=== PATIENT | male | born 1930 | race Caucasian/White ===

== ENCOUNTER 2017-03-03 13:09 | Emergency (ER) | payer MEDICARE ==
[2017-03-03 13:33] VITALS: BP 105/72
--- NOTE | 2017-03-03 14:14 | EDM.PDOC ---
ED HPI GENERAL MEDICAL PROBLEM - General Chief Complaint: Respiratory Problem Stated Complaint: BREATHING PROBLEMS/SPASMS Time Seen by Provider: 03/03/17 13:50 Source of Information: Reports: Patient History Limitations: Reports: No Limitations - History of Present Illness INITIAL COMMENTS - FREE TEXT/NARRATIVE: 86-year-old male, [facility], was recently discharged from the [facility] for congestive heart failure. He is due to be readmitted in one week for a valve replacement and bypass or cardiac stent. He was having difficulties with brief episodes of dyspnea once or twice daily that only lasted 1-2 minutes, was seen in the clinic yesterday for a metered-dose inhaler refill but that doesn't seem to be helping. Today he's having an episode every 15-20 minutes, but it still last only 1-2 minutes. In the ER he is comfortable. Onset: Unknown/Unsure Duration: Minutes: (Symptoms only last 1-2 minutes) Severity: Mild Associated Symptoms: Reports: Shortness of Breath. Denies: Diaphoresis, Malaise , Nausea/Vomiting, Weakness - Related Data Allergies Allergy/AdvReac Type Severity Reaction Status Date / Time No Known Allergies Allergy Verified 03/04/17 13:19 Home Meds: Home Meds Aspirin 81 mg PO DAILY 03/03/17 [History] Doxazosin Mesylate [Cardura] 8 mg PO DAILY 03/03/17 [History] Emollient [Vanicream] 1 appful TOP BID 03/03/17 [History] Furosemide 20 mg PO DAILY 03/03/17 [History] Metoprolol Succinate [Toprol XL] 12.5 mg PO BEDTIME 03/03/17 [History] Oxybutynin 5 mg PO DAILY 03/03/17 [History] Pantoprazole [ProTONIX] 40 mg PO DAILY 03/03/17 [History] Spironolact/Hydrochlorothiazid [Spironolactone-HCTZ 25-25] 1 tab PO DAILY [History] atorvaSTATin [Lipitor] 80 mg PO DAILY 03/03/17 [History] Past Medical History Cardiovascular History: Reports: Bypass, Other (See Below) Other Cardiovascular History: quad bipass Social & Family History - Tobacco Use Smoking Status *Q: Never Smoker - Caffeine Use Caffeine Use: Reports: Coffee, Soda - Recreational Drug Use Recreational Drug Use: No ED ROS GENERAL - Review of Systems Review Of Systems: See Below Constitutional: Reports: Malaise. Denies: Fever, Chills HEENT: Reports: No Symptoms Respiratory: Reports: Shortness of Breath. Denies: Pleuritic Chest Pain Cardiovascular: Denies: Chest Pain, Dyspnea on Exertion, Syncope GI/Abdominal: Reports: Abdominal Pain (Intermittent epigastric and central abdominal discomfort) : Reports: No Symptoms Skin: Reports: Bruising (Scattered light bruising) Neurological: Reports: No Symptoms Psychiatric: Reports: No Symptoms ED EXAM, GENERAL - Physical Exam Exam: See Below Exam Limited By: No Limitations General Appearance: Alert, No Apparent Distress Eye Exam: Bilateral Eye: EOMI Throat/Mouth: Normal Inspection Head: Atraumatic Neck: Normal Inspection Respiratory/Chest: No Respiratory Distress, Decreased Breath Sounds (Right base has decreased breath sounds) Cardiovascular: Regular Rate, Rhythm, Systolic Murmur (2/6). No: Extra Beats GI/Abdominal: Soft, Non-Tender Extremities: Pedal Edema (1+ symmetric pitting edema to the knees) Neurological: Alert, Oriented Psychiatric: Normal Affect, Normal Mood Course - Vital Signs Last Recorded V/S: Last Vital Signs Temp 96.3 F 03/03/17 13:33 Pulse 88 03/03/17 13:33 Resp 18 03/03/17 13:33 BP 105/72 03/03/17 13:33 Pulse Ox 96 03/03/17 13:33 - Orders/Labs/Meds Labs: Laboratory Tests 03/03/17 03/03/17 Range/Units 14:17 14:17 WBC 9.7 (4.5-11.0) K/uL RBC 5.25 (4.30-5.90) M/uL Hgb 13.2 (12.0-15.0) g/dL Hct 39.8 L (40.0-54.0) % MCV 76 L (80-98) fL MCH 25 L (27-31) pg MCHC 33 (32-36) % Plt Count 221 (150-400) K/uL Neut % (Auto) 74 H (36-66) % Lymph % (Auto) 10 L (24-44) % [place] % (Auto) 14 H (2-6) % Eos % (Auto) 2 (2-4) % Baso % (Auto) 1 (0-1) % Sodium 137 L (140-148) mmol/L Potassium 5.2 (3.6-5.2) mmol/L Chloride 102 (100-108) mmol/L Carbon Dioxide 28 (21-32) mmol/L Anion Gap 12.2 (5.0-14.0) mmol/L BUN 40 H (7-18) mg/dL Creatinine 2.5 H (0.8-1.3) mg/dL Est Cr Clr Drug Dosing 20.20 mL/min Estimated GFR (MDRD) 25 L (>60) Glucose 120 H (74-106) mg/dL Calcium 8.8 (8.5-10.1) mg/dL - Re-Assessments/Exams Free Text/Narrative Re-Assessment/Exam: 03/03/17 14:55 A two-view chest x-ray was done which showed a small right pleural effusion and cardiomegaly. This was compared with a chest x-ray from September and was much improved. CBC was normal. Potassium was 5.2, and his renal insufficiency has advanced from his levels in September. GFR was 41, it is now 25. This was explained to the patient and his family, I have no explanation for his intermittent very brief episodes of dyspnea. I do not think any treatment changes need to be done at this time and he can return as needed and will be expected to go down to the [place] next week for his surgeries as planned. Departure - Departure Time of Disposition: 15:09 Disposition: Home, Self-Care 01 Condition: Fair Clinical Impression: Shortness of breath, Peripheral edema Renal failure Qualifiers: Renal failure chronicity: chronic Chronic kidney disease stage: stage 3 ( moderate) Qualified Code(s): N18.3 - Chronic kidney disease, stage 3 (moderate) - Discharge Information Instructions: Shortness of Breath, [id number] Referrals: PCP,None [Primary Care Provider] - Forms: ED Department Discharge Care Plan Goals: Continue your medications but hold any potassium over the weekend. Return anytime if worsening or concerns, otherwise [facility]
--- NOTE | 2017-03-03 14:37 | CR ---
Cardia mentally. Sternotomy. Small pleural effusion right lung base with atelectasis or infiltrate. P ulmonary vasculature upper limits of normal. There is a round radiopaque nodular density which may be within the right lung base. This may indicate calcified granuloma but not definitive. This could be confirmed with CT or comparison films.
== END 2017-03-03 15:09 | disposition home or self-care (01) ==
LOC: JP.ED 13:09
DX: R06.02 Shortness of breath (principal); N18.3 Chronic kidney disease, stage 3 (moderate); I50.9 Heart failure, unspecified; Z79.82 Long term (current) use of aspirin; Z79.899 Other long term (current) drug therapy; Z95.1 Presence of aortocoronary bypass graft
CPT/HCPCS: 36415; 71020; 71020-26; 80048; 85025; 99284; 99285

== ENCOUNTER 2017-03-04 12:56 | Inpatient (IN) | payer MEDICARE ==
--- NOTE | 2017-03-04 13:54 | EDM.PDOC ---
ED HPI GENERAL MEDICAL PROBLEM - General Chief Complaint: Abdominal Pain Stated Complaint: ABD PAIN (WAS HERE YESTERDAY) Time Seen by Provider: 03/04/17 13:54 Source of Information: Reports: Patient, Family History Limitations: Reports: No Limitations - History of Present Illness INITIAL COMMENTS - FREE TEXT/NARRATIVE: pt arrived stating that he has lower abdomanal pain. He also had some sharp pain in th rt abdoman. He was seen here yesterday and was quite sob. He was treated by Dr root and felt better when he left. He then developed the abdomanal pain today and was quite uncomfortable. Onset: Gradual Duration: Day(s): Location: Reports: Chest, Abdomen Associated Symptoms: Reports: Loss of Appetite, Shortness of Breath Abdomen Pain Score (Numeric/FACES): 8 - Related Data Allergies Allergy/AdvReac Type Severity Reaction Status Date / Time No Known Allergies Allergy Verified 03/04/17 13:19 Home Meds: Home Meds Aspirin 81 mg PO DAILY 03/03/17 [History] Doxazosin Mesylate [Cardura] 8 mg PO DAILY 03/03/17 [History] Emollient [Vanicream] 1 appful TOP BID 03/03/17 [History] Furosemide 20 mg PO DAILY 03/03/17 [History] Metoprolol Succinate [Toprol XL] 12.5 mg PO BEDTIME 03/03/17 [History] Oxybutynin 5 mg PO DAILY 03/03/17 [History] Pantoprazole [ProTONIX] 40 mg PO DAILY 03/03/17 [History] Spironolact/Hydrochlorothiazid [Spironolactone-HCTZ 25-25] 1 tab PO DAILY [History] atorvaSTATin [Lipitor] 80 mg PO DAILY 03/03/17 [History] Past Medical History HEENT History: Reports: Impaired Vision Cardiovascular History: Reports: Bypass, Other (See Below) Other Cardiovascular History: quad bipass Respiratory History: Reports: SOB Gastrointestinal History: Reports: GERD Social & Family History - Tobacco Use Smoking Status *Q: Never Smoker - Caffeine Use Caffeine Use: Reports: Coffee - Recreational Drug Use Recreational Drug Use: No ED ROS GENERAL - Review of Systems Review Of Systems: See Below Constitutional: Reports: No Symptoms, Decreased Appetite HEENT: Reports: No Symptoms Respiratory: Reports: Shortness of Breath, Other ( known bilateral pleural effusions. ) Cardiovascular: Reports: No Symptoms Endocrine: Reports: No Symptoms GI/Abdominal: Reports: Abdominal Pain, Other (pt describes pain accross the lower abdoman He also had sharp pain in the rt side. ) : Reports: No Symptoms Musculoskeletal: Reports: Hand Pain Skin: Reports: No Symptoms ED EXAM, GI/ABD - Physical Exam Exam: See Below Text/Narrative:: pt arrived with pain in his lower abdoman. He also had sharp pin in the rt abdoman. Exam Limited By: No Limitations General Appearance: Alert, Anxious, Mild Distress, Other (pt states the severe pain was gone by th time he got here. ) Ears: Normal TMs Nose: Normal Inspection Throat/Mouth: Normal Inspection Head: Atraumatic Neck: Normal Inspection Respiratory/Chest: Decreased Breath Sounds, Other (pt is sob with any activity. ) Cardiovascular: Regular Rate, Rhythm GI/Abdominal Exam: Distended, Other ( tenderness in the lower abdomn. ) (Male) Exam: Deferred Rectal (Males) Exam: Deferred Back Exam: Normal Inspection Extremities: Normal Inspection Neurological: Alert, Oriented, Normal Cognition Psychiatric: Normal Affect Course - Vital Signs Last Recorded V/S: Last Vital Signs Temp 36.3 C 03/07/17 07:25 Pulse 87 03/07/17 07:25 Resp 16 03/07/17 07:25 BP 99/68 03/07/17 08:10 Pulse Ox 92 L 03/07/17 07:25 - Orders/Labs/Meds Orders: Medication Orders Acetaminophen (Tylenol) 650 mg PO Q4H PRN PRN Reason: Pain (Mild 1-3)/fever Albuterol (Proventil Neb Soln) 2.5 mg NEB Q4H PRN PRN Reason: Shortness Of Breath/wheezing Last Admin: 03/04/17 23:54 Dose: 2.5 mg Albuterol/Ipratropium (Duoneb 3.0-0.5 Mg/3 Ml) 3 ml NEB QID PRN PRN Reason: Shortness Of Breath/wheezing Last Admin: 03/04/17 23:33 Dose: 3 ml Aspirin (Aspirin) 81 mg PO DAILY [facility]IP Last Admin: 03/07/17 08:10 Dose: 81 mg Admin: 03/06/17 08:19 Dose: 81 mg Admin: 03/05/17 10:08 Dose: 81 mg Atorvastatin Calcium (Lipitor) 80 mg PO DAILY [facility] Last Admin: 03/07/17 08:11 Dose: 80 mg Admin: 03/06/17 08:21 Dose: 80 mg Admin: 03/05/17 10:09 Dose: 80 mg Bisacodyl (Dulcolax) 5 mg PO DAILY PRN PRN Reason: Constipation Bumetanide (Bumex) 1 mg IVPUSH DAILY [facility] Last Admin: 03/07/17 08:10 Dose: 1 mg Admin: 03/06/17 08:20 Dose: 1 mg Diphenhydramine HCl (Benadryl) 25 mg PO BEDTIME PRN PRN Reason: Sleep Last Admin: 03/04/17 21:49 Dose: 25 mg Docusate Sodium (Colace) 100 mg PO BID PRN PRN Reason: Constipation Doxazosin Mesylate (Cardura) 8 mg PO DAILY [facility] Last Admin: 03/07/17 08:09 Dose: 8 mg Admin: 03/06/17 09:15 Dose: 8 mg Admin: 03/05/17 10:09 Dose: 8 mg Metoprolol Succinate (Toprol Xl) 12.5 mg PO BEDTIME [facility] Last Admin: 03/05/17 22:49 Dose: Admin: 03/04/17 21:53 Dose: 12.5 mg Morphine Sulfate (Morphine) 2 mg IVPUSH Q2H PRN PRN Reason: Pain (severe 7-10) Ondansetron HCl (Zofran Odt) 4 mg PO Q6H PRN PRN Reason: Nausea able to take PO Oxybutynin Chloride (Oxybutynin) 5 mg PO DAILY [facility] Last Admin: 03/07/17 08:10 Dose: 5 mg Admin: 03/06/17 08:22 Dose: 5 mg Admin: 03/05/17 10:08 Dose: 5 mg Oxycodone HCl (Oxycodone) 5 mg PO Q4H PRN PRN Reason: Pain (moderate 4-6) Pantoprazole Sodium (Protonix) 40 mg PO ACBREAKFAST [facility] Last Admin: 03/07/17 08:09 Dose: 40 mg Admin: 03/06/17 08:19 Dose: 40 mg Admin: 03/05/17 10:08 Dose: 40 mg Sodium Chloride (Saline Flush) 10 ml FLUSH ASDIRECTED PRN PRN Reason: Keep Vein Open Spironolactone (Aldactone) 25 mg PO DAILY [facility] Last Admin: 03/07/17 08:10 Dose: 25 mg Admin: 03/06/17 08:19 Dose: 25 mg Admin: 03/05/17 10:08 Dose: 25 mg Zolpidem Tartrate (Ambien) 5 mg PO BEDTIME PRN PRN Reason: Sleep Last Admin: 03/04/17 23:53 Dose: 5 mg Labs: Laboratory Tests 03/04/17 03/04/17 03/04/17 Range/Units 13:50 13:50 13:50 WBC 10.0 (4.5-11.0) K/uL RBC 5.52 (4.30-5.90) M/uL Hgb 13.9 (12.0-15.0) g/dL Hct 41.3 (40.0-54.0) % MCV 75 L (80-98) fL MCH 25 L (27-31) pg MCHC 34 (32-36) % Plt Count 250 (150-400) K/uL Neut % (Auto) 71 H (36-66) % Lymph % (Auto) 14 L (24-44) % [place] % (Auto) 14 H (2-6) % Eos % (Auto) 2 (2-4) % Baso % (Auto) 0 (0-1) % Sodium 137 L (140-148) mmol/L Potassium 5.3 H (3.6-5.2) mmol/L Chloride 102 (100-108) mmol/L Carbon Dioxide 27 (21-32) mmol/L Anion Gap 13.3 (5.0-14.0) mmol/L BUN 45 H (7-18) mg/dL Creatinine 2.6 H (0.8-1.3) mg/dL Est Cr Clr Drug Dosing 19.37 mL/min Estimated GFR (MDRD) 24 L (>60) Glucose 138 H (74-106) mg/dL Lactic Acid 3.8 H (0.4-2.0) mmol/L Calcium 8.9 (8.5-10.1) mg/dL Total Bilirubin 4.7 H (0.2-1.0) mg/dL AST 43 H (15-37) U/L ALT 43 (12-78) U/L Alkaline Phosphatase 131 H (46-116) U/L C-Reactive Protein (0.0-0.3) mg/dL Total Protein 7.4 (6.4-8.2) g/dL Albumin 3.5 (3.4-5.0) g/dL Globulin 3.9 H (2.3-3.5) g/dL Albumin/Globulin Ratio 0.9 L (1.2-2.2) Urine Color Urine Appearance Urine pH (4.5-8.0) Ur Specific [place] (1.008-1.030) Urine Protein (NEGATIVE) mg/dL Urine Glucose (UA) (NEGATIVE) mg/dL Urine Ketones (NEGATIVE) mg/dL Urine Occult Blood (NEGATIVE) Urine Nitrite (NEGAITVE) Urine Bilirubin (NEGATIVE) Urine Urobilinogen (NORMAL) mg/dL Ur Leukocyte Esterase (NEGATIVE) Urine RBC (0-5) Urine WBC (0-5) Ur Epithelial Cells Amorphous Sediment Urine Bacteria Urine Mucus Urine Other 03/04/17 03/04/17 03/05/17 Range/Units 13:50 16:12 04:59 WBC 8.3 (4.5-11.0) K/uL RBC 4.87 (4.30-5.90) M/uL Hgb 12.5 (12.0-15.0) g/dL Hct 36.4 L (40.0-54.0) % MCV 75 L (80-98) fL MCH 26 L (27-31) pg MCHC 34 (32-36) % Plt Count 209 (150-400) K/uL Neut % (Auto) 70 H (36-66) % Lymph % (Auto) 12 L (24-44) % [place] % (Auto) 17 H (2-6) % Eos % (Auto) 1 L (2-4) % Baso % (Auto) 0 (0-1) % Sodium (140-148) mmol/L Potassium (3.6-5.2) mmol/L Chloride (100-108) mmol/L Carbon Dioxide (21-32) mmol/L Anion Gap (5.0-14.0) mmol/L BUN (7-18) mg/dL Creatinine (0.8-1.3) mg/dL Est Cr Clr Drug Dosing mL/min Estimated GFR (MDRD) (>60) Glucose (74-106) mg/dL Lactic Acid (0.4-2.0) mmol/L Calcium (8.5-10.1) mg/dL Total Bilirubin (0.2-1.0) mg/dL AST (15-37) U/L ALT (12-78) U/L Alkaline Phosphatase (46-116) U/L C-Reactive Protein 0.99 H (0.0-0.3) mg/dL Total Protein (6.4-8.2) g/dL Albumin (3.4-5.0) g/dL Globulin (2.3-3.5) g/dL Albumin/Globulin Ratio (1.2-2.2) Urine Color [place] Urine Appearance Clear Urine pH 5.0 (4.5-8.0) Ur Specific [place] 1.025 (1.008-1.030) Urine Protein 30 H (NEGATIVE) mg/dL Urine Glucose (UA) Normal (NEGATIVE) mg/dL Urine Ketones Negative (NEGATIVE) mg/dL Urine Occult Blood Negative (NEGATIVE) Urine Nitrite Negative (NEGAITVE) Urine Bilirubin Small (NEGATIVE) Urine Urobilinogen 1 (NORMAL) mg/dL Ur Leukocyte Esterase Negative (NEGATIVE) Urine RBC 5-10 H (0-5) Urine WBC 0-5 (0-5) Ur Epithelial Cells Rare Amorphous Sediment Not seen Urine Bacteria Few Urine Mucus Many Urine Other 03/05/17 Range/Units 04:59 WBC (4.5-11.0) K/uL RBC (4.30-5.90) M/uL Hgb (12.0-15.0) g/dL Hct (40.0-54.0) % MCV (80-98) fL MCH (27-31) pg MCHC (32-36) % Plt Count (150-400) K/uL Neut % (Auto) (36-66) % Lymph % (Auto) (24-44) % [place] % (Auto) (2-6) % Eos % (Auto) (2-4) % Baso % (Auto) (0-1) % Sodium 140 (140-148) mmol/L Potassium 4.9 (3.6-5.2) mmol/L Chloride 104 (100-108) mmol/L Carbon Dioxide 25 (21-32) mmol/L Anion Gap 11.2 (5.0-14.0) mmol/L BUN 46 H (7-18) mg/dL Creatinine 2.4 H (0.8-1.3) mg/dL Est Cr Clr Drug Dosing 17.67 mL/min Estimated GFR (MDRD) 26 L (>60) Glucose 119 H (74-106) mg/dL Lactic Acid (0.4-2.0) mmol/L Calcium 8.6 (8.5-10.1) mg/dL Total Bilirubin (0.2-1.0) mg/dL AST (15-37) U/L ALT (12-78) U/L Alkaline Phosphatase (46-116) U/L C-Reactive Protein (0.0-0.3) mg/dL Total Protein (6.4-8.2) g/dL Albumin (3.4-5.0) g/dL Globulin (2.3-3.5) g/dL Albumin/Globulin Ratio (1.2-2.2) Urine Color Urine Appearance Urine pH (4.5-8.0) Ur Specific [place] (1.008-1.030) Urine Protein (NEGATIVE) mg/dL Urine Glucose (UA) (NEGATIVE) mg/dL Urine Ketones (NEGATIVE) mg/dL Urine Occult Blood (NEGATIVE) Urine Nitrite (NEGAITVE) Urine Bilirubin (NEGATIVE) Urine Urobilinogen (NORMAL) mg/dL Ur Leukocyte Esterase (NEGATIVE) Urine RBC (0-5) Urine WBC (0-5) Ur Epithelial Cells Amorphous Sediment Urine Bacteria Urine Mucus Urine Other Meds: Medications Generic Name Dose Route Start Last Admin Trade Name Freq PRN Reason Stop Dose Admin Acetaminophen 650 mg 03/04/17 20:53 Tylenol PO Q4H PRN Pain (Mild 1-3)/fever Albuterol 2.5 mg 03/04/17 20:53 03/04/17 23:54 Proventil Neb Soln NEB 2.5 mg Q4H PRN Administration Shortness Of Breath/wheezing Albuterol/Ipratropium 3 ml 03/04/17 20:53 03/04/17 23:33 Duoneb 3.0-0.5 Mg/3 Ml NEB 3 ml QID PRN Administration Shortness Of Breath/wheezing Aspirin 81 mg 03/05/17 09:00 03/07/17 08:10 Aspirin PO 81 mg DAILY [facility]IP Administration Atorvastatin Calcium 80 mg 03/05/17 09:00 03/07/17 08:11 Lipitor PO 80 mg DAILY [facility] Administration Bisacodyl 5 mg 03/04/17 20:53 Dulcolax PO DAILY PRN Constipation Bumetanide 1 mg 03/06/17 09:00 03/07/17 08:10 Bumex IVPUSH 1 mg DAILY [facility] Administration Diphenhydramine HCl 25 mg 03/04/17 20:53 03/04/17 21:49 Benadryl PO 25 mg BEDTIME PRN Administration Sleep Docusate Sodium 100 mg 03/04/17 20:53 Colace PO BID PRN Constipation Doxazosin Mesylate 8 mg 03/05/17 09:00 03/07/17 08:09 Cardura PO 8 mg DAILY [facility] Administration Metoprolol Succinate 12.5 mg 03/04/17 21:00 03/05/17 22:49 Toprol Xl PO Not Given BEDTIME [facility] Morphine Sulfate 2 mg 03/04/17 20:53 Morphine IVPUSH Q2H PRN Pain (severe 7-10) Ondansetron HCl 4 mg 03/04/17 20:53 Zofran Odt PO Q6H PRN Nausea able to take PO Oxybutynin Chloride 5 mg 03/05/17 09:00 03/07/17 08:10 Oxybutynin PO 5 mg DAILY [facility] Administration Oxycodone HCl 5 mg 03/04/17 20:53 Oxycodone PO Q4H PRN Pain (moderate 4-6) Pantoprazole Sodium 40 mg 03/05/17 07:30 03/07/17 08:09 Protonix PO 40 mg ACBREAKFAST [facility] Administration Sodium Chloride 10 ml 03/04/17 20:53 Saline Flush FLUSH ASDIRECTED PRN Keep Vein Open Spironolactone 25 mg 03/05/17 09:00 03/07/17 08:10 Aldactone PO 25 mg DAILY [facility] Administration Zolpidem Tartrate 5 mg 03/04/17 20:53 03/04/17 23:53 Ambien PO 5 mg BEDTIME PRN Administration Sleep Discontinued Medications Generic Name Dose Route Start Last Admin Trade Name Freq PRN Reason Stop Dose Admin Bumetanide 1 mg 03/05/17 10:45 03/05/17 10:33 Bumex IVPUSH 03/05/17 10:46 1 mg ONETIME ONE Administration Bumetanide 1 mg 03/05/17 17:26 03/05/17 19:18 Bumex IVPUSH 03/05/17 17:27 1 mg ONETIME ONE Administration Furosemide 40 mg 03/04/17 20:53 03/04/17 21:48 Lasix IVPUSH 03/04/17 20:54 40 mg NOW ONE Administration Furosemide 20 mg 03/05/17 09:00 03/05/17 21:46 Lasix PO Not Given DAILY [facility] Hydrochlorothiazide 25 mg 03/05/17 09:00 03/05/17 21:46 Hydrochlorothiazide PO Not Given DAILY [facility] Sodium Chloride 1,000 mls @ 150 mls/hr 03/04/17 14:00 03/04/17 14:47 Normal Saline IV 150 mls/hr ASDIRECTED [facility]ILIP Administration Lorazepam 0 mg 03/04/17 20:53 03/05/17 00:02 Ativan IV 03/04/17 20:54 Not Given ONETIME ONE - Re-Assessments/Exams Free Text/Narrative Re-Assessment/Exam: 03/04/17 19:15 pt had a cat scn of the abdoman which showed a large renal stone on the rt. He has a very large amount of acetes. He hs bilateral pleural effusions. Departure - Departure Time of Disposition: 19:16 Disposition: Admitted As Inpatient 67 Clinical Impression: Pleural effusion, bilateral, Coronary artery disease, Renal insufficiency Ascites Qualifiers: Ascites type: other type Qualified Code(s): R18.8 - Other ascites - Discharge Information
[2017-03-04] MEDS ORDERED: Sodium Chloride 0.9% 1,000 ML IV SCH (14:00)
[2017-03-04] MEDS ORDERED: Morphine 2 MG/ML Syringe IVPUSH PRN (20:53)
[2017-03-04] MEDS ORDERED: diphenhydrAMINE 25 MG Cap PO PRN (20:53)
[2017-03-04] MEDS ORDERED: Zolpidem 5 MG Tab PO PRN (20:53)
[2017-03-04] MEDS ORDERED: Acetaminophen 325 MG Tab PO PRN (20:53)
[2017-03-04] MEDS ORDERED: oxyCODONE 5 MG Tab PO PRN (20:53)
[2017-03-04] MEDS ORDERED: Ondansetron 4 MG Tab.DIS PO PRN (20:53)
[2017-03-04] MEDS ORDERED: Albuterol 0.083% 2.5 MG/3 ML Neb Soln NEB PRN (20:53)
[2017-03-04] MEDS ORDERED: Sodium Chloride 0.9% 10 ML Syringe FLUSH PRN (20:53)
[2017-03-04] MEDS ORDERED: Bisacodyl 5 MG Tab PO PRN (20:53)
[2017-03-04] MEDS ORDERED: Docusate Sodium 100 MG Cap PO PRN (20:53)
[2017-03-04] MEDS ORDERED: Furosemide 40 MG/4 ML VIAL IVPUSH ONE (20:53)
[2017-03-04] MEDS ORDERED: Albuterol/Ipratropium 3.0-0.5 MG/3 ML Neb Soln NEB PRN (20:53)
[2017-03-04] MEDS: Metoprolol Succinate 25 MG Tab.ER PO SCH (21:53)
[2017-03-04] MEDS: LORazepam 2 MG/ML MDV IV ONE (21:59)
[2017-03-05] MEDS: LORazepam 2 MG/ML MDV IV ONE (00:02)
--- NOTE | 2017-03-05 01:29 | PCM.HP ---
H&P History of Present Illness - General Date of Service: 03/04/17 Admit Problem/Dx: Admission Diagnosis/Problem Admission Diagnosis/Problem Congestive heart failure Source of Information: Patient, Family (Son,Scout), Provider, RN History Limitations: Reports: No Limitations - History of Present Illness Initial Comments - Free Text/Narative: ED HPI GENERAL MEDICAL PROBLEM - General Chief Complaint: Abdominal Pain Stated Complaint: ABD PAIN (WAS HERE YESTERDAY) Arrived stating that he has lower abdominal pain. He also had some sharp pain in the right abdomen. He was seen here yesterday and was short of breath. He was treated in ER and felt better when he left. He then developed the worsen abdominal pain and shortness of breath today and was quite uncomfortable. Image; CT scan of the abdomen which showed a large renal stone on the right. He has a very large amount of ascitis. Chest show bilateral pleural effusions. Clinical Impression: CHF Ascites, Pleural effusion, bilateral, Coronary artery disease, Renal insufficiency Onset of Symptoms: Reports: Gradual Duration of Symptoms: Reports: Day(s):, Getting Worse, Other (reports shortness of breath for a very long time) Quality: Reports: Other (reports no pain, just shortness of breath) Improves with: Reports: None Worsens with: Reports: None Associated Symptoms: Reports: Nausea/Vomiting, Shortness of Breath Abdomen Pain Score (Numeric/FACES): 8 - Related Data Allergies/Adverse Reactions: Allergies Allergy/AdvReac Type Severity Reaction Status Date / Time No Known Allergies Allergy Verified 03/04/17 13:19 Home Medications: Home Meds Aspirin 81 mg PO DAILY 03/03/17 [History] Doxazosin Mesylate [Cardura] 8 mg PO DAILY 03/03/17 [History] Emollient [Vanicream] 1 appful TOP BID 03/03/17 [History] Furosemide 20 mg PO DAILY 03/03/17 [History] Metoprolol Succinate [Toprol XL] 12.5 mg PO BEDTIME 03/03/17 [History] Oxybutynin 5 mg PO DAILY 03/03/17 [History] Pantoprazole [ProTONIX] 40 mg PO DAILY 03/03/17 [History] Spironolact/Hydrochlorothiazid [Spironolactone-HCTZ 25-25] 1 tab PO DAILY [History] atorvaSTATin [Lipitor] 80 mg PO DAILY 03/03/17 [History] Past Medical History HEENT History: Reports: None, Impaired Vision Cardiovascular History: Reports: Bypass, SOB on Exertion, Other (See Below) Other Cardiovascular History: quad bipass Respiratory History: Reports: SOB Gastrointestinal History: Reports: GERD - Past Surgical History HEENT Surgical History: Reports: None Cardiovascular Surgical History: Reports: Coronary Artery Bypass Other Cardiovascular Surgeries/Procedures: Plan to have stent placment at [facility] on Monday03/10/17 morning Respiratory Surgical History: Reports: None GI Surgical History: Reports: Colonoscopy Social & Family History - Family History Family Medical History: Noncontributory - Tobacco Use Smoking Status *Q: Never Smoker Second Hand Smoke Exposure: No - Caffeine Use Caffeine Use: Reports: Coffee, Soda, Tea Other Caffeine Use: 4-5 cups a day - Recreational Drug Use Recreational Drug Use: No - Living Situation & Occupation Living situation: Reports: with Family Occupation: Retired (lives with Son, Scout in [place], [place].) H&P Review of Systems - Review of Systems: Review Of Systems: See Below General: Reports: Other (patient reports feeling fine now, ready to go home, but agrees to spend the night only. then home) HEENT: Reports: No Symptoms Pulmonary: Reports: Shortness of Breath, Cough Cardiovascular: Reports: No Symptoms Gastrointestinal: Reports: Abdominal Pain, Nausea Genitourinary: Reports: No Symptoms Musculoskeletal: Reports: No Symptoms Skin: Reports: No Symptoms Psychiatric: Reports: No Symptoms Neurological: Reports: No Symptoms Hematologic/Lymphatic: Reports: No Symptoms Immunologic: Reports: No Symptoms Exam - Exam Exam: See Below - Vital Signs Vital Signs: Last Vital Signs Temp 35.5 C 03/04/17 23:31 Pulse 76 03/04/17 23:31 Resp 18 03/04/17 23:31 BP 112/78 03/04/17 23:31 Pulse Ox 94 L 03/04/17 23:31 Weight: 71.894 kg - Exam General: Alert, Oriented, Cooperative (very pleasant 86 year old gentle man) HEENT: PERRLA, Conjunctiva Clear, EACs Clear, EOMI, Hearing Intact, Mucosa Moist & Wheeler, Nares Patent, Normal Nasal Septum Neck: Supple Lungs: Crackles (at bases bilateral) Cardiovascular: Regular Rate, Regular Rhythm GI/Abdominal Exam: Normal Bowel Sounds, Soft, Non-Tender (Male) Exam: Deferred Rectal (Males) Exam: Deferred Back Exam: Normal Inspection, Full Range of Motion, NT Extremities: Normal Inspection, Normal Range of Motion, Non-Tender, No Pedal Edema, Normal Capillary Refill Skin: Warm, Dry, Intact Neurological: Reflexes Equal Bilateral, Normal Speech, Normal Tone Neuro Extensive - Mental Status: Alert, Oriented x3, Normal Mood/Affect, Normal Cognition, Memory Intact Neuro Extensive - Motor, Sensory, Reflexes: Normal Gait Psychiatric: Alert, Normal Affect, Normal Mood - Patient Data Result Diagrams: 03/04/17 13:50 03/04/17 13:50 *Q Meaningful Use (ADM) - VTE *Q VTE Criteria *Q: - Stroke *Q Stroke Criteria *Q: - AMI *Q AMI Criteria *Q: - Problem List (1) Congestive heart failure (CHF) SNOMED Code(s): 47726706 ICD Code: I50.9 - HEART FAILURE, UNSPECIFIED Status: Acute Priority: High Current Visit: Yes Qualifiers: Congestive heart failure type: unspecified congestive heart failure type Congestive heart failure chronicity: acute on chronic Qualified Code(s): I50.9 - Heart failure, unspecified (2) Ascites SNOMED Code(s): 420205368 ICD Code: R18.8 - OTHER ASCITES Status: Acute Priority: High Current Visit: Yes Qualifiers: Ascites type: other type Qualified Code(s): R18.8 - Other ascites (3) Coronary artery disease SNOMED Code(s): 33863675 ICD Code: I25.10 - ATHSCL HEART DISEASE OF [place] CORONARY ARTERY W/O ANG PCTRS Status: Acute Priority: Medium Current Visit: No (4) Renal failure SNOMED Code(s): 52187204 ICD Code: N19 - UNSPECIFIED KIDNEY FAILURE Status: Acute Priority: High Current Visit: Yes Qualifiers: Renal failure chronicity: chronic Chronic kidney disease stage: stage 3 ( moderate) Qualified Code(s): N18.3 - Chronic kidney disease, stage 3 (moderate ) Problem List Initiated/Reviewed/Updated: Yes Orders Last 24hrs: Active Orders 24 hr Category Date Time Status Patient Status [ADT] Routine ADT 03/04/17 20:53 Active Cardiac Monitoring [RC] .As Directed Care 03/04/17 20:53 Active Intake and Output [RC] QSHIFT Care 03/04/17 20:53 Active Notify Provider Vital Signs [RC] ASDIRECTED Care 03/04/17 20:53 Active Oxygen Therapy [RC] PRN Care 03/04/17 20:53 Active RT Aerosol Therapy [RC] ASDIRECTED Care 03/04/17 20:53 Active Up With Assistance [RC] ASDIRECTED Care 03/04/17 20:53 Active VTE/DVT Education [RC] Per Unit Routine Care 03/04/17 20:53 Active Vital Signs [RC] Q4H Care 03/04/17 20:53 Active OT Evaluation and Treatment [CONS] Routine Cons 03/04/17 20:53 Active Nothing per Oral After Midnight Diet [DIET] Diet 03/04/17 Breakfast Active Abdomen Comp [US] Routine Exams 03/05/17 07:10 Ordered BASIC METABOLIC PANEL,BMP [CHEM] AM Lab 03/05/17 05:11 Ordered CBC WITH AUTO DIFF [HEME] AM Lab 03/05/17 05:11 Ordered Acetaminophen [Tylenol] Med 03/04/17 20:53 Active 650 mg PO Q4H PRN Albuterol [Proventil Neb Soln] Med 03/04/17 20:53 Active 2.5 mg NEB Q4H PRN Albuterol/Ipratropium [DuoNeb 3.0-0.5 MG/3 ML] Med 03/04/17 20:53 Active 3 ml NEB QID PRN Aspirin Med 03/05/17 09:00 Active 81 mg PO DAILY Bisacodyl [Dulcolax] Med 03/04/17 20:53 Active 5 mg PO DAILY PRN Docusate Sodium [Colace] Med 03/04/17 20:53 Active 100 mg PO BID PRN Doxazosin [Cardura] Med 03/05/17 09:00 Active 8 mg PO DAILY Furosemide [Lasix] Med 03/05/17 09:00 Active 20 mg PO DAILY Hydrochlorothiazide Med 03/05/17 09:00 Active 25 mg PO DAILY Metoprolol Succinate [Toprol XL] Med 03/04/17 21:00 Active 12.5 mg PO BEDTIME Morphine Med 03/04/17 20:53 Active 2 mg IVPUSH Q2H PRN Ondansetron [Zofran ODT] Med 03/04/17 20:53 Active 4 mg PO Q6H PRN Oxybutynin Med 03/05/17 09:00 Active 5 mg PO DAILY Pantoprazole [ProTONIX] Med 03/05/17 07:30 Active 40 mg PO ACBREAKFAST Sodium Chloride 0.9% [Saline Flush] Med 03/04/17 20:53 Active 10 ml FLUSH ASDIRECTED PRN Spironolactone [Aldactone] Med 03/05/17 09:00 Active 25 mg PO DAILY Zolpidem [Ambien] Med 03/04/17 20:53 Active 5 mg PO BEDTIME PRN atorvaSTATin [Lipitor] Med 03/04/17 20:53 Pending 80 mg PO DAILY diphenhydrAMINE [Benadryl] Med 03/04/17 20:53 Active 25 mg PO BEDTIME PRN oxyCODONE Med 03/04/17 20:53 Active 5 mg PO Q4H PRN Antiembolic Hose [OM.PC] Per Unit Routine Oth 03/04/17 20:53 Ordered Saline Lock Insert [OM.PC] Routine Oth 03/04/17 20:53 Ordered Resuscitation Status Routine Resus Stat 03/04/17 19:46 Ordered Medication Orders Acetaminophen (Tylenol) 650 mg PO Q4H PRN PRN Reason: Pain (Mild 1-3)/fever Albuterol (Proventil Neb Soln) 2.5 mg NEB Q4H PRN PRN Reason: Shortness Of Breath/wheezing Last Admin: 03/04/17 23:54 Dose: 2.5 mg Albuterol/Ipratropium (Duoneb 3.0-0.5 Mg/3 Ml) 3 ml NEB QID PRN PRN Reason: Shortness Of Breath/wheezing Last Admin: 03/04/17 23:33 Dose: 3 ml Aspirin (Aspirin) 81 mg PO DAILY PHILIP Bisacodyl (Dulcolax) 5 mg PO DAILY PRN PRN Reason: Constipation Diphenhydramine HCl (Benadryl) 25 mg PO BEDTIME PRN PRN Reason: Sleep Last Admin: 03/04/17 21:49 Dose: 25 mg Docusate Sodium (Colace) 100 mg PO BID PRN PRN Reason: Constipation Doxazosin Mesylate (Cardura) 8 mg PO DAILY PHILIP Furosemide (Lasix) 20 mg PO DAILY PHILIP Hydrochlorothiazide (Hydrochlorothiazide) 25 mg PO DAILY [facility] Metoprolol Succinate (Toprol Xl) 12.5 mg PO BEDTIME PHILIP Last Admin: 03/04/17 21:53 Dose: 12.5 mg Morphine Sulfate (Morphine) 2 mg IVPUSH Q2H PRN PRN Reason: Pain (severe 7-10) Non-Formulary Medication (Atorvastatin [Lipitor]) 80 mg PO DAILY [facility] Ondansetron HCl (Zofran Odt) 4 mg PO Q6H PRN PRN Reason: Nausea able to take PO Oxybutynin Chloride (Oxybutynin) 5 mg PO DAILY PHILIP Oxycodone HCl (Oxycodone) 5 mg PO Q4H PRN PRN Reason: Pain (moderate 4-6) Pantoprazole Sodium (Protonix) 40 mg PO ACBREAKFAST [facility] Sodium Chloride (Saline Flush) 10 ml FLUSH ASDIRECTED PRN PRN Reason: Keep Vein Open Spironolactone (Aldactone) 25 mg PO DAILY [facility] Zolpidem Tartrate (Ambien) 5 mg PO BEDTIME PRN PRN Reason: Sleep Last Admin: 03/04/17 23:53 Dose: 5 mg Assessment/Plan Comment:: ASSESSMENT / PLAN -This is a 86 year old male present to ER with complaints of shortness of breath , that has been going on for a long time, came into ER today because of worsen shortness of breath and abdominal pain. Arrived stating that he has lower abdominal pain. He also had some sharp pain in the right abdomen. He was seen here yesterday and was short of breath. He was treated in ER and felt better when he left. He then developed the worsen abdominal pain and shortness of breath today and was quite uncomfortable. Image; CT scan of the abdomen which showed a large renal stone on the right. He has a very large amount of ascitis. Chest show bilateral pleural effusions. Clinical Impression: CHF Ascites, Pleural effusion, bilateral, Coronary artery disease, Renal insufficiency Plan -Admit to [address] [place] [address] for further monitoring Congestive heart Failure -Lasix 40 mg iv given once -Telemetry -Oxygen per nasal cannula to keep greater than 92% -saline lock for IV access. -Advise to notify nurses of any chest pain or other symptoms -Order for a Abdominal ultrasound in a.m. -And a.m. labs: CBC, BMP. Coronary Artery Disease -scheduled for coronary stent and valve replacement surgery on at [facility] Renal Insuffciency -hold IV fluids -continue medication -recheck labs in am. Ascitis, intermittent abdominal pain -ultrasound of abdomen complete schedule for 7 am Maintenance issues -Orders home meds: order -Nutrition: Regular diet, will be NPO after midnight for ultrasound in am. -Poe catheter not indicated at this time -DVT: scd -GI Prophalaxis; Protonix 40mg daily -referral to OT for discharge plannig CODE STATUS: Full Admission status: Admit to Observation -I expect this patient to stay less than 24 hours, not to exceed 96 hours for evaluation and management of this problem. Disposition; home with Son Scout. Primary care provider: [facility]. Hospitalist: Dr. Jhon Carvalho
[2017-03-05] MEDS ORDERED: Hydrochlorothiazide 25 MG Tab PO SCH (09:00)
[2017-03-05] MEDS ORDERED: Furosemide 20 MG Tab PO SCH (09:00)
[2017-03-05] MEDS: Aspirin 81 MG Tab.Chew PO SCH (10:08)
[2017-03-05] MEDS: Spironolactone 25 MG Tab PO SCH (10:08)
[2017-03-05] MEDS: Pantoprazole 40 MG Tab.CR PO SCH (10:08)
[2017-03-05] MEDS: Oxybutynin 5 MG Tab PO SCH (10:08)
[2017-03-05] MEDS: Doxazosin 4 MG Tab PO SCH (10:09)
[2017-03-05] MEDS: atorvaSTATin 20 MG Tab PO SCH (10:09)
--- NOTE | 2017-03-05 10:11 | PCM.PN ---
- General Info Date of Service: 03/05/17 Functional Status: Reports: Pain Controlled, Tolerating Diet, Ambulating - Review of Systems General: Reports: Weakness Pulmonary: Reports: Shortness of Breath Gastrointestinal: Reports: Abdominal Pain Systems Review Comment:: No acute events overnight. Doesn't feel much better since the time of admission. He has been on supplemental oxygen overnight. Feels comfortable resting but short of breath with activity. One pressures have been stable. He has not had any fevers. No abdominal pain. Abdominal ultrasound showed ascites but no gallstones or intrarenal stones. - Patient Data Vitals - Most Recent: Last Vital Signs Temp 35.6 C 03/05/17 07:00 Pulse 82 03/05/17 07:00 Resp 20 03/05/17 07:00 BP 104/80 03/05/17 07:00 Pulse Ox 95 03/05/17 07:00 Weight - Most Recent: 75.75 kg Med Orders - Current: Current Medications Acetaminophen (Tylenol) 650 mg PO Q4H PRN PRN Reason: Pain (Mild 1-3)/fever Albuterol (Proventil Neb Soln) 2.5 mg NEB Q4H PRN PRN Reason: Shortness Of Breath/wheezing Last Admin: 03/04/17 23:54 Dose: 2.5 mg Albuterol/Ipratropium (Duoneb 3.0-0.5 Mg/3 Ml) 3 ml NEB QID PRN PRN Reason: Shortness Of Breath/wheezing Last Admin: 03/04/17 23:33 Dose: 3 ml Aspirin (Aspirin) 81 mg PO DAILY [facility] Atorvastatin Calcium (Lipitor) 80 mg PO DAILY [facility] Bisacodyl (Dulcolax) 5 mg PO DAILY PRN PRN Reason: Constipation Bumetanide (Bumex) 1 mg IVPUSH ONETIME ONE Stop: 03/05/17 10:03 Diphenhydramine HCl (Benadryl) 25 mg PO BEDTIME PRN PRN Reason: Sleep Last Admin: 03/04/17 21:49 Dose: 25 mg Docusate Sodium (Colace) 100 mg PO BID PRN PRN Reason: Constipation Doxazosin Mesylate (Cardura) 8 mg PO DAILY [facility] Metoprolol Succinate (Toprol Xl) 12.5 mg PO BEDTIME PHILIP Last Admin: 03/04/17 21:53 Dose: 12.5 mg Morphine Sulfate (Morphine) 2 mg IVPUSH Q2H PRN PRN Reason: Pain (severe 7-10) Ondansetron HCl (Zofran Odt) 4 mg PO Q6H PRN PRN Reason: Nausea able to take PO Oxybutynin Chloride (Oxybutynin) 5 mg PO DAILY [facility] Oxycodone HCl (Oxycodone) 5 mg PO Q4H PRN PRN Reason: Pain (moderate 4-6) Pantoprazole Sodium (Protonix) 40 mg PO ACBREAKFAST [facility] Sodium Chloride (Saline Flush) 10 ml FLUSH ASDIRECTED PRN PRN Reason: Keep Vein Open Spironolactone (Aldactone) 25 mg PO DAILY PHILIP Zolpidem Tartrate (Ambien) 5 mg PO BEDTIME PRN PRN Reason: Sleep Last Admin: 03/04/17 23:53 Dose: 5 mg Discontinued Medications Furosemide (Lasix) 40 mg IVPUSH NOW ONE Stop: 03/04/17 20:54 Last Admin: 03/04/17 21:48 Dose: 40 mg Furosemide (Lasix) 20 mg PO DAILY PHILIP Hydrochlorothiazide (Hydrochlorothiazide) 25 mg PO DAILY [facility] Sodium Chloride (Normal Saline) 1,000 mls @ 150 mls/hr IV ASDIRECTED PHILIP Last Admin: 03/04/17 14:47 Dose: 150 mls/hr Lorazepam (Ativan) 0 mg IV ONETIME ONE Stop: 03/04/17 20:54 Last Admin: 03/05/17 00:02 Dose: Not Given - Exam Quality Assessment: Supplemental Oxygen General: Alert, Cooperative, No Acute Distress. No: Oriented HEENT: Pupils Equal. No: Scleral Icterus Neck: Supple, Trachea Midline, JVD Lungs: Decreased Breath Sounds (both bases), Rales (both bases). No: Wheezing Cardiovascular: Regular Rate, Regular Rhythm, Murmurs GI/Abdominal Exam: Soft, Distended, Tender Extremities: Pedal Edema (mild bilateral pedal edema). No: Increased Warmth Peripheral Pulses: 1+: Dorsalis Pedis (L), Dorsalis Pedis (R) Skin: Warm, Dry Psy/Mental Status: Alert, Normal Affect - Problem List Review Problem List Initiated/Reviewed/Updated: Yes - My Orders Last 24 Hours: My Active Orders 03/05/17 09:47 Admission Status [Patient Status] [ADT] Routine 03/05/17 10:02 Bumetanide [Bumex] 1 mg IVPUSH ONETIME ONE 03/05/17 Lunch 2 Gram Sodium Diet [DIET] 03/06/17 05:00 BASIC METABOLIC PANEL,BMP [CHEM] Timed MAGNESIUM [CHEM] Timed - Plan Plan:: ASSESSMENT / PLAN Congestive heart Failure - recent admission at the [facility] revealed ejection fraction of approximately 20% with global hypokinesis. He has moderate aortic stenosis and TAVR is planned for Monday. He has evidence for volume overload including JVD, pleural effusions, ascites and mild edema. -bumetanide IV x1 and reassess -Telemetry -Oxygen per nasal cannula to keep greater than 92% -saline lock fluids Coronary Artery Disease - coronary artery bypass in 1996. Angiogram planned for later in the week at the time of his valve replacement. -scheduled for coronary stent and valve replacement surgery on at [facility] Acute on chronic renal failure - baseline creatinine of about 1.8 and creatinine is elevated at 2.6 today which is slightly better than yesterday. -hold IV fluids -Diuresis as above -continue medication -recheck labs in am. Ascites, intermittent abdominal pain - no evidence for infection. Probably secondary to congestive heart failure. -Diuresis as above Maintenance issues -Nutrition: heart healthy diet -Poe catheter not indicated at this time -DVT: scd -GI Prophalaxis; Protonix 40mg daily -referral to OT for discharge plannig CODE STATUS: Full Admission status: admitted to Obs but pt has acute on chronic CHF and acute on chronic renal failure withy hypoxic resp failure. Disposition; home with Son Scout, has [facility] follow-up on Monday. Primary care provider: [facility]. Jhon Carvalho MD
[2017-03-05] MEDS ORDERED: Bumetanide 1 MG/4 ML MDV IVPUSH ONE ×2 (10:45→17:26)
[2017-03-05] MEDS: Metoprolol Succinate 25 MG Tab.ER PO SCH (22:49)
[2017-03-06] MEDS: Pantoprazole 40 MG Tab.CR PO SCH (08:19)
[2017-03-06] MEDS: Aspirin 81 MG Tab.Chew PO SCH (08:19)
[2017-03-06] MEDS: Spironolactone 25 MG Tab PO SCH (08:19)
[2017-03-06] MEDS: Bumetanide 1 MG/4 ML MDV IVPUSH SCH (08:20)
[2017-03-06] MEDS: atorvaSTATin 20 MG Tab PO SCH (08:21)
[2017-03-06] MEDS: Oxybutynin 5 MG Tab PO SCH (08:22)
--- NOTE | 2017-03-06 09:03 | CR ---
Abdomen Series w Chest 1V INDICATION: pain in lower abdomen. FINDINGS: Sternotomy. Cardiac enlargement. Small right and tiny left pleural effusions. Esophageal hi atal hernia. Mild bibasilar infiltrate or atelectasis. Nonspecific bowel gas pattern. No evidence for small bowel obstruction or free air. Thoracolumbar curve.
[2017-03-06] MEDS: Doxazosin 4 MG Tab PO SCH (09:15)
--- NOTE | 2017-03-06 10:09 | US ---
Abdomen Ltd rt sided abd pain FINDINGS: Normal hepatic echotexture. No intra- or extrahepatic bile duct dilatation. The gallbladder demonstrates a 3 mm polyp versus sludge ball. Negative sonographic Pierce sign. The gallbladder wall is thickened measuring 6 mm. Aorta is normal where visualized. IVC is not well seen. Pancreas is nor mal where seen. Survey views of the right kidney are negative for hydronephrosis. Questionable 2 mm s tone in the superior pole of the right kidney. Ascites throughout the abdomen. IMPRESSION: 1. Tiny polyp or sludge ball within the gallbladder. Gallbladder wall thickening. Negative sonographi c Pierce sign. Given the moderate amount of ascites, gallbladder wall thickening could be due to hypo albuminemia; clinically correlate. 2. Questionable 2 mm stone in the superior pole of the right kidney.
--- NOTE | 2017-03-06 12:54 | PCM.PN ---
- General Info Date of Service: 03/06/17 Functional Status: Reports: Tolerating Diet, Urinating - Review of Systems General: Reports: Weakness. Denies: Fever, Chills Pulmonary: Reports: Shortness of Breath. Denies: Cough, Sputum, Hemoptysis, Wheezing Cardiovascular: Reports: Dyspnea on Exertion. Denies: Chest Pain, Palpitations , Orthopnea, PND, Edema Gastrointestinal: Reports: No Symptoms Systems Review Comment:: This patient has improved since admission, reports marked improvement in shortness of breath as well as peripheral edema. Vital signs overall have been stable and he is experienced a good diuresis thus far. No fever or other evidence of underlying infection. - Patient Data Vitals - Most Recent: Last Vital Signs Temp 96.9 F 03/06/17 11:00 Pulse 85 03/06/17 11:00 Resp 18 03/06/17 11:00 BP 98/70 03/06/17 11:00 Pulse Ox 96 03/06/17 11:00 Weight - Most Recent: 163 lb 15.995 oz I&O - Last 24 Hours: Intake & Output 03/05/17 03/06/17 03/06/17 22:59 06:59 14:59 Intake Total 240 240 360 Output Total 1500 750 350 Balance -1260 -510 10 Lab Results Last 24 Hours: Laboratory Results - last 24 hr 03/06/17 Range/Units 05:38 Sodium 140 (140-148) mmol/L Potassium 4.1 (3.6-5.2) mmol/L Chloride 104 (100-108) mmol/L Carbon Dioxide 30 (21-32) mmol/L Anion Gap 6.5 (5.0-14.0) mmol/L BUN 42 H (7-18) mg/dL Creatinine 2.3 H (0.8-1.3) mg/dL Est Cr Clr Drug Dosing 18.44 mL/min Estimated GFR (MDRD) 27 L (>60) Glucose 125 H (74-106) mg/dL Calcium 8.0 L (8.5-10.1) mg/dL Magnesium 2.3 (1.8-2.4) mg/dL Med Orders - Current: Current Medications Acetaminophen (Tylenol) 650 mg PO Q4H PRN PRN Reason: Pain (Mild 1-3)/fever Albuterol (Proventil Neb Soln) 2.5 mg NEB Q4H PRN PRN Reason: Shortness Of Breath/wheezing Last Admin: 03/04/17 23:54 Dose: 2.5 mg Albuterol/Ipratropium (Duoneb 3.0-0.5 Mg/3 Ml) 3 ml NEB QID PRN PRN Reason: Shortness Of Breath/wheezing Last Admin: 03/04/17 23:33 Dose: 3 ml Aspirin (Aspirin) 81 mg PO DAILY [facility] Last Admin: 03/06/17 08:19 Dose: 81 mg Atorvastatin Calcium (Lipitor) 80 mg PO DAILY [facility] Last Admin: 03/06/17 08:21 Dose: 80 mg Bisacodyl (Dulcolax) 5 mg PO DAILY PRN PRN Reason: Constipation Bumetanide (Bumex) 1 mg IVPUSH DAILY [facility] Last Admin: 03/06/17 08:20 Dose: 1 mg Diphenhydramine HCl (Benadryl) 25 mg PO BEDTIME PRN PRN Reason: Sleep Last Admin: 03/04/17 21:49 Dose: 25 mg Docusate Sodium (Colace) 100 mg PO BID PRN PRN Reason: Constipation Doxazosin Mesylate (Cardura) 8 mg PO DAILY [facility] Last Admin: 03/06/17 09:15 Dose: 8 mg Metoprolol Succinate (Toprol Xl) 12.5 mg PO BEDTIME [facility] Last Admin: 03/05/17 22:49 Dose: Not Given Morphine Sulfate (Morphine) 2 mg IVPUSH Q2H PRN PRN Reason: Pain (severe 7-10) Ondansetron HCl (Zofran Odt) 4 mg PO Q6H PRN PRN Reason: Nausea able to take PO Oxybutynin Chloride (Oxybutynin) 5 mg PO DAILY [facility] Last Admin: 03/06/17 08:22 Dose: 5 mg Oxycodone HCl (Oxycodone) 5 mg PO Q4H PRN PRN Reason: Pain (moderate 4-6) Pantoprazole Sodium (Protonix) 40 mg PO ACBREAKFAST [facility] Last Admin: 03/06/17 08:19 Dose: 40 mg Sodium Chloride (Saline Flush) 10 ml FLUSH ASDIRECTED PRN PRN Reason: Keep Vein Open Spironolactone (Aldactone) 25 mg PO DAILY [facility] Last Admin: 03/06/17 08:19 Dose: 25 mg Zolpidem Tartrate (Ambien) 5 mg PO BEDTIME PRN PRN Reason: Sleep Last Admin: 03/04/17 23:53 Dose: 5 mg Discontinued Medications Bumetanide (Bumex) 1 mg IVPUSH ONETIME ONE Stop: 03/05/17 10:46 Last Admin: 03/05/17 10:33 Dose: 1 mg Bumetanide (Bumex) 1 mg IVPUSH ONETIME ONE Stop: 03/05/17 17:27 Last Admin: 03/05/17 19:18 Dose: 1 mg Furosemide (Lasix) 40 mg IVPUSH NOW ONE Stop: 03/04/17 20:54 Last Admin: 03/04/17 21:48 Dose: 40 mg Furosemide (Lasix) 20 mg PO DAILY [facility] Last Admin: 03/05/17 21:46 Dose: Not Given Hydrochlorothiazide (Hydrochlorothiazide) 25 mg PO DAILY [facility] Last Admin: 03/05/17 21:46 Dose: Not Given Sodium Chloride (Normal Saline) 1,000 mls @ 150 mls/hr IV ASDIRECTED [facility] Last Admin: 03/04/17 14:47 Dose: 150 mls/hr Lorazepam (Ativan) 0 mg IV ONETIME ONE Stop: 03/04/17 20:54 Last Admin: 03/05/17 00:02 Dose: Not Given - Exam General: Alert, Oriented, Cooperative, No Acute Distress Lungs: Normal Respiratory Effort, Rales. No: Crackles, Wheezing Cardiovascular: Regular Rate, Regular Rhythm, Murmurs. No: Irregular Rhythm, Bradycardia GI/Abdominal Exam: Normal Bowel Sounds, Soft, Non-Tender, No Distention Extremities: Non-Tender, No Pedal Edema Skin: Warm, Dry, Intact - Problem List Review Problem List Initiated/Reviewed/Updated: Yes - My Orders Last 24 Hours: My Active Orders 03/07/17 05:00 BASIC METABOLIC PANEL,BMP [CHEM] Timed - Plan Plan:: ASSESSMENT / PLAN Congestive heart Failure - recent admission at the [facility] revealed ejection fraction of approximately 20% with global hypokinesis. He has moderate aortic stenosis and TAVR is planned for Monday. Significant improvement in respiratory status and peripheral edema since admission with current management. -bumetanide IV daily -Telemetry -Oxygen per nasal cannula to keep greater than 92% -saline lock fluids Coronary Artery Disease - coronary artery bypass in 1996. Angiogram planned for later in the week at the time of his valve replacement. -scheduled for coronary stent and valve replacement surgery on at [facility] Acute on chronic renal failure - baseline creatinine of about 1.8, creatinine has improved to 2.3 with current management -hold IV fluids -Diuresis as above -continue medication -recheck labs in am. Ascites, intermittent abdominal pain - no evidence for infection. Probably secondary to congestive heart failure. -Diuresis as above Maintenance issues -Nutrition: heart healthy diet -Poe catheter not indicated at this time -DVT: scd -GI Prophalaxis; Protonix 40mg daily -referral to OT for discharge plannig CODE STATUS: Full Admission status: admitted to Obs but pt has acute on chronic CHF and acute on chronic renal failure withy hypoxic resp failure. Disposition; home with Son Scout, has [facility] follow-up on Monday. Primary care provider: [facility].
[2017-03-07] MEDS: Doxazosin 4 MG Tab PO SCH (08:09)
[2017-03-07] MEDS: Pantoprazole 40 MG Tab.CR PO SCH (08:09)
[2017-03-07] MEDS: Aspirin 81 MG Tab.Chew PO SCH (08:10)
[2017-03-07] MEDS: Oxybutynin 5 MG Tab PO SCH (08:10)
[2017-03-07] MEDS: Bumetanide 1 MG/4 ML MDV IVPUSH SCH (08:10)
[2017-03-07] MEDS: Spironolactone 25 MG Tab PO SCH (08:10)
[2017-03-07] MEDS: atorvaSTATin 20 MG Tab PO SCH (08:11)
--- NOTE | 2017-03-07 14:11 | PCM.DCSUM1 ---
Discharge Summary - Hospital Course Brief History: Mr. Chaves is an 86-year-old gentleman who was admitted through the emergency department with shortness of breath secondary to congestive heart failure and pulmonary edema. - Discharge Data Discharge Date: 03/07/17 Discharge Disposition: Home, Self-Care 01 Condition: Fair - Discharge Diagnosis/Problem(s) (1) Aortic stenosis SNOMED Code(s): 48160938 ICD Code: I35.0 - NONRHEUMATIC AORTIC (VALVE) STENOSIS Status: Acute Current Visit: Yes (2) Congestive heart failure (CHF) SNOMED Code(s): 11050300 ICD Code: I50.9 - HEART FAILURE, UNSPECIFIED Status: Acute Priority: High Current Visit: Yes Qualifiers: Congestive heart failure type: unspecified congestive heart failure type Congestive heart failure chronicity: acute on chronic Qualified Code(s): I50.9 - Heart failure, unspecified (3) Peripheral edema SNOMED Code(s): 067333019 ICD Code: R60.9 - EDEMA, UNSPECIFIED Status: Acute Current Visit: No (4) CKD (chronic kidney disease) stage 3, GFR 30-59 ml/min SNOMED Code(s): 256385079 ICD Code: N18.3 - CHRONIC KIDNEY DISEASE, STAGE 3 (MODERATE) Status: Acute Current Visit: Yes - Patient Summary/Data Hospital Course: Mr. Chaves is a 86 year old gentleman with a known history of congestive heart failure and aortic stenosis. He is in the process of being evaluated through the [facility] system in [place] for possible valve replacement. He developed increased peripheral edema associated with shortness of breath and presented to the emergency department for further evaluation. He was found to be hypoxic and given supplemental oxygen. Chest x-ray showed evidence of pulmonary edema and he was given IV Bumex with good results. Over the course of his hospital stay received additional doses of IV Bumex and had a good diuresis with marked improvement in his peripheral edema as well as shortness of breath. His most recent echocardiogram shows an ejection fraction of approximately 20% and at least moderate aortic stenosis. Follow-up appointment is pending at the NH in 3 days for an angiogram to further evaluate his cardiac status. His renal function was significantly compromised on admission with a creatinine of 2.6 up from his baseline in the range of 1.6-1.8. By the time of discharge his creatinine did improve to 2.0 with a GFR of 32. Prior to discharge she was able to get off of supplemental oxygen and will be discharged home on room air. His dose of furosemide will be increased from 20 mg daily to 40 mg daily and the importance of a low-sodium diet was stressed to him as well. Activity will be as tolerated and he will be on a 2 g sodium diet. Follow-up is scheduled already through the [facility] in 3 days as noted above. - Patient Instructions Diet: Heart Healthy Diet, Low Sodium Activity: As Tolerated - Discharge Plan Prescriptions/Med Rec: Furosemide 40 mg PO DAILY #30 tablet Home Medications: Home Meds Aspirin 81 mg PO DAILY 03/03/17 [History] Doxazosin Mesylate [Cardura] 8 mg PO DAILY 03/03/17 [History] Emollient [Vanicream] 1 appful TOP BID 03/03/17 [History] Metoprolol Succinate [Toprol XL] 12.5 mg PO BEDTIME 03/03/17 [History] Oxybutynin 5 mg PO DAILY 03/03/17 [History] Pantoprazole [ProTONIX] 40 mg PO DAILY 03/03/17 [History] Spironolact/Hydrochlorothiazid [Spironolactone-HCTZ 25-25] 1 tab PO DAILY [History] atorvaSTATin [Lipitor] 80 mg PO DAILY 03/03/17 [History] Furosemide 40 mg PO DAILY #30 tablet 03/07/17 [Rx] Forms: ED Department Discharge Referrals: PCP,None [Primary Care Provider] - - Patient Data Vitals - Most Recent: Last Vital Signs Temp 96.9 F 03/07/17 12:48 Pulse 83 03/07/17 12:48 Resp 20 03/07/17 12:48 BP 91/62 03/07/17 12:48 Pulse Ox 91 L 03/07/17 12:48 Weight - Most Recent: 158 lb I&O - Last 24 hours: Intake & Output 03/06/17 03/07/17 03/07/17 22:59 06:59 14:59 Intake Total 760 354 Output Total 210 347 8842 Balance -723 -200 -124 Lab Results - Last 24 hrs: Laboratory Results - last 24 hr 03/07/17 Range/Units 04:50 Sodium 135 L (140-148) mmol/L Potassium 3.6 (3.6-5.2) mmol/L Chloride 99 L (100-108) mmol/L Carbon Dioxide 29 (21-32) mmol/L Anion Gap 10.6 (5.0-14.0) mmol/L BUN 34 H (7-18) mg/dL Creatinine 2.0 H (0.8-1.3) mg/dL Est Cr Clr Drug Dosing 25.69 mL/min Estimated GFR (MDRD) 32 L (>60) Glucose 136 H (74-106) mg/dL Calcium 8.0 L (8.5-10.1) mg/dL Med Orders - Current: Current Medications Acetaminophen (Tylenol) 650 mg PO Q4H PRN PRN Reason: Pain (Mild 1-3)/fever Albuterol (Proventil Neb Soln) 2.5 mg NEB Q4H PRN PRN Reason: Shortness Of Breath/wheezing Last Admin: 03/04/17 23:54 Dose: 2.5 mg Albuterol/Ipratropium (Duoneb 3.0-0.5 Mg/3 Ml) 3 ml NEB QID PRN PRN Reason: Shortness Of Breath/wheezing Last Admin: 03/04/17 23:33 Dose: 3 ml Aspirin (Aspirin) 81 mg PO DAILY [facility] Last Admin: 03/07/17 08:10 Dose: 81 mg Atorvastatin Calcium (Lipitor) 80 mg PO DAILY [facility] Last Admin: 03/07/17 08:11 Dose: 80 mg Bisacodyl (Dulcolax) 5 mg PO DAILY PRN PRN Reason: Constipation Bumetanide (Bumex) 1 mg IVPUSH DAILY [facility] Last Admin: 03/07/17 08:10 Dose: 1 mg Diphenhydramine HCl (Benadryl) 25 mg PO BEDTIME PRN PRN Reason: Sleep Last Admin: 03/04/17 21:49 Dose: 25 mg Docusate Sodium (Colace) 100 mg PO BID PRN PRN Reason: Constipation Doxazosin Mesylate (Cardura) 8 mg PO DAILY [facility] Last Admin: 03/07/17 08:09 Dose: 8 mg Metoprolol Succinate (Toprol Xl) 12.5 mg PO BEDTIME [facility] Last Admin: 03/05/17 22:49 Dose: Not Given Morphine Sulfate (Morphine) 2 mg IVPUSH Q2H PRN PRN Reason: Pain (severe 7-10) Ondansetron HCl (Zofran Odt) 4 mg PO Q6H PRN PRN Reason: Nausea able to take PO Oxybutynin Chloride (Oxybutynin) 5 mg PO DAILY [facility] Last Admin: 03/07/17 08:10 Dose: 5 mg Oxycodone HCl (Oxycodone) 5 mg PO Q4H PRN PRN Reason: Pain (moderate 4-6) Pantoprazole Sodium (Protonix) 40 mg PO ACBREAKFAST [facility] Last Admin: 03/07/17 08:09 Dose: 40 mg Sodium Chloride (Saline Flush) 10 ml FLUSH ASDIRECTED PRN PRN Reason: Keep Vein Open Spironolactone (Aldactone) 25 mg PO DAILY [facility] Last Admin: 03/07/17 08:10 Dose: 25 mg Zolpidem Tartrate (Ambien) 5 mg PO BEDTIME PRN PRN Reason: Sleep Last Admin: 03/04/17 23:53 Dose: 5 mg Discontinued Medications Bumetanide (Bumex) 1 mg IVPUSH ONETIME ONE Stop: 03/05/17 10:46 Last Admin: 03/05/17 10:33 Dose: 1 mg Bumetanide (Bumex) 1 mg IVPUSH ONETIME ONE Stop: 03/05/17 17:27 Last Admin: 03/05/17 19:18 Dose: 1 mg Furosemide (Lasix) 40 mg IVPUSH NOW ONE Stop: 03/04/17 20:54 Last Admin: 03/04/17 21:48 Dose: 40 mg Furosemide (Lasix) 20 mg PO DAILY [facility] Last Admin: 03/05/17 21:46 Dose: Not Given Hydrochlorothiazide (Hydrochlorothiazide) 25 mg PO DAILY [facility] Last Admin: 03/05/17 21:46 Dose: Not Given Sodium Chloride (Normal Saline) 1,000 mls @ 150 mls/hr IV ASDIRECTED [facility] Last Admin: 03/04/17 14:47 Dose: 150 mls/hr Lorazepam (Ativan) 0 mg IV ONETIME ONE Stop: 03/04/17 20:54 Last Admin: 03/05/17 00:02 Dose: Not Given *Q Meaningful Use (DIS) - VTE *Q VTE Criteria *Q: - Stroke *Q Stroke Criteria *Q: - AMI *Q AMI Criteria *Q:
[2017-03-07 15:36] VITALS: BP 100/72
== END 2017-03-07 16:00 | disposition home or self-care (01) | DRG 291 ==
LOC: JP.ED 12:56 → JP.MS 19:44 → OBSVTOIN 03-05 09:30
PROVIDERS: ADMIT Internal Medicine; ATTEND Hospitalist
DX: I50.9 Heart failure, unspecified (principal); J96.91 Respiratory failure, unspecified with hypoxia; R18.8 Other ascites; N17.9 Acute kidney failure, unspecified; N18.3 Chronic kidney disease, stage 3 (moderate); I25.10 Atherosclerotic heart disease of native coronary artery without angina pectoris; R06.02 Shortness of breath; R60.9 Edema, unspecified; R10.30 Lower abdominal pain, unspecified; I35.0 Nonrheumatic aortic (valve) stenosis; K21.9 Gastro-esophageal reflux disease without esophagitis; Z95.1 Presence of aortocoronary bypass graft; H54.7 Unspecified visual loss; Z79.82 Long term (current) use of aspirin; N20.0 Calculus of kidney
CPT/HCPCS: 36415 ×2; 74022 ×2; 74176; 76705 ×2; 80048; 80053; 81001; 83605; 85025 ×2; 86140; 96360; 96361; 99284; 99285; A9270 ×3; J1940; J7040; J7620; 83735; 96374; 97165-GO; 99220; G0378; S0171

== ENCOUNTER 2017-05-14 13:02 | Emergency (ER) | payer MEDICARE ==
[2017-05-14 13:39] VITALS: BP 107/68
--- NOTE | 2017-05-14 14:26 | EDM.PDOC ---
ED HPI GENERAL MEDICAL PROBLEM - General Chief Complaint: Genitourinary Problem Stated Complaint: CAN'T URINATE Time Seen by Provider: 05/14/17 14:00 Source of Information: Reports: Patient, Family History Limitations: Reports: No Limitations - History of Present Illness INITIAL COMMENTS - FREE TEXT/NARRATIVE: 86-year-old male being treated by the [facility] in [place], seen 2 days ago and had medication changes. He was supposed to drink a lot of water but was unable to urinate for the last day and a half. He has significant lower abdominal discomfort and slow oozing and dripping of urination. No fevers or chills, no nausea or vomiting, no shortness of breath. Onset: Gradual (Symptoms of been ongoing for the past 1-3 days) Bladder Pain Score (Numeric/FACES): 10 - Related Data Allergies Allergy/AdvReac Type Severity Reaction Status Date / Time No Known Allergies Allergy Verified 05/14/17 13:39 Home Meds: Home Meds Aspirin 81 mg PO DAILY 03/03/17 [History] Doxazosin Mesylate [Cardura] 8 mg PO DAILY 03/03/17 [History] Emollient [Vanicream] 1 appful TOP BID 03/03/17 [History] Metoprolol Succinate [Toprol XL] 12.5 mg PO BEDTIME 03/03/17 [History] Oxybutynin 5 mg PO DAILY 03/03/17 [History] Pantoprazole [ProTONIX] 40 mg PO DAILY 03/03/17 [History] Spironolact/Hydrochlorothiazid [Spironolactone-HCTZ 25-25] 1 tab PO DAILY [History] atorvaSTATin [Lipitor] 80 mg PO DAILY 03/03/17 [History] Furosemide 40 mg PO DAILY #30 tablet 03/07/17 [Rx] Past Medical History HEENT History: Reports: Impaired Vision Cardiovascular History: Reports: Bypass, Other (See Below) Other Cardiovascular History: quad bipass Respiratory History: Reports: SOB Gastrointestinal History: Reports: GERD Genitourinary History: Reports: Renal Calculus - Past Surgical History Cardiovascular Surgical History: Reports: Coronary Artery Bypass Social & Family History - Family History Family Medical History: Noncontributory - Tobacco Use Smoking Status *Q: Never Smoker Second Hand Smoke Exposure: No - Caffeine Use Caffeine Use: Reports: Coffee Other Caffeine Use: 4-5 cups a day - Recreational Drug Use Recreational Drug Use: No - Living Situation & Occupation Living situation: Reports: with Family Occupation: Retired (lives with SonScout in [place], [place].) ED ROS GENERAL - Review of Systems Review Of Systems: See Below Constitutional: Reports: Weakness. Denies: Fever, Chills, Malaise Respiratory: Denies: Shortness of Breath GI/Abdominal: Reports: Abdominal Pain, Decreased Appetite. Denies: Nausea, Vomiting Neurological: Denies: Headache ED EXAM, RENAL/ - Physical Exam Exam: See Below Exam Limited By: No Limitations General Appearance: Alert, Mild Distress (Very uncomfortable initially) Respiratory/Chest: No Respiratory Distress, Lungs Clear GI/Abdominal: Other (Tender over the lower abdomen prior to Poe placement) Extremities: No: Pedal Edema Neurological: Alert, Oriented Course - Vital Signs Last Recorded V/S: Last Vital Signs Temp 96.3 F 05/14/17 13:37 Pulse 86 05/14/17 13:37 Resp 20 05/14/17 13:37 BP 107/68 05/14/17 13:37 Pulse Ox 95 05/14/17 13:37 - Re-Assessments/Exams Free Text/Narrative Re-Assessment/Exam: 05/14/17 14:25 A Poe was placed. 600 mL of cloudy urine was released and the patient's symptoms resolved. We discussed the fact that the urine looks cloudy and his color doesn't look real good but he wants no further workup and his family is comfortable with taking him to [place] as scheduled. I encouraged him to return sooner or be seen in [place] sooner if he starts developing fever or acting more ill and he agreed. He is going to keep the Poe catheter in until his recheck in 2 days. Departure - Departure Time of Disposition: 15:22 Disposition: Home, Self-Care 01 Condition: Good Clinical Impression: Retention of urine - Discharge Information Instructions: Poe Catheter Care, Adult Referrals: PCP,None [Primary Care Provider] - Forms: ED Department Discharge Care Plan Goals: Keep the Poe catheter in until recheck on Monday unless it malfunctions or plugs. Return sooner if you develop fever, illness, nausea or vomiting or increased pain.
== END 2017-05-14 15:10 | disposition home or self-care (01) ==
LOC: JP.ED 13:02
DX: R33.9 Retention of urine, unspecified (principal); Z79.899 Other long term (current) drug therapy
CPT/HCPCS: 51702; 99283; 99283-25

== ENCOUNTER 2019-02-10 23:36 | Emergency (ER) | payer MEDICARE, OTHER ==
[2019-02-11 00:02] VITALS: BP 115/61
--- NOTE | 2019-02-11 00:30 | EDM.PDOC ---
ED HPI GENERAL MEDICAL PROBLEM - General Chief Complaint: General Stated Complaint: SWELLING IN GENITALS Time Seen by Provider: 02/11/19 00:15 Source of Information: Reports: Patient, Family, Old Records, RN History Limitations: Reports: No Limitations - History of Present Illness INITIAL COMMENTS - FREE TEXT/NARRATIVE: 88 yo [place] patient presents with several days of progressive leg and scrotal swelling. Is not having any trouble breathing. Says he is also not having trouble urinating, but this swelling is keeping him awake. He is scheduled [facility] this coming Tues. Has seen Will here for paracentesis. Onset: Gradual Duration: Day(s): (3+) Location: Reports: Lower Extremity, Left, Lower Extremity, Right, Other (scrotum /penis) Quality: Reports: Other (no pain) Severity: Moderate Improves with: Reports: Medication (diuretics) Worsens with: Reports: Other (time, not taking meds, sodium intake, etc.) Context: Reports: Other (Hx of ascites) Associated Symptoms: Reports: No Other Symptoms. Denies: Shortness of Breath Treatments SENIOR SOFTWARE ANALYST: Reports: Other (see below) (usual meds) Middle Groin Pain Score (Numeric/FACES): 2 - Related Data Allergies Allergy/AdvReac Type Severity Reaction Status Date / Time KIRK Inhibitors Allergy Other Verified 02/01/19 09:13 hydralazine Allergy Other Verified 02/01/19 09:13 omeprazole Allergy Cannot Verified 02/01/19 09:13 Remember simvastatin Allergy Cannot Verified 02/01/19 09:13 Remember ursodiol [From Actigall] Allergy Nausea Verified 02/01/19 09:13 Home Meds: Home Meds Aspirin 81 mg PO DAILY 03/03/17 [History] Doxazosin Mesylate [Cardura] 4 mg PO DAILY 03/03/17 [History] Metoprolol Succinate [Toprol XL] 25 mg PO BEDTIME 03/03/17 [History] Pantoprazole [ProTONIX Granules] 40 mg PO DAILY 03/03/17 [History] Cholecalciferol (Vitamin D3) [Vitamin D3] 400 unit PO DAILY 01/18/19 [History] Furosemide 20 mg PO DAILY 01/18/19 [History] Lactulose 30 gm PO TID 01/18/19 [History] Spironolactone [Aldactone] 25 mg PO DAILY 01/18/19 [History] Lactulose [Generlac] 30 ml PO TID 02/01/19 [History] Ursodiol 300 mg PO DAILY 02/11/19 [History] Past Medical History HEENT History: Reports: Cataract, Impaired Vision, Macular Degeneration, Other ( See Below) Other HEENT History: 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 Cardiovascular History: Reports: Bypass, CAD, Heart Failure, Heart Murmur, High Cholesterol, Hypertension, Other (See Below) Other Cardiovascular History: quad bipass, cardiomegaly, nonrheumatic aortic valve stenosis, RBBB Respiratory History: Reports: Sleep Apnea, SOB Gastrointestinal History: Reports: Cirrhosis, GERD, Other (See Below) Other Gastrointestinal History: ascitis, alcoholic cirrhosis Genitourinary History: Reports: BPH, Renal Calculus, Renal Disease, Other (See Below) Other Genitourinary History: stage 3 kidney disease Musculoskeletal History: Reports: Other (See Below) Other Musculoskeletal History: rotator cuff syndrome Psychiatric History: Reports: Addiction Endocrine/Metabolic History: Reports: Diabetes, Type II, Obesity/BMI 30+ Dermatologic History: Reports: Other (See Below) Other Dermatologic History: dermatitis - Past Surgical History HEENT Surgical History: Reports: Cataract Surgery Cardiovascular Surgical History: Reports: Coronary Artery Bypass Social & Family History - Family History Family Medical History: Noncontributory - Tobacco Use Smoking Status *Q: Never Smoker - Caffeine Use Caffeine Use: Reports: Tea Other Caffeine Use: 4-5 cups a day Caffeine Use Comment: daily tea use - Recreational Drug Use Recreational Drug Use: No - Living Situation & Occupation Living situation: Reports: with Family Occupation: Retired (lives with Son, Scout in [place], [place].) ED ROS GENERAL - Review of Systems Review Of Systems: See Below Constitutional: Reports: No Symptoms HEENT: Reports: No Symptoms Respiratory: Denies: Shortness of Breath Cardiovascular: Reports: Edema (both legs) GI/Abdominal: Reports: No Symptoms : Reports: No Symptoms Musculoskeletal: Reports: No Symptoms Skin: Reports: No Symptoms Neurological: Reports: No Symptoms Psychiatric: Reports: No Symptoms ED EXAM, GENERAL - Physical Exam Exam: See Below Exam Limited By: No Limitations General Appearance: Alert, WD/WN, No Apparent Distress Eye Exam: Bilateral Eye: Normal Inspection Ears: Normal External Exam, Normal Canal, Hearing Grossly Normal, Normal TMs Ear Exam: Bilateral Ear: Auricle Normal, Canal Normal, TM normal Nose: Normal Inspection, No Blood Throat/Mouth: Normal Inspection, Normal Lips, Normal Oropharynx, Normal Voice, No Airway Compromise Head: Atraumatic, Normocephalic Neck: Normal Inspection Respiratory/Chest: No Respiratory Distress, Lungs Clear, Normal Breath Sounds, No Accessory Muscle Use Cardiovascular: Regular Rate, Rhythm GI/Abdominal: Normal Bowel Sounds, Soft, Non-Tender, Other (Ascites present) Back Exam: Normal Inspection. No: CVA Tenderness (R), CVA Tenderness (L) Extremities: Normal Range of Motion, Non-Tender, Pedal Edema. No: No Pedal Edema, Increased Warmth, Redness Neurological: Alert, Oriented, CN II-XII Intact, Normal Cognition, No Motor/ Sensory Deficits Psychiatric: Normal Affect, Normal Mood Skin Exam: Warm, Dry, Intact, Normal Color, No Rash Course - Vital Signs Last Recorded V/S: Last Vital Signs Temp 35.7 C 02/10/19 23:57 Pulse 66 02/10/19 23:57 Resp 16 02/10/19 23:57 BP 115/61 02/10/19 23:57 Pulse Ox 95 02/10/19 23:57 - Orders/Labs/Meds Labs: Laboratory Tests 02/11/19 Range/Units 00:33 Sodium 139 L (140-148) mmol/L Potassium 3.8 (3.6-5.2) mmol/L Chloride 103 (100-108) mmol/L Carbon Dioxide 27 (21-32) mmol/L Anion Gap 12.8 (5.0-14.0) mmol/L BUN 27 H (7-18) mg/dL Creatinine 1.7 H (0.8-1.3) mg/dL Est Cr Clr Drug Dosing 28.62 mL/min Estimated GFR (MDRD) 38 L (>60) Glucose 111 H (74-106) mg/dL Calcium 8.3 L (8.5-10.1) mg/dL Departure - Departure Time of Disposition: :20 Disposition: Home, Self-Care 01 Condition: Fair Clinical Impression: Lower extremity edema Ascites Qualifiers: Ascites type: other type Qualified Code(s): R18.8 - Other ascites - Discharge Information *PRESCRIPTION DRUG MONITORING PROGRAM REVIEWED*: No *COPY OF PRESCRIPTION DRUG MONITORING REPORT IN PATIENT RONALD: No Instructions: Edema, [id number] Referrals: PCP,None [Primary Care Provider] - Forms: ED Department Discharge Additional Instructions: Increase your spironolactone to 50 mg daily and increase your furosemide to 40 mg a day. Keep your appt with your [facility] doctor for Monday. Return here for SOB.
== END 2019-02-11 01:30 | disposition home or self-care (01) ==
LOC: JP.ED 23:36
DX: R18.8 Other ascites (principal); I13.0 Hypertensive heart and chronic kidney disease with heart failure and stage 1 through stage 4 chronic kidney disease, or unspecified chronic kidney disease; E11.22 Type 2 diabetes mellitus with diabetic chronic kidney disease; N18.3 Chronic kidney disease, stage 3 (moderate); I50.9 Heart failure, unspecified; I25.10 Atherosclerotic heart disease of native coronary artery without angina pectoris; K21.9 Gastro-esophageal reflux disease without esophagitis; N40.0 Benign prostatic hyperplasia without lower urinary tract symptoms; E66.9 Obesity, unspecified; Z68.26 Body mass index [BMI] 26.0-26.9, adult; Z88.8 Allergy status to other drugs, medicaments and biological substances; Z79.82 Long term (current) use of aspirin; Z79.899 Other long term (current) drug therapy
CPT/HCPCS: 36415; 80048; 99284

== ENCOUNTER 2019-03-24 08:31 | Emergency (ER) | payer MEDICARE, OTHER ==
[2019-03-24 08:50] VITALS: BP 126/63; PULSE 58
[2019-03-24] MEDS ORDERED: Iopamidol 612 MG/ML 100 ML Bottle IV STA (09:15)
[2019-03-24] MEDS ORDERED: Sodium Chloride 0.9% 80 ML IV STA (09:15)
--- NOTE | 2019-03-24 09:38 | EDM.PDOC ---
ED HPI GENERAL MEDICAL PROBLEM - General Chief Complaint: Laceration Stated Complaint: FELL ON SIDE AND BLEEDING IN RIB AREA Time Seen by Provider: 03/24/19 08:55 Source of Information: Reports: Patient History Limitations: Reports: No Limitations - History of Present Illness INITIAL COMMENTS - FREE TEXT/NARRATIVE: 88 yo presents with concerns of fall Had a mechanical fall in his bathroom today, landed on a toilet bowl clear zayas (ceramic). Son heard this and found him on the ground. No headstrike or LOC. Significant bleeding to left chest wall and pain here. Hx of cardiac surgery. Only blood thinner is ASA. Denies dyspnea. No abdominal pain. Able to move all extremities and denies pain otherwise. - Related Data Allergies Allergy/AdvReac Type Severity Reaction Status Date / Time KIRK Inhibitors Allergy Other Verified 03/24/19 08:42 hydralazine Allergy Other Verified 03/24/19 08:42 omeprazole Allergy Cannot Verified 03/24/19 08:42 Remember simvastatin Allergy Cannot Verified 03/24/19 08:42 Remember ursodiol [From Actigall] Allergy Nausea Verified 03/24/19 08:42 Home Meds: Home Meds Aspirin 81 mg PO DAILY 03/03/17 [History] Doxazosin Mesylate [Cardura] 4 mg PO DAILY 03/03/17 [History] Metoprolol Succinate [Toprol XL] 25 mg PO BEDTIME 03/03/17 [History] Cholecalciferol (Vitamin D3) [Vitamin D3] 400 unit PO DAILY 01/18/19 [History] Spironolactone [Aldactone] 25 mg PO DAILY 01/18/19 [History] Lactulose [Generlac] 30 ml PO TID 02/01/19 [History] Ursodiol 300 mg PO DAILY 02/11/19 [History] Ferrous Sulfate [Iron] 600 mg PO DAILY 03/24/19 [History] cephALEXin [Keflex] 500 mg PO BID #10 cap 03/24/19 [Rx] Past Medical History HEENT History: Reports: Cataract, Impaired Vision, Macular Degeneration, Other ( See Below) Other HEENT History: 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 Cardiovascular History: Reports: Bypass, CAD, Heart Failure, Heart Murmur, High Cholesterol, Hypertension, Other (See Below) Other Cardiovascular History: quad bipass, cardiomegaly, nonrheumatic aortic valve stenosis, RBBB Respiratory History: Reports: Sleep Apnea, SOB Other Respiratory History: cpap Gastrointestinal History: Reports: Cirrhosis, GERD, Other (See Below) Other Gastrointestinal History: ascitis, alcoholic cirrhosis Genitourinary History: Reports: BPH, Renal Calculus, Renal Disease, Other (See Below) Other Genitourinary History: stage 3 kidney disease Musculoskeletal History: Reports: Other (See Below) Other Musculoskeletal History: rotator cuff syndrome Psychiatric History: Reports: Addiction Endocrine/Metabolic History: Reports: Diabetes, Type II, Obesity/BMI 30+ Dermatologic History: Reports: Other (See Below) Other Dermatologic History: dermatitis - Past Surgical History Head Surgeries/Procedures: Reports: None HEENT Surgical History: Reports: Cataract Surgery Cardiovascular Surgical History: Reports: Coronary Artery Bypass, Valve Replacement, Other (See Below) Respiratory Surgical History: Reports: None GI Surgical History: Reports: None Musculoskeletal Surgical History: Reports: None Dermatological Surgical History: Reports: None Social & Family History - Family History Family Medical History: Noncontributory - Tobacco Use Smoking Status *Q: Never Smoker Second Hand Smoke Exposure: No - Caffeine Use Caffeine Use: Reports: Tea Other Caffeine Use: 4-5 cups a day Caffeine Use Comment: daily tea use - Recreational Drug Use Recreational Drug Use: No - Living Situation & Occupation Living situation: Reports: with Family 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 Denies: Shortness of Breath Cardiovascular: Reports: No Symptoms Endocrine: Reports: No Symptoms GI/Abdominal: Reports: No Symptoms. Denies: Abdominal Pain Musculoskeletal: Reports: No Symptoms. Denies: Neck Pain, Arm Pain, Back Pain, Leg Pain Skin: Reports: Wound Neurological: Reports: No Symptoms. Denies: Dizziness, Headache, Numbness Psychiatric: Reports: No Symptoms Hematologic/Lymphatic: Reports: No Symptoms Immunologic: Reports: No Symptoms ED EXAM, SKIN/RASH Exam: See Below Exam Limited By: No Limitations General Appearance: Alert, No Apparent Distress Ears: Normal External Exam Nose: Normal Inspection Throat/Mouth: Normal Inspection, No Airway Compromise Head: Atraumatic, Normocephalic. No: Facial Tenderness Neck: Normal Inspection, Full Range of Motion. No: Non-Tender, Tender Lateral, Tender Midline Respiratory/Chest: No Respiratory Distress, Lungs Clear, Normal Breath Sounds, No Accessory Muscle Use, Other (lacerations inferior chest wall approximtamately 3 cm each with associated venous bleeding and underlying hematoma. No obvious rib fractures.) Cardiovascular: Normal Peripheral Pulses, Regular Rate, Rhythm GI/Abdominal: Soft, Non-Tender Back Exam: Normal Inspection Extremities: Normal Range of Motion, Other (scattered superficial lacerations of the left arm) Neurological: Alert, Oriented, No Motor/Sensory Deficits Psychiatric: Normal Affect, Normal Mood Skin: Warm, Dry ED SKIN PROCEDURES - Laceration/Wound Repair Left Side Chest Appearance: Subcutaneous Anesthetic Type: Local Local Anesthesia - Lidocaine (Xylocaine): 1% with EPI Local Anesthetic Volume: Other (10) Skin Prep: Saline Saline Irrigation (cc's): 180 Exploration/Debridement/Repair: Wound Explored, No Foreign Material Found Closed with: Sutures Lac/Wound length In cm: 5 Suture Size: 3-0 # of Sutures: 4 Suture Type: Nylon Drain Placement: No Sterile Dressing Applied: Nurse Tetanus Status Addressed: Yes Complications: No Progress/Comments: Loosely closed given infection risk Left Chest Appearance: Subcutaneous Anesthetic Type: Local Local Anesthesia - Lidocaine (Xylocaine): 1% with EPI Local Anesthetic Volume: 5cc Saline Irrigation (cc's): 120 Exploration/Debridement/Repair: Wound Explored Closed with: Sutures Lac/Wound length In cm: 3 Suture Size: 3-0 # of Sutures: 1 Suture Type: Nylon Drain Placement: No Sterile Dressing Applied: Nurse Tetanus Status Addressed: Yes Complications: No Progress/Comments: Loosely closed given infection risk Course - Vital Signs Last Recorded V/S: Last Vital Signs Temp 35.2 C 03/24/19 09:12 Pulse 58 L 03/24/19 09:12 Resp 16 03/24/19 09:12 BP 126/63 03/24/19 09:12 Pulse Ox 90 L 03/24/19 09:12 - Orders/Labs/Meds Orders: Active Orders 24 hr Category Date Time Status Incentive Spirometry [RT Incentive Spirometry] [RC] Care 03/24/19 10:44 Active ASDIRECTED Vaccines to be Administered [RC] PER UNIT ROUTINE Care 03/24/19 12:41 Ordered Labs: Laboratory Tests 03/24/19 03/24/19 03/24/19 Range/Units 08:51 09:00 09:00 WBC 6.6 (4.5-11.0) K/uL RBC 4.05 L (4.30-5.90) M/uL Hgb 10.7 L (12.0-15.0) g/dL Hct 33.2 L (40.0-54.0) % MCV 82 (80-98) fL MCH 26 L (27-31) pg MCHC 32 (32-36) % Plt Count 181 (150-400) K/uL PT 13.4 H (9.5-12.0) sec INR 1.26 H (0.80-1.20) Sodium 137 L (140-148) mmol/L Potassium 4.3 (3.6-5.2) mmol/L Chloride 103 (100-108) mmol/L Carbon Dioxide 25 (21-32) mmol/L Anion Gap 13.3 (5.0-14.0) mmol/L BUN 21 H (7-18) mg/dL Creatinine 1.5 H (0.8-1.3) mg/dL Est Cr Clr Drug Dosing 32.44 mL/min Estimated GFR (MDRD) 44 L (>60) Glucose 119 H (74-106) mg/dL Calcium 8.5 (8.5-10.1) mg/dL Meds: Medications Discontinued Medications Generic Name Dose Route Start Last Admin Trade Name Freq PRN Reason Stop Dose Admin Diphtheria/Tetanus/Acell Pertussis 0.5 ml 03/24/19 12:41 03/24/19 12:46 Adacel IM 03/24/19 12:42 0.5 ml .ONCE ONE Administration Sodium Chloride 80 mls @ 3 mls/sec 03/24/19 09:15 03/24/19 09:32 Normal Saline IV 03/24/19 09:16 3 mls/sec ASDIRECTED STA Administration Cefazolin Sodium/Dextrose 2 gm 50 mls @ 100 mls/hr 03/24/19 11:00 03/24/19 10 :53 / Premix IV 03/24/19 11:29 100 mls/hr ONETIME ONE Administration Iopamidol 100 ml 03/24/19 09:15 03/24/19 09:32 Isovue-300 (61%) IV 03/24/19 09:16 100 ml . DIRECTED STA Administration - Re-Assessments/Exams Free Text/Narrative Re-Assessment/Exam: 88 yo presents after mechanical fall from standing with left sided chest trauma. Denies headstrike. Injuries on primary/secondary exam included lacerations and hematoma to the left chest wall as well as scattered superficial abrasion on the left arm and anterior chest. CT CAP obtained which showed acute left rib fracture with associated hematoma, no other acute injury. Labs generally unremarkable. CT also showed old left pleural effusion and liver lesions - patient informed of this and need to discuss with PCP Patient's breathing is unlabored and normal O2 sat on RA. I do think he is safe for discharge as he lives with his son who can monitor his respiratory status closely, we discussed at length his limited reserve and risk for respiratory decompensation. I did call the trauma surgeon oil pump station operator chief at [facility] given the significant lacerations overlying his left rib fracture for management recommendations given this is essentially an open fracture. He suggest loose closure, which I performed as above, as well an antibiotic ppx. The patient will follow up with his PCP in one week for suture removal. He was provided with an IS. His pain is minimal so I do not believe he needs anything other than over the counter analgesics. Discharged in the care of his son. 03/24/19 12:53 Departure - Departure Time of Disposition: 12:43 Disposition: Home, Self-Care 01 Clinical Impression: Fall Qualifiers: Encounter type: initial encounter Qualified Code(s): W19.XXXA - Unspecified fall, initial encounter Rib fracture Qualifiers: Encounter type: initial encounter Rib fracture type: single rib Fracture type: open Laterality: left Qualified Code(s): S22.32XB - Fracture of one rib, left side, initial encounter for open fracture - Discharge Information Prescriptions: cephALEXin [Keflex] 500 mg PO BID #10 cap Referrals: PCP,None [Primary Care Provider] - Forms: ED Department Discharge Additional Instructions: Take tylenol and ibuprofen for pain. Please make a follow up appointment with your primary doctor in approximately one week for suture removal. You should follow up the CT scan results with your primary doctor - including the fluid around your left lung and the nodule in your liver Please return to the ER for worsening of you breathing as these may be signs of a pneumonia. It is important that you use the incentive spirometer. Take the prescribed antibiotic - My Orders Last 24 Hours: My Active Orders 03/24/19 10:44 Incentive Spirometry [RT Incentive Spirometry] [RC] ASDIRECTED 03/24/19 12:41 Vaccines to be Administered [RC] PER UNIT ROUTINE - Assessment/Plan Last 24 Hours: My Active Orders 03/24/19 10:44 Incentive Spirometry [RT Incentive Spirometry] [RC] ASDIRECTED 03/24/19 12:41 Vaccines to be Administered [RC] PER UNIT ROUTINE
[2019-03-24] MEDS ORDERED: ceFAZolin 2 GM in Premix Bag 1 BAG IV ONE ×2 (10:43→11:00)
--- NOTE | 2019-03-24 10:58 | CRLCT ---
INDICATION: Fall left-sided chest pain. TECHNIQUE: Contrast enhanced CT chest abdomen pelvis 100 mL Isovue-300 coronal and sagittal re-formatted images obtained. COMPARISON: Comparison studies CT and pelvis dated 03/04/2017. FINDINGS: Median sternotomy. Normal caliber thoracic aorta. The heart is mildly enlarged. There is no pericardial effusion. AVR. Small left effusion. Large right effusion. No pneumothorax. Minimal patchy ground-glass opacities within the right upper lobe. Compressive atelectasis of the right middle lobe partial atelectasis of the right lower lobe. Mild atelectasis the left lower lobe. Calcified mediastinal hilar lymph nodes. Scattered granulomas. Fracture of the left anterior lateral 6th rib. Adjacent left chest wall subcutaneous air and hematoma. Small foci of blush enhancement along the left lateral chest wall see series 2 image [id number] most likely reflecting small amount of active hemorrhage. Tiny subcapsular 3 mm focus of enhancement along the right hepatic lobe on series 2 image 89. Splenic granuloma. Pancreas adrenal glands, spleen adrenal glands are unremarkable nodular contour to liver this may reflect cirrhosis. Large volume ascites. Moderate to large hiatal hernia. Cholelithiasis gallbladder contracted. No abdominal aortic aneurysm. Kidneys are unremarkable. Nonobstructing right upper pole renal calculus. There is cortical thinning. Diverticulosis. No obstruction. Enlarged prostate gland. Urinary bladder demonstrates wall thickening. Moderate large amount of fluid in the pelvis is well. No additional fractures are seen. Impression : 1. Anterior lateral left 6th rib fracture. Adjacent left chest wall small hematoma. Small foci of blush enhancement within the left chest wall most likely reflecting small amount of active hemorrhage. 2. No solid or hollow organ injury in the abdomen or pelvis. No free air. 3. Large right pleural effusion. Compressive atelectasis right middle lobe, partial atelectasis of the right lower lobe and mild atelectasis left lower lobe. Minimal patchy ground-glass opacities right upper lobe could be related to pneumonitis. 4. Large volume ascites. Large amount of free fluid in the pelvis. Nodular contour to the liver which may be related to cirrhosis. Tiny focus of enhancement along the subcapsular right hepatic lobe too small to characterize recommend follow-up MRI in 6 months. Results called to Dr. Mejia on 03/24/2019 and 11 a.m. Please note that all CT scans at this facility use dose modulation, iterative reconstruction, and/or weight-based dosing when appropriate to reduce radiation dose to as low as reasonably achievable. Dictated by Yaritza Montalvo MD @ Mar 24 2019 10:26AM Signed by Dr. Yaritza Montalvo @ Mar 24 2019 10:57AM
[2019-03-24] MEDS ORDERED: Diphtheria,Pertussis(Acell),Tetanus Vaccine 0.5 ML SDV IM ONE (12:41)
== END 2019-03-24 13:07 | disposition home or self-care (01) ==
LOC: JP.ED 08:31
DX: S22.32XB Fracture of one rib, left side, initial encounter for open fracture (principal); I25.10 Atherosclerotic heart disease of native coronary artery without angina pectoris; I10 Essential (primary) hypertension; E11.9 Type 2 diabetes mellitus without complications; E66.9 Obesity, unspecified; Z68.24 Body mass index [BMI] 24.0-24.9, adult; Z23 Encounter for immunization; Z88.8 Allergy status to other drugs, medicaments and biological substances; Z79.899 Other long term (current) drug therapy; W19.XXXA Unspecified fall, initial encounter; Y92.002 Bathroom of unspecified non-institutional (private) residence as the place of occurrence of the external cause
CPT/HCPCS: 12004; 36415; 71260; 74177; 80048; 85027; 85610; 90471; 90715; 96365; 99283; J0690; J7030; Q9967

== ENCOUNTER 2020-05-21 22:09 | Inpatient (IN) | payer MEDICARE, OTHER, SELFPAY ==
--- NOTE | 2020-05-21 22:45 | EDM.PDOC ---
ED HPI GENERAL MEDICAL PROBLEM - General Chief Complaint: Respiratory Problem Stated Complaint: ABD PAIN, BACK PAIN, TROUBLE BREATHING Time Seen by Provider: 05/21/20 23:05 Source of Information: Reports: Patient History Limitations: Reports: No Limitations - History of Present Illness INITIAL COMMENTS - FREE TEXT/NARRATIVE: pt arrived complaining of left sided abdomanal pain. He also felt sob earlier today. He has been having reular bms and he has not had difficulty voiding. Onset: Gradual, Other (pt has had pain for the past 3-4 days. It is worse today. ) Duration: Hour(s): Location: Reports: Chest, Abdomen, Other (pt does feel sob. ) Associated Symptoms: Reports: Shortness of Breath Lower Abdomen Pain Score (Numeric/FACES): 6 - Related Data Allergies Allergy/AdvReac Type Severity Reaction Status Date / Time KIRK Inhibitors Allergy Other Verified 05/21/20 22:50 hydralazine Allergy Other Verified 05/21/20 22:50 omeprazole Allergy Cannot Verified 05/21/20 22:50 Remember simvastatin Allergy Cannot Verified 05/21/20 22:50 Remember ursodiol [From Actigall] Allergy Nausea Verified 05/21/20 22:50 Home Meds: Home Meds Aspirin 81 mg PO DAILY 03/03/17 [History] Doxazosin Mesylate [Cardura] 4 mg PO DAILY 03/03/17 [History] Metoprolol Succinate [Toprol XL] 25 mg PO BEDTIME 03/03/17 [History] Cholecalciferol (Vitamin D3) [Vitamin D3] 400 unit PO DAILY 01/18/19 [History] Spironolactone [Aldactone] 25 mg PO DAILY 01/18/19 [History] Lactulose [Generlac] 30 ml PO TID 02/01/19 [History] ursodioL [Ursodiol] 300 mg PO DAILY 02/11/19 [History] Furosemide 40 mg PO DAILY 05/21/20 [History] Pantoprazole [ProTONIX] 40 mg PO DAILY 05/21/20 [History] Triamcinolone Acetonide [Kenalog 0.1% Crm] 1 gm TOP BID 05/21/20 [History] Past Medical History HEENT History: Reports: Cataract, Impaired Vision, Macular Degeneration, Other (See Below) Other HEENT History: 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 Cardiovascular History: Reports: Bypass, CAD, Heart Failure, Heart Murmur, High Cholesterol, Hypertension, Other (See Below) Other Cardiovascular History: quad bipass, cardiomegaly, nonrheumatic aortic valve stenosis, RBBB Respiratory History: Reports: Sleep Apnea, SOB Other Respiratory History: cpap Gastrointestinal History: Reports: Cirrhosis, GERD, Other (See Below) Other Gastrointestinal History: ascitis, alcoholic cirrhosis Genitourinary History: Reports: BPH, Renal Calculus, Renal Disease, Other (See Below) Other Genitourinary History: stage 3 kidney disease Musculoskeletal History: Reports: Other (See Below) Other Musculoskeletal History: rotator cuff syndrome Psychiatric History: Reports: Addiction Endocrine/Metabolic History: Reports: Diabetes, Type II, Obesity/BMI 30+ Dermatologic History: Reports: Other (See Below) Other Dermatologic History: dermatitis - Past Surgical History Head Surgeries/Procedures: Reports: None HEENT Surgical History: Reports: Cataract Surgery Cardiovascular Surgical History: Reports: Coronary Artery Bypass, Valve Replacement, Other (See Below) Respiratory Surgical History: Reports: None GI Surgical History: Reports: None Musculoskeletal Surgical History: Reports: None Dermatological Surgical History: Reports: None Social & Family History - Family History Family Medical History: No Pertinent Family History - Caffeine Use Caffeine Use: Reports: Tea Other Caffeine Use: 4-5 cups a day Caffeine Use Comment: daily tea use - Living Situation & Occupation Living situation: Reports: with Family 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 He has been running to the BR to void since the lasix was increased. ) HEENT: Reports: No Symptoms Respiratory: Reports: Shortness of Breath Cardiovascular: Reports: No Symptoms Endocrine: Reports: No Symptoms GI/Abdominal: Reports: Abdominal Pain, Other (pain in left lower abdoman and left flank area. ) : Reports: No Symptoms, Frequency Musculoskeletal: Reports: No Symptoms Skin: Reports: No Symptoms ED EXAM, GENERAL - Physical Exam Exam: See Below Free Text/Narrative:: pt arrived with increased sob and pain in his rt side. He has not had a fall. He is normally active and he is having more trouble doing his activity on the treadmill. He does have a history of cirrohosis of the liver. Exam Limited By: No Limitations General Appearance: Alert, Mild Distress, Other (pt has cirrohosis of the liver but has not used etoh for a number of years. ) Ears: Normal TMs Nose: Normal Inspection Throat/Mouth: Normal Inspection Head: Atraumatic Neck: Normal Inspection Respiratory/Chest: No Respiratory Distress, Other (pt does get sob with activity. ) Cardiovascular: Regular Rate, Rhythm GI/Abdominal: Soft, Other (pt is not guarded but he is rating his pain at a 8. ) (Male) Exam: Deferred Rectal (Males) Exam: Deferred Back Exam: Other (pt is tender over the upper lumbar area. He is tender in the left cva muscle area. ) Extremities: Pedal Edema, Other (pt feels like his edema is less since his lasix was increased. ) Neurological: Alert, Oriented, Normal Cognition Course - Vital Signs Last Recorded V/S: Last Vital Signs Temp 36.7 C 05/21/20 22:50 Pulse 81 05/21/20 22:50 Resp 18 05/21/20 22:50 BP 122/72 05/21/20 22:50 Pulse Ox 95 05/21/20 22:50 - Orders/Labs/Meds Orders: Active Orders 24 hr Category Date Time Status CORONAVIRUS COVID-19, DOMI Stat Lab 05/22/20 01:02 Ordered HYDROmorphone [Dilaudid] Med 05/22/20 01:03 Once 0.5 mg IVPUSH ONETIME ONE Sodium Chloride 0.9% [Saline Flush] Med 05/22/20 01:03 Ordered 10 ml FLUSH ASDIRECTED PRN Saline Lock Insert [OM.PC] Routine Oth 05/22/20 01:03 Ordered Medication Orders Sodium Chloride (Saline Flush) 10 ml FLUSH ASDIRECTED PRN PRN Reason: Keep Vein Open Labs: Laboratory Tests 05/21/20 05/21/20 05/21/20 Range/Units 22:58 23:09 23:09 WBC 6.1 (4.5-11.0) K/uL RBC 4.27 L (4.30-5.90) M/uL Hgb 11.0 L (12.0-15.0) g/dL Hct 34.4 L (40.0-54.0) % MCV 81 (80-98) fL MCH 26 L (27-31) pg MCHC 32 (32-36) % Plt Count 194 (150-400) K/uL Neut % (Auto) 74 H (36-66) % Lymph % (Auto) 8 L (24-44) % [place] % (Auto) 13 H (2-6) % Eos % (Auto) 4 (2-4) % Baso % (Auto) 0 (0-1) % Sodium 137 L (140-148) mmol/L Potassium 5.1 (3.6-5.2) mmol/L Chloride 100 (100-108) mmol/L Carbon Dioxide 28 (21-32) mmol/L Anion Gap 14.1 H (5.0-14.0) mmol/L BUN 36 H D (7-18) mg/dL Creatinine 2.7 H D (0.8-1.3) mg/dL Est Cr Clr Drug Dosing 17.68 mL/min Estimated GFR (MDRD) 22 L (>60) Glucose 143 H (74-106) mg/dL Calcium 8.9 (8.5-10.1) mg/dL Total Bilirubin 1.0 D (0.2-1.0) mg/dL AST 19 (15-37) U/L ALT 16 (12-78) U/L Alkaline Phosphatase 107 (46-116) U/L C-Reactive Protein 1.23 H (0.0-0.3) mg/dL Total Protein 7.2 (6.4-8.2) g/dL Albumin 3.3 L (3.4-5.0) g/dL Globulin 3.9 H (2.3-3.5) g/dL Albumin/Globulin Ratio 0.9 L (1.2-2.2) Lipase 78 (73-393) U/L Urine Color (YELLOW) Urine Appearance (CLEAR) Urine pH (5.0-8.0) Ur Specific [place] (1.008-1.030) Urine Protein (NEGATIVE) mg/dL Urine Glucose (UA) (NEGATIVE) mg/dL Urine Ketones (NEGATIVE) mg/dL Urine Occult Blood (NEGATIVE) Urine Nitrite (NEGATIVE) Urine Bilirubin (NEGATIVE) Urine Urobilinogen (0.2-1.0) EU/dL Ur Leukocyte Esterase (NEGATIVE) Urine RBC (0-5) Urine WBC (0-5) Ur Epithelial Cells Amorphous Sediment Urine Bacteria Urine Mucus 05/21/20 Range/Units 23:28 WBC (4.5-11.0) K/uL RBC (4.30-5.90) M/uL Hgb (12.0-15.0) g/dL Hct (40.0-54.0) % MCV (80-98) fL MCH (27-31) pg MCHC (32-36) % Plt Count (150-400) K/uL Neut % (Auto) (36-66) % Lymph % (Auto) (24-44) % [place] % (Auto) (2-6) % Eos % (Auto) (2-4) % Baso % (Auto) (0-1) % Sodium (140-148) mmol/L Potassium (3.6-5.2) mmol/L Chloride (100-108) mmol/L Carbon Dioxide (21-32) mmol/L Anion Gap (5.0-14.0) mmol/L BUN (7-18) mg/dL Creatinine (0.8-1.3) mg/dL Est Cr Clr Drug Dosing mL/min Estimated GFR (MDRD) (>60) Glucose (74-106) mg/dL Calcium (8.5-10.1) mg/dL Total Bilirubin (0.2-1.0) mg/dL AST (15-37) U/L ALT (12-78) U/L Alkaline Phosphatase (46-116) U/L C-Reactive Protein (0.0-0.3) mg/dL Total Protein (6.4-8.2) g/dL Albumin (3.4-5.0) g/dL Globulin (2.3-3.5) g/dL Albumin/Globulin Ratio (1.2-2.2) Lipase (73-393) U/L Urine Color Yellow (YELLOW) Urine Appearance Clear (CLEAR) Urine pH 7.0 (5.0-8.0) Ur Specific [place] 1.025 (1.008-1.030) Urine Protein Negative (NEGATIVE) mg/dL Urine Glucose (UA) Negative (NEGATIVE) mg/dL Urine Ketones Negative (NEGATIVE) mg/dL Urine Occult Blood Trace-intact H (NEGATIVE) Urine Nitrite Negative (NEGATIVE) Urine Bilirubin Negative (NEGATIVE) Urine Urobilinogen 1.0 (0.2-1.0) EU/dL Ur Leukocyte Esterase Negative (NEGATIVE) Urine RBC 0-5 (0-5) Urine WBC Not seen (0-5) Ur Epithelial Cells Not seen Amorphous Sediment Few Urine Bacteria Not seen Urine Mucus Not seen Meds: Medications Generic Name Dose Route Start Last Admin Trade Name Freq PRN Reason Stop Dose Admin Sodium Chloride 10 ml 05/22/20 01:03 Saline Flush FLUSH ASDIRECTED PRN Keep Vein Open - Re-Assessments/Exams Free Text/Narrative Re-Assessment/Exam: 05/22/20 01:08 pt has a creatnine of 2.7. He does get sob with activity. Chest xray reveals a large rt pleurl effusioon. A cat scan of the abdoman shows a L1 compression fracture which does look new. He has not had a fall. He has had creatnines in the 1.9 and 2 range in the past. He is anemic at 11. His liver enzymes look good. 05/22/20 01:11 saline lock was started and he was given dilaudid for a pain level of 8. Departure - Departure Time of Disposition: 01:11 Disposition: Admitted As Inpatient 67 Condition: Fair Clinical Impression: Pleural effusion, right, Renal insufficiency, Anemia, Compression fracture of L1 lumbar vertebra - Discharge Information Referrals: Dwain Us MD [Primary Care Provider] - Forms: ED Department Discharge Care Plan Goals: [facility] to [facility] Sepsis Event Note (ED) - Focused Exam Vital Signs: Vital Signs Temp Pulse Resp BP Pulse Ox 05/21/20 22:50 36.7 C 81 18 122/72 95 - My Orders Last 24 Hours: My Active Orders 05/22/20 01:02 CORONAVIRUS COVID-19, DOMI Stat 05/22/20 01:03 HYDROmorphone [Dilaudid] 0.5 mg IVPUSH ONETIME ONE Sodium Chloride 0.9% [Saline Flush] 10 ml FLUSH ASDIRECTED PRN Saline Lock Insert [OM.PC] Routine - Assessment/Plan Last 24 Hours: My Active Orders 05/22/20 01:02 CORONAVIRUS COVID-19, DOMI Stat 05/22/20 01:03 HYDROmorphone [Dilaudid] 0.5 mg IVPUSH ONETIME ONE Sodium Chloride 0.9% [Saline Flush] 10 ml FLUSH ASDIRECTED PRN Saline Lock Insert [OM.PC] Routine
--- NOTE | 2020-05-22 00:14 | CRLCR ---
INDICATION: Shortness of breath TECHNIQUE: Upright PA view of the chest COMPARISON: CT chest abdomen pelvis 03/24/2019 FINDINGS: Large right pleural effusion. No left pleural effusion. Normal aeration of the left lung and right lung apex. Stable enlargement of the cardiac silhouette. Sternotomy wires. Diffuse osteopenia. IMPRESSION: Large right pleural effusion. Stable cardiomegaly. Dictated by Gerald Lizarraga MD @ May 22 2020 12:10AM Signed by Dr. Gerald Lizarraga @ May 22 2020 12:12AM
--- NOTE | 2020-05-22 00:52 | CRLCT ---
INDICATION: Left abdominal pain TECHNIQUE: CT abdomen and pelvis without contrast. COMPARISON: 03/24/2019 FINDINGS: Lower chest: A large right pleural effusion with atelectasis of the visualized right lower lobe. A tiny left pleural effusion versus posterior pleural thickening. Cardiomegaly. An aortic valvular graft again seen. A possible small hiatal hernia. Liver: A cirrhotic liver. A parenchymal calcification in the central left hepatic lobe again seen which could represent a granuloma. Spleen: Calcified splenic granulomas. Pancreas: Partial pancreatic fatty atrophy. Gallbladder and bile ducts: Cholelithiasis. Adrenal glands: Slight adrenal body nodularity. Kidneys: No hydronephrosis. Nonobstructive right renal calcifications measuring up to 5 mm, and punctate nonobstructive left renal calcifications, at least some are vascular. No discrete ureteral calcifications. GI tract: No mechanical bowel obstruction. Portions of a normal appendix seen. Sigmoid diverticulosis without diverticulitis. Vascular structures: Atherosclerotic changes again seen. Lymph nodes: No abnormally enlarged lymph nodes. Miscellaneous: Moderate abdominal and pelvic free fluid. Mildly higher than water attenuation fluid in the right lower quadrant and right pelvis. No free air. Subcutaneous edema again seen anterior to the base of the penis. Pelvic Organs: An enlarged prostate. Mild bladder wall thickening and irregularity with pericystic stranding. An anterior bladder wall diverticulum again seen. Bones: A mild L1 compression deformity, not seen on the prior, with few tiny lucencies along the superior endplate. IMPRESSION: Cirrhosis. Moderate abdominal and pelvic free fluid. Mildly higher than water attenuation right lower quadrant and pelvic free fluid, concerning for small blood products, of unclear etiology. Sigmoid diverticulosis without diverticulitis. No appendicitis or bowel obstruction. Nonobstructive renal calcifications. No obstructive uropathy. Bladder wall thickening and irregularity, probably related to chronic outlet obstruction and neuropathic changes, however there is pericystic stranding and correlation with urinalysis for cystitis is recommended. An enlarged prostate. A large right pleural effusion with atelectasis of the visualized right lower lobe. A mild L1 compression fracture deformity with apparent tiny lucencies along the superior endplate, concerning for a recent injury. Correlate clinically. If indicated, MRI evaluation may be of value. Dictated by Schuyler Fleming MD @ 05/22/2020 12:50:14 AM Please note that all CT scans at this facility use dose modulation, iterative reconstruction, and/or weight-based dosing when appropriate to reduce radiation dose to as low as reasonably achievable. Dictated by: Schuyler Fleming MD @ 05/22/2020 00:50:19 (Electronically Signed)
[2020-05-22] MEDS ORDERED: Sodium Chloride 0.9% 10 ML Syringe FLUSH PRN (01:03)
[2020-05-22] MEDS ORDERED: HYDROmorphone 0.5 MG/0.5 ML Syringe IVPUSH ONE (01:03)
--- NOTE | 2020-05-22 04:20 | PCM.HP.2 ---
H&P History of Present Illness - General Date of Service: 05/21/20 Admit Problem/Dx: Admission Diagnosis/Problem Admission Diagnosis/Problem Pleural effusion on right Source of Information: Patient, Provider, RN History Limitations: Reports: No Limitations - History of Present Illness Initial Comments - Free Text/Narative: chief complaint: shortness of breath, abdominal pain This is a 89 year old male presents to the ER with his Son, reports for the past few months has noticed declining health. He is feeling shortness of breath activity, abdominal pain, weight gain, decreased strength and endurance for the past week. He was seen by Dr. Us on 2019 for these concerns, medication adjustment of Lasix 20 mg to 40 mg, but Mr. Chaves reports this has made him more fatigued as he was getting up to the bathroom about every 2 hours but hasn't improved his pain or shortness of breath. Onset of Symptoms: Reports: Gradual Duration of Symptoms: Reports: Week(s):, Getting Worse Location: Reports: Abdomen (pain and bloating), Generalized Quality: Reports: Ache Improves with: Reports: Rest Worsens with: Reports: Movement Associated Symptoms: Reports: Shortness of Breath, Weakness Lower Abdomen Pain Score (Numeric/FACES): 3 - Related Data Allergies/Adverse Reactions: Allergies Allergy/AdvReac Type Severity Reaction Status Date / Time KIRK Inhibitors Allergy Other Verified 05/21/20 22:50 hydralazine Allergy Other Verified 05/21/20 22:50 omeprazole Allergy Cannot Verified 05/21/20 22:50 Remember simvastatin Allergy Cannot Verified 05/21/20 22:50 Remember ursodiol [From Actigall] Allergy Nausea Verified 05/21/20 22:50 Home Medications: Home Meds Aspirin 81 mg PO DAILY 03/03/17 [History] Doxazosin Mesylate [Cardura] 4 mg PO DAILY 03/03/17 [History] Metoprolol Succinate [Toprol XL] 25 mg PO BEDTIME 03/03/17 [History] Cholecalciferol (Vitamin D3) [Vitamin D3] 400 unit PO DAILY 01/18/19 [History] Spironolactone [Aldactone] 25 mg PO DAILY 01/18/19 [History] Lactulose [Generlac] 30 ml PO TID 02/01/19 [History] ursodioL [Ursodiol] 300 mg PO DAILY 02/11/19 [History] Furosemide 40 mg PO DAILY 05/21/20 [History] Pantoprazole [ProTONIX] 40 mg PO DAILY 05/21/20 [History] Triamcinolone Acetonide [Kenalog 0.1% Crm] 1 gm TOP BID 05/21/20 [History] Past Medical History HEENT History: Reports: Cataract, Impaired Vision, Macular Degeneration, Other (See Below) Other HEENT History: 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 Cardiovascular History: Reports: Bypass, CAD, Heart Failure, Heart Murmur, High Cholesterol, Hypertension, Other (See Below) Other Cardiovascular History: quad bipass, cardiomegaly, nonrheumatic aortic valve stenosis, RBBB Respiratory History: Reports: Sleep Apnea, SOB Other Respiratory History: cpap Gastrointestinal History: Reports: Cirrhosis, GERD, Other (See Below) Other Gastrointestinal History: ascitis, alcoholic cirrhosis Genitourinary History: Reports: BPH, Renal Calculus, Renal Disease, Other (See Below) Other Genitourinary History: stage 3 kidney disease Musculoskeletal History: Reports: Other (See Below) Other Musculoskeletal History: rotator cuff syndrome Psychiatric History: Reports: Addiction Endocrine/Metabolic History: Reports: Diabetes, Type II, Obesity/BMI 30+ Dermatologic History: Reports: Other (See Below) Other Dermatologic History: dermatitis - Infectious Disease History Infectious Disease History: Reports: Chicken Pox, Measles, Mumps - Past Surgical History Head Surgeries/Procedures: Reports: None HEENT Surgical History: Reports: Cataract Surgery Cardiovascular Surgical History: Reports: Coronary Artery Bypass, Valve Replace ment, Other (See Below) Other Cardiovascular Surgeries/Procedures: Plan to have stent placment at [facility] on Monday03/10/17 morning Respiratory Surgical History: Reports: None GI Surgical History: Reports: None Musculoskeletal Surgical History: Reports: None Dermatological Surgical History: Reports: None Social & Family History - Family History Family Medical History: No Pertinent Family History - Tobacco Use Tobacco Use Status *Q: Never Tobacco User - Caffeine Use Caffeine Use: Reports: Tea Other Caffeine Use: 4-5 cups a day Caffeine Use Comment: daily tea use - Recreational Drug Use Recreational Drug Use: No - Living Situation & Occupation Living situation: Reports: with Family 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 denies chest pain. reports heartburn, prostate problems. Main concerns is shortness of breath and abdominal pain with bloating.) HEENT: Reports: Glasses, Other (dentures) Pulmonary: Reports: Shortness of Breath Cardiovascular: Reports: Dyspnea on Exertion, Edema (lower legs and abdomen) Gastrointestinal: Reports: Abdominal Pain, Distension Genitourinary: Reports: No Symptoms Musculoskeletal: Reports: No Symptoms Skin: Reports: No Symptoms Psychiatric: Reports: No Symptoms Neurological: Reports: No Symptoms Hematologic/Lymphatic: Reports: No Symptoms Immunologic: Reports: No Symptoms Exam - Exam Exam: See Below - Vital Signs Vital Signs: Last Vital Signs Temp 36.7 C 05/21/20 22:50 Pulse 72 05/22/20 03:21 Resp 16 05/22/20 03:21 BP 134/50 L 05/22/20 03:21 Pulse Ox 93 L 05/22/20 03:21 Weight: 70.307 kg - Exam Quality Assessment: Supplemental Oxygen, DVT Prophylaxis General: Alert, Oriented, Cooperative, Other (pleasant talkative male, in no d istress after Dilaudid IV.) HEENT: PERRLA, Conjunctiva Clear, EOMI, Hearing Intact, Mucosa Moist & [place], Nares Patent, Normal Nasal Septum Neck: Supple, Trachea Midline, 2 Lungs: Normal Respiratory Effort, Decreased Breath Sounds (right side ) Cardiovascular: Regular Rate, Regular Rhythm, Normal S1, Normal S2 GI/Abdominal Exam: Normal Bowel Sounds, Soft, Non-Tender, No Mass, Pelvis Stable, Distended (mild distension) (Male) Exam: Deferred Rectal (Males) Exam: Deferred Back Exam: Normal Inspection, Full Range of Motion Extremities: Normal Inspection, Normal Range of Motion, Non-Tender, No Pedal Edema, Normal Capillary Refill Peripheral Pulses: 2+: Radial (L), Radial (R) Skin: Warm, Dry, Intact Neurological: Reflexes Equal Bilateral, Strength Equal Bilateral, Normal Speech, Normal Tone Neuro Extensive - Mental Status: Alert, Oriented x3, Normal Mood/Affect, Normal Cognition Psychiatric: Alert, Normal Affect, Normal Mood - Patient Data Lab Results Last 24 hrs: Laboratory Results - last 24 hr 05/21/20 05/21/20 05/21/20 Range/Units 22:58 23:09 23:09 WBC 6.1 (4.5-11.0) K/uL RBC 4.27 L (4.30-5.90) M/uL Hgb 11.0 L (12.0-15.0) g/dL Hct 34.4 L (40.0-54.0) % MCV 81 (80-98) fL MCH 26 L (27-31) pg MCHC 32 (32-36) % Plt Count 194 (150-400) K/uL Neut % (Auto) 74 H (36-66) % Lymph % (Auto) 8 L (24-44) % [place] % (Auto) 13 H (2-6) % Eos % (Auto) 4 (2-4) % Baso % (Auto) 0 (0-1) % Sodium 137 L (140-148) mmol/L Potassium 5.1 (3.6-5.2) mmol/L Chloride 100 (100-108) mmol/L Carbon Dioxide 28 (21-32) mmol/L Anion Gap 14.1 H (5.0-14.0) mmol/L BUN 36 H D (7-18) mg/dL Creatinine 2.7 H D (0.8-1.3) mg/dL Est Cr Clr Drug Dosing 17.68 mL/min Estimated GFR (MDRD) 22 L (>60) Glucose 143 H (74-106) mg/dL Calcium 8.9 (8.5-10.1) mg/dL Total Bilirubin 1.0 D (0.2-1.0) mg/dL AST 19 (15-37) U/L ALT 16 (12-78) U/L Alkaline Phosphatase 107 (46-116) U/L C-Reactive Protein 1.23 H (0.0-0.3) mg/dL Total Protein 7.2 (6.4-8.2) g/dL Albumin 3.3 L (3.4-5.0) g/dL Globulin 3.9 H (2.3-3.5) g/dL Albumin/Globulin Ratio 0.9 L (1.2-2.2) Lipase 78 (73-393) U/L Urine Color (YELLOW) Urine Appearance (CLEAR) Urine pH (5.0-8.0) Ur Specific [place] (1.008-1.030) Urine Protein (NEGATIVE) mg/dL Urine Glucose (UA) (NEGATIVE) mg/dL Urine Ketones (NEGATIVE) mg/dL Urine Occult Blood (NEGATIVE) Urine Nitrite (NEGATIVE) Urine Bilirubin (NEGATIVE) Urine Urobilinogen (0.2-1.0) EU/dL Ur Leukocyte Esterase (NEGATIVE) Urine RBC (0-5) Urine WBC (0-5) Ur Epithelial Cells Amorphous Sediment Urine Bacteria Urine Mucus SARS CoV-2 RNA Rapid DOMI 05/21/20 05/22/20 Range/Units 23:28 01:07 WBC (4.5-11.0) K/uL RBC (4.30-5.90) M/uL Hgb (12.0-15.0) g/dL Hct (40.0-54.0) % MCV (80-98) fL MCH (27-31) pg MCHC (32-36) % Plt Count (150-400) K/uL Neut % (Auto) (36-66) % Lymph % (Auto) (24-44) % [place] % (Auto) (2-6) % Eos % (Auto) (2-4) % Baso % (Auto) (0-1) % Sodium (140-148) mmol/L Potassium (3.6-5.2) mmol/L Chloride (100-108) mmol/L Carbon Dioxide (21-32) mmol/L Anion Gap (5.0-14.0) mmol/L BUN (7-18) mg/dL Creatinine (0.8-1.3) mg/dL Est Cr Clr Drug Dosing mL/min Estimated GFR (MDRD) (>60) Glucose (74-106) mg/dL Calcium (8.5-10.1) mg/dL Total Bilirubin (0.2-1.0) mg/dL AST (15-37) U/L ALT (12-78) U/L Alkaline Phosphatase (46-116) U/L C-Reactive Protein (0.0-0.3) mg/dL Total Protein (6.4-8.2) g/dL Albumin (3.4-5.0) g/dL Globulin (2.3-3.5) g/dL Albumin/Globulin Ratio (1.2-2.2) Lipase (73-393) U/L Urine Color Yellow (YELLOW) Urine Appearance Clear (CLEAR) Urine pH 7.0 (5.0-8.0) Ur Specific [place] 1.025 (1.008-1.030) Urine Protein Negative (NEGATIVE) mg/dL Urine Glucose (UA) Negative (NEGATIVE) mg/dL Urine Ketones Negative (NEGATIVE) mg/dL Urine Occult Blood Trace-intact H (NEGATIVE) Urine Nitrite Negative (NEGATIVE) Urine Bilirubin Negative (NEGATIVE) Urine Urobilinogen 1.0 (0.2-1.0) EU/dL Ur Leukocyte Esterase Negative (NEGATIVE) Urine RBC 0-5 (0-5) Urine WBC Not seen (0-5) Ur Epithelial Cells Not seen Amorphous Sediment Few Urine Bacteria Not seen Urine Mucus Not seen SARS CoV-2 RNA Rapid DOMI Negative Result Diagrams: 05/21/20 22:58 05/21/20 23:09 Sepsis Event Note - Evaluation Sepsis Screening Result: No Definite Risk - Focused Exam Vital Signs: Vital Signs Temp Pulse Resp BP Pulse Ox 05/22/20 03:21 72 16 134/50 L 93 L 05/22/20 01:00 79 18 125/75 96 05/21/20 22:50 36.7 C 81 18 122/72 95 - Problem List (1) Pleural effusion, right SNOMED Code(s): 16518822 ICD Code: J90 - PLEURAL EFFUSION, NOT ELSEWHERE CLASSIFIED Status: Acute Priority: High Current Visit: Yes (2) Ascites SNOMED Code(s): 731698774 ICD Code: R18.8 - OTHER ASCITES Status: Acute Priority: High Current Visit: Yes Qualifiers: Ascites type: due to alcoholic cirrhosis Qualified Code(s): K70.31 - Alcoholic cirrhosis of liver with ascites (3) Diabetes type 2, controlled SNOMED Code(s): 07794767, 921991092 ICD Code: E11.9 - TYPE 2 DIABETES MELLITUS WITHOUT COMPLICATIONS Status: Acute Priority: High Current Visit: Yes Qualifiers: 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 Diabetes mellitus complication detail: with chronic kidney disease Chronic kidney disease stage: stage 3 (moderate) (4) Compression fracture of L1 lumbar vertebra SNOMED Code(s): 275442152 ICD Code: S32.010A - WEDGE COMPRESSION FRACTURE OF FIRST LUMBAR VERTEBRA, INIT Status: Acute Priority: Low Current Visit: Yes Qualifiers: Encounter type: initial encounter Qualified Code(s): S32.010A - Wedge compression fracture of first lumbar vertebra, initial encounter for closed fracture (5) CKD (chronic kidney disease) stage 3, GFR 30-59 ml/min SNOMED Code(s): 456968890 ICD Code: N18.3 - CHRONIC KIDNEY DISEASE, STAGE 3 (MODERATE) * DO NOT USE * Status: Chronic Current Visit: No (6) Congestive heart failure (CHF) SNOMED Code(s): 48768262 ICD Code: I50.9 - HEART FAILURE, UNSPECIFIED Status: Chronic Priority: Medium Current Visit: Yes Qualifiers: Qualified Code(s): I50.9 - Heart failure, unspecified Problem List Initiated/Reviewed/Updated: Yes Orders Last 24hrs: Active Orders 24 hr Category Date Time Status Patient Status Manage Transfer [TRANSFER] Routine ADT 05/22/20 03:20 Active EKG Documentation Completion [RC] ASDIRECTED Care 05/22/20 01:06 Active Melatonin Med 05/22/20 21:00 Active 6 mg PO BEDTIME Sodium Chloride 0.9% [Saline Flush] Med 05/22/20 01:03 Active 10 ml FLUSH ASDIRECTED PRN Saline Lock Insert [OM.PC] Routine Oth 05/22/20 01:03 Ordered Resuscitation Status Routine Resus Stat 05/22/20 03:22 Ordered EKG 12 Lead [EK] Routine Ther 05/22/20 01:06 Ordered Medication Orders Melatonin (Melatonin) 6 mg PO BEDTIME PHILIP Sodium Chloride (Saline Flush) 10 ml FLUSH ASDIRECTED PRN PRN Reason: Keep Vein Open Last Admin: 05/22/20 01:16 Dose: 10 ml Documented by: GRACIELA Assessment/Plan Comment:: ASSESSMENT AND PLAN Large right pleural effusion-see CT abdomen pelvis report. -oxygen to keep oxygen levels greater than 92% -Surgical consultation CHF -Strict intake and output monitoring -Lasix 40 mg po daily -Continue outpatient medictions Cirrhosis- history of alcohol use - reports has not drank in years. -CT abdomen pelvis show liver, a cirrhotic liver. moderate abdominal and pelvic fee fluid. mildly higher than water attenuation right lower quadrant and pelvic free fluid, concerning for small blood products of unclear etiology. -continue Lactose tid Diabetes Type 2 with stage 3 CKD -continue outpatient medication -consistent carb diet -Insulin short acting low dose sliding scale coverage -Blood glucose testing before meals and at bedtime L1 compression fracture new -oral and IV pain medication ordered Maintenance issues -Orders home meds: chronic medication -Nutrition: consistent carb diet -Poe catheter -not indicated at this time -DVT: Lovenox 30 mg subcut daily -PPI; Protonix 40 mg daily CODE STATUS: DNR/DNI Admission status: Admit to [address] [place] [address] Admission justification. This patient will be admitted for inpatient services and is medically appropriate meeting medical necessity for inpatient admission as outlined in my documentation. I reasonably expect the patient will require inpatient services that span. Time over 2 midnights. I reasonably expect this patient to be discharged or transferred within 96 hours after admission to the critical access hospital. Disposition: home with Family- Son Scout Primary care provider: Dr. Us, [facility] Hospitalist: Dr. Carvalho - Mortality Measure Prognosis:: Good - Mortality Measure Prognosis:: Good
[2020-05-22] MEDS ORDERED: Docusate Sodium 100 MG Cap PO PRN (04:25)
[2020-05-22] MEDS ORDERED: Ondansetron 4 MG/2 ML SDV IV PRN (04:25)
[2020-05-22] MEDS ORDERED: Albuterol/Ipratropium 3.0-0.5 MG/3 ML Neb Soln NEB PRN (04:25)
[2020-05-22] MEDS ORDERED: Ondansetron 4 MG Tab.DIS PO PRN (04:25)
[2020-05-22] MEDS ORDERED: Acetaminophen 325 MG Tab PO PRN (04:25)
[2020-05-22] MEDS ORDERED: Morphine 2 MG/ML SYRINGE IVPUSH PRN (04:25)
[2020-05-22] MEDS ORDERED: Bisacodyl 5 MG Tab PO PRN (04:25)
[2020-05-22] MEDS ORDERED: Albuterol 0.083% 2.5 MG/3 ML Neb Soln NEB PRN (04:25)
[2020-05-22] MEDS: Enoxaparin 30 MG/0.3 ML Syringe SUBCUT SCH (08:31)
[2020-05-22] MEDS: Lactulose Soln 10 GM/15 ML 15 ML UD Cup PO SCH ×3 (08:31→20:32)
[2020-05-22] MEDS: Triamcinolone Acetonide 0.1% Crm 15 GM Tube TOP SCH ×3 (08:32→20:33)
[2020-05-22] MEDS: Pantoprazole 40 MG Tab.CR PO SCH (08:32)
[2020-05-22] MEDS ORDERED: Spironolactone 25 MG Tab PO SCH (09:00)
[2020-05-22] MEDS ORDERED: Doxazosin 4 MG Tab PO SCH (09:00)
[2020-05-22] MEDS ORDERED: URSODIOL 300 MG PO SCH (09:00)
[2020-05-22] MEDS ORDERED: Furosemide 40 MG Tab PO SCH (09:00)
[2020-05-22] MEDS ORDERED: FLU Vacc QV2020-21(65YR UP)/PF 240 MCG/0.7 ML Syringe IM ONE (10:00)
[2020-05-22] MEDS: Insulin Lispro 100 Unit/ML 3 ML KwikPen SUBCUT SCH (12:07)
[2020-05-22] MEDS: URSODIOL 300 MG PO SCH ×3 (12:08→20:32)
--- NOTE | 2020-05-22 17:24 | CRLCR ---
INDICATION: Follow-up pneumothorax COMPARISON: May 22, 2020 at 12:46 p.m.. TECHNIQUE: PA and lateral studies were acquired May 19, 2020 3:49 p.m. FINDINGS: TUBES AND LINES: None. HEART AND MEDIASTINUM: The heart is enlarged. Tortuous aorta. Sternotomy. LUNGS AND PLEURAL SPACES: LEFT LUNG: No acute focal finding involving the lung or pleural space RIGHT LUNG: Volume loss at the right base. There is a hydro pneumothorax. The pneumothorax component is moderate, subpulmonic and unchanged. The fluid component is small but apparently new since the prior study. The difference could be that this is a true upright film in the prior study was not a true upright film. There from uncertain whether the pleural effusion is actually noon. OSSEOUS STRUCTURES: Age-appropriate appearance. No acute focal finding. IMPRESSION: 1. Right subpulmonic hydro pneumothorax. The air component is moderate, subpulmonic and unchanged. The fluid component is small but apparently new. It could be technical that the fluid component is apparently new. Please review the comment. 2. Airspace opacity at the right base is probably localized lobar collapse/volume loss Dictated by Rod Carballo MD @ May 22 2020 5:18PM Signed by Dr. Rod Carballo @ May 22 2020 5:22PM
--- NOTE | 2020-05-22 17:39 | CRLCR ---
Indication: Status post thoracentesis Technique: Chest 1 view Comparison: 05/21/2020 Findings/Impression: Cardiovascular and mediastinum: Grossly stable cardiomediastinal silhouette. Sternotomy sutures and a valvular graft again seen. Lungs and pleural space: A rotated study. A small to moderate right subpulmonic pneumothorax. The previously seen right pleural effusion has resolved. An ill-defined right mid lung opacity could represent atelectasis. Minor left basilar subsegmental atelectasis. Few small left perihilar nodular opacities may be related to vessels, however follow-up is recommended to exclude an evolving infectious process. Bones and soft tissues: No significant change. Dictated by Schuyler Fleming MD @ 05/22/2020 5:38:05 PM Dictated by: Schuyler Fleming MD @ 05/22/2020 17:38:11 (Electronically Signed)
[2020-05-22] MEDS: Metoprolol Succinate 25 MG Tab.ER PO SCH (20:30)
[2020-05-22] MEDS: Melatonin 3 MG Tab PO SCH (20:32)
--- NOTE | 2020-05-23 05:45 | CRLCR ---
INDICATION: Pleural effusion TECHNIQUE: PA and lateral views of the chest COMPARISON: PA and lateral chest radiographs 05/22/2020 FINDINGS: There is a moderate sized right subpulmonic hydropneumothorax with associated right lung volume loss, not significant changed from 1 day prior. The left lung is clear. There is stable enlargement of the cardiac silhouette. Sternotomy wires and prosthetic cardiac valve are noted. IMPRESSION: Stable right hydropneumothorax. Dictated by Gerald Lizarraga MD @ May 23 2020 5:41AM Signed by Dr. Gerald Lizarraga @ May 23 2020 5:44AM
[2020-05-23] MEDS: Pantoprazole 40 MG Tab.CR PO SCH (08:00)
[2020-05-23] MEDS: Lactulose Soln 10 GM/15 ML 15 ML UD Cup PO SCH ×3 (08:58→20:31)
[2020-05-23] MEDS: URSODIOL 300 MG PO SCH ×4 (08:59→20:31)
[2020-05-23] MEDS: Enoxaparin 30 MG/0.3 ML Syringe SUBCUT SCH (08:59)
[2020-05-23] MEDS: Triamcinolone Acetonide 0.1% Crm 15 GM Tube TOP SCH ×2 (09:00→20:31)
--- NOTE | 2020-05-23 09:56 | PCM.PN ---
- General Info Date of Service: 05/23/20 Subjective Update: No acute events overnight. Patient had a successful thoracentesis yesterday with removal of about 2-1/2 L of serosanguineous fluid. X-ray after the procedure showed some residual pneumo thorax. Patient developed hemoptysis which was mild. A repeat chest x-ray at that time showed some reaccumulation of the pleural effusion and stable pneumothorax. Repeat chest x-ray this morning shows stable hydropneumothorax. Patient feels less short of breath today. He has very mild right-sided chest pain in the area of the thoracentesis. His hemoptysis has resolved. No nausea. No fevers. He does require 1 L of supplemental oxygen. Functional Status: Reports: Pain Controlled - Review of Systems General: Denies: Fever Pulmonary: Reports: Shortness of Breath, Hemoptysis - Patient Data Vitals - Most Recent: Last Vital Signs Temp 36.3 C 05/23/20 07:55 Pulse 67 05/23/20 07:55 Resp 20 05/23/20 07:55 BP 101/58 L 05/23/20 07:55 Pulse Ox 95 05/23/20 07:55 Weight - Most Recent: 71.078 kg Lab Results Last 24 Hours: Laboratory Results - last 24 hr 05/22/20 05/22/20 05/22/20 Range/Units 12:55 12:55 12:55 Lactate Dehydrogenase 97 (85-227) U/L Total Protein 3.0 L (6.4-8.2) g/dL Fluid Type Pleural fluid Pleural fluid Fluid pH Fluid WBC 75 /ul Fluid RBC 490 /ul Fluid Mononuclear Cell 98 % Fl Polymorphonucl Cell 2 % Fluid Glucose 136 mg/dL Fluid Amylase U/L 05/22/20 05/22/20 Range/Units 12:55 12:55 Lactate Dehydrogenase (85-227) U/L Total Protein (6.4-8.2) g/dL Fluid Type Thoracentesis fluid Pleural fluid Fluid pH 8 Fluid WBC /ul Fluid RBC /ul Fluid Mononuclear Cell % Fl Polymorphonucl Cell % Fluid Glucose mg/dL Fluid Amylase 17 U/L Lee Results Last 24 Hours: Microbiology 05/22/20 12:52 Gram Stain - Final Pleural Fluid Body Fluid Culture - Preliminary NO GROWTH AFTER 1 DAY 05/22/20 13:08 YUDY Preparation - Final Other - Pleural Cavity, Unspecified Med Orders - Current: Current Medications Acetaminophen (Tylenol) 650 mg PO Q4H PRN PRN Reason: Pain (Mild 1-3)/fever Albuterol (Proventil Neb Soln) 2.5 mg NEB Q4H PRN PRN Reason: Shortness Of Breath/wheezing Bisacodyl (Dulcolax) 5 mg PO DAILY PRN PRN Reason: Constipation Docusate Sodium (Colace) 100 mg PO BID PRN PRN Reason: Constipation Doxazosin Mesylate (Cardura) 4 mg PO BEDTIME [facility] Enoxaparin Sodium (Lovenox) 30 mg SUBCUT DAILY [facility] Last Admin: 05/23/20 08:59 Dose: 30 mg Documented by: Furosemide (Lasix) 40 mg PO Q24H [facility] Influenza Virus Vaccine (Fluzone High-Dose Quad ) 240 mcg IM .ONCE ONE Stop: 05/23/20 12:01 Lactulose (Chronulac) 20 gm PO TID [facility] Last Admin: 05/23/20 08:58 Dose: 20 gm Documented by: Melatonin (Melatonin) 6 mg PO BEDTIME [facility] Last Admin: 05/22/20 20:32 Dose: 6 mg Documented by: Metoprolol Succinate (Toprol Xl) 25 mg PO BEDTIME [facility] Last Admin: 05/22/20 20:30 Dose: 25 mg Documented by: Morphine Sulfate (Morphine) 2 mg IVPUSH Q2H PRN PRN Reason: Pain (severe 7-10) Ondansetron HCl (Zofran Odt) 4 mg PO Q6H PRN PRN Reason: Nausea able to take PO Ondansetron HCl (Zofran) 4 mg IV Q4H PRN PRN Reason: Nausea/Vomiting Oxycodone HCl (Oxycodone) 5 mg PO Q4H PRN PRN Reason: Pain (moderate 4-6) Pantoprazole Sodium (Protonix) 40 mg PO ACBREAKFAST [facility] Last Admin: 05/23/20 08:00 Dose: 40 mg Documented by: Ursodiol 300mg Cap ( (Ptom)) 0 each PO TID [facility] Last Admin: 05/23/20 08:59 Dose: 1 each Documented by: Sodium Chloride (Saline Flush) 10 ml FLUSH ASDIRECTED PRN PRN Reason: Keep Vein Open Last Admin: 05/22/20 01:16 Dose: 10 ml Documented by: Spironolactone (Aldactone) 25 mg PO Q24H [facility] Triamcinolone Acetonide (Triamcinolone Acetonide 0.1% Crm) 1 gm TOP BID [facility] Last Admin: 05/23/20 09:00 Dose: Not Given Documented by: Discontinued Medications Albuterol/Ipratropium (Duoneb 3.0-0.5 Mg/3 Ml) 3 ml NEB QID PRN PRN Reason: Shortness Of Breath/wheezing Doxazosin Mesylate (Cardura) 4 mg PO DAILY [facility] Last Admin: 05/22/20 08:31 Dose: 4 mg Documented by: Furosemide (Lasix) 40 mg PO DAILY [facility] Last Admin: 05/22/20 08:30 Dose: 40 mg Documented by: Hydromorphone HCl (Dilaudid) 0.5 mg IVPUSH ONETIME ONE Stop: 05/22/20 01:04 Last Admin: 05/22/20 01:15 Dose: 0.5 mg Documented by: Influenza Virus Vaccine (Pharmacy To Dose - Influenza Vaccine) 1 each IM ONETIME ONE Stop: 05/22/20 04:25 Insulin Human Lispro (Humalog) 0 unit SUBCUT QIDACANDBED [facility]; Protocol Last Admin: 05/22/20 12:07 Dose: Not Given Documented by: Spironolactone (Aldactone) 25 mg PO DAILY [facility] Last Admin: 05/22/20 08:30 Dose: 25 mg Documented by: - Exam Quality Assessment: Supplemental Oxygen General: Alert, Oriented, Cooperative, No Acute Distress Lungs: Normal Respiratory Effort, Decreased Breath Sounds (right lung base), Crackles (right mid and lower lung ) Cardiovascular: Regular Rate, Regular Rhythm GI/Abdominal Exam: Soft, No Distention Extremities: No Pedal Edema. No: Increased Warmth Skin: Warm, Dry Psy/Mental Status: Alert, Normal Affect Sepsis Event Note - Evaluation Sepsis Screening Result: No Definite Risk - Focused Exam Vital Signs: Vital Signs Temp Pulse Resp BP Pulse Ox 05/23/20 07:55 36.3 C 67 20 101/58 L 95 05/23/20 07:34 96 05/23/20 07:13 94 L 05/23/20 04:00 36.9 C 84 19 106/65 93 L 05/23/20 02:00 80 89/42 L 90 L 05/23/20 01:48 93 L 05/23/20 00:54 82 21 H 92 L - Problem List Review Problem List Initiated/Reviewed/Updated: Yes - My Orders Last 24 Hours: My Active Orders 05/22/20 09:46 Notify Provider Consults [RC] ASDIRECTED Consult to Physician [CONS] Routine 05/22/20 09:47 Discontinue Telemetry Monitoring [Cardiac Monitoring Discontinue] [RC] Click to Edit 05/23/20 09:55 Incentive Spirometry [RT Incentive Spirometry] [RC] Q1HWA 05/23/20 12:00 FLU Vacc [id number](65YR UP)/PF [Fluzone High-Dose Quad ] 240 mcg IM .ONCE ONE 05/24/20 05:00 BASIC METABOLIC PANEL,BMP [CHEM] Timed CBC W/O DIFF,HEMOGRAM [HEME] Timed (1) - Plan Plan:: ASSESSMENT AND PLAN Large right pleural effusion-status post thoracentesis on 05/22 with removal of 2600 mL of fluid. Cultures negative so far and fluid was planned and transudate of in appearance. There has been some reaccumulation as well as a small pneumothorax that is stable. Surgical consultation is appreciated. -Repeat chest x-ray in the morning -oxygen to keep oxygen levels greater than 92% -Surgical consultation CHF-no recent ejection fraction available. No significant JVD and his heart failure appears to be compensated. -Strict intake and output monitoring -Lasix 40 mg po daily -Continue outpatient medictions -Echocardiogram on Monday Cirrhosis- history of alcohol use - reports has not drank in years. Moderate ascites noted on CT scan. 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 -consistent carb diet L1 compression fracture-very mild. Age-indeterminate. No pain. -Symptomatic management Maintenance issues -Nutrition: consistent carb diet -DVT: Lovenox 30 mg subcut daily -GI; Protonix 40 mg daily Disposition: Anticipate discharge home with family, possibly with home care Jhon Carvalho MD
[2020-05-23] MEDS ORDERED: FLU Vacc QV2020-21(65YR UP)/PF 240 MCG/0.7 ML Syringe IM ONE (12:00)
[2020-05-23] MEDS ORDERED: Spironolactone 25 MG Tab PO SCH (12:00)
[2020-05-23] MEDS ORDERED: Furosemide 40 MG Tab PO SCH (12:00)
[2020-05-23] MEDS: Melatonin 3 MG Tab PO SCH (20:29)
[2020-05-23] MEDS: Doxazosin 4 MG Tab PO SCH (20:30)
[2020-05-23] MEDS: Metoprolol Succinate 25 MG Tab.ER PO SCH (20:30)
[2020-05-23] MEDS: oxyCODONE 5 MG Tab PO PRN (20:38)
--- NOTE | 2020-05-24 05:55 | CRLCR ---
INDICATION: Hydropneumothorax TECHNIQUE: PA and lateral views of the chest COMPARISON: PA and lateral chest radiographs 05/23/2020 FINDINGS/IMPRESSION: 1. Right subpulmonic pneumothorax is not significantly changed. Right pleural fluid appears slightly increased. 2. No left pleural effusion. The left lung is clear. Stable mild cardiomegaly. Dictated by Gerald Lizarraga MD @ May 24 2020 5:50AM Signed by Dr. Gerald Lizarraga @ May 24 2020 5:53AM
[2020-05-24] MEDS: Pantoprazole 40 MG Tab.CR PO SCH (07:39)
[2020-05-24] MEDS: Triamcinolone Acetonide 0.1% Crm 15 GM Tube TOP SCH ×2 (08:26→23:44)
[2020-05-24] MEDS: Lactulose Soln 10 GM/15 ML 15 ML UD Cup PO SCH ×2 (08:29→20:28)
[2020-05-24] MEDS: URSODIOL 300 MG PO SCH ×3 (08:29→20:28)
[2020-05-24] MEDS: Enoxaparin 30 MG/0.3 ML Syringe SUBCUT SCH (08:29)
--- NOTE | 2020-05-24 09:42 | PCM.PN ---
- General Info Date of Service: 05/24/20 Subjective Update: No acute events overnight. Patient feels a little short of breath and has required supplemental oxygen. Mild hemoptysis is back today. No significant chest pain. Chest x-ray shows that the effusion has returned and is back to the level of that at the time of admission. No nausea. Blood pressure has been on the low side of normal. Functional Status: Reports: Pain Controlled, Tolerating Diet - Review of Systems General: Denies: Fever Pulmonary: Reports: Shortness of Breath, Cough, Hemoptysis (mild) - Patient Data Vitals - Most Recent: Last Vital Signs Temp 36.5 C 05/24/20 07:44 Pulse 97 05/24/20 07:44 Resp 20 05/24/20 07:44 BP 101/59 L 05/24/20 07:44 Pulse Ox 93 L 05/24/20 07:44 Weight - Most Recent: 71.078 kg I&O - Last 24 Hours: Intake & Output 05/23/20 05/24/20 05/24/20 22:59 06:59 14:59 Intake Total 950 Balance 950 Lab Results Last 24 Hours: Laboratory Results - last 24 hr 05/24/20 05/24/20 Range/Units 05:20 05:20 WBC 6.8 (4.5-11.0) K/uL RBC 4.43 (4.30-5.90) M/uL Hgb 11.1 L (12.0-15.0) g/dL Hct 35.8 L (40.0-54.0) % MCV 81 (80-98) fL MCH 25 L (27-31) pg MCHC 31 L (32-36) % Plt Count 190 (150-400) K/uL Sodium 138 L (140-148) mmol/L Potassium 4.2 (3.6-5.2) mmol/L Chloride 97 L (100-108) mmol/L Carbon Dioxide 31 (21-32) mmol/L Anion Gap 14.2 H (5.0-14.0) mmol/L BUN 31 H (7-18) mg/dL Creatinine 2.4 H (0.8-1.3) mg/dL Est Cr Clr Drug Dosing 19.84 mL/min Estimated GFR (MDRD) 26 L (>60) Glucose 124 H (74-106) mg/dL Calcium 8.8 (8.5-10.1) mg/dL Lee Results Last 24 Hours: Microbiology 05/22/20 12:52 Gram Stain - Final Pleural Fluid Body Fluid Culture - Preliminary NO GROWTH AFTER 2 DAYS Med Orders - Current: Current Medications Acetaminophen (Tylenol) 650 mg PO Q4H PRN PRN Reason: Pain (Mild 1-3)/fever Albuterol (Proventil Neb Soln) 2.5 mg NEB Q4H PRN PRN Reason: Shortness Of Breath/wheezing Bisacodyl (Dulcolax) 5 mg PO DAILY PRN PRN Reason: Constipation Docusate Sodium (Colace) 100 mg PO BID PRN PRN Reason: Constipation Doxazosin Mesylate (Cardura) 4 mg PO BEDTIME [facility] Last Admin: 05/23/20 20:30 Dose: Not Given Documented by: Melatonin (Melatonin) 6 mg PO BEDTIME [facility] Last Admin: 05/23/20 20:29 Dose: 6 mg Documented by: Metoprolol Succinate (Toprol Xl) 25 mg PO BEDTIME [facility] Last Admin: 05/23/20 20:30 Dose: Not Given Documented by: Morphine Sulfate (Morphine) 2 mg IVPUSH Q2H PRN PRN Reason: Pain (severe 7-10) Ondansetron HCl (Zofran Odt) 4 mg PO Q6H PRN PRN Reason: Nausea able to take PO Ondansetron HCl (Zofran) 4 mg IV Q4H PRN PRN Reason: Nausea/Vomiting Oxycodone HCl (Oxycodone) 5 mg PO Q4H PRN PRN Reason: Pain (moderate 4-6) Last Admin: 05/23/20 20:38 Dose: 5 mg Documented by: Pantoprazole Sodium (Protonix) 40 mg PO ACBREAKFAST [facility] Last Admin: 05/24/20 07:39 Dose: 40 mg Documented by: Ursodiol 300mg Cap ( (Ptom)) 0 each PO TID [facility] Last Admin: 05/24/20 08:29 Dose: 1 each Documented by: Sodium Chloride (Saline Flush) 10 ml FLUSH ASDIRECTED PRN PRN Reason: Keep Vein Open Last Admin: 05/22/20 01:16 Dose: 10 ml Documented by: Triamcinolone Acetonide (Triamcinolone Acetonide 0.1% Crm) 1 gm TOP BID [facility] Last Admin: 05/24/20 08:26 Dose: Not Given Documented by: Discontinued Medications Albuterol/Ipratropium (Duoneb 3.0-0.5 Mg/3 Ml) 3 ml NEB QID PRN PRN Reason: Shortness Of Breath/wheezing Doxazosin Mesylate (Cardura) 4 mg PO DAILY [facility] Last Admin: 05/22/20 08:31 Dose: 4 mg Documented by: Enoxaparin Sodium (Lovenox) 30 mg SUBCUT DAILY [facility] Last Admin: 05/24/20 08:29 Dose: 30 mg Documented by: Furosemide (Lasix) 40 mg PO DAILY [facility] Last Admin: 05/22/20 08:30 Dose: 40 mg Documented by: Furosemide (Lasix) 40 mg PO Q24H [facility] Last Admin: 05/23/20 12:27 Dose: 40 mg Documented by: Hydromorphone HCl (Dilaudid) 0.5 mg IVPUSH ONETIME ONE Stop: 05/22/20 01:04 Last Admin: 05/22/20 01:15 Dose: 0.5 mg Documented by: Influenza Virus Vaccine (Pharmacy To Dose - Influenza Vaccine) 1 each IM ONETIME ONE Stop: 05/22/20 04:25 Influenza Virus Vaccine (Fluzone High-Dose Quad 2020-21) 240 mcg IM .ONCE ONE Stop: 05/23/20 12:01 Last Admin: 05/23/20 12:25 Dose: 240 mcg Documented by: Insulin Human Lispro (Humalog) 0 unit SUBCUT QIDACANDBED [facility]; Protocol Last Admin: 05/22/20 12:07 Dose: Not Given Documented by: Lactulose (Chronulac) 20 gm PO TID [facility] Last Admin: 05/24/20 08:29 Dose: 20 gm Documented by: Spironolactone (Aldactone) 25 mg PO DAILY [facility] Last Admin: 05/22/20 08:30 Dose: 25 mg Documented by: Spironolactone (Aldactone) 25 mg PO Q24H [facility] Last Admin: 05/23/20 12:34 Dose: 25 mg Documented by: - Exam Quality Assessment: Supplemental Oxygen General: Alert, Oriented, Cooperative, No Acute Distress Lungs: Normal Respiratory Effort, Crackles (right lower lung ). No: Wheezing Cardiovascular: Regular Rate, Irregular Rhythm GI/Abdominal Exam: Soft, No Distention Extremities: No Pedal Edema. No: Increased Warmth Skin: Warm, Dry Psy/Mental Status: Alert, Normal Affect Sepsis Event Note - Evaluation Sepsis Screening Result: No Definite Risk - Focused Exam Vital Signs: Vital Signs Temp Pulse Resp BP Pulse Ox 05/24/20 07:44 36.5 C 97 20 101/59 L 93 L 05/24/20 07:25 93 L 05/24/20 02:22 36.4 C 85 20 119/73 90 L 05/24/20 01:16 95 - Problem List Review Problem List Initiated/Reviewed/Updated: Yes - My Orders Last 24 Hours: My Active Orders 05/23/20 09:55 Incentive Spirometry [RT Incentive Spirometry] [RC] Q1HWA 05/24/20 09:40 Antiembolic Devices [RC] .Routine SCD [Sequential Compression Device] [OM.PC] Routine 05/24/20 10:00 Furosemide [Lasix] 40 mg PO ONETIME ONE 05/24/20 16:00 Furosemide [Lasix] 40 mg PO ONETIME ONE Spironolactone [Aldactone] 25 mg PO BID 05/24/20 21:00 Lactulose [Chronulac] 20 gm PO BID 05/25/20 05:00 BASIC METABOLIC PANEL,BMP [CHEM] Timed 05/25/20 08:00 Furosemide [Lasix] 40 mg PO BIDDIURETIC - Plan Plan:: ASSESSMENT AND PLAN Large right pleural effusion-status post thoracentesis on 05/22 with removal of 2600 mL of fluid. Cultures negative so far and fluid was planned and transudate of in appearance. Effusion has reaccumulated. This is likely related to his liver disease with fluid crossing the diaphragm. Plan to increase diuretics. If he does not respond talc pleurodesis could be a consideration. -Repeat chest x-ray in the morning -Increase diuretics to twice daily (furosemide and spironolactone) -oxygen to keep oxygen levels greater than 92% -Surgical consultation appreciated CHF-no recent ejection fraction available. No significant JVD and his heart failure appears to be compensated. -Strict intake and output monitoring -Diuretics as above -Continue outpatient medictions -Echocardiogram on Monday Cirrhosis- history of alcohol use - reports has not drank in years. Moderate ascites noted on CT scan. 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 He does not take any outpatient medications for his diabetes. -consistent carb diet L1 compression fracture-very mild. Age-indeterminate. No pain. -Symptomatic management Maintenance issues -Nutrition: consistent carb diet -DVT: Mechanical -GI; Protonix 40 mg daily Disposition: Anticipate discharge home with family, possibly with home care Jhon Carvalho MD
[2020-05-24] MEDS ORDERED: Furosemide 40 MG Tab PO ONE (10:00)
--- NOTE | 2020-05-24 11:27 | PN ---
DATE OF SERVICE: 05/23/2020 The patient has been clinically stable overnight. He has developed somewhat of an increased pneumothorax after initial x-ray showing very little if any yesterday. Of note, his fluid has rapidly recurred and I suspect this is probably related to some ascites migrating from the peritoneal to the pleural space on the right side. Anyway, he is not short of breath at all. He did have some hemoptysis initially after the thoracentesis yesterday which may have been related to some reexpansion in pulmonary edema as well as a developing pneumothorax. The chest x-ray from the pneumothorax standpoint has been stable overnight and today he is not short of breath and maintaining good O2 sats, and so we will not intervene with that other than obtain another chest x-ray tomorrow. The rapidly reaccumulating pleural fluid is probably such that a repeat thoracentesis would not necessarily be beneficial as this actually filled up quite a bit within just a few hours of the thoracentesis for which there was almost complete evacuation of the fluid yesterday. Rod Jaramillo MD /[id number]
[2020-05-24] MEDS: Furosemide 40 MG Tab PO ONE ×2 (14:57→15:11)
[2020-05-24] MEDS: Spironolactone 25 MG Tab PO SCH ×2 (14:57→15:11)
[2020-05-24] MEDS: Metoprolol Succinate 25 MG Tab.ER PO SCH (20:27)
[2020-05-24] MEDS: Doxazosin 4 MG Tab PO SCH (20:28)
[2020-05-24] MEDS: Melatonin 3 MG Tab PO SCH (20:28)
[2020-05-24] MEDS: oxyCODONE 5 MG Tab PO PRN (20:32)
[2020-05-25] MEDS: Furosemide 40 MG Tab PO SCH ×2 (08:30→15:04)
[2020-05-25] MEDS: Pantoprazole 40 MG Tab.CR PO SCH (08:31)
[2020-05-25] MEDS: Spironolactone 25 MG Tab PO SCH ×2 (08:33→15:05)
[2020-05-25] MEDS: URSODIOL 300 MG PO SCH ×3 (08:37→20:57)
[2020-05-25] MEDS: Lactulose Soln 10 GM/15 ML 15 ML UD Cup PO SCH ×2 (08:43→20:59)
[2020-05-25] MEDS: Triamcinolone Acetonide 0.1% Crm 15 GM Tube TOP SCH ×2 (08:45→21:06)
[2020-05-25] MEDS ORDERED: Potassium Chloride 20 MEQ Tab.ER PO ONE (08:45)
--- NOTE | 2020-05-25 11:08 | CR ---
CHEST: 2 view CLINICAL HISTORY:Postthoracentesis COMPARISON:05/24/2020 FINDINGS: Patient has a persistent moderate right-sided hydropneumothorax. Air-fluid level and right lung expansion are similar to the prior study. Heart is enlarged, pulmonary vascular is normal. There is no shift of the mediastinum. IMPRESSION: Persistent right-sided hydropneumothorax with incomplete reexpansion the right lung. Configuration is similar to prior study.
--- NOTE | 2020-05-25 15:05 | PCM.PN ---
- General Info Date of Service: 05/25/20 Subjective Update: Mr. Chaves continues to experience shortness of breath and hypoxia related to large hydropneumothorax. Preliminary report from echocardiogram obtained today shows decreased left ventricular systolic function with estimated ejection fraction of 30 to 35%. Severe MR and TR as well as chamber enlargement. He reports that his appetite has been fairly good, but is experiencing some difficulty with constipation. Functional Status: Reports: Tolerating Diet, Urinating - Review of Systems General: Reports: Weakness, Fatigue. Denies: Fever, Chills Pulmonary: Reports: Shortness of Breath. Denies: Pleuritic Chest Pain, Cough, Sputum, Hemoptysis, Wheezing Cardiovascular: Reports: Dyspnea on Exertion. Denies: Chest Pain, Palpitations, Orthopnea, PND, Edema, Lightheadedness Gastrointestinal: Reports: No Symptoms - Patient Data Vitals - Most Recent: Last Vital Signs Temp 96 F L 05/25/20 13:00 Pulse 82 05/25/20 13:00 Resp 18 05/25/20 13:00 BP 119/63 05/25/20 13:00 Pulse Ox 94 L 05/25/20 13:00 Weight - Most Recent: 149 lb 8 oz I&O - Last 24 Hours: Intake & Output 05/24/20 05/25/20 05/25/20 22:59 06:59 14:59 Intake Total 240 Output Total 200 Balance 40 Lab Results Last 24 Hours: Laboratory Results - last 24 hr 05/25/20 Range/Units 05:35 Sodium 137 L (140-148) mmol/L Potassium 3.5 L (3.6-5.2) mmol/L Chloride 96 L (100-108) mmol/L Carbon Dioxide 33 H (21-32) mmol/L Anion Gap 11.5 (5.0-14.0) mmol/L BUN 29 H (7-18) mg/dL Creatinine 2.2 H (0.8-1.3) mg/dL Est Cr Clr Drug Dosing 21.65 mL/min Estimated GFR (MDRD) 28 L (>60) Glucose 126 H (74-106) mg/dL Calcium 8.7 (8.5-10.1) mg/dL Lee Results Last 24 Hours: Microbiology 05/22/20 13:00 Fungal Culture - Preliminary Pleural Fluid NO FUNGAL GROWTH AT 1 WEEK 05/22/20 12:52 Gram Stain - Final Pleural Fluid Body Fluid Culture - Final NO GROWTH AFTER 3 DAYS 05/22/20 13:07 AFB Specimen Processing Tissue - Final Pleural Fluid Acid Fast Bacilli Smear - Final Acid Fast Bacilli Culture - Preliminary Med Orders - Current: Current Medications Acetaminophen (Tylenol) 650 mg PO Q4H PRN PRN Reason: Pain (Mild 1-3)/fever Albuterol (Proventil Neb Soln) 2.5 mg NEB Q4H PRN PRN Reason: Shortness Of Breath/wheezing Bisacodyl (Dulcolax) 5 mg PO DAILY PRN PRN Reason: Constipation Docusate Sodium (Colace) 100 mg PO BID PRN PRN Reason: Constipation Doxazosin Mesylate (Cardura) 4 mg PO BEDTIME [facility] Last Admin: 05/24/20 20:28 Dose: 4 mg Documented by: Furosemide (Lasix) 40 mg PO BIDDIURETIC [facility] Last Admin: 05/25/20 08:30 Dose: 40 mg Documented by: Lactulose (Chronulac) 20 gm PO BID [facility] Last Admin: 05/25/20 08:43 Dose: 20 gm Documented by: Melatonin (Melatonin) 6 mg PO BEDTIME [facility] Last Admin: 05/24/20 20:28 Dose: 6 mg Documented by: Metoprolol Succinate (Toprol Xl) 25 mg PO BEDTIME [facility] Last Admin: 05/24/20 20:27 Dose: 25 mg Documented by: Morphine Sulfate (Morphine) 2 mg IVPUSH Q2H PRN PRN Reason: Pain (severe 7-10) Ondansetron HCl (Zofran Odt) 4 mg PO Q6H PRN PRN Reason: Nausea able to take PO Ondansetron HCl (Zofran) 4 mg IV Q4H PRN PRN Reason: Nausea/Vomiting Oxycodone HCl (Oxycodone) 5 mg PO Q4H PRN PRN Reason: Pain (moderate 4-6) Last Admin: 05/24/20 20:32 Dose: 5 mg Documented by: Pantoprazole Sodium (Protonix) 40 mg PO ACBREAKFAST [facility] Last Admin: 05/25/20 08:31 Dose: 40 mg Documented by: Ursodiol 300mg Cap ( (Ptom)) 0 each PO TID [facility] Last Admin: 05/25/20 08:37 Dose: 1 each Documented by: Polyethylene Glycol (Miralax) 17 gm PO BEDTIME [facility] Sodium Chloride (Saline Flush) 10 ml FLUSH ASDIRECTED PRN PRN Reason: Keep Vein Open Last Admin: 05/22/20 01:16 Dose: 10 ml Documented by: Spironolactone (Aldactone) 25 mg PO BIDDIURETIC [facility] Last Admin: 05/25/20 08:33 Dose: 25 mg Documented by: Triamcinolone Acetonide (Triamcinolone Acetonide 0.1% Crm) 1 gm TOP BID [facility] Last Admin: 05/25/20 08:45 Dose: Not Given Documented by: Discontinued Medications Albuterol/Ipratropium (Duoneb 3.0-0.5 Mg/3 Ml) 3 ml NEB QID PRN PRN Reason: Shortness Of Breath/wheezing Doxazosin Mesylate (Cardura) 4 mg PO DAILY [facility] Last Admin: 05/22/20 08:31 Dose: 4 mg Documented by: Enoxaparin Sodium (Lovenox) 30 mg SUBCUT DAILY [facility] Last Admin: 05/24/20 08:29 Dose: 30 mg Documented by: Furosemide (Lasix) 40 mg PO DAILY [facility] Last Admin: 05/22/20 08:30 Dose: 40 mg Documented by: Furosemide (Lasix) 40 mg PO Q24H [facility] Last Admin: 05/23/20 12:27 Dose: 40 mg Documented by: Furosemide (Lasix) 40 mg PO ONETIME ONE Stop: 05/24/20 10:01 Last Admin: 05/24/20 10:10 Dose: 40 mg Documented by: Furosemide (Lasix) 40 mg PO ONETIME ONE Stop: 05/24/20 16:01 Last Admin: 05/24/20 15:11 Dose: Not Given Documented by: Hydromorphone HCl (Dilaudid) 0.5 mg IVPUSH ONETIME ONE Stop: 05/22/20 01:04 Last Admin: 05/22/20 01:15 Dose: 0.5 mg Documented by: Influenza Virus Vaccine (Pharmacy To Dose - Influenza Vaccine) 1 each IM ONETIME ONE Stop: 05/22/20 04:25 Influenza Virus Vaccine (Fluzone High-Dose Quad 2019-) 240 mcg IM .ONCE ONE Stop: 05/23/20 12:01 Last Admin: 05/23/20 12:25 Dose: 240 mcg Documented by: Insulin Human Lispro (Humalog) 0 unit SUBCUT QIDACANDBED [facility]; Protocol Last Admin: 05/22/20 12:07 Dose: Not Given Documented by: Lactulose (Chronulac) 20 gm PO TID [facility] Last Admin: 05/24/20 08:29 Dose: 20 gm Documented by: Potassium Chloride (Klor-Con M20) 40 meq PO ONETIME ONE Stop: 05/25/20 08:46 Last Admin: 05/25/20 09:08 Dose: 40 meq Documented by: Spironolactone (Aldactone) 25 mg PO DAILY [facility] Last Admin: 05/22/20 08:30 Dose: 25 mg Documented by: Spironolactone (Aldactone) 25 mg PO Q24H [facility] Last Admin: 05/23/20 12:34 Dose: 25 mg Documented by: - Exam Quality Assessment: Supplemental Oxygen, DVT Prophylaxis General: Alert, Oriented, Cooperative, Mild Distress Lungs: Decreased Breath Sounds. No: Rales, Rhonchi, Rub, Wheezing Cardiovascular: Regular Rate, Regular Rhythm, Murmurs GI/Abdominal Exam: Soft, Non-Tender, No Organomegaly, No Distention Extremities: Non-Tender, No Pedal Edema Sepsis Event Note - Evaluation Sepsis Screening Result: No Definite Risk - Focused Exam Vital Signs: Vital Signs Temp Pulse Resp BP Pulse Ox 05/25/20 13:00 96 F L 82 18 119/63 94 L 05/25/20 09:00 97.0 F 60 20 105/45 L 93 L 05/25/20 04:00 55 L 21 H 94 L - Problem List Review Problem List Initiated/Reviewed/Updated: Yes - My Orders Last 24 Hours: My Active Orders 05/25/20 09:38 Intake and Output Strict [RC] ASDIRECTED 05/25/20 12:26 Consult to Physical Therapy [PT Evaluation and Treatment] [CONS] Routine 05/25/20 21:00 polyethylene glycoL 3350 [MiraLAX] 17 gm PO BEDTIME 05/26/20 04:30 Weight Daily [Height and Weight] [RC] DAILY 05/26/20 05:00 BASIC METABOLIC PANEL,BMP [CHEM] Timed - Plan Plan:: ASSESSMENT AND PLAN Large right pleural effusion-status post thoracentesis on 05/22 with removal of 2600 mL of fluid. Cultures negative so far and fluid was transudate in appearance. Effusion has reaccumulated. This is likely related to his liver disease with fluid crossing the diaphragm. -Repeat chest x-ray in the morning -Increase diuretics to twice daily (furosemide and spironolactone) -oxygen to keep oxygen levels greater than 92% -Surgical consultation appreciated CHF-echocardiogram obtained today showing decreased left ventricular systolic function as well as evidence of diastolic dysfunction and significant valvular disease, formal report is pending -Strict intake and output monitoring -Diuretics as above -Continue outpatient medictions Cirrhosis- history of alcohol use - reports has not drank in years. Moderate ascites noted on CT scan. 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 He does not take any outpatient medications for his diabetes. -consistent carb diet L1 compression fracture-very mild. Age-indeterminate. No pain. -Symptomatic management Maintenance issues -Nutrition: consistent carb diet -DVT: Mechanical -GI; Protonix 40 mg daily Disposition: Anticipate discharge home with family, possibly with home care
[2020-05-25] MEDS: Doxazosin 4 MG Tab PO SCH (20:58)
[2020-05-25] MEDS: Metoprolol Succinate 25 MG Tab.ER PO SCH (20:58)
[2020-05-25] MEDS: Melatonin 3 MG Tab PO SCH (20:58)
[2020-05-25] MEDS: Polyethylene Glycol 3350 Powder 17 GM Packet PO SCH (20:59)
--- NOTE | 2020-05-26 07:08 | PN ---
DATE OF SERVICE: 05/24/2020 The patient has been afebrile with stable vital signs. His hydropneumothorax is roughly stable. The amount of air appears to be less. Fluid probably a little bit more. He does not describe being significantly short of breath. I suspect this will be probably coming from the abdomen through some porous areas in the diaphragm as it largely occurred within a couple of hours after the 2600 mL thoracentesis done on Monday. At this point, probably not an obvious indication for a repeat thoracentesis, if he does become significantly the solution to this problem would be a talc pleurodesis, but if he became short of breath on an ongoing basis. Rod Jaramillo MD /[id number]
[2020-05-26] MEDS: Pantoprazole 40 MG Tab.CR PO SCH (07:31)
[2020-05-26] MEDS: Spironolactone 25 MG Tab PO SCH ×2 (07:31→15:10)
[2020-05-26] MEDS: Furosemide 40 MG Tab PO SCH ×2 (07:32→15:10)
--- NOTE | 2020-05-26 09:02 | CR ---
CHEST: 2 view CLINICAL HISTORY:Hydropneumothorax COMPARISON:05/25/2020 FINDINGS: Large right-sided hydropneumothorax is essentially unchanged from prior study. There is no shift of the mediastinum. Heart is enlarged pulmonary vascularity is normal. There has been previous sternotomy. IMPRESSION: Persistent large right hydropneumothorax without significant change
[2020-05-26] MEDS: URSODIOL 300 MG PO SCH ×3 (09:21→21:58)
[2020-05-26] MEDS: Triamcinolone Acetonide 0.1% Crm 15 GM Tube TOP SCH ×2 (09:22→22:00)
[2020-05-26] MEDS: Lactulose Soln 10 GM/15 ML 15 ML UD Cup PO SCH ×2 (09:22→21:58)
--- NOTE | 2020-05-26 12:58 | PCM.PN ---
- General Info Date of Service: 05/26/20 Subjective Update: Mr. Chaves has been stable since yesterday, negligible improvement in the hydropneumothorax. He has been able to be more active, up and walking in the hallways with supplemental oxygen. Functional Status: Reports: Tolerating Diet, Ambulating, Urinating - Review of Systems General: Reports: Weakness, Fatigue. Denies: Fever, Chills Pulmonary: Reports: Shortness of Breath. Denies: Pleuritic Chest Pain, Cough, Sputum, Hemoptysis, Wheezing Cardiovascular: Reports: Dyspnea on Exertion. Denies: Chest Pain, Palpitations, Orthopnea, PND, Edema, Lightheadedness Gastrointestinal: Reports: No Symptoms - Patient Data Vitals - Most Recent: Last Vital Signs Temp 98.0 F 05/26/20 11:00 Pulse 78 05/26/20 11:00 Resp 18 05/26/20 11:00 BP 104/56 L 05/26/20 11:00 Pulse Ox 98 05/26/20 11:00 Weight - Most Recent: 141 lb I&O - Last 24 Hours: Intake & Output 05/25/20 05/26/20 05/26/20 22:59 06:59 14:59 Intake Total 240 300 240 Output Total 500 200 125 Balance -260 100 115 Lab Results Last 24 Hours: Laboratory Results - last 24 hr 05/26/20 Range/Units 05:56 Sodium 136 L (140-148) mmol/L Potassium 3.9 (3.6-5.2) mmol/L Chloride 96 L (100-108) mmol/L Carbon Dioxide 33 H (21-32) mmol/L Anion Gap 10.9 (5.0-14.0) mmol/L BUN 31 H (7-18) mg/dL Creatinine 2.0 H (0.8-1.3) mg/dL Est Cr Clr Drug Dosing 23.10 mL/min Estimated GFR (MDRD) 32 L (>60) Glucose 150 H (74-106) mg/dL Calcium 9.0 (8.5-10.1) mg/dL Med Orders - Current: Current Medications Acetaminophen (Tylenol) 650 mg PO Q4H PRN PRN Reason: Pain (Mild 1-3)/fever Albuterol (Proventil Neb Soln) 2.5 mg NEB Q4H PRN PRN Reason: Shortness Of Breath/wheezing Bisacodyl (Dulcolax) 5 mg PO DAILY PRN PRN Reason: Constipation Docusate Sodium (Colace) 100 mg PO BID PRN PRN Reason: Constipation Doxazosin Mesylate (Cardura) 4 mg PO BEDTIME [facility] Last Admin: 05/25/20 20:58 Dose: 4 mg Documented by: Furosemide (Lasix) 40 mg PO BIDDIURETIC [facility] Last Admin: 05/26/20 07:32 Dose: 40 mg Documented by: Lactulose (Chronulac) 20 gm PO BID [facility] Last Admin: 05/26/20 09:22 Dose: 20 gm Documented by: Melatonin (Melatonin) 6 mg PO BEDTIME [facility] Last Admin: 05/25/20 20:58 Dose: 6 mg Documented by: Metoprolol Succinate (Toprol Xl) 25 mg PO BEDTIME [facility] Last Admin: 05/25/20 20:58 Dose: 25 mg Documented by: Morphine Sulfate (Morphine) 2 mg IVPUSH Q2H PRN PRN Reason: Pain (severe 7-10) Ondansetron HCl (Zofran Odt) 4 mg PO Q6H PRN PRN Reason: Nausea able to take PO Ondansetron HCl (Zofran) 4 mg IV Q4H PRN PRN Reason: Nausea/Vomiting Oxycodone HCl (Oxycodone) 5 mg PO Q4H PRN PRN Reason: Pain (moderate 4-6) Last Admin: 05/24/20 20:32 Dose: 5 mg Documented by: Pantoprazole Sodium (Protonix) 40 mg PO ACBREAKFAST [facility] Last Admin: 05/26/20 07:31 Dose: 40 mg Documented by: Ursodiol 300mg Cap ( (Ptom)) 0 each PO TID [facility] Last Admin: 05/26/20 09:21 Dose: 1 each Documented by: Polyethylene Glycol (Miralax) 17 gm PO BEDTIME [facility] Last Admin: 05/25/20 20:59 Dose: Not Given Documented by: Sodium Chloride (Saline Flush) 10 ml FLUSH ASDIRECTED PRN PRN Reason: Keep Vein Open Last Admin: 05/22/20 01:16 Dose: 10 ml Documented by: Spironolactone (Aldactone) 25 mg PO BIDDIURETIC [facility] Last Admin: 05/26/20 07:31 Dose: 25 mg Documented by: Triamcinolone Acetonide (Triamcinolone Acetonide 0.1% Crm) 1 gm TOP BID [facility] Last Admin: 05/26/20 09:22 Dose: Not Given Documented by: Discontinued Medications Albuterol/Ipratropium (Duoneb 3.0-0.5 Mg/3 Ml) 3 ml NEB QID PRN PRN Reason: Shortness Of Breath/wheezing Doxazosin Mesylate (Cardura) 4 mg PO DAILY [facility] Last Admin: 05/22/20 08:31 Dose: 4 mg Documented by: Enoxaparin Sodium (Lovenox) 30 mg SUBCUT DAILY [facility] Last Admin: 05/24/20 08:29 Dose: 30 mg Documented by: Furosemide (Lasix) 40 mg PO DAILY [facility] Last Admin: 05/22/20 08:30 Dose: 40 mg Documented by: Furosemide (Lasix) 40 mg PO Q24H [facility] Last Admin: 05/23/20 12:27 Dose: 40 mg Documented by: Furosemide (Lasix) 40 mg PO ONETIME ONE Stop: 05/24/20 10:01 Last Admin: 05/24/20 10:10 Dose: 40 mg Documented by: Furosemide (Lasix) 40 mg PO ONETIME ONE Stop: 05/24/20 16:01 Last Admin: 05/24/20 15:11 Dose: Not Given Documented by: Hydromorphone HCl (Dilaudid) 0.5 mg IVPUSH ONETIME ONE Stop: 05/22/20 01:04 Last Admin: 05/22/20 01:15 Dose: 0.5 mg Documented by: Influenza Virus Vaccine (Pharmacy To Dose - Influenza Vaccine) 1 each IM ONETIME ONE Stop: 05/22/20 04:25 Influenza Virus Vaccine (Fluzone High-Dose Quad 2020-21) 240 mcg IM .ONCE ONE Stop: 05/23/20 12:01 Last Admin: 05/23/20 12:25 Dose: 240 mcg Documented by: Insulin Human Lispro (Humalog) 0 unit SUBCUT QIDACANDBED [facility]; Protocol Last Admin: 05/22/20 12:07 Dose: Not Given Documented by: Lactulose (Chronulac) 20 gm PO TID [facility] Last Admin: 05/24/20 08:29 Dose: 20 gm Documented by: Potassium Chloride (Klor-Con M20) 40 meq PO ONETIME ONE Stop: 05/25/20 08:46 Last Admin: 05/25/20 09:08 Dose: 40 meq Documented by: Spironolactone (Aldactone) 25 mg PO DAILY [facility] Last Admin: 05/22/20 08:30 Dose: 25 mg Documented by: Spironolactone (Aldactone) 25 mg PO Q24H [facility] Last Admin: 05/23/20 12:34 Dose: 25 mg Documented by: - Exam Quality Assessment: DVT Prophylaxis General: Alert, Oriented, Cooperative, No Acute Distress Lungs: Clear to Auscultation, Decreased Breath Sounds. No: Crackles, Rales, Rhonchi, Wheezing Cardiovascular: Regular Rate, Regular Rhythm, No Murmurs GI/Abdominal Exam: Soft, Non-Tender, No Organomegaly, No Distention Extremities: Non-Tender, No Pedal Edema Sepsis Event Note - Evaluation Sepsis Screening Result: No Definite Risk - Focused Exam Vital Signs: Vital Signs Temp Pulse Resp BP Pulse Ox 05/26/20 11:00 98.0 F 78 18 104/56 L 98 05/26/20 07:45 97.1 F 83 16 96/54 L 93 L 05/26/20 07:35 96 05/26/20 03:00 76 18 98 05/26/20 01:00 97 - Problem List Review Problem List Initiated/Reviewed/Updated: Yes - My Orders Last 24 Hours: My Active Orders 05/25/20 12:26 Consult to Physical Therapy [PT Evaluation and Treatment] [CONS] Routine 05/25/20 21:00 polyethylene glycoL 3350 [MiraLAX] 17 gm PO BEDTIME 05/26/20 04:30 Weight Daily [Height and Weight] [RC] DAILY 05/27/20 05:00 Chest 1V Frontal [CR] Timed BASIC METABOLIC PANEL,BMP [CHEM] Timed - Plan Plan:: ASSESSMENT AND PLAN Large right pleural effusion-status post thoracentesis on 05/22 with removal of 2600 mL of fluid. Cultures negative so far and fluid was transudate in appearance. Effusion has reaccumulated. This is likely related to his congestive heart failure and liver disease with fluid crossing the diaphragm. -Repeat chest x-ray in the morning -diuretics twice daily (furosemide and spironolactone) -oxygen to keep oxygen levels greater than 92% -Surgical follow-up appreciated CHF-echocardiogram shows decreased left ventricular systolic function as well as evidence of diastolic dysfunction and significant valvular disease, formal report is pending -Strict intake and output monitoring -Diuretics as above -Continue outpatient medictions -Hold on addition of beta-len and KIRK inhibitor because of borderline blood pressures Cirrhosis- history of alcohol use - reports has not drank in years. Moderate ascites noted on CT scan. 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 He does not take any outpatient medications for his diabetes. -consistent carb diet L1 compression fracture-very mild. Age-indeterminate. No pain. -Symptomatic management Maintenance issues -Nutrition: consistent carb diet -DVT: Mechanical -GI; Protonix 40 mg daily Disposition: Anticipate discharge home with family, possibly with home care
[2020-05-26] MEDS: Doxazosin 4 MG Tab PO SCH (21:58)
[2020-05-26] MEDS: Melatonin 3 MG Tab PO SCH (21:58)
[2020-05-26] MEDS: Metoprolol Succinate 25 MG Tab.ER PO SCH (21:59)
[2020-05-26] MEDS: Polyethylene Glycol 3350 Powder 17 GM Packet PO SCH (22:00)
[2020-05-27] MEDS ORDERED: Central Total Parenteral Nutrition Bag SCH (08:00)
[2020-05-27] MEDS: Furosemide 40 MG Tab PO SCH ×2 (09:07→14:38)
[2020-05-27] MEDS: Spironolactone 25 MG Tab PO SCH ×2 (09:08→14:38)
[2020-05-27] MEDS: URSODIOL 300 MG PO SCH ×3 (09:08→21:08)
[2020-05-27] MEDS: Pantoprazole 40 MG Tab.CR PO SCH (09:08)
[2020-05-27] MEDS: Triamcinolone Acetonide 0.1% Crm 15 GM Tube TOP SCH ×2 (09:08→21:09)
[2020-05-27] MEDS: Lactulose Soln 10 GM/15 ML 15 ML UD Cup PO SCH ×2 (09:08→21:05)
--- NOTE | 2020-05-27 09:11 | CR ---
CHEST: Portable 05/27/2020 at 5:12 AM CLINICAL HISTORY:Hydropneumothorax COMPARISON:05/26/2020 FINDINGS: There is some improvement in the right hydropneumothorax when compared to prior study. Heart is enlarged. There has been previous sternotomy. There is mild generalized interstitial prominence of the left lung. SOME OF THIS MAY BE CHRONIC. MILD INTERSTITIAL EDEMA IS NOT EXCLUDED. IMPRESSION: Decrease in right-sided hydropneumothorax with compared to prior study Mild interstitial edema suggested in the left mid and lower lung field .
--- NOTE | 2020-05-27 10:02 | PCM.PN ---
- General Info Date of Service: 05/27/20 Subjective Update: Mr. Chaves has been stable over the last 24 hours. Chest x-ray from today does show improvement in the hydropneumothorax. Continues to require some supplemental oxygen but has been more active, walking in the hallway several times a day. Denies significant shortness of breath with activity while using supplemental oxygen. Functional Status: Reports: Tolerating Diet, Ambulating, Urinating - Review of Systems General: Reports: Weakness, Fatigue. Denies: Fever, Chills Pulmonary: Reports: No Symptoms Cardiovascular: Reports: No Symptoms Gastrointestinal: Reports: No Symptoms - Patient Data Vitals - Most Recent: Last Vital Signs Temp 97.6 F 05/27/20 08:00 Pulse 95 05/27/20 08:00 Resp 16 05/27/20 08:00 BP 108/56 L 05/27/20 08:00 Pulse Ox 96 05/27/20 08:00 Weight - Most Recent: 136 lb 9.6 oz I&O - Last 24 Hours: Intake & Output 05/26/20 05/27/20 05/27/20 22:59 06:59 14:59 Intake Total 540 Output Total 715 290 Balance -175 -290 Lab Results Last 24 Hours: Laboratory Results - last 24 hr 05/27/20 Range/Units 04:25 Sodium 135 L (140-148) mmol/L Potassium 3.9 (3.6-5.2) mmol/L Chloride 94 L (100-108) mmol/L Carbon Dioxide 32 (21-32) mmol/L Anion Gap 12.9 (5.0-14.0) mmol/L BUN 33 H (7-18) mg/dL Creatinine 2.0 H (0.8-1.3) mg/dL Est Cr Clr Drug Dosing 23.10 mL/min Estimated GFR (MDRD) 32 L (>60) Glucose 129 H (74-106) mg/dL Calcium 8.8 (8.5-10.1) mg/dL Med Orders - Current: Current Medications Acetaminophen (Tylenol) 650 mg PO Q4H PRN PRN Reason: Pain (Mild 1-3)/fever Albuterol (Proventil Neb Soln) 2.5 mg NEB Q4H PRN PRN Reason: Shortness Of Breath/wheezing Bisacodyl (Dulcolax) 5 mg PO DAILY PRN PRN Reason: Constipation Docusate Sodium (Colace) 100 mg PO BID PRN PRN Reason: Constipation Doxazosin Mesylate (Cardura) 4 mg PO BEDTIME [facility] Last Admin: 05/26/20 21:58 Dose: 4 mg Documented by: Furosemide (Lasix) 40 mg PO BIDDIURETIC [facility] Last Admin: 05/27/20 09:07 Dose: 40 mg Documented by: Lactulose (Chronulac) 20 gm PO BID [facility] Last Admin: 05/27/20 09:08 Dose: 20 gm Documented by: Melatonin (Melatonin) 6 mg PO BEDTIME [facility] Last Admin: 05/26/20 21:58 Dose: 6 mg Documented by: Metoprolol Succinate (Toprol Xl) 25 mg PO BEDTIME [facility] Last Admin: 05/26/20 21:59 Dose: 25 mg Documented by: Morphine Sulfate (Morphine) 2 mg IVPUSH Q2H PRN PRN Reason: Pain (severe 7-10) Ondansetron HCl (Zofran Odt) 4 mg PO Q6H PRN PRN Reason: Nausea able to take PO Ondansetron HCl (Zofran) 4 mg IV Q4H PRN PRN Reason: Nausea/Vomiting Oxycodone HCl (Oxycodone) 5 mg PO Q4H PRN PRN Reason: Pain (moderate 4-6) Last Admin: 05/24/20 20:32 Dose: 5 mg Documented by: Pantoprazole Sodium (Protonix) 40 mg PO ACBREAKFAST [facility] Last Admin: 05/27/20 09:08 Dose: 40 mg Documented by: Ursodiol 300mg Cap ( (Ptom)) 0 each PO TID [facility] Last Admin: 05/27/20 09:08 Dose: 1 each Documented by: Polyethylene Glycol (Miralax) 17 gm PO BEDTIME [facility] Last Admin: 05/26/20 22:00 Dose: 17 gm Documented by: Sodium Chloride (Saline Flush) 10 ml FLUSH ASDIRECTED PRN PRN Reason: Keep Vein Open Last Admin: 05/22/20 01:16 Dose: 10 ml Documented by: Spironolactone (Aldactone) 25 mg PO BIDDIURETIC [facility] Last Admin: 05/27/20 09:08 Dose: 25 mg Documented by: Triamcinolone Acetonide (Triamcinolone Acetonide 0.1% Crm) 1 gm TOP BID [facility] Last Admin: 05/27/20 09:08 Dose: 1 applic Documented by: Discontinued Medications Albuterol/Ipratropium (Duoneb 3.0-0.5 Mg/3 Ml) 3 ml NEB QID PRN PRN Reason: Shortness Of Breath/wheezing Doxazosin Mesylate (Cardura) 4 mg PO DAILY [facility] Last Admin: 05/22/20 08:31 Dose: 4 mg Documented by: Enoxaparin Sodium (Lovenox) 30 mg SUBCUT DAILY [facility] Last Admin: 05/24/20 08:29 Dose: 30 mg Documented by: Furosemide (Lasix) 40 mg PO DAILY [facility] Last Admin: 05/22/20 08:30 Dose: 40 mg Documented by: Furosemide (Lasix) 40 mg PO Q24H [facility] Last Admin: 05/23/20 12:27 Dose: 40 mg Documented by: Furosemide (Lasix) 40 mg PO ONETIME ONE Stop: 05/24/20 10:01 Last Admin: 05/24/20 10:10 Dose: 40 mg Documented by: Furosemide (Lasix) 40 mg PO ONETIME ONE Stop: 05/24/20 16:01 Last Admin: 05/24/20 15:11 Dose: Not Given Documented by: Hydromorphone HCl (Dilaudid) 0.5 mg IVPUSH ONETIME ONE Stop: 05/22/20 01:04 Last Admin: 05/22/20 01:15 Dose: 0.5 mg Documented by: Influenza Virus Vaccine (Pharmacy To Dose - Influenza Vaccine) 1 each IM ONETIME ONE Stop: 05/22/20 04:25 Influenza Virus Vaccine (Fluzone High-Dose Quad 2020-) 240 mcg IM .ONCE ONE Stop: 05/23/20 12:01 Last Admin: 05/23/20 12:25 Dose: 240 mcg Documented by: Insulin Human Lispro (Humalog) 0 unit SUBCUT QIDACANDBED [facility]; Protocol Last Admin: 05/22/20 12:07 Dose: Not Given Documented by: Lactulose (Chronulac) 20 gm PO TID [facility] Last Admin: 05/24/20 08:29 Dose: 20 gm Documented by: Non-Formulary Medication (Total Parenteral Nutrition, Central) 1,000 ml .XX .Continue Order [facility] Potassium Chloride (Klor-Con M20) 40 meq PO ONETIME ONE Stop: 05/25/20 08:46 Last Admin: 05/25/20 09:08 Dose: 40 meq Documented by: Spironolactone (Aldactone) 25 mg PO DAILY [facility] Last Admin: 05/22/20 08:30 Dose: 25 mg Documented by: Spironolactone (Aldactone) 25 mg PO Q24H [facility] Last Admin: 05/23/20 12:34 Dose: 25 mg Documented by: - Exam Quality Assessment: Supplemental Oxygen, DVT Prophylaxis General: Alert, Oriented, Cooperative, No Acute Distress Lungs: Clear to Auscultation, Normal Respiratory Effort, Decreased Breath Sounds Cardiovascular: Regular Rate, Regular Rhythm, Murmurs GI/Abdominal Exam: Soft, Non-Tender, No Organomegaly, No Distention Extremities: Non-Tender, No Pedal Edema Sepsis Event Note - Evaluation Sepsis Screening Result: No Definite Risk - Focused Exam Vital Signs: Vital Signs Temp Pulse Pulse Resp BP BP Pulse Ox 05/27/20 08:00 97.6 F 95 16 108/56 L 96 05/27/20 03:00 96.7 F L 16 102/67 97 05/27/20 01:08 98 05/26/20 22:00 97.6 F 83 15 107/58 L 95 05/26/20 21:59 80 107/58 L 05/26/20 21:58 116/68 - Problem List Review Problem List Initiated/Reviewed/Updated: Yes - My Orders Last 24 Hours: My Active Orders 05/28/20 05:00 BASIC METABOLIC PANEL,BMP [CHEM] Timed - Plan Plan:: ASSESSMENT AND PLAN Large right pleural effusion-status post thoracentesis on 05/22 with removal of 2600 mL of fluid. Cultures negative so far and fluid was transudate in appearance. Symptomatically improved and more active with supplemental oxygen. Chest x-ray shows some improvement in pleural effusion. -Repeat chest x-ray in the morning -diuretics twice daily (furosemide and spironolactone) -oxygen to keep oxygen levels greater than 92% -Surgical follow-up appreciated CHF-echocardiogram shows decreased left ventricular systolic function as well as evidence of diastolic dysfunction and significant valvular disease -Strict intake and output monitoring -Diuretics as above -Continue outpatient medictions -Hold on addition of beta-len and KIRK inhibitor because of borderline blood pressures Cirrhosis- history of alcohol use - reports has not drank in years. Moderate ascites noted on CT scan. 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 He does not take any outpatient medications for his diabetes. -consistent carb diet L1 compression fracture-very mild. Age-indeterminate. No pain. -Symptomatic management Maintenance issues -Nutrition: consistent carb diet -DVT: Mechanical -GI; Protonix 40 mg daily Disposition: Anticipate discharge home with family, possibly with home care
[2020-05-27] MEDS: Polyethylene Glycol 3350 Powder 17 GM Packet PO SCH (21:05)
[2020-05-27] MEDS: Melatonin 3 MG Tab PO SCH (21:06)
[2020-05-27] MEDS: Doxazosin 4 MG Tab PO SCH (21:07)
[2020-05-27] MEDS: Metoprolol Succinate 25 MG Tab.ER PO SCH (21:08)
[2020-05-28 07:17] VITALS: BP 103/61
[2020-05-28] MEDS: Pantoprazole 40 MG Tab.CR PO SCH (07:36)
[2020-05-28] MEDS: Furosemide 40 MG Tab PO SCH (07:36)
[2020-05-28] MEDS: Spironolactone 25 MG Tab PO SCH (07:36)
[2020-05-28] MEDS: Lactulose Soln 10 GM/15 ML 15 ML UD Cup PO SCH (08:20)
[2020-05-28] MEDS: URSODIOL 300 MG PO SCH (08:20)
[2020-05-28] MEDS: Triamcinolone Acetonide 0.1% Crm 15 GM Tube TOP SCH (10:34)
[2020-05-28 11:08] VITALS: PULSE 80
--- NOTE | 2020-05-28 11:26 | PCM.DCSUM1 ---
Discharge Summary - Hospital Course Brief History: Mr. Chaves is an 89-year-old gentleman who was admitted through the emergency department with increased shortness of breath and weakness secondary to a large right pleural effusion. 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 Qualified Code(s): K70.31 - Alcoholic cirrhosis of liver with ascites (2) Pleural effusion, right SNOMED Code(s): 87421450 ICD Code: J90 - PLEURAL EFFUSION, NOT ELSEWHERE CLASSIFIED Status: Acute Priority: High Current Visit: Yes (3) Congestive heart failure (CHF) SNOMED Code(s): 95325328 ICD Code: I50.9 - HEART FAILURE, UNSPECIFIED Status: Chronic Priority: Medium Current Visit: Yes (4) Diabetes type 2, controlled SNOMED Code(s): 00065824, 214596696 ICD Code: E11.9 - TYPE 2 DIABETES MELLITUS WITHOUT COMPLICATIONS Status: Chronic Priority: High Current Visit: Yes Qualifiers: 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: without long-term use Diabetes mellitus complication detail: with chronic kidney disease Chronic kidney disease stage: stage 3 (moderate) (5) CKD (chronic kidney disease) stage 3, GFR 30-59 ml/min SNOMED Code(s): 267754393 ICD Code: N18.3 - CHRONIC KIDNEY DISEASE, STAGE 3 (MODERATE) * DO NOT USE * Status: Chronic Current Visit: No - Patient Summary/Data Consults: Consultations 05/22/20 09:46 Consult to Physician [CONS] Routine Consulting Provider: Rod Jaramillo Call Completed to Consulting Physician: Yes Reason for Consult: right pleural effusion Person Notified: PETERSON Date Notified: 05/22/20 Special Instructions: thoracentesis today 05/25/20 12:26 Consult to Physical Therapy [PT Evaluation and Treatment] [CONS] Routine Please Evaluate and Treat. PT Reason for Consult: Weakness This query below is only for informational purposes and is not editable. Admission Diagnosis/Problem: Pleural effusion on right Hospital Course: Mr. Chaves is an 89-year-old gentleman who was admitted through the emergency department with progressive weakness and shortness of breath secondary to a large right pleural effusion. He has a known history of hepatic cirrhosis with ascites, but has not consumed alcohol for many years. He was admitted to the hospital for further management. He was seen and evaluated by Dr. Jaramillo and thoracentesis was performed removing 2-1/2 L of fluid. Fluid was noted to be clear and laboratory assessment was consistent with a transudate. Unfortunately fluid reaccumulated relatively quickly. Decision was made to pursue conservative management. Follow-up chest x-rays did show a small associated pneumothorax related to the thoracentesis. Dr. Jaramillo did review this and felt that we should continue to manage this conservatively. He was placed on f urosemide twice daily and with this did experience progressive diuresis and improvement in his pleural effusion. Associated with this was less shortness of breath and hypoxia. By the time of discharge he was off of supplemental oxygen with adequate oxygenation and saturations on room air. He was able to be up and active with good transfers and ambulation in the hallways off of oxygen. Echocardiogram was obtained and showed decreased left ventricular function with estimated systolic ejection fraction of 30 to 35%, moderate diastolic dysfunction, and severe MR and TR. Likely that his congestive heart failure was also playing a role in the ongoing effusion. He was not started on KIRK inhibitor therapy because of borderline low blood pressures, this could be considered on an outpatient basis if blood pressure improves over the next few weeks. Follow-up appointment will be scheduled with Dr. Jaramillo within 1 week and a chest x-ray will be obtained at the time of that follow-up appointment. Follow-up appointment will also be scheduled with his primary care provider within 1 week and a BMP will be obtained at the time of that appointment. Activity will be as tolerated and he will be on a low-sodium diet. He will be discharged home with increased dose of furosemide 60 mg daily. - Patient Instructions Diet: Low Sodium Activity: As Tolerated Other/Special Instructions: Please schedule follow-up appointment with primary care provider within 1 week, BMP should be obtained at the time of follow-up appointment. Please schedule follow-up appointment with Dr. Jaramillo within 1 week, chest x-ray should be obtained at the time of that follow-up appointment. - Discharge Plan *PRESCRIPTION DRUG MONITORING PROGRAM REVIEWED*: Not Applicable *COPY OF PRESCRIPTION DRUG MONITORING REPORT IN PATIENT RONALD: Not Applicable Home Medications: Home Meds Aspirin 81 mg PO WITHDINNER 03/03/17 [History] Doxazosin Mesylate [Cardura] 4 mg PO BEDTIME 03/03/17 [History] Metoprolol Succinate [Toprol XL] 25 mg PO BEDTIME 03/03/17 [History] Cholecalciferol (Vitamin D3) [Vitamin D3] 400 unit PO DAILY 01/18/19 [History] Spironolactone [Aldactone] 25 mg PO WITHLUNCH 01/18/19 [History] Lactulose [Generlac] 30 ml PO TID 02/01/19 [History] ursodioL [Ursodiol] 300 mg PO TID 02/11/19 [History] Pantoprazole [ProTONIX] 40 mg PO DAILY 05/21/20 [History] Triamcinolone Acetonide [Kenalog 0.1% Crm] 1 gm TOP BID PRN 05/21/20 [History] Furosemide 60 mg PO WITHLUNCH #60 05/28/20 [Rx] Referrals: Rod Jaramillo MD [Physician] - 06/03/20 1:00 pm (Chest X Ray PA and Lat at 12:30 pm before appointment. ) Dwain Us MD [Primary Care Provider] - 06/02/20 1:40 pm (Please arrive 15 minutes early to register for your appointment.) - Discharge Summary/Plan Comment DC Time >30 min.: No - Patient Data Vitals - Most Recent: Last Vital Signs Temp 96.4 F L 05/28/20 11:00 Pulse 80 05/28/20 11:00 Resp 18 05/28/20 11:00 BP 103/61 05/28/20 07:00 Pulse Ox 92 L 05/28/20 11:00 Weight - Most Recent: 136 lb 9.6 oz I&O - Last 24 hours: Intake & Output 05/27/20 05/28/20 05/28/20 22:59 06:59 14:59 Intake Total 120 500 Output Total 400 350 Balance -280 -350 500 Lab Results - Last 24 hrs: Laboratory Results - last 24 hr 05/28/20 Range/Units 05:40 Sodium 134 L (140-148) mmol/L Potassium 4.0 (3.6-5.2) mmol/L Chloride 93 L (100-108) mmol/L Carbon Dioxide 33 H (21-32) mmol/L Anion Gap 12.0 (5.0-14.0) mmol/L BUN 37 H (7-18) mg/dL Creatinine 2.2 H (0.8-1.3) mg/dL Est Cr Clr Drug Dosing 20.34 mL/min Estimated GFR (MDRD) 28 L (>60) Glucose 141 H (74-106) mg/dL Calcium 8.9 (8.5-10.1) mg/dL Med Orders - Current: Current Medications Acetaminophen (Tylenol) 650 mg PO Q4H PRN PRN Reason: Pain (Mild 1-3)/fever Albuterol (Proventil Neb Soln) 2.5 mg NEB Q4H PRN PRN Reason: Shortness Of Breath/wheezing Bisacodyl (Dulcolax) 5 mg PO DAILY PRN PRN Reason: Constipation Docusate Sodium (Colace) 100 mg PO BID PRN PRN Reason: Constipation Doxazosin Mesylate (Cardura) 4 mg PO BEDTIME [facility] Last Admin: 05/27/20 21:07 Dose: 4 mg Documented by: Furosemide (Lasix) 40 mg PO BIDDIURETIC [facility] Last Admin: 05/28/20 07:36 Dose: 40 mg Documented by: Lactulose (Chronulac) 20 gm PO BID [facility] Last Admin: 05/28/20 08:20 Dose: 20 gm Documented by: Melatonin (Melatonin) 6 mg PO BEDTIME [facility] Last Admin: 05/27/20 21:06 Dose: 6 mg Documented by: Metoprolol Succinate (Toprol Xl) 25 mg PO BEDTIME [facility] Last Admin: 05/27/20 21:08 Dose: 25 mg Documented by: Morphine Sulfate (Morphine) 2 mg IVPUSH Q2H PRN PRN Reason: Pain (severe 7-10) Ondansetron HCl (Zofran Odt) 4 mg PO Q6H PRN PRN Reason: Nausea able to take PO Ondansetron HCl (Zofran) 4 mg IV Q4H PRN PRN Reason: Nausea/Vomiting Oxycodone HCl (Oxycodone) 5 mg PO Q4H PRN PRN Reason: Pain (moderate 4-6) Last Admin: 12/06/20 20:32 Dose: 5 mg Documented by: Pantoprazole Sodium (Protonix) 40 mg PO ACBREAKFAST [facility] Last Admin: 05/28/20 07:36 Dose: 40 mg Documented by: Ursodiol 300mg Cap ( (Ptom)) 0 each PO TID [facility] Last Admin: 05/28/20 08:20 Dose: 1 each Documented by: Polyethylene Glycol (Miralax) 17 gm PO BEDTIME [facility] Last Admin: 05/27/20 21:05 Dose: 17 gm Documented by: Sodium Chloride (Saline Flush) 10 ml FLUSH ASDIRECTED PRN PRN Reason: Keep Vein Open Last Admin: 05/22/20 01:16 Dose: 10 ml Documented by: Spironolactone (Aldactone) 25 mg PO BIDDIURETIC [facility] Last Admin: 05/28/20 07:36 Dose: 25 mg Documented by: Triamcinolone Acetonide (Triamcinolone Acetonide 0.1% Crm) 1 gm TOP BID [facility] Last Admin: 05/28/20 10:34 Dose: Not Given Documented by: Discontinued Medications Albuterol/Ipratropium (Duoneb 3.0-0.5 Mg/3 Ml) 3 ml NEB QID PRN PRN Reason: Shortness Of Breath/wheezing Doxazosin Mesylate (Cardura) 4 mg PO DAILY [facility] Last Admin: 05/22/20 08:31 Dose: 4 mg Documented by: Enoxaparin Sodium (Lovenox) 30 mg SUBCUT DAILY [facility] Last Admin: 05/24/20 08:29 Dose: 30 mg Documented by: Furosemide (Lasix) 40 mg PO DAILY [facility] Last Admin: 05/22/20 08:30 Dose: 40 mg Documented by: Furosemide (Lasix) 40 mg PO Q24H [facility] Last Admin: 05/23/20 12:27 Dose: 40 mg Documented by: Furosemide (Lasix) 40 mg PO ONETIME ONE Stop: 05/24/20 10:01 Last Admin: 05/24/20 10:10 Dose: 40 mg Documented by: Furosemide (Lasix) 40 mg PO ONETIME ONE Stop: 05/24/20 16:01 Last Admin: 05/24/20 15:11 Dose: Not Given Documented by: Hydromorphone HCl (Dilaudid) 0.5 mg IVPUSH ONETIME ONE Stop: 05/22/20 01:04 Last Admin: 05/22/20 01:15 Dose: 0.5 mg Documented by: Influenza Virus Vaccine (Pharmacy To Dose - Influenza Vaccine) 1 each IM ONETIME ONE Stop: 05/22/20 04:25 Influenza Virus Vaccine (Fluzone High-Dose Quad ) 240 mcg IM .ONCE ONE Stop: 05/23/20 12:01 Last Admin: 05/23/20 12:25 Dose: 240 mcg Documented by: Insulin Human Lispro (Humalog) 0 unit SUBCUT QIDACANDBED [facility]; Protocol Last Admin: 05/22/20 12:07 Dose: Not Given Documented by: Lactulose (Chronulac) 20 gm PO TID [facility] Last Admin: 05/24/20 08:29 Dose: 20 gm Documented by: Non-Formulary Medication (Total Parenteral Nutrition, Central) 1,000 ml .XX .Continue Order [facility] Potassium Chloride (Klor-Con M20) 40 meq PO ONETIME ONE Stop: 05/25/20 08:46 Last Admin: 05/25/20 09:08 Dose: 40 meq Documented by: Spironolactone (Aldactone) 25 mg PO DAILY [facility] Last Admin: 05/22/20 08:30 Dose: 25 mg Documented by: Spironolactone (Aldactone) 25 mg PO Q24H [facility] Last Admin: 05/23/20 12:34 Dose: 25 mg Documented by: - Exam Quality Assessment: Reports: DVT Prophylaxis General: Reports: Alert, Cooperative, No Acute Distress Lungs: Reports: Decreased Breath Sounds. Denies: Crackles, Rales, Rhonchi, Wheezing Cardiovascular: Reports: Regular Rate, Regular Rhythm, No Murmurs GI/Abdominal Exam: Soft, Non-Tender, No Organomegaly, No Distention Extremities: Non-Tender, No Pedal Edema
--- NOTE | 2020-05-31 11:53 | OR ---
DATE OF PROCEDURE: 05/22/2020 SURGEON: Rod Jaramillo MD PREOPERATIVE DIAGNOSIS: Large right pleural effusion. POSTOPERATIVE DIAGNOSIS: Large right pleural effusion. OPERATIVE PROCEDURE: Ultrasound-guided right thoracentesis ([id number]). ANESTHESIA: Local. INDICATION FOR PROCEDURE: An 89-year-old presenting with significant shortness of breath and a quite large right pleural effusion. It is uncertain whether or not this is related to his hepatic cirrhosis, congestive heart failure, or some sort of combination of those problems. The plan is to proceed with a right thoracentesis with ultrasound guidance. Potential risks including bleeding, infection, injury to the lung or chest wall were reviewed, and the patient wishes to proceed. DETAILS OF PROCEDURE: The patient was placed in a sitting position in the ICU bed. The right posterolateral chest wall was then marked with ultrasound for adequate location for the thoracentesis. That area was then prepped and draped, anesthetized with 1% lidocaine, and a thoracentesis catheter placed. 2600 mL of serous fluid was then removed, as much fluid as possible was taken out. This was sent for a full battery of laboratory examinations. Upon removal of the catheter, dressing was applied. Chest x-ray showed what appeared to be a nearly complete removal of pleural fluid with the costophrenic angle visible on the right side and there did not appear to be a pneumothorax or other complications. The patient tolerated the procedure well. Rod Jaramillo MD /[id number]
== END 2020-05-28 13:09 | disposition home or self-care (01) | DRG 187 ==
LOC: JP.ED 22:09 → JP.2SS 05-22 03:20 → JP.ICU 05-22 03:42 → JP.MS 05-27 14:56
PROVIDERS: ADMIT Internal Medicine; ATTEND Hospitalist
PROC: 0W993ZZ Drainage of Right Pleural Cavity, Percutaneous Approach (ICD-10-PCS; principal; 2020-05-22)
DX: J90 Pleural effusion, not elsewhere classified (principal); D64.9 Anemia, unspecified; M48.56XA Collapsed vertebra, not elsewhere classified, lumbar region, initial encounter for fracture; S32.010A Wedge compression fracture of first lumbar vertebra, initial encounter for closed fracture; I13.0 Hypertensive heart and chronic kidney disease with heart failure and stage 1 through stage 4 chronic kidney disease, or unspecified chronic kidney disease; J94.8 Other specified pleural conditions; I13.10 Hypertensive heart and chronic kidney disease without heart failure, with stage 1 through stage 4 chronic kidney disease, or unspecified chronic kidney disease; R04.2 Hemoptysis; J95.811 Postprocedural pneumothorax; K70.31 Alcoholic cirrhosis of liver with ascites; I35.0 Nonrheumatic aortic (valve) stenosis; I50.9 Heart failure, unspecified; Z66 Do not resuscitate; N18.30 Chronic kidney disease, stage 3 unspecified; Z20.828 Contact with and (suspected) exposure to other viral communicable diseases; E11.22 Type 2 diabetes mellitus with diabetic chronic kidney disease; I08.1 Rheumatic disorders of both mitral and tricuspid valves; H54.7 Unspecified visual loss; I25.10 Atherosclerotic heart disease of native coronary artery without angina pectoris; E66.9 Obesity, unspecified; D63.1 Anemia in chronic kidney disease; E78.00 Pure hypercholesterolemia, unspecified; G47.30 Sleep apnea, unspecified; K21.9 Gastro-esophageal reflux disease without esophagitis; N40.0 Benign prostatic hyperplasia without lower urinary tract symptoms; Z87.442 Personal history of urinary calculi; Z79.82 Long term (current) use of aspirin; Z79.899 Other long term (current) drug therapy; Z88.8 Allergy status to other drugs, medicaments and biological substances; Z98.49 Cataract extraction status, unspecified eye; Z95.2 Presence of prosthetic heart valve; Z99.81 Dependence on supplemental oxygen; Z68.21 Body mass index [BMI] 21.0-21.9, adult; H35.30 Unspecified macular degeneration; Z95.1 Presence of aortocoronary bypass graft
CPT/HCPCS: 36415; 71045; 74176; 80053; 81001; 83690; 85025; 86140; 93005; 93010; J1170; U0002; 71046; 71046-26; 80048; 82150; 82945; 83615; 83986; 84155; 85027; 87015; 87070; 87101; 87102; 87116; 87205; 87206; 87220; 88112; 88305; 89050; 90662; 93306; 94762; 96374; 97110-GP; 97162-GP; 97530-GP; 99222-AI; 99231; 99232; 99238; 99285-25; A9270-GY; G0008; J1650; J1815

== ENCOUNTER 2020-06-28 18:40 | Emergency (ER) | payer MEDICARE, OTHER ==
[2020-06-28 19:04] VITALS: BP 117/59; PULSE 93
[2020-06-28] MEDS ORDERED: Ketorolac 30 MG/ML SDV IM ONE (19:10)
[2020-06-28] MEDS ORDERED: Acetaminophen/oxyCODONE 325-5 MG Tab PO STA (19:11)
[2020-06-28] MEDS ORDERED: Ketorolac 30 MG/ML SDV IVPUSH ONE (19:15)
--- NOTE | 2020-06-28 19:18 | EDM.PDOC ---
ED HPI GENERAL MEDICAL PROBLEM - General Chief Complaint: Upper Extremity Injury/Pain Stated Complaint: MEDICAL VIA [facility] Time Seen by Provider: 06/28/20 19:05 Source of Information: Reports: Patient, Old Records, RN History Limitations: Reports: No Limitations - History of Present Illness INITIAL COMMENTS - FREE TEXT/NARRATIVE: 89 yo male here after slipping and falling at home with nasal and R shoulder injury. Lives with his son. Here via EMS. Hx of rotator cuff injuries. 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) (none) right shoulder Pain Score (Numeric/FACES): 9 - Related Data Allergies Allergy/AdvReac Type Severity Reaction Status Date / Time KIRK Inhibitors Allergy Other Verified 06/28/20 19:01 hydralazine Allergy Other Verified 06/28/20 19:01 omeprazole Allergy Cannot Verified 06/28/20 19:01 Remember simvastatin Allergy Cannot Verified 06/28/20 19:01 Remember ursodiol [From Actigall] AdvReac Nausea Verified 06/28/20 19:01 Home Meds: Home Meds Aspirin 81 mg PO WITHDINNER 03/03/17 [History] Doxazosin Mesylate [Cardura] 4 mg PO BEDTIME 03/03/17 [History] Metoprolol Succinate [Toprol XL] 25 mg PO BEDTIME 03/03/17 [History] Cholecalciferol (Vitamin D3) [Vitamin D3] 400 unit PO DAILY 01/18/19 [History] Spironolactone [Aldactone] 25 mg PO WITHLUNCH 01/18/19 [History] Lactulose [Generlac] 30 ml PO TID 02/01/19 [History] ursodioL [Ursodiol] 300 mg PO TID 02/11/19 [History] Pantoprazole [ProTONIX] 40 mg PO DAILY 05/21/20 [History] Triamcinolone Acetonide [Kenalog 0.1% Crm] 1 gm TOP BID PRN 05/21/20 [History] Furosemide 60 mg PO WITHLUNCH #60 05/28/20 [Rx] Past Medical History HEENT History: Reports: Cataract, Impaired Vision, Macular Degeneration, Other (See Below) Other HEENT History: 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 Cardiovascular History: Reports: Bypass, CAD, Heart Failure, Heart Murmur, High Cholesterol, Hypertension, Other (See Below) Other Cardiovascular History: quad bipass, cardiomegaly, nonrheumatic aortic valve stenosis, RBBB Respiratory History: Reports: Sleep Apnea, SOB Other Respiratory History: cpap-doesnt use Gastrointestinal History: Reports: Cirrhosis, GERD, Other (See Below) Other Gastrointestinal History: ascitis, alcoholic cirrhosis Genitourinary History: Reports: BPH, Renal Calculus, Renal Disease, Other (See Below) Other Genitourinary History: stage 3 kidney disease Musculoskeletal History: Reports: Other (See Below) Other Musculoskeletal History: rotator cuff syndrome bilateral shoulders Psychiatric History: Reports: Addiction Endocrine/Metabolic History: Reports: Diabetes, Type II, Obesity/BMI 30+ Dermatologic History: Reports: Other (See Below) Other Dermatologic History: dermatitis - Infectious Disease History Infectious Disease History: Reports: Chicken Pox, Measles, Mumps - Past Surgical History Head Surgeries/Procedures: Reports: None HEENT Surgical History: Reports: Cataract Surgery Cardiovascular Surgical History: Reports: Coronary Artery Bypass, Valve Replacement, Other (See Below) Other Cardiovascular Surgeries/Procedures: Plan to have stent placment at [facility] on Monday03/10/17 morning-did not happen Respiratory Surgical History: Reports: None GI Surgical History: Reports: None Musculoskeletal Surgical History: Reports: None Dermatological Surgical History: Reports: None Social & Family History - Family History Family Medical History: No Pertinent Family History - Tobacco Use Tobacco Use Status *Q: Never Tobacco User - Caffeine Use Caffeine Use: Reports: Tea Other Caffeine Use: 4-5 cups a day Caffeine Use Comment: daily tea use - Recreational Drug Use Recreational Drug Use: No - Living Situation & Occupation Living situation: Reports: with Family 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 [place] [employer] Review of Systems - Review of Systems Review Of Systems: See Below Constitutional: Reports: No Symptoms Nose: Reports: Pain (mild), Bloody Discharge (transient) Mouth/Throat: Reports: No Symptoms Respiratory: Reports: No Symptoms Cardiovascular: Reports: No Symptoms Musculoskeletal: Reports: Shoulder Pain (Right, worse with movement) Skin: Reports: Wound (small nasal wound) Neurological: Reports: No Symptoms. Denies: Confusion, Headache ED EXAM, GENERAL - Physical Exam Exam: See Below Exam Limited By: No Limitations General Appearance: Alert, WD/WN, No Apparent Distress Eye Exam: Bilateral Eye: Normal Inspection Ears: Normal External Exam, Normal Canal Ear Exam: Bilateral Ear: Auricle Normal, Canal Normal Nose: Normal Mucosa, Nasal Tenderness, Other (some ecchymosis of nasal bridge without significan deformity. Can breath OK with both nostrils. ). No: Normal Inspection Throat/Mouth: Normal Inspection, Normal Lips, Normal Voice, No Airway Compromise Head: Atraumatic, Normocephalic Neck: Normal Inspection Respiratory/Chest: No Respiratory Distress Extremities: Normal Inspection, No Pedal Edema, Arm Pain (proximal R humerus tenderness), Limited Range of Motion. No: Normal Range of Motion, Non-Tender, Pedal Edema Neurological: Alert, Oriented, CN II-XII Intact, Normal Cognition, No Motor/Sensory Deficits Course - Vital Signs Text/Narrative:: sling applied to R shoulder Last Recorded V/S: Last Vital Signs Temp 35.8 C L 06/28/20 18:59 Pulse 93 06/28/20 18:59 Resp 15 06/28/20 18:59 BP 117/59 L 06/28/20 18:59 Pulse Ox 88 L 06/28/20 18:59 - Orders/Labs/Meds Orders: Active Orders 24 hr Category Date Time Status Chest 1V Frontal [CR] Stat Exams 06/28/20 20:08 Taken Shoulder Comp Rt [CR] Stat Exams 06/28/20 19:15 Taken CORONAVIRUS COVID-19 RAPID [MOLEC] Stat Lab 06/28/20 20:33 Received Labs: Laboratory Tests 06/28/20 06/28/20 Range/Units 20:18 20:18 WBC 8.5 (4.5-11.0) K/uL RBC 4.13 L (4.30-5.90) M/uL Hgb 10.4 L (12.0-15.0) g/dL Hct 33.1 L (40.0-54.0) % MCV 80 (80-98) fL MCH 25 L (27-31) pg MCHC 31 L (32-36) % Plt Count 188 (150-400) K/uL Sodium 135 L (140-148) mmol/L Potassium 4.1 (3.6-5.2) mmol/L Chloride 98 L (100-108) mmol/L Carbon Dioxide 29 (21-32) mmol/L Anion Gap 12.1 (5.0-14.0) mmol/L BUN 37 H (7-18) mg/dL Creatinine 2.2 H (0.8-1.3) mg/dL Est Cr Clr Drug Dosing 21.59 mL/min Estimated GFR (MDRD) 28 L (>60) Glucose 160 H (74-106) mg/dL Calcium 8.9 (8.5-10.1) mg/dL C-Reactive Protein 0.94 H (0.0-0.3) mg/dL Meds: Medications Discontinued Medications Generic Name Dose Route Start Last Admin Trade Name Freq PRN Reason Stop Dose Admin Bacitracin 1 dose 06/28/20 19:41 Bacitracin Oint 1 Gm TOP 06/28/20 19:42 ONETIME ONE Ketorolac Tromethamine 30 mg 06/28/20 19:10 06/28/20 19:37 Toradol IM 06/28/20 19:11 Not Given ONETIME ONE Ketorolac Tromethamine 15 mg 06/28/20 19:15 06/28/20 19:38 Toradol IVPUSH 06/28/20 19:16 15 mg ONETIME ONE Administration Oxycodone/Acetaminophen 1 tab 06/28/20 19:11 06/28/20 19:38 Percocet 325-5 Mg PO 06/28/20 19:12 1 tab ONETIME STA Administration - Radiology Interpretation Free Text/Narrative:: R shoulder X-ray-neg for acute fx, pulm infiltrates seen. CXR-R pleural effusion(not new) Departure - Departure Time of Disposition: 21:00 Disposition: Home, Self-Care 01 Condition: Fair Clinical Impression: Right shoulder pain Qualifiers: Chronicity: acute Qualified Code(s): M25.511 - Pain in right shoulder - Discharge Information *PRESCRIPTION DRUG MONITORING PROGRAM REVIEWED*: Not Applicable *COPY OF PRESCRIPTION DRUG MONITORING REPORT IN PATIENT RONALD: Not Applicable Instructions: Shoulder Pain Referrals: PCP,None [Primary Care Provider] - Forms: ED Department Discharge Additional Instructions: F/U with orthopedics within the week. Use your sling for support. [place] as directed for pain relief. Someone will contact you about an orthopedic appt. Sepsis Event Note (ED) - Evaluation Sepsis Screening Result: No Definite Risk - Focused Exam Vital Signs: Vital Signs Temp Pulse Resp BP Pulse Ox 06/28/20 18:59 35.8 C L 93 15 117/59 L 88 L 06/28/20 18:57 35.8 C L 93 15 117/59 L 88 L - My Orders Last 24 Hours: My Active Orders 06/28/20 19:15 Shoulder Comp Rt [CR] Stat 06/28/20 20:08 Chest 1V Frontal [CR] Stat 06/28/20 20:33 CORONAVIRUS COVID-19 RAPID [MOLEC] Stat - Assessment/Plan Last 24 Hours: My Active Orders 06/28/20 19:15 Shoulder Comp Rt [CR] Stat 06/28/20 20:08 Chest 1V Frontal [CR] Stat 06/28/20 20:33 CORONAVIRUS COVID-19 RAPID [MOLEC] Stat
[2020-06-28] MEDS ORDERED: Bacitracin Oint 1 GM U/D Packet TOP ONE (19:41)
--- NOTE | 2020-06-29 10:16 | CR ---
Shoulder Comp Rt CLINICAL HISTORY: Fall FINDINGS: Patient has a comminuted proximal humeral fracture with displacement. Humeral head is rotated in the glenohumeral joint. Impression: Limited study Comminuted displaced proximal humeral fracture Incidental note of large right pleural effusion
--- NOTE | 2020-06-29 10:35 | CR ---
CHEST: Portable 06/28/2020 at 8:24 PM CLINICAL HISTORY:Hypoxia COMPARISON:05/27/2020 FINDINGS: Patient is a moderate right pleural effusion and right lower lobe airspace disease. This is similar if not slightly increased since prior study. There are positional differences. There is mild generalized interstitial prominence bilaterally similar to prior studies. There are atherosclerotic changes in the aorta. Impression: Persistent moderate right pleural effusion Previous sternotomy
== END 2020-06-28 21:39 | disposition home or self-care (01) ==
LOC: JP.ED 18:40
DX: S00.33XA Contusion of nose, initial encounter (principal); M25.511 Pain in right shoulder; I13.0 Hypertensive heart and chronic kidney disease with heart failure and stage 1 through stage 4 chronic kidney disease, or unspecified chronic kidney disease; E11.22 Type 2 diabetes mellitus with diabetic chronic kidney disease; N18.30 Chronic kidney disease, stage 3 unspecified; I50.9 Heart failure, unspecified; I25.810 Atherosclerosis of coronary artery bypass graft(s) without angina pectoris; K21.9 Gastro-esophageal reflux disease without esophagitis; E66.9 Obesity, unspecified; Z68.22 Body mass index [BMI] 22.0-22.9, adult; Z79.82 Long term (current) use of aspirin; Z79.899 Other long term (current) drug therapy; Z20.822 Contact with and (suspected) exposure to COVID-19; W01.0XXA Fall on same level from slipping, tripping and stumbling without subsequent striking against object, initial encounter; Y92.009 Unspecified place in unspecified non-institutional (private) residence as the place of occurrence of the external cause
CPT/HCPCS: 36415; 71045; 73030; 80048; 85027; 86140; 96374; 99283; 99284; A9270; J1885; U0002

== ENCOUNTER 2020-07-06 05:39 | Inpatient (IN) | payer MEDICARE ==
[2020-07-06] MEDS ORDERED: Lactated Ringers 1,000 ML IV SCH (06:00)
[2020-07-06] MEDS: Nozin Nasal Sanitizer NASBOTH SCH ×2 (06:24→21:28)
[2020-07-06] MEDS ORDERED: Povidone-Iodine 10% Soln 118.25 ML Bottle ONE (06:52)
[2020-07-06] MEDS ORDERED: Succinylcholine 200 MG/10 ML MDV ONE (07:21)
[2020-07-06] MEDS ORDERED: Glycopyrrolate 0.2 MG/ML 5 ML MDV ONE (07:21)
[2020-07-06] MEDS ORDERED: Propofol 200 MG/20 ML SDV ONE (07:21)
[2020-07-06] MEDS ORDERED: Dexamethasone 4 MG/ML SDV ONE (07:21)
[2020-07-06] MEDS ORDERED: Neostigmine Methylsulfate 1 MG/ML 5 ML Syringe ONE (07:21)
[2020-07-06] MEDS ORDERED: Rocuronium 50 MG/5 ML Vial ONE (07:21)
[2020-07-06] MEDS ORDERED: Ondansetron 4 MG/2 ML SDV ONE (07:21)
[2020-07-06] MEDS ORDERED: Bupivacaine 0.5% 30 ML SDV ONE (07:22)
[2020-07-06] MEDS ORDERED: fentaNYL 250 MCG/5 ML SDV ONE (07:25)
[2020-07-06] MEDS: ceFAZolin 2 GM in Premix Bag 1 BAG IV ONE ×2 (07:46→11:24)
[2020-07-06] MEDS ORDERED: Ondansetron 4 MG/2 ML SDV IVPUSH PRN (10:07)
[2020-07-06] MEDS ORDERED: Magnesium Hydroxide 400 MG/5 ML Susp 30 ML Cup PO PRN (10:07)
[2020-07-06] MEDS ORDERED: Morphine 2 MG/ML SYRINGE IV PRN (10:07)
[2020-07-06] MEDS ORDERED: Acetaminophen/oxyCODONE 325-5 MG Tab PO PRN (10:14)
[2020-07-06] MEDS ORDERED: Triamcinolone Acetonide 0.1% Crm 15 GM Tube TOP PRN (10:15)
[2020-07-06] MEDS: Sodium Chloride 0.9% 1,000 ML IV SCH (11:23)
[2020-07-06] MEDS: Furosemide 40 MG Tab PO SCH (11:39)
[2020-07-06] MEDS: Spironolactone 25 MG Tab PO SCH (11:39)
[2020-07-06] MEDS: Acetaminophen/HYDROcodone 325-5 MG Tab PO PRN ×2 (13:07→18:00)
--- NOTE | 2020-07-06 13:47 | CR ---
Shoulder 1V Rt CLINICAL HISTORY: Postop FINDINGS: Patient has had a reverse total right shoulder arthroplasty. Components appear well seated. There was a fracture of the proximal humerus heart surgery. IMPRESSION: STATUS post reverse right shoulder arthroplasty Proximal right humeral fracture Incidental note of a moderate right pleural effusion
[2020-07-06] MEDS: Lactulose Soln 10 GM/15 ML 15 ML UD Cup PO SCH ×2 (14:40→21:31)
[2020-07-06] MEDS: ceFAZolin 1 GM in Premix Bag 1 BAG IV SCH ×2 (14:45→21:39)
[2020-07-06] MEDS: Aspirin 81 MG Tab.Chew PO SCH (17:08)
[2020-07-06] MEDS: URSODIOL 300 MG PO SCH ×2 (17:09→21:34)
[2020-07-06] MEDS ORDERED: Nozin Nasal Sanitizer NASBOTH SCH (21:00)
[2020-07-06] MEDS: Doxazosin 4 MG Tab PO SCH (21:33)
[2020-07-06] MEDS: Metoprolol Succinate 25 MG Tab.ER PO SCH (21:33)
[2020-07-07] MEDS: ceFAZolin 1 GM in Premix Bag 1 BAG IV SCH (05:38)
[2020-07-07] MEDS: Sodium Chloride 0.9% 1,000 ML IV SCH (05:41)
[2020-07-07] MEDS: Acetaminophen/HYDROcodone 325-5 MG Tab PO PRN ×4 (07:07→21:03)
[2020-07-07] MEDS: Docusate Sodium 100 MG Cap PO SCH (08:27)
[2020-07-07] MEDS: Pantoprazole 40 MG Tab.CR PO SCH (08:27)
[2020-07-07] MEDS: URSODIOL 300 MG PO SCH ×3 (08:28→21:06)
[2020-07-07] MEDS: Nozin Nasal Sanitizer NASBOTH SCH ×2 (08:29→21:04)
[2020-07-07] MEDS: Lactulose Soln 10 GM/15 ML 15 ML UD Cup PO SCH ×3 (08:29→21:05)
--- NOTE | 2020-07-07 09:24 | CR ---
CHEST: Portable 07/07/2019 at 4:56 AM CLINICAL HISTORY:Pleural effusion COMPARISON:06/28/2020 FINDINGS: Patient is a persistent moderate right pleural effusion similar to prior study. Heart is enlarged. Pulmonary vascular is normal. There are atherosclerotic changes in the aorta. IMPRESSION: Persistent moderate right pleural effusion without significant change.
[2020-07-07] MEDS: Furosemide 40 MG Tab PO SCH (12:30)
[2020-07-07] MEDS: Spironolactone 25 MG Tab PO SCH (12:30)
--- NOTE | 2020-07-07 13:06 | PCM.SURGPN ---
- General Info Date of Service: 07/07/20 Date of Surgery/Procedure: 07/06/20 POD#: 1 Post-Op Diagnosis: Right proximal humerus fracture Functional Status: Reports: Pain Controlled, Tolerating Diet, Ambulating (with assistance ), Urinating, Incentive Spirometry - Review of Systems General: Reports: Weakness HEENT: Reports: No Symptoms Pulmonary: Reports: Shortness of Breath (per patient's baseline with right sided pleural effusion ) Cardiovascular: Reports: Dyspnea on Exertion Gastrointestinal: Reports: No Symptoms Genitourinary: Reports: No Symptoms Musculoskeletal: Reports: Arm Pain (Right ) Skin: Reports: Other (Ecchymosis of nasal bridge, forehead, and right arm) Neurological: Reports: No Symptoms Psychiatric: Reports: No Symptoms - Patient Data Vitals - Most Recent: Last Vital Signs Temp 96.3 F L 07/07/20 11:01 Pulse 91 07/07/20 11:01 Resp 16 07/07/20 11:01 BP 95/59 L 07/07/20 11:01 Pulse Ox 99 07/07/20 11:01 Weight - Most Recent: 145 lb I&O - Last 24 Hours: Intake & Output 07/06/20 07/07/20 07/07/20 22:59 06:59 14:59 Intake Total 1156 996 240 Output Total 10 Balance 1156 986 240 Lab Results Last 24 Hrs: Laboratory Results - last 24 hr 07/07/20 07/07/20 Range/Units 05:00 05:00 WBC 9.6 (4.5-11.0) K/uL RBC 3.07 L (4.30-5.90) M/uL Hgb 7.7 L D (12.0-15.0) g/dL Hct 25.3 L (40.0-54.0) % MCV 82 (80-98) fL MCH 25 L (27-31) pg MCHC 30 L (32-36) % Plt Count 237 (150-400) K/uL Sodium 133 L (140-148) mmol/L Potassium 5.7 H (3.6-5.2) mmol/L Chloride 98 L (100-108) mmol/L Carbon Dioxide 26 (21-32) mmol/L Anion Gap 14.7 H (5.0-14.0) mmol/L BUN 50 H (7-18) mg/dL Creatinine 2.5 H (0.8-1.3) mg/dL Est Cr Clr Drug Dosing 19.00 mL/min Estimated GFR (MDRD) 24 L (>60) Glucose 197 H (74-106) mg/dL Calcium 8.7 (8.5-10.1) mg/dL Total Bilirubin 1.1 H (0.2-1.0) mg/dL AST 20 (15-37) U/L ALT 12 (12-78) U/L Alkaline Phosphatase 106 (46-116) U/L Total Protein 6.8 (6.4-8.2) g/dL Albumin 2.6 L (3.4-5.0) g/dL Globulin 4.2 H (2.3-3.5) g/dL Albumin/Globulin Ratio 0.6 L (1.2-2.2) Med Orders - Current: Current Medications Hydrocodone Bitart/Acetaminophen ([place] 325-5 Mg) 2 tab PO Q4H PRN PRN Reason: Pain (mild 1-3) Last Admin: 07/07/20 12:30 Dose: 2 tab Documented by: Aspirin (Aspirin) 81 mg PO WITHDINNER [facility] Last Admin: 07/06/20 17:08 Dose: 81 mg Documented by: Bandage/Support Products ( Nasal Chick Room Supervisor) 1 applic NASBOTH BID [facility] Stop: 07/12/20 21:01 Last Admin: 07/07/20 08:29 Dose: 1 applic Documented by: Docusate Sodium (Colace) 100 mg PO DAILY [facility] Last Admin: 07/07/20 08:27 Dose: 100 mg Documented by: Doxazosin Mesylate (Cardura) 4 mg PO BEDTIME [facility] Last Admin: 07/06/20 21:33 Dose: 4 mg Documented by: Furosemide (Lasix) 40 mg PO WITHLUNCH [facility] Last Admin: 07/07/20 12:30 Dose: 40 mg Documented by: Sodium Chloride (Normal Saline) 1,000 mls @ 25 mls/hr IV ASDIRECTED [facility] Last Admin: 07/07/20 05:41 Dose: 125 mls/hr Documented by: Lactulose (Chronulac) 20 gm PO TID [facility] Last Admin: 07/07/20 08:29 Dose: 20 gm Documented by: Magnesium Hydroxide (Milk Of Magnesia) 30 ml PO Q6H PRN PRN Reason: Stool Softener Metoprolol Succinate (Toprol Xl) 25 mg PO BEDTIME [facility] Last Admin: 07/06/20 21:33 Dose: 25 mg Documented by: Morphine Sulfate (Morphine) 1 mg IV Q1H PRN PRN Reason: Breakthrough Pain Ursodiol 300 Mg (Ptom) 0 mg PO TID [facility] Last Admin: 07/07/20 08:28 Dose: 300 mg Documented by: Ondansetron HCl (Zofran) 4 mg IVPUSH Q6H PRN PRN Reason: Nausea/Vomiting Oxycodone/Acetaminophen (Percocet 325-5 Mg) 1 - 2 tab PO Q6H PRN PRN Reason: Pain (severe 7-10) Pantoprazole Sodium (Protonix) 40 mg PO DAILY@0730 [facility] Last Admin: 07/07/20 08:27 Dose: 40 mg Documented by: Spironolactone (Aldactone) 25 mg PO WITHLUNCH [facility] Last Admin: 07/07/20 12:30 Dose: 25 mg Documented by: Triamcinolone Acetonide (Triamcinolone Acetonide 0.1% Crm) 0 gm TOP BID PRN PRN Reason: Itching Discontinued Medications Bupivacaine HCl (Marcaine 0.5%) Confirm Administered Dose 60 ml .ROUTE .STK-MED ONE Stop: 07/06/20 07:23 Dexamethasone (Decadron) Confirm Administered Dose 4 mg .ROUTE .STK-MED ONE Stop: 07/06/20 07:22 Fentanyl (Sublimaze) Confirm Administered Dose 250 mcg .ROUTE .STK-MED ONE Stop: 07/06/20 07:26 Glycopyrrolate (Robinul) Confirm Administered Dose 1 mg .ROUTE .STK-MED ONE Stop: 07/06/20 07:22 Lactated Ringer's (Ringers, Lactated) 1,000 mls @ 75 mls/hr IV ASDIRECTED [facility] Last Admin: 07/06/20 06:28 Dose: 75 mls/hr Documented by: Cefazolin Sodium/Dextrose 2 gm (/ Premix) 50 mls @ 100 mls/hr IV ONETIME ONE Stop: 07/06/20 08:29 Last Admin: 07/06/20 07:46 Dose: 100 mls/hr Documented by: Cefazolin Sodium/Dextrose 1 gm (/ Premix) 50 mls @ 100 mls/hr IV Q8H [facility] Stop: 07/07/20 06:59 Last Admin: 07/07/20 05:38 Dose: 100 mls/hr Documented by: Neostigmine Methylsulfate (Neostigmine) Confirm Administered Dose 5 mg .ROUTE .STK-MED ONE Stop: 07/06/20 07:22 Ondansetron HCl (Zofran) Confirm Administered Dose 4 mg .ROUTE .STK-MED ONE Stop: 07/06/20 07:22 Povidone Iodine (Betadine 10% Soln) Confirm Administered Dose 1 ml .ROUTE .STK- MED ONE Stop: 07/06/20 06:53 Last Admin: 07/06/20 08:34 Dose: 30 ml Documented by: Propofol (Diprivan 20 Ml) Confirm Administered Dose 200 mg .ROUTE .STK-MED ONE Stop: 07/06/20 07:22 Rocuronium [place] (Zemuron) Confirm Administered Dose 50 mg .ROUTE .STK-MED ONE Stop: 07/06/20 07:22 Succinylcholine Chloride (Quelicin) Confirm Administered Dose 200 mg .ROUTE .STK-MED ONE Stop: 07/06/20 07:22 - Exam Wound/Incisions: Dressing Dry and Intact, No Drainage Quality Assessment: Supplemental Oxygen (3L) General: Alert, Oriented, Cooperative, No Acute Distress Extremities: Arm Pain (Right), Limited Range of Motion (Right shoulder ) Skin: Dry, Intact, Ecchymosis (nasal bridge, forehead, right shoulder, right forearm ) Neurological: No New Focal Deficit Psy/Mental Status: Alert, Normal Affect, Normal Mood Sepsis Event Note - Evaluation Sepsis Screening Result: Sepsis Risk - Focused Exam Vital Signs: Vital Signs Temp Temp Pulse Resp BP Pulse Ox 07/07/20 11:01 96.3 F L 91 16 95/59 L 99 07/07/20 10:15 98 07/07/20 07:21 98 07/07/20 07:08 95.4 F L 99 16 109/70 98 07/07/20 03:19 96.2 F L 94 16 104/56 L 96 - Problem List & Annotations (1) Status post reverse total replacement of right shoulder SNOMED Code(s): 32407184326286940, 32168217639191546 Code(s): Z96.611 - PRESENCE OF RIGHT ARTIFICIAL SHOULDER JOINT Status: Acute Current Visit: Yes - Problem List Review Problem List Initiated/Reviewed/Updated: Yes - My Orders Last 24 Hours: Active Orders 24 hr Category Date Time Status Admission Status [Patient Status] [ADT] Routine ADT 07/07/20 11:29 Active Notify Provider Consults [RC] ASDIRECTED Care 07/07/20 12:23 Active Consult to Physician [CONS] Routine Cons 07/07/20 12:22 Ordered Regular Diet [DIET] Diet 07/06/20 Lunch Active Aspirin Med 07/06/20 17:00 Active 81 mg PO WITHDINNER Docusate Sodium [Colace] Med 07/07/20 09:00 Active 100 mg PO DAILY Doxazosin [Cardura] Med 07/06/20 21:00 Active 4 mg PO BEDTIME Furosemide [Lasix] Med 07/06/20 12:00 Active 40 mg PO WITHLUNCH Lactulose [Chronulac] Med 07/06/20 14:00 Active 20 gm PO TID Metoprolol Succinate [Toprol XL] Med 07/06/20 21:00 Active 25 mg PO BEDTIME Pantoprazole [ProTONIX] Med 07/07/20 07:30 Active 40 mg PO DAILY@0730 Spironolactone [Aldactone] Med 07/06/20 12:00 Active 25 mg PO WITHLUNCH ursodioL [Ursodiol] Med 07/06/20 16:00 Active 0 mg PO TID Medication Orders Hydrocodone Bitart/Acetaminophen ([place] 325-5 Mg) 2 tab PO Q4H PRN PRN Reason: Pain (mild 1-3) Last Admin: 07/07/20 12:30 Dose: 2 tab Documented by: Admin: 07/07/20 07:07 Dose: 2 tab Documented by: Admin: 07/06/20 18:00 Dose: 1 tab Documented by: Admin: 07/06/20 13:07 Dose: 1 tab Documented by: LILY Aspirin (Aspirin) 81 mg PO WITHDINNER [facility] Last Admin: 07/06/20 17:08 Dose: 81 mg Documented by: KEYA Bandage/Support Products ( Nasal Chick Room Supervisor) 1 applic NASBOTH BID [facility] Stop: 07/12/20 21:01 Last Admin: 07/07/20 08:29 Dose: 1 applic Documented by: Admin: 07/06/20 21:28 Dose: 1 applic Documented by: Admin: 07/06/20 06:24 Dose: 1 applic Documented by: SHARIFA Docusate Sodium (Colace) 100 mg PO DAILY [facility] Last Admin: 07/07/20 08:27 Dose: 100 mg Documented by: DEANA Doxazosin Mesylate (Cardura) 4 mg PO BEDTIME [facility] Last Admin: 07/06/20 21:33 Dose: 4 mg Documented by: ERIK Furosemide (Lasix) 40 mg PO WITHLUNCH [facility] Last Admin: 07/07/20 12:30 Dose: 40 mg Documented by: Admin: 07/06/20 11:39 Dose: 40 mg Documented by: KEYA Sodium Chloride (Normal Saline) 1,000 mls @ 25 mls/hr IV ASDIRECTED [facility] Last Admin: 07/07/20 05:41 Dose: 125 mls/hr Documented by: Infusion: 07/06/20 19:23 Dose: 125 mls/hr Documented by: Admin: 07/06/20 11:23 Dose: 125 mls/hr Documented by: KEYA Lactulose (Chronulac) 20 gm PO TID [facility] Admin: 07/07/20 08:29 Dose: 20 gm Documented by: Admin: 07/06/20 21:31 Dose: 20 gm Documented by: Admin: 07/06/20 14:40 Dose: 20 gm Documented by: KEYA Magnesium Hydroxide (Milk Of Magnesia) 30 ml PO Q6H PRN PRN Reason: Stool Softener Metoprolol Succinate (Toprol Xl) 25 mg PO BEDTIME [facility] Last Admin: 07/06/20 21:33 Dose: 25 mg Documented by: ERIK Morphine Sulfate (Morphine) 1 mg IV Q1H PRN PRN Reason: Breakthrough Pain Ursodiol 300 Mg (Ptom) 0 mg PO TID [facility] Last Admin: 07/07/20 08:28 Dose: 300 mg Documented by: Admin: 07/06/20 21:34 Dose: 300 mg Documented by: Admin: 07/06/20 17:09 Dose: Not Given Documented by: KEYA Ondansetron HCl (Zofran) 4 mg IVPUSH Q6H PRN PRN Reason: Nausea/Vomiting Oxycodone/Acetaminophen (Percocet 325-5 Mg) 1 - 2 tab PO Q6H PRN PRN Reason: Pain (severe 7-10) Pantoprazole Sodium (Protonix) 40 mg PO DAILY@0730 [facility] Last Admin: 07/07/20 08:27 Dose: 40 mg Documented by: DEANA Spironolactone (Aldactone) 25 mg PO WITHLUNCH [facility] Last Admin: 07/07/20 12:30 Dose: 25 mg Documented by: Admin: 07/06/20 11:39 Dose: 25 mg Documented by: KEYA Triamcinolone Acetonide (Triamcinolone Acetonide 0.1% Crm) 0 gm TOP BID PRN PRN Reason: Itching - Assessment Assessment (Free Text/Narrative):: Patient is a pleasant 89 y/o male, POD#1, s/p right reverse total shoulder arthroplasty. Patient tolerated surgery well with no complications. Past medical history significant for recurrent right sided pleural effusion, renal disease, CAD, A-Fib, and Ascites. Dressing change performed and shoulder drain pulled this afternoon; no significant drainage upon drain removal. Incision appears intact without surrounding erythema or drainage. Ecchymosis of the right shoulder and forearm present (these were present prior to surgery, obtained during fall that led to shoulder injury). Pain is being well managed at this time. Shoulder remains in sling. Patient is able to move right elbow, wrist, and fingers. Has been compliant with hospital PT and OT sessions. Requires assistance with transitions during physical therapy. Patient has been desaturating while performing ADLs with OT and requiring increased O2 support. Currently on 3L via nasal cannula. A CXR was performed and reviewed this morning, no significant changes to right sided pleural effusion post-operatively. Morning labs reviewed; drop in HgB from 9.9 to 7.7, also has mild hyponatremia and hyperkalemia. Hospitalist consult placed to review patients electrolytes, O2 saturation, and overall wellbeing prior to discharge. Plan: -R shoulder dressing change and drain removal were performed this afternoon by orthopedic provider -Hospitalist has been consulted to aid in medical management -Continue PT and OT sessions while in the hospital -Cee from [facility] is working on placement at [facility] upon discharge
[2020-07-07] MEDS ORDERED: Sodium Polystyrene Sulfonate 15 GM/60 ML Susp 60 ML Bot PO ONE (14:00)
--- NOTE | 2020-07-07 14:35 | PCM.CONS ---
H&P History of Present Illness - General Date of Service: 07/07/20 Admit Problem/Dx: Admission Diagnosis/Problem Admission Diagnosis/Problem Shoulder joint pain Source of Information: Patient, Old Records, Provider, RN Notes Reviewed History Limitations: Reports: No Limitations - History of Present Illness Initial Comments - Free Text/Narative: Mr. Chaves is an 89-year-old gentleman who I been asked to see by Dr. Cohn for assistance in medical management following a reverse right shoulder arthroplasty performed yesterday. Mr. Kang has significant medical disease including congestive heart failure, chronic kidney disease stage IV, chronic right pleural effusion, and hepatic cirrhosis with ascites. Hemoglobin level has dropped approximately 2 g following surgery and he has required supplemental oxygen to maintain adequate oxygenation over the last 24 hours. Renal function has worsened slightly from baseline and he has developed hyperkalemia. Patient reports that he feels relatively well and has experienced fairly good pain control related to his surgery. He denies significant shortness of breath or symptoms of chest pain. Right Arm Pain Score (Numeric/FACES): 8 - Related Data Allergies/Adverse Reactions: Allergies Allergy/AdvReac Type Severity Reaction Status Date / Time KIRK Inhibitors Allergy Other Verified 07/06/20 06:03 hydralazine Allergy Other Verified 07/06/20 06:03 omeprazole Allergy Cannot Verified 07/06/20 06:03 Remember simvastatin Allergy Cannot Verified 07/06/20 06:03 Remember ursodiol [From Actigall] AdvReac Nausea Verified 07/06/20 06:03 Home Medications: Home Meds Aspirin 81 mg PO WITHDINNER 03/03/17 [History] Doxazosin Mesylate [Cardura] 4 mg PO BEDTIME 03/03/17 [History] Metoprolol Succinate [Toprol XL] 25 mg PO BEDTIME 03/03/17 [History] Cholecalciferol (Vitamin D3) [Vitamin D3] 400 unit PO DAILY 01/18/19 [History] Spironolactone [Aldactone] 25 mg PO WITHLUNCH 01/18/19 [History] Lactulose [Generlac] 30 ml PO TID 02/01/19 [History] ursodioL [Ursodiol] 300 mg PO TID 02/11/19 [History] Pantoprazole [ProTONIX] 40 mg PO DAILY 12/03/20 [History] Triamcinolone Acetonide [Kenalog 0.1% Crm] 1 gm TOP BID PRN 05/21/20 [History] Ceramides 1,3,6-11 [Cerave] 1 applic TOP BID 06/29/20 [History] Furosemide 40 mg PO WITHLUNCH 06/29/20 [History] Past Medical History HEENT History: Reports: Cataract, Impaired Vision, Macular Degeneration, Other (See Below) Other HEENT History: 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 Cardiovascular History: Reports: Bypass, CAD, Heart Failure, Heart Murmur, High Cholesterol, Hypertension, Other (See Below) Other Cardiovascular History: quad bipass, cardiomegaly, nonrheumatic aortic valve stenosis, RBBB Respiratory History: Reports: Sleep Apnea, SOB Other Respiratory History: cpap-doesnt use Gastrointestinal History: Reports: Cirrhosis, GERD, Other (See Below) Other Gastrointestinal History: ascitis, alcoholic cirrhosis Genitourinary History: Reports: BPH, Renal Calculus, Renal Disease, Other (See Below) Other Genitourinary History: stage 3 kidney disease Musculoskeletal History: Reports: Other (See Below) Other Musculoskeletal History: rotator cuff syndrome bilateral shoulders- injury to right shoulder 07-01-20 due to a fall Psychiatric History: Reports: Addiction Endocrine/Metabolic History: Reports: Diabetes, Type II, Obesity/BMI 30+ Dermatologic History: Reports: Other (See Below) Other Dermatologic History: dermatitis - Infectious Disease History Infectious Disease History: Reports: Chicken Pox, Measles, Mumps - Past Surgical History Head Surgeries/Procedures: Reports: None HEENT Surgical History: Reports: Cataract Surgery Cardiovascular Surgical History: Reports: Coronary Artery Bypass, Valve Replacement, Other (See Below) Other Cardiovascular Surgeries/Procedures: Plan to have stent placment at [facility] on Monday03/10/17 morning-did not happen Respiratory Surgical History: Reports: None GI Surgical History: Reports: Colonoscopy Musculoskeletal Surgical History: Reports: None Dermatological Surgical History: Reports: None Social & Family History - Family History Family Medical History: Unobtainable - Tobacco Use Tobacco Use Status *Q: Never Tobacco User Second Hand Smoke Exposure: No - Caffeine Use Caffeine Use: Reports: Tea Other Caffeine Use: 4-5 cups a day Caffeine Use Comment: daily tea use - Recreational Drug Use Recreational Drug Use: No - Living Situation & Occupation Living situation: Reports: with Family 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 [place] [employer] H&P Review of Systems - Review of Systems: Review Of Systems: See Below Pulmonary: Reports: No Symptoms Cardiovascular: Reports: No Symptoms Gastrointestinal: Reports: No Symptoms Musculoskeletal: Reports: Joint Pain Exam - Exam Exam: See Below - Vital Signs Vital Signs: Last Vital Signs Temp 95.6 F L 07/07/20 14:25 Pulse 91 07/07/20 14:25 Resp 16 07/07/20 14:25 BP 92/58 L 07/07/20 14:25 Pulse Ox 99 07/07/20 14:25 Weight: 145 lb - Exam Quality Assessment: Supplemental Oxygen, DVT Prophylaxis General: Alert, Cooperative, Moderate Distress Neck: Supple, Trachea Midline, +2 Carotid Pulse wo Bruit Lungs: Clear to Auscultation, Normal Respiratory Effort, Decreased Breath Sounds. No: Rales, Rhonchi, Wheezing Cardiovascular: Regular Rate, Regular Rhythm, Normal S1, Normal S2, Systolic Murmur. No: Diastolic Murmur GI/Abdominal Exam: Soft, Non-Tender, No Organomegaly, No Distention Extremities: No Pedal Edema, Other (Right arm is in a sling) Skin: Warm, Dry - Patient Data Lab Results Last 24 hrs: Laboratory Results - last 24 hr 07/06/20 07/07/20 07/07/20 Range/Units 06:06 05:00 05:00 WBC 9.6 (4.5-11.0) K/uL RBC 3.07 L (4.30-5.90) M/uL Hgb 7.7 L D (12.0-15.0) g/dL Hct 25.3 L (40.0-54.0) % MCV 82 (80-98) fL MCH 25 L (27-31) pg MCHC 30 L (32-36) % Plt Count 237 (150-400) K/uL Sodium 133 L (140-148) mmol/L Potassium 5.7 H (3.6-5.2) mmol/L Chloride 98 L (100-108) mmol/L Carbon Dioxide 26 (21-32) mmol/L Anion Gap 14.7 H (5.0-14.0) mmol/L BUN 50 H (7-18) mg/dL Creatinine 2.5 H (0.8-1.3) mg/dL Est Cr Clr Drug Dosing 19.00 mL/min Estimated GFR (MDRD) 24 L (>60) Glucose 197 H (74-106) mg/dL Calcium 8.7 (8.5-10.1) mg/dL Total Bilirubin 1.1 H (0.2-1.0) mg/dL AST 20 (15-37) U/L ALT 12 (12-78) U/L Alkaline Phosphatase 106 (46-116) U/L Total Protein 6.8 (6.4-8.2) g/dL Albumin 2.6 L (3.4-5.0) g/dL Globulin 4.2 H (2.3-3.5) g/dL Albumin/Globulin Ratio 0.6 L (1.2-2.2) Crossmatch See Detail Result Diagrams: 07/07/20 05:00 07/07/20 05:00 Sepsis Event Note - Evaluation Sepsis Screening Result: Sepsis Risk - Focused Exam Vital Signs: Vital Signs Temp Temp Pulse Resp BP Pulse Ox 07/07/20 14:25 95.6 F L 91 16 92/58 L 99 07/07/20 13:17 100 07/07/20 11:01 96.3 F L 91 16 95/59 L 99 07/07/20 10:15 98 07/07/20 07:21 98 07/07/20 07:08 95.4 F L 99 16 109/70 98 07/07/20 03:19 96.2 F L 94 16 104/56 L 96 Consult PN Assessment/Plan Procedures: Procedures ABD PARACENTESIS W/IMAGING (02/01/19) ASSAY OF AMYLASE (05/22/20) ASSAY OF LACTIC ACID (03/05/17) ASSAY OF LIPASE (05/22/20) ASSAY OF MAGNESIUM (03/05/17) ASSAY OF PROTEIN SERUM (05/22/20) ASSAY PH BODY FLUID NOS (05/22/20) BODY FLUID CELL COUNT (05/22/20) C-REACTIVE PROTEIN (06/28/20) CHEST X-RAY 2VW FRONTAL&LATL (03/03/17) COMPLETE CBC AUTOMATED (06/28/20) COMPLETE CBC W/AUTO DIFF WBC (05/22/20) COMPREHEN METABOLIC PANEL (05/22/20) CT ABD & PELV W/CONTRAST (03/24/19) CT ABD & PELVIS W/O CONTRAST (05/22/20) CT THORAX DX C+ (03/24/19) CULTURE OTHR SPECIMN AEROBIC (05/22/20) CYTOPATH CELL ENHANCE TECH (05/22/20) ECHO EXAM OF ABDOMEN (03/05/17) ELECTROCARDIOGRAM REPORT (05/22/20) ELECTROCARDIOGRAM TRACING (05/22/20) EMERGENCY DEPT VISIT (06/28/20) EMERGENCY DEPT VISIT (06/28/20) EMERGENCY DEPT VISIT (03/24/19) EMERGENCY DEPT VISIT (02/10/19) EMERGENCY DEPT VISIT (05/14/17) EMERGENCY DEPT VISIT (03/05/17) EMERGENCY DEPT VISIT (03/05/17) FUNGUS ISOLATION CULTURE (05/22/20) GLUCOSE OTHER FLUID (05/22/20) HOSPITAL DISCHARGE DAY (05/22/20) HYDRATE IV INFUSION ADD-ON (03/05/17) HYDRATION IV INFUSION INIT (03/05/17) IIV NO PRSV INCREASED AG IM (05/22/20) IMMUNIZATION ADMIN (03/24/19) INITIAL HOSPITAL CARE (05/22/20) INSERT TEMP BLADDER CATH (05/14/17) LACTATE (LD) (LDH) ENZYME (05/22/20) MEASURE BLOOD OXYGEN LEVEL (05/22/20) METABOLIC PANEL TOTAL CA (06/28/20) MYCOBACTERIA CULTURE (05/22/20) OT EVAL LOW COMPLEX 30 MIN (03/05/17) PROTHROMBIN TIME (03/24/19) PT EVAL MOD COMPLEX 30 MIN (05/22/20) ROUTINE VENIPUNCTURE (06/28/20) RPR S/N/AX/GEN/TRK7.6-12.5CM (03/24/19) SMEAR FLUORESCENT/ACID STAI (05/22/20) SMEAR GRAM STAIN (05/22/20) SPECIMEN INFECT AGNT CONCNTJ (05/22/20) SUBSEQUENT HOSPITAL CARE (05/22/20) SUBSEQUENT HOSPITAL CARE (05/22/20) TDAP VACCINE 7 YRS/> IM (03/24/19) THER/PROPH/DIAG INJ IV PUSH (06/28/20) THER/PROPH/DIAG IV INF INIT (03/24/19) THERAPEUTIC ACTIVITIES (05/22/20) THERAPEUTIC EXERCISES (05/22/20) TISSUE EXAM BY PATHOLOGIST (05/22/20) TISSUE EXAM FOR FUNGI (05/22/20) TTE W/DOPPLER COMPLETE (05/22/20) URINALYSIS AUTO W/SCOPE (05/22/20) X-RAY EXAM CHEST 1 VIEW (06/28/20) X-RAY EXAM CHEST 2 VIEWS (05/22/20) X-RAY EXAM COMPLETE ABDOMEN (03/05/17) X-RAY EXAM OF SHOULDER (06/28/20) Problem List Initiated/Reviewed/Updated: Yes My Orders Last 24 Hours: My Active Orders 07/07/20 14:21 Convert IV to Saline Lock [OM.PC] Routine 07/07/20 14:24 RED BLOOD CELLS LP [BBK] Urgent Transfuse Red Blood Cells [COMM] Urgent 07/07/20 19:00 Furosemide [Lasix] 60 mg IVPUSH NOW ONE 07/08/20 08:00 Furosemide [Lasix] 40 mg PO BIDDIURETIC Plan: ASSESSMENT AND RECOMMENDATIONS STATUS POST RIGHT SHOULDER ARTHROPLASTY -Postoperative care per Dr. Cohn HYPERKALEMIA-likely secondary to underlying chronic kidney disease stage IV -Hold spironolactone -Kayexalate 30 g p.o. today -Reassess potassium level later this evening and in the a.m. ANEMIA-hemoglobin is dropped 2 g since admission and is now at 7.7. Likely secondary to surgery as well as effect of IV fluids. No other obvious source of blood loss identified. Because of his underlying congestive heart failure we wi ll plan to transfuse to keep hemoglobin greater than 8. -Transfuse 1 unit of red blood cells -Reassess hemoglobin in a.m. HYPOXIA-at baseline does not use supplemental oxygen, currently requiring sup plemental oxygen after surgery. This is likely multifactorial, related to hypoventilation from pain medication as well as underlying right pleural effusion and congestive heart failure. -Supplemental oxygen as needed CONGESTIVE HEART FAILURE-echocardiogram obtained during recent admission did document decreased left ventricular systolic function with estimated ejection fraction of 30 to 35%, there was also a component of diastolic dysfunction as well as valvular disease. -Restart furosemide 40 mg twice daily tomorrow -Furosemide 60 mg IV this evening CHRONIC KIDNEY DISEASE STAGE IV-creatinine is mildly increased from baseline -Closely monitor urine output and renal function CHRONIC RIGHT PLEURAL EFFUSION HEPATIC CIRRHOSIS WITH ASCITES Requesting Provider: JOSHUA Date Consult Requested: 07/07/20 Reason for Consult: Hypoxia, hyperkalemia Patient History Reviewed: Yes
[2020-07-07] MEDS: Aspirin 81 MG Tab.Chew PO SCH (17:00)
[2020-07-07] MEDS ORDERED: Furosemide 20 MG/2 ML VIAL IVPUSH ONE (19:00)
[2020-07-07] MEDS: Metoprolol Succinate 25 MG Tab.ER PO SCH (21:05)
[2020-07-07] MEDS: Doxazosin 4 MG Tab PO SCH (21:05)
[2020-07-08] MEDS: Acetaminophen/HYDROcodone 325-5 MG Tab PO PRN ×4 (01:43→23:56)
[2020-07-08] MEDS: Furosemide 40 MG Tab PO SCH ×2 (07:49→14:46)
[2020-07-08] MEDS: Pantoprazole 40 MG Tab.CR PO SCH (07:49)
[2020-07-08] MEDS ORDERED: Sodium Polystyrene Sulfonate 15 GM/60 ML Susp 60 ML Bot PO ONE (08:30)
[2020-07-08] MEDS: Lactulose Soln 10 GM/15 ML 15 ML UD Cup PO SCH ×3 (09:28→21:00)
[2020-07-08] MEDS: Docusate Sodium 100 MG Cap PO SCH (09:28)
[2020-07-08] MEDS: Nozin Nasal Sanitizer NASBOTH SCH ×2 (09:28→21:01)
[2020-07-08] MEDS: URSODIOL 300 MG PO SCH ×3 (09:29→21:01)
--- NOTE | 2020-07-08 12:31 | PCM.SURGPN ---
- General Info Date of Service: 07/08/20 Date of Surgery/Procedure: 07/06/20 POD#: 2 Post-Op Diagnosis: Right proximal humerus fracture Functional Status: Reports: Pain Controlled, Tolerating Diet, Ambulating, Urinating, Incentive Spirometry - Review of Systems General: Reports: Weakness HEENT: Reports: No Symptoms Pulmonary: Reports: Shortness of Breath (per patients baseline with recurrent right sided pleural effusion ) Cardiovascular: Reports: Dyspnea on Exertion Gastrointestinal: Reports: No Symptoms Genitourinary: Reports: No Symptoms Musculoskeletal: Reports: Shoulder Pain (right ), Arm Pain (right ) Skin: Reports: Other (ecchymosis of nasal bridge, forehead, right arm) Neurological: Reports: No Symptoms Psychiatric: Reports: No Symptoms - Patient Data Vitals - Most Recent: Last Vital Signs Temp 96.2 F L 07/08/20 10:43 Pulse 85 07/08/20 10:43 Resp 16 07/08/20 10:43 BP 105/59 L 07/08/20 10:43 Pulse Ox 95 07/08/20 10:43 Weight - Most Recent: 145 lb I&O - Last 24 Hours: Intake & Output 07/07/20 07/08/20 07/08/20 22:59 06:59 14:59 Intake Total 482 480 Output Total 225 100 Balance 482 -225 380 Lab Results Last 24 Hrs: Laboratory Results - last 24 hr 07/06/20 07/07/20 07/08/20 Range/Units 06:06 20:57 04:29 WBC 8.6 (4.5-11.0) K/uL RBC 3.31 L (4.30-5.90) M/uL Hgb 8.5 L (12.0-15.0) g/dL Hct 27.2 L (40.0-54.0) % MCV 82 (80-98) fL MCH 26 L (27-31) pg MCHC 31 L (32-36) % Plt Count 235 (150-400) K/uL Neut % (Auto) 71 H (36-66) % Lymph % (Auto) 11 L (24-44) % Johnson % (Auto) 14 H (2-6) % Eos % (Auto) 4 (2-4) % Baso % (Auto) 0 (0-1) % Sodium (140-148) mmol/L Potassium 5.6 H (3.6-5.2) mmol/L Chloride (100-108) mmol/L Carbon Dioxide (21-32) mmol/L Anion Gap (5.0-14.0) mmol/L BUN (7-18) mg/dL Creatinine (0.8-1.3) mg/dL Est Cr Clr Drug Dosing mL/min Estimated GFR (MDRD) (>60) Glucose (74-106) mg/dL Calcium (8.5-10.1) mg/dL Blood Type O POSITIVE Gel Antibody Screen Negative Crossmatch See Detail 07/08/20 Range/Units 04:29 WBC (4.5-11.0) K/uL RBC (4.30-5.90) M/uL Hgb (12.0-15.0) g/dL Hct (40.0-54.0) % MCV (80-98) fL MCH (27-31) pg MCHC (32-36) % Plt Count (150-400) K/uL Neut % (Auto) (36-66) % Lymph % (Auto) (24-44) % Johnson % (Auto) (2-6) % Eos % (Auto) (2-4) % Baso % (Auto) (0-1) % Sodium 130 L (140-148) mmol/L Potassium 5.6 H (3.6-5.2) mmol/L Chloride 96 L (100-108) mmol/L Carbon Dioxide 29 (21-32) mmol/L Anion Gap 10.6 (5.0-14.0) mmol/L BUN 55 H (7-18) mg/dL Creatinine 2.7 H (0.8-1.3) mg/dL Est Cr Clr Drug Dosing 17.59 mL/min Estimated GFR (MDRD) 22 L (>60) Glucose 150 H (74-106) mg/dL Calcium 8.5 (8.5-10.1) mg/dL Blood Type Gel Antibody Screen Crossmatch Med Orders - Current: Current Medications Hydrocodone Bitart/Acetaminophen ([place]iberty 325-5 Mg) 2 tab PO Q4H PRN PRN Reason: Pain (mild 1-3) Last Admin: 07/08/20 07:49 Dose: 2 tab Documented by: [facility]) [facility] Last Admin: 07/07/20 17:00 Dose: 81 mg Documented by: Bandage/Support Products ( Nasal Assistant Manager/Embalmer) 1 applic NASBOTH BID [facility] Stop: 07/12/20 21:01 Last Admin: 07/08/20 09:28 Dose: 1 applic Documented by: Docusate Sodium (Colace) 100 mg PO DAILY [facility] Last Admin: 07/08/20 09:28 Dose: 100 mg Documented by: Doxazosin Mesylate (Cardura) 4 mg PO BEDTIME [facility] Last Admin: 07/07/20 21:05 Dose: 4 mg Documented by: Furosemide (Lasix) 40 mg PO BIDDIURETIC [facility] Last Admin: 07/08/20 07:49 Dose: 40 mg Documented by: Lactulose (Chronulac) 20 gm PO TID [facility] Last Admin: 07/08/20 09:28 Dose: 20 gm Documented by: Magnesium Hydroxide (Milk Of Magnesia) 30 ml PO Q6H PRN PRN Reason: Stool Softener Metoprolol Succinate (Toprol Xl) 25 mg PO BEDTIME [facility] Last Admin: 07/07/20 21:05 Dose: 25 mg Documented by: Morphine Sulfate (Morphine) 1 mg IV Q1H PRN PRN Reason: Breakthrough Pain Ursodiol 300 Mg (Ptom) 0 mg PO TID [facility] Last Admin: 07/08/20 09:29 Dose: 300 mg Documented by: Ondansetron HCl (Zofran) 4 mg IVPUSH Q6H PRN PRN Reason: Nausea/Vomiting Oxycodone/Acetaminophen (Percocet 325-5 Mg) 1 - 2 tab PO Q6H PRN PRN Reason: Pain (severe 7-10) Pantoprazole Sodium (Protonix) 40 mg PO DAILY@0730 [facility] Last Admin: 07/08/20 07:49 Dose: 40 mg Documented by: Triamcinolone Acetonide (Triamcinolone Acetonide 0.1% Crm) 0 gm TOP BID PRN PRN Reason: Itching Discontinued Medications Bupivacaine HCl (Marcaine 0.5%) Confirm Administered Dose 60 ml .ROUTE .STK-MED ONE Stop: 07/06/20 07:23 Dexamethasone (Decadron) Confirm Administered Dose 4 mg .ROUTE .STK-MED ONE Stop: 07/06/20 07:22 Fentanyl (Sublimaze) Confirm Administered Dose 250 mcg .ROUTE .STK-MED ONE Stop: 07/06/20 07:26 Furosemide (Lasix) 40 mg PO WITHLUNCH [facility] Last Admin: 07/07/20 12:30 Dose: 40 mg Documented by: Furosemide (Lasix) 60 mg IVPUSH NOW ONE Stop: 07/07/20 19:01 Last Admin: 07/07/20 20:39 Dose: 60 mg Documented by: Glycopyrrolate (Robinul) Confirm Administered Dose 1 mg .ROUTE .STK-MED ONE Stop: 07/06/20 07:22 Lactated Ringer's (Ringers, Lactated) 1,000 mls @ 75 mls/hr IV ASDIRECTED [facility] Last Admin: 07/06/20 06:28 Dose: 75 mls/hr Documented by: Cefazolin Sodium/Dextrose 2 gm (/ Premix) 50 mls @ 100 mls/hr IV ONETIME ONE Stop: 07/06/20 08:29 Last Admin: 07/06/20 07:46 Dose: 100 mls/hr Documented by: Sodium Chloride (Normal Saline) 1,000 mls @ 25 mls/hr IV ASDIRECTED [facility] Last Admin: 07/07/20 05:41 Dose: 125 mls/hr Documented by: Cefazolin Sodium/Dextrose 1 gm (/ Premix) 50 mls @ 100 mls/hr IV Q8H [facility] Stop: 07/07/20 06:59 Last Admin: 07/07/20 05:38 Dose: 100 mls/hr Documented by: Neostigmine Methylsulfate (Neostigmine) Confirm Administered Dose 5 mg .ROUTE .STK-MED ONE Stop: 07/06/20 07:22 Ondansetron HCl (Zofran) Confirm Administered Dose 4 mg .ROUTE .STK-MED ONE Stop: 07/06/20 07:22 Povidone Iodine (Betadine 10% Soln) Confirm Administered Dose 1 ml .ROUTE .STK- MED ONE Stop: 07/06/20 06:53 Last Admin: 07/06/20 08:34 Dose: 30 ml Documented by: Propofol (Diprivan 20 Ml) Confirm Administered Dose 200 mg .ROUTE .STK-MED ONE Stop: 07/06/20 07:22 Rocuronium [place] (Zemuron) Confirm Administered Dose 50 mg .ROUTE .STK-MED ONE Stop: 07/06/20 07:22 Sodium Polystyrene Sulfonate (Kayexalate) 30 gm PO ONETIME ONE Stop: 07/07/20 14:01 Last Admin: 07/07/20 14:36 Dose: 30 gm Documented by: Sodium Polystyrene Sulfonate (Kayexalate) 30 gm PO ONETIME ONE Stop: 07/08/20 08:31 Last Admin: 07/08/20 09:28 Dose: 30 gm Documented by: Spironolactone (Aldactone) 25 mg PO WITHLUNCH [facility] Last Admin: 07/07/20 12:30 Dose: 25 mg Documented by: Succinylcholine Chloride (Quelicin) Confirm Administered Dose 200 mg .ROUTE .STK-MED ONE Stop: 07/06/20 07:22 - Exam Wound/Incisions: Dressing Dry and Intact, No Drainage Quality Assessment: Supplemental Oxygen (0.5 L) General: Alert, Cooperative, No Acute Distress Extremities: Arm Pain (right), Limited Range of Motion (right shoulder ) Skin: Dry, Intact Neurological: No New Focal Deficit Psy/Mental Status: Alert, Normal Affect, Normal Mood Sepsis Event Note - Evaluation Sepsis Screening Result: No Definite Risk - Focused Exam Vital Signs: Vital Signs Temp Pulse Resp BP Pulse Ox 07/08/20 10:43 96.2 F L 85 16 105/59 L 95 07/08/20 07:25 95.6 F L 99 16 103/64 96 07/08/20 07:16 94 L 07/08/20 01:54 97 18 107/67 98 07/08/20 01:00 98 - Problem List & Annotations (1) Status post reverse total replacement of right shoulder SNOMED Code(s): 01114561143553034, 12145563940554092 Code(s): Z96.611 - PRESENCE OF RIGHT ARTIFICIAL SHOULDER JOINT Status: Acute Current Visit: Yes - Problem List Review Problem List Initiated/Reviewed/Updated: Yes - My Orders Last 24 Hours: Active Orders 24 hr Category Date Time Status Admission Status [Patient Status] [ADT] Routine ADT 07/07/20 11:29 Active Notify Provider Consults [RC] ASDIRECTED Care 07/07/20 12:23 Active Consult to Physician [CONS] Routine Cons 07/07/20 12:22 Ordered Furosemide [Lasix] Med 07/08/20 08:00 Active 40 mg PO BIDDIURETIC Convert IV to Saline Lock [OM.PC] Routine Oth 07/07/20 14:21 Ordered Transfuse Red Blood Cells [COMM] Urgent Oth 07/07/20 14:24 Ordered Medication Orders Hydrocodone Bitart/Acetaminophen (Liberty 325-5 Mg) 2 tab PO Q4H PRN PRN Reason: Pain (mild 1-3) Last Admin: 07/08/20 07:49 Dose: 2 tab Documented by: Admin: 07/08/20 01:43 Dose: 2 tab Documented by: Admin: 07/07/20 21:03 Dose: 2 tab Documented by: Admin: 07/07/20 16:57 Dose: 2 tab Documented by: Admin: 07/07/20 12:30 Dose: 2 tab Documented by: Admin: 07/07/20 07:07 Dose: 2 tab Documented by: Admin: 07/06/20 18:00 Dose: 1 tab Documented by: Admin: 07/06/20 13:07 Dose: 1 tab Documented by: LILY Aspirin (Aspirin) 81 mg PO WITHDINNER [facility] Last Admin: 07/07/20 17:00 Dose: 81 mg Documented by: Admin: 07/06/20 17:08 Dose: 81 mg Documented by: KEYA Bandage/Support Products ( Nasal Assistant Manager/Embalmer) 1 applic NASBOTH BID [facility] Stop: 07/12/20 21:01 Last Admin: 07/08/20 09:28 Dose: 1 applic Documented by: Admin: 07/07/20 21:04 Dose: 1 applic Documented by: Admin: 07/07/20 08:29 Dose: 1 applic Documented by: Admin: 07/06/20 21:28 Dose: 1 applic Documented by: Admin: 07/06/20 06:24 Dose: 1 applic Documented by: SHARIFA Docusate Sodium (Colace) 100 mg PO DAILY [facility] Admin: 07/08/20 09:28 Dose: 100 mg Documented by: Admin: 07/07/20 08:27 Dose: 100 mg Documented by: DEANA Doxazosin Mesylate (Cardura) 4 mg PO BEDTIME [facility] Last Admin: 07/07/20 21:05 Dose: 4 mg Documented by: Admin: 07/06/20 21:33 Dose: 4 mg Documented by: ERIK Furosemide (Lasix) 40 mg PO BIDDIURETIC [facility] Admin: 07/08/20 07:49 Dose: 40 mg Documented by: DEANA Lactulose (Chronulac) 20 gm PO TID [facility] Admin: 07/08/20 09:28 Dose: 20 gm Documented by: Admin: 07/07/20 21:05 Dose: Not Given Documented by: Admin: 07/07/20 14:36 Dose: 20 gm Documented by: Admin: 07/07/20 08:29 Dose: 20 gm Documented by: Admin: 07/06/20 21:31 Dose: 20 gm Documented by: Admin: 07/06/20 14:40 Dose: 20 gm Documented by: KEYA Magnesium Hydroxide (Milk Of Magnesia) 30 ml PO Q6H PRN PRN Reason: Stool Softener Metoprolol Succinate (Toprol Xl) 25 mg PO BEDTIME [facility] Admin: 07/07/20 21:05 Dose: 25 mg Documented by: Admin: 07/06/20 21:33 Dose: 25 mg Documented by: ERIK Morphine Sulfate (Morphine) 1 mg IV Q1H PRN PRN Reason: Breakthrough Pain Ursodiol 300 Mg (Ptom) 0 mg PO TID [facility] Admin: 07/08/20 09:29 Dose: 300 mg Documented by: Admin: 07/07/20 21:06 Dose: 300 mg Documented by: Admin: 07/07/20 14:36 Dose: 300 mg Documented by: Admin: 07/07/20 08:28 Dose: 300 mg Documented by: Admin: 07/06/20 21:34 Dose: 300 mg Documented by: Admin: 07/06/20 17:09 Dose: Not Given Documented by: KEYA Ondansetron HCl (Zofran) 4 mg IVPUSH Q6H PRN PRN Reason: Nausea/Vomiting Oxycodone/Acetaminophen (Percocet 325-5 Mg) 1 - 2 tab PO Q6H PRN PRN Reason: Pain (severe 7-10) Pantoprazole Sodium (Protonix) 40 mg PO DAILY@0730 [facility] Last Admin: 07/08/20 07:49 Dose: 40 mg Documented by: Admin: 07/07/20 08:27 Dose: 40 mg Documented by: DEANA Triamcinolone Acetonide (Triamcinolone Acetonide 0.1% Crm) 0 gm TOP BID PRN PRN Reason: Itching - Assessment Assessment (Free Text/Narrative):: Patient is a pleasant 89 y/o male, POD#2, s/p R reverse total shoulder arthroplasty following a right proximal humerus fracture. Patient tolerated surgery well with no complications. Patient has extensive past medical history of CHF, ascites, renal disease, recurrent ride sided pleural effusion, and A-f ib. Hospitalist was consulted yesterday for services regarding patient's medical status, hypoxia, and hyperkalemia. Patient HgB dropped from 9.9 to 7.7 following surgery; hospitalist ordered 1 unit of PRBCs yesterday. HgB improved to 8.5 today. Kayexalate administered yesterday as well, K+ remains elevated at 5.6. Reports 1 large emesis last night after kayexalate was administered. Patient reports shoulder pain 2/10. Has been tolerating pain medications well and feels pain is being well controlled. Tolerating diet well without nausea. 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 Sling remains present on R shoulder. Drain was pulled and dressing change performed yesterday; dressing remains dry and intact today. No drainage reported. No surrounding erythema or warmth to touch near right shoulder incision. Ecchymosis present on right arm, nasal bridge, and forehead (present prior to admission, as a result of the fall that injured shoulder.) Patient has been compliant with PT and OT. Was able to ambulate with minimal assistance and walker belt with physical therapy today. Compliant with OT session yesterday, is scheduled to have another OT session this afternoon. Demonstrated desaturation with PT and OT activities. Plan: -Continue with PT and OT services while in the hospital -Orthopedic team will perform dressing change tomorrow -Hospitalist will continue to monitor patient's medical status, hyperkalemia, and hypoxia -Anticipate discharge to [facility] near end of week; will coordinate with hospitalist as to when patient is medical stable for discharge
--- NOTE | 2020-07-08 14:06 | PCM.CONSN ---
- General Info Date of Service: 07/08/20 Subjective Update: Mr. Chaves has been stable since yesterday, although potassium level remains elevated despite dose of Kayexalate given during the day. He is requiring less supplemental oxygen and did have good diuresis with dose of furosemide IV in the evening. Creatinine is up slightly from yesterday. Vital signs have remained stable and he has been afebrile. Functional Status: Reports: Tolerating Diet, Ambulating, Urinating - Review of Systems Pulmonary: Reports: No Symptoms Cardiovascular: Reports: No Symptoms Gastrointestinal: Reports: No Symptoms Musculoskeletal: Reports: Shoulder Pain - Patient Data Vitals - Most Recent: Last Vital Signs Temp 96.2 F L 07/08/20 10:43 Pulse 85 07/08/20 10:43 Resp 16 07/08/20 10:43 BP 105/59 L 07/08/20 10:43 Pulse Ox 95 07/08/20 10:43 Weight - Most Recent: 145 lb I&O - Last 24 Hours: Intake & Output 07/07/20 07/08/20 07/08/20 22:59 06:59 14:59 Intake Total 482 480 Output Total 225 100 Balance 482 -225 380 Lab Results Last 24 Hours: Laboratory Results - last 24 hr 07/06/20 07/07/20 07/08/20 Range/Units 06:06 20:57 04:29 WBC 8.6 (4.5-11.0) K/uL RBC 3.31 L (4.30-5.90) M/uL Hgb 8.5 L (12.0-15.0) g/dL Hct 27.2 L (40.0-54.0) % MCV 82 (80-98) fL MCH 26 L (27-31) pg MCHC 31 L (32-36) % Plt Count 235 (150-400) K/uL Neut % (Auto) 71 H (36-66) % Lymph % (Auto) 11 L (24-44) % [place] % (Auto) 14 H (2-6) % Eos % (Auto) 4 (2-4) % Baso % (Auto) 0 (0-1) % Sodium (140-148) mmol/L Potassium 5.6 H (3.6-5.2) mmol/L Chloride (100-108) mmol/L Carbon Dioxide (21-32) mmol/L Anion Gap (5.0-14.0) mmol/L BUN (7-18) mg/dL Creatinine (0.8-1.3) mg/dL Est Cr Clr Drug Dosing mL/min Estimated GFR (MDRD) (>60) Glucose (74-106) mg/dL Calcium (8.5-10.1) mg/dL Blood Type O POSITIVE Gel Antibody Screen Negative Crossmatch See Detail 07/08/20 Range/Units 04:29 WBC (4.5-11.0) K/uL RBC (4.30-5.90) M/uL Hgb (12.0-15.0) g/dL Hct (40.0-54.0) % MCV (80-98) fL MCH (27-31) pg MCHC (32-36) % Plt Count (150-400) K/uL Neut % (Auto) (36-66) % Lymph % (Auto) (24-44) % [place] % (Auto) (2-6) % Eos % (Auto) (2-4) % Baso % (Auto) (0-1) % Sodium 130 L (140-148) mmol/L Potassium 5.6 H (3.6-5.2) mmol/L Chloride 96 L (100-108) mmol/L Carbon Dioxide 29 (21-32) mmol/L Anion Gap 10.6 (5.0-14.0) mmol/L BUN 55 H (7-18) mg/dL Creatinine 2.7 H (0.8-1.3) mg/dL Est Cr Clr Drug Dosing 17.59 mL/min Estimated GFR (MDRD) 22 L (>60) Glucose 150 H (74-106) mg/dL Calcium 8.5 (8.5-10.1) mg/dL Blood Type Gel Antibody Screen Crossmatch Med Orders - Current: Current Medications Hydrocodone Bitart/Acetaminophen ([place] 325-5 Mg) 2 tab PO Q4H PRN PRN Reason: Pain (mild 1-3) Last Admin: 07/08/20 07:49 Dose: 2 tab Documented by: Aspirin (Aspirin) 81 mg PO WITHDINNER [facility] Last Admin: 07/07/20 17:00 Dose: 81 mg Documented by: Bandage/Support Products ( Nasal Jointer Operator) 1 applic NASBOTH BID [facility] Stop: 07/12/20 21:01 Last Admin: 07/08/20 09:28 Dose: 1 applic Documented by: Docusate Sodium (Colace) 100 mg PO DAILY [facility] Last Admin: 07/08/20 09:28 Dose: 100 mg Documented by: Doxazosin Mesylate (Cardura) 4 mg PO BEDTIME [facility] Last Admin: 07/07/20 21:05 Dose: 4 mg Documented by: Furosemide (Lasix) 40 mg PO BIDDIURETIC [facility] Last Admin: 07/08/20 07:49 Dose: 40 mg Documented by: Lactulose (Chronulac) 20 gm PO TID [facility] Last Admin: 07/08/20 09:28 Dose: 20 gm Documented by: Magnesium Hydroxide (Milk Of Magnesia) 30 ml PO Q6H PRN PRN Reason: Stool Softener Metoprolol Succinate (Toprol Xl) 25 mg PO BEDTIME [facility] Last Admin: 07/07/20 21:05 Dose: 25 mg Documented by: Morphine Sulfate (Morphine) 1 mg IV Q1H PRN PRN Reason: Breakthrough Pain Ursodiol 300 Mg (Ptom) 0 mg PO TID [facility] Last Admin: 07/08/20 09:29 Dose: 300 mg Documented by: Ondansetron HCl (Zofran) 4 mg IVPUSH Q6H PRN PRN Reason: Nausea/Vomiting Oxycodone/Acetaminophen (Percocet 325-5 Mg) 1 - 2 tab PO Q6H PRN PRN Reason: Pain (severe 7-10) Pantoprazole Sodium (Protonix) 40 mg PO DAILY@0730 [facility] Last Admin: 07/08/20 07:49 Dose: 40 mg Documented by: Triamcinolone Acetonide (Triamcinolone Acetonide 0.1% Crm) 0 gm TOP BID PRN PRN Reason: Itching Discontinued Medications Bupivacaine HCl (Marcaine 0.5%) Confirm Administered Dose 60 ml .ROUTE .STK-MED ONE Stop: 07/06/20 07:23 Dexamethasone (Decadron) Confirm Administered Dose 4 mg .ROUTE .STK-MED ONE Stop: 07/06/20 07:22 Fentanyl (Sublimaze) Confirm Administered Dose 250 mcg .ROUTE .STK-MED ONE Stop: 07/06/20 07:26 Furosemide (Lasix) 40 mg PO WITHLUNCH [facility] Last Admin: 07/07/20 12:30 Dose: 40 mg Documented by: Furosemide (Lasix) 60 mg IVPUSH NOW ONE Stop: 07/07/20 19:01 Last Admin: 07/07/20 20:39 Dose: 60 mg Documented by: Glycopyrrolate (Robinul) Confirm Administered Dose 1 mg .ROUTE .STK-MED ONE Stop: 07/06/20 07:22 Lactated Ringer's (Ringers, Lactated) 1,000 mls @ 75 mls/hr IV ASDIRECTED [facility] Last Admin: 07/06/20 06:28 Dose: 75 mls/hr Documented by: Cefazolin Sodium/Dextrose 2 gm (/ Premix) 50 mls @ 100 mls/hr IV ONETIME ONE Stop: 07/06/20 08:29 Last Admin: 07/06/20 07:46 Dose: 100 mls/hr Documented by: Sodium Chloride (Normal Saline) 1,000 mls @ 25 mls/hr IV ASDIRECTED [facility] Last Admin: 07/07/20 05:41 Dose: 125 mls/hr Documented by: Cefazolin Sodium/Dextrose 1 gm (/ Premix) 50 mls @ 100 mls/hr IV Q8H [facility] Stop: 07/07/20 06:59 Last Admin: 07/07/20 05:38 Dose: 100 mls/hr Documented by: Neostigmine Methylsulfate (Neostigmine) Confirm Administered Dose 5 mg .ROUTE .STK-[facility] ONE Stop: 07/06/20 07:22 Ondansetron HCl (Zofran) Confirm Administered Dose 4 mg .ROUTE .STK-MED ONE Stop: 07/06/20 07:22 Povidone Iodine (Betadine 10% Soln) Confirm Administered Dose 1 ml .ROUTE .STK- MED ONE Stop: 07/06/20 06:53 Last Admin: 07/06/20 08:34 Dose: 30 ml Documented by: Propofol (Diprivan 20 Ml) Confirm Administered Dose 200 mg .ROUTE .STK-MED ONE Stop: 07/06/20 07:22 Rocuronium [place] (Zemuron) Confirm Administered Dose 50 mg .ROUTE .STK-MED ONE Stop: 07/06/20 07:22 Sodium Polystyrene Sulfonate (Kayexalate) 30 gm PO ONETIME ONE Stop: 07/07/20 14:01 Last Admin: 07/07/20 14:36 Dose: 30 gm Documented by: Sodium Polystyrene Sulfonate (Kayexalate) 30 gm PO ONETIME ONE Stop: 07/08/20 08:31 Last Admin: 07/08/20 09:28 Dose: 30 gm Documented by: Spironolactone (Aldactone) 25 mg PO WITHLUNCH [facility] Last Admin: 07/07/20 12:30 Dose: 25 mg Documented by: Succinylcholine Chloride (Quelicin) Confirm Administered Dose 200 mg .ROUTE .STK-MED ONE Stop: 07/06/20 07:22 - Exam Quality Assessment: Supplemental Oxygen, DVT Prophylaxis General: Alert, Oriented, Cooperative, Mild Distress Lungs: Clear to Auscultation, Normal Respiratory Effort Cardiovascular: Regular Rate, Regular Rhythm, No Murmurs GI/Abdominal Exam: Soft, Non-Tender, No Organomegaly Extremities: Non-Tender, Pedal Edema Sepsis Event Note - Evaluation Sepsis Screening Result: No Definite Risk - Focused Exam Vital Signs: Vital Signs Temp Pulse Resp BP Pulse Ox 07/08/20 10:43 96.2 F L 85 16 105/59 L 95 07/08/20 07:25 95.6 F L 99 16 103/64 96 07/08/20 07:16 94 L Consult PN Assessment/Plan Procedures: Procedures ABD PARACENTESIS W/IMAGING (02/01/19) ASSAY OF AMYLASE (05/22/20) ASSAY OF LACTIC ACID (03/05/17) ASSAY OF LIPASE (05/22/20) ASSAY OF MAGNESIUM (03/05/17) ASSAY OF PROTEIN SERUM (05/22/20) ASSAY PH BODY FLUID NOS (05/22/20) BODY FLUID CELL COUNT (05/22/20) C-REACTIVE PROTEIN (06/28/20) CHEST X-RAY 2VW FRONTAL&LATL (03/03/17) COMPLETE CBC AUTOMATED (06/28/20) COMPLETE CBC W/AUTO DIFF WBC (05/22/20) COMPREHEN METABOLIC PANEL (05/22/20) CT ABD & PELV W/CONTRAST (03/24/19) CT ABD & PELVIS W/O CONTRAST (05/22/20) CT THORAX DX C+ (03/24/19) CULTURE OTHR SPECIMN AEROBIC (05/22/20) CYTOPATH CELL ENHANCE TECH (05/22/20) ECHO EXAM OF ABDOMEN (03/05/17) ELECTROCARDIOGRAM REPORT (05/22/20) ELECTROCARDIOGRAM TRACING (05/22/20) EMERGENCY DEPT VISIT (06/28/20) EMERGENCY DEPT VISIT (06/28/20) EMERGENCY DEPT VISIT (03/24/19) EMERGENCY DEPT VISIT (02/10/19) EMERGENCY DEPT VISIT (05/14/17) EMERGENCY DEPT VISIT (03/05/17) EMERGENCY DEPT VISIT (03/05/17) FUNGUS ISOLATION CULTURE (05/22/20) GLUCOSE OTHER FLUID (05/22/20) HOSPITAL DISCHARGE DAY (05/22/20) HYDRATE IV INFUSION ADD-ON (03/05/17) HYDRATION IV INFUSION INIT (03/05/17) IIV NO PRSV INCREASED AG IM (05/22/20) IMMUNIZATION ADMIN (03/24/19) INITIAL HOSPITAL CARE (05/22/20) INSERT TEMP BLADDER CATH (05/14/17) LACTATE (LD) (LDH) ENZYME (05/22/20) MEASURE BLOOD OXYGEN LEVEL (05/22/20) METABOLIC PANEL TOTAL CA (06/28/20) MYCOBACTERIA CULTURE (05/22/20) OT EVAL LOW COMPLEX 30 MIN (03/05/17) PROTHROMBIN TIME (03/24/19) PT EVAL MOD COMPLEX 30 MIN (05/22/20) ROUTINE VENIPUNCTURE (06/28/20) RPR S/N/AX/GEN/TRK7.6-12.5CM (03/24/19) SMEAR FLUORESCENT/ACID STAI (05/22/20) SMEAR GRAM STAIN (05/22/20) SPECIMEN INFECT AGNT CONCNTJ (05/22/20) SUBSEQUENT HOSPITAL CARE (05/22/20) SUBSEQUENT HOSPITAL CARE (05/22/20) TDAP VACCINE 7 YRS/> IM (03/24/19) THER/PROPH/DIAG INJ IV PUSH (06/28/20) THER/PROPH/DIAG IV INF INIT (03/24/19) THERAPEUTIC ACTIVITIES (05/22/20) THERAPEUTIC EXERCISES (05/22/20) TISSUE EXAM BY PATHOLOGIST (05/22/20) TISSUE EXAM FOR FUNGI (05/22/20) TTE W/DOPPLER COMPLETE (05/22/20) URINALYSIS AUTO W/SCOPE (05/22/20) X-RAY EXAM CHEST 1 VIEW (06/28/20) X-RAY EXAM CHEST 2 VIEWS (05/22/20) X-RAY EXAM COMPLETE ABDOMEN (03/05/17) X-RAY EXAM OF SHOULDER (06/28/20) Problem List Initiated/Reviewed/Updated: Yes My Orders Last 24 Hours: My Active Orders 07/07/20 14:21 Convert IV to Saline Lock [OM.PC] Routine 07/07/20 14:24 Transfuse Red Blood Cells [COMM] Urgent 07/08/20 08:00 Furosemide [Lasix] 40 mg PO BIDDIURETIC 07/08/20 17:00 POTASSIUM,K [CHEM] Stat 07/09/20 05:00 BASIC METABOLIC PANEL,BMP [CHEM] Timed CBC WITH AUTO DIFF [HEME] Timed Plan: ASSESSMENT AND RECOMMENDATIONS STATUS POST RIGHT SHOULDER ARTHROPLASTY -Postoperative care per Dr. Cohn HYPERKALEMIA-likely secondary to underlying chronic kidney disease stage IV -Hold spironolactone -Kayexalate 30 g p.o. today -Reassess potassium level later this evening and in the a.m. ANEMIA-hemoglobin improved to 8.5 following transfusion of 1 unit of red blood cells yesterday -Reassess hemoglobin in a.m. HYPOXIA-This is likely multifactorial, related to hypoventilation from pain medication as well as underlying right pleural effusion and congestive heart failure. Oxygenation has improved over the last 24 hours, currently down to 1/2 L/min via nasal cannula. -Supplemental oxygen as needed CONGESTIVE HEART FAILURE-echocardiogram obtained during recent admission did document decreased left ventricular systolic function with estimated ejection fraction of 30 to 35%, there was also a component of diastolic dysfunction as well as valvular disease. -Continue furosemide 40 mg twice daily -Reassess in a.m. CHRONIC KIDNEY DISEASE STAGE IV-creatinine is mildly increased from baseline -Closely monitor urine output and renal function CHRONIC RIGHT PLEURAL EFFUSION HEPATIC CIRRHOSIS WITH ASCITES
[2020-07-08] MEDS: Aspirin 81 MG Tab.Chew PO SCH (17:46)
[2020-07-08] MEDS: Metoprolol Succinate 25 MG Tab.ER PO SCH (21:01)
[2020-07-08] MEDS: Doxazosin 4 MG Tab PO SCH (21:02)
[2020-07-09] MEDS: Acetaminophen/HYDROcodone 325-5 MG Tab PO PRN ×2 (05:49→11:16)
[2020-07-09] MEDS: Pantoprazole 40 MG Tab.CR PO SCH (08:19)
[2020-07-09] MEDS: Furosemide 40 MG Tab PO SCH (08:20)
[2020-07-09] MEDS: Nozin Nasal Sanitizer NASBOTH SCH (08:20)
[2020-07-09] MEDS: Lactulose Soln 10 GM/15 ML 15 ML UD Cup PO SCH (08:20)
[2020-07-09] MEDS: URSODIOL 300 MG PO SCH (08:21)
[2020-07-09] MEDS: Docusate Sodium 100 MG Cap PO SCH (08:21)
[2020-07-09 10:44] VITALS: BP 104/55; PULSE 76
--- NOTE | 2020-07-09 12:04 | PCM.DCSUM1 ---
Discharge Summary - Hospital Course Free Text/Narrative:: 89 year old right hand dominant male with displaced 4 part right proximal humerus fracture admitted for reverse total shoulder arthroplasty. Diagnosis: Stroke: No Modified [place] Scale: No Symptoms at All Modified [place] Scale Score: 0 - Discharge Data Discharge Date: 07/09/20 Discharge Disposition: DC/Tfer to SNF 03 Condition: Stable - Referral to Home Health Date of Face to Face Encounter: 07/09/20 Primary Care Physician: Dwain Us MD - Discharge Diagnosis/Problem(s) (1) Anemia, posthemorrhagic, acute SNOMED Code(s): 575897997 ICD Code: D62 - ACUTE POSTHEMORRHAGIC ANEMIA Status: Acute Current Visit: Yes (2) Status post reverse total replacement of right shoulder SNOMED Code(s): 41196483332004557, 98102507132279765 ICD Code: Z96.611 - PRESENCE OF RIGHT ARTIFICIAL SHOULDER JOINT Status: Acute Current Visit: Yes (3) 4-part fracture of surgical neck of humerus SNOMED Code(s): 827659260, 690040574 ICD Code: S42.249A - 4-PART FRACTURE OF SURGICAL NECK OF UNSP HUMERUS, INIT Status: Acute Current Visit: No Problem Details: displaced Qualifiers: Encounter type: initial encounter Fracture type: closed Laterality: right Qualified Code(s): S42.241A - 4-part fracture of surgical neck of right humerus, initial encounter for closed fracture (4) CKD (chronic kidney disease) stage 3, GFR 30-59 ml/min SNOMED Code(s): 612966465 ICD Code: N18.3 - CHRONIC KIDNEY DISEASE, STAGE 3 (MODERATE) * DO NOT USE * Status: Chronic Current Visit: No (5) Chronic left-sided congestive heart failure SNOMED Code(s): 8496616 ICD Code: I50.1 - LEFT VENTRICULAR FAILURE, UNSPECIFIED Status: Chronic Current Visit: No (6) Diabetes type 2, controlled SNOMED Code(s): 05053682, 212944301 ICD Code: E11.9 - TYPE 2 DIABETES MELLITUS WITHOUT COMPLICATIONS Status: Chronic Priority: High Current Visit: No Qualifiers: Diabetes mellitus usp insulin 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 PT Reason for Consult: Ambulation Discharge Disposition: Home w Home Health Special Instructions: This query below is only for informational purposes and is not editable. PT Evaluation and Treatment [CONS] Routine Please Evaluate and Treat. PT Reason for Consult: Post op Ortho Surgery Hip Pending Discharge: Yes, 2- -3 days Special Instructions: Schedule first outpatient P.T. appointment 3 - 5 days post discharge This query below is only for informational purposes and is not editable. 07/06/20 10:11 OT Evaluation and Treatment [CONS] Routine Please Evaluate and Treat. OT Reason for Consult: ADL's Special Instructions: ROM of hand, wrist and elbow. No ext rotation beyond neutral This query below is only for informational purposes and is not editable. 07/07/20 12:22 Consult to Physician [CONS] Routine Consulting Provider: Lazaro Benavides Call Completed to Consulting Physician: Yes Reason for Consult: A Fib, hyperkalemia Hospital Course: Admitted for surgery to right shoulder which he actually tolerated very well. Has multiple chronic medical conditions and Hospitalist was consulted to assist with these. His Hgb dropped to 7.7 post op and he was transfused one unit of packed cells. Responded to Lasix with diuresis and hyperkalemia was corrected with Kayexelate. Chest x-ray shows his pleural effusion to be stable. He does have episodes of hypoxia and O2 by nasal cannula has run between 0.5l and 4l. Surgical drain was pulled on POD #1. Incision has looked good with no drainage or complications. Has been seen by PT/OT for ambulation and right arm ROM. Plan discharge to shelter facility. Continue PT/OT for gentle ROM to right shoulder and ROM and strengthening to elbow/wrist/hand. Follow up with Ortho in two weeks. Follow up labs for chronic disease, etc. per Medicine Service. Notify Ortho Clinic for any redness, swelling, drainage related to right shoulder. Follow up with Primary Care Provider per Medicine recommendations. - Patient Instructions Diet: Low Sodium Activity, Other: Sling to right arm, no lifting greater than 2 lbs. Driving: Do Not Drive Showering/Bathing: May Shower Notify Provider of: Fever, Increased Pain, Swelling and Redness, Drainage Other/Special Instructions: PT/OT to see for right arm, PROM to hand/wrist/elbow and strengthening. Gentle ROM to shoulder as tolerated. - Discharge Plan *PRESCRIPTION DRUG MONITORING PROGRAM REVIEWED*: No *COPY OF PRESCRIPTION DRUG MONITORING REPORT IN PATIENT RONALD: No Prescriptions/Med Rec: Acetaminophen/HYDROcodone [[place] 325-5 MG] 1 tab PO Q4H PRN #28 tab PRN Reason: Pain Home Medications: Home Meds Aspirin 81 mg PO WITHDINNER 03/03/17 [History] Doxazosin Mesylate [Cardura] 4 mg PO BEDTIME 03/03/17 [History] Metoprolol Succinate [Toprol XL] 25 mg PO BEDTIME 03/03/17 [History] Cholecalciferol (Vitamin D3) [Vitamin D3] 400 unit PO DAILY 01/18/19 [History] Spironolactone [Aldactone] 25 mg PO WITHLUNCH 01/18/19 [History] Lactulose [Generlac] 30 ml PO TID 02/01/19 [History] ursodioL [Ursodiol] 300 mg PO TID 02/11/19 [History] Pantoprazole [ProTONIX] 40 mg PO DAILY 05/21/20 [History] Triamcinolone Acetonide [Kenalog 0.1% Crm] 1 gm TOP BID PRN 05/21/20 [History] Ceramides 1,3,6-11 [Cerave] 1 applic TOP BID 06/29/20 [History] Furosemide 40 mg PO WITHLUNCH 06/29/20 [History] Acetaminophen/HYDROcodone [[place] 325-5 MG] 1 tab PO Q4H PRN #28 tab 07/09/20 [Rx] Oxygen Therapy Mode: Nasal Cannula Oxygen Flow Rate (L/min): 2 Referrals: Rudy Cohn MD [Physician] - 07/21/20 11:30 am - Discharge Summary/Plan Comment DC Time >30 min.: Yes (40 min) - General Info Functional Status: Reports: Pain Controlled, Tolerating Diet, Ambulating, Urinating - Review of Systems General: Reports: No Symptoms HEENT: Reports: No Symptoms Pulmonary: Reports: Shortness of Breath (With activity) Gastrointestinal: Reports: No Symptoms Genitourinary: Reports: No Symptoms Musculoskeletal: Reports: Shoulder Pain Skin: Reports: No Symptoms Neurological: Reports: No Symptoms Psychiatric: Reports: No Symptoms - Patient Data Vitals - Most Recent: Last Vital Signs Temp 36.6 C 07/09/20 10:40 Pulse 76 07/09/20 10:40 Resp 16 07/09/20 10:40 BP 104/55 L 07/09/20 10:40 Pulse Ox 92 L 07/09/20 10:40 Weight - Most Recent: 65.771 kg I&O - Last 24 hours: Intake & Output 07/08/20 07/09/20 07/09/20 22:59 06:59 14:59 Intake Total 750 660 Output Total 100 Balance 750 -100 660 Lab Results - Last 24 hrs: Laboratory Results - last 24 hr 07/08/20 07/09/20 07/09/20 Range/Units 16:44 05:30 05:30 WBC 13.0 H (4.5-11.0) K/uL RBC 3.43 L (4.30-5.90) M/uL Hgb 8.4 L (12.0-15.0) g/dL Hct 28.3 L (40.0-54.0) % MCV 83 (80-98) fL MCH 25 L (27-31) pg MCHC 30 L (32-36) % Plt Count 261 (150-400) K/uL Neut % (Auto) 75 H (36-66) % Lymph % (Auto) 8 L (24-44) % [place] % (Auto) 14 H (2-6) % Eos % (Auto) 3 (2-4) % Baso % (Auto) 0 (0-1) % Sodium 132 L (140-148) mmol/L Potassium 4.9 4.7 (3.6-5.2) mmol/L Chloride 96 L (100-108) mmol/L Carbon Dioxide 30 (21-32) mmol/L Anion Gap 10.7 (5.0-14.0) mmol/L BUN 60 H (7-18) mg/dL Creatinine 2.8 H (0.8-1.3) mg/dL Est Cr Clr Drug Dosing 16.96 mL/min Estimated GFR (MDRD) 21 L (>60) Glucose 158 H (74-106) mg/dL Calcium 8.5 (8.5-10.1) mg/dL Med Orders - Current: Current Medications Hydrocodone Bitart/Acetaminophen ([place] 325-5 Mg) 2 tab PO Q4H PRN PRN Reason: Pain (mild 1-3) Last Admin: 07/09/20 11:16 Dose: 2 tab Documented by: Aspirin (Aspirin) 81 mg PO WITHDINNER [facility] Last Admin: 07/08/20 17:46 Dose: 81 mg Documented by: Bandage/Support Products ( Nasal Medical Billing Representative) 1 applic NASBOTH BID [facility] Stop: 07/12/20 21:01 Last Admin: 07/09/20 08:20 Dose: 1 applic Documented by: Docusate Sodium (Colace) 100 mg PO DAILY [facility] Last Admin: 07/09/20 08:21 Dose: 100 mg Documented by: Doxazosin Mesylate (Cardura) 4 mg PO BEDTIME [facility] Last Admin: 07/08/20 21:02 Dose: 4 mg Documented by: Furosemide (Lasix) 40 mg PO BIDDIURETIC [facility] Last Admin: 07/09/20 08:20 Dose: 40 mg Documented by: Lactulose (Chronulac) 20 gm PO TID [facility] Last Admin: 07/09/20 08:20 Dose: 20 gm Documented by: Magnesium Hydroxide (Milk Of Magnesia) 30 ml PO Q6H PRN PRN Reason: Stool Softener Metoprolol Succinate (Toprol Xl) 25 mg PO BEDTIME [facility] Last Admin: 07/08/20 21:01 Dose: 25 mg Documented by: Morphine Sulfate (Morphine) 1 mg IV Q1H PRN PRN Reason: Breakthrough Pain Ursodiol 300 Mg (Ptom) 0 mg PO TID [facility] Last Admin: 07/09/20 08:21 Dose: 300 mg Documented by: Ondansetron HCl (Zofran) 4 mg IVPUSH Q6H PRN PRN Reason: Nausea/Vomiting Oxycodone/Acetaminophen (Percocet 325-5 Mg) 1 - 2 tab PO Q6H PRN PRN Reason: Pain (severe 7-10) Pantoprazole Sodium (Protonix) 40 mg PO DAILY@0730 [facility] Last Admin: 07/09/20 08:19 Dose: 40 mg Documented by: Triamcinolone Acetonide (Triamcinolone Acetonide 0.1% Crm) 0 gm TOP BID PRN PRN Reason: Itching Discontinued Medications Bupivacaine HCl (Marcaine 0.5%) Confirm Administered Dose 60 ml .ROUTE .STK-MED ONE Stop: 07/06/20 07:23 Dexamethasone (Decadron) Confirm Administered Dose 4 mg .ROUTE .STK-MED ONE Stop: 07/06/20 07:22 Fentanyl (Sublimaze) Confirm Administered Dose 250 mcg .ROUTE .STK-MED ONE Stop: 07/06/20 07:26 Furosemide (Lasix) 40 mg PO WITHLUNCH [facility] Last Admin: 07/07/20 12:30 Dose: 40 mg Documented by: Furosemide (Lasix) 60 mg IVPUSH [facility] ONE Stop: 07/07/20 19:01 Last Admin: 07/07/20 20:39 Dose: 60 mg Documented by: Glycopyrrolate (Robinul) Confirm Administered Dose 1 mg .ROUTE .STK-MED ONE Stop: 07/06/20 07:22 Lactated Ringer's (Ringers, Lactated) 1,000 mls @ 75 mls[facility] Last Admin: 07/06/20 06:28 Dose: 75 mls/hr Documented by: Cefazolin Sodium/Dextrose 2 gm (/ Premix) 50 mls @ 100 mls/hr IV ONETIME ONE Stop: 07/06/20 08:29 Last Admin: 07/06/20 07:46 Dose: 100 mls/hr Documented by: Sodium Chloride (Normal Saline) 1,000 mls [facility] Last Admin: 07/07/20 05:41 Dose: 125 mls/hr Documented by: Cefazolin Sodium/Dextrose 1 gm (/ Premix) 50 mls @ 100 mls/hr IV Q8H [facility] Stop: 07/07/20 06:59 Last Admin: 07/07/20 05:38 Dose: 100 mls/hr Documented by: Neostigmine Methylsulfate (Neostigmine) Confirm Administered Dose 5 mg .ROUTE .STK-MED ONE Stop: 07/06/20 07:22 Ondansetron HCl (Zofran) Confirm Administered Dose 4 mg .ROUTE .STK-MED ONE Stop: 07/06/20 07:22 Povidone Iodine (Betadine 10% Soln) Confirm Administered Dose 1 ml .ROUTE .STK- MED ONE Stop: 07/06/20 06:53 Last Admin: 07/06/20 08:34 Dose: 30 ml Documented by: Propofol (Diprivan 20 Ml) Confirm Administered Dose 200 mg .ROUTE .STK-MED ONE Stop: 07/06/20 07:22 Rocuronium [place] (Zemuron) Confirm Administered Dose 50 mg .ROUTE .STK-MED ONE Stop: 07/06/20 07:22 Sodium Polystyrene Sulfonate (Kayexalate) 30 gm PO ONETIME ONE Stop: 07/07/20 14:01 Last Admin: 07/07/20 14:36 Dose: 30 gm Documented by: Sodium Polystyrene Sulfonate (Kayexalate) 30 gm PO ONETIME ONE Stop: 07/08/20 08:31 Last Admin: 07/08/20 09:28 Dose: 30 gm Documented by: Spironolactone (Aldactone) 25 mg PO [facility]UN[facility] Last Admin: 07/07/20 12:30 Dose: 25 mg Documented by: Succinylcholine Chloride (Quelicin) Confirm Administered Dose 200 mg .ROUTE .STK-MED ONE Stop: 07/06/20 07:22 - Exam General: Reports: Alert, Oriented, Cooperative, No Acute Distress HEENT: Reports: Pupils Equal, Pupils Reactive, EOMI, Mucous Membr. Moist/[place] Neck: Reports: Supple Lungs: Reports: Decreased Breath Sounds (right lower lung agustin) Cardiovascular: Reports: Regular Rate GI/Abdominal Exam: Normal Bowel Sounds, Soft, Non-Tender, No Distention (Male) Exam: Deferred Rectal (Males) Exam: Deferred Back Exam: Reports: Normal Inspection Extremities: Limited Range of Motion Skin: Reports: Warm, Dry Wound/Incisions: Reports: Healing Well Neurological: Reports: No New Focal Deficit Psy/Mental Status: Reports: Alert, Normal Affect, Normal Mood
--- NOTE | 2020-08-21 08:17 | OR ---
DATE OF PROCEDURE: 07/06/2020 SURGEON: Rudy Cohn MD PREOPERATIVE DIAGNOSES: Displaced 4-part fracture, right proximal humerus. POSTOPERATIVE DIAGNOSIS: Displaced 4-part fracture, right proximal humerus with chronic rotator cuff tear. PROCEDURE: Reverse total shoulder arthroplasty using Jules components with a size 18 humeral stem, 9 mm spacer, and a +3 mm polyethylene and 36-mm glenosphere. HARD ROCK MINER BLASTING: LUIS CARLOS Multani. ANESTHESIA: Interscalene block with general. INDICATIONS: Devang is an 89-year-old gentleman who sustained a fall resulting in a displaced 4-part fracture of the right proximal humerus. He is right-hand dominant. He has had some difficulty with both shoulders and likely chronic rotator cuff tear. Risks, benefits, potential complications of the procedure were discussed and he wished to proceed with procedure as planned. Physician assistant loan processor is used for surgical retraction, positioning of the arm, and skilled assistance throughout the course of the surgery. PROCEDURE IN DETAIL: After adequate anesthesia was obtained, the patient was placed in a modified beach-chair position. Right shoulder and arm were prepped and draped in a sterile fashion. Anterior incision was made and carried down to the subcutaneous tissues and the deltopectoral interval was identified along with the cephalic vein. The vein was retracted laterally with the deltoid. The conjoined tendon was identified. The clavipectoral fascia was divided and the fracture hematoma was evacuated. Retractor was placed beneath the deltoid and the conjoined tendon. Fracture line between the greater tuberosity and lesser tuberosity was identified. Biceps tendon was transected at this location and tenodesed into the soft tissue with a #2 Ethibond. The lesser tuberosity fragment was elevated and retracted medially. Greater tuberosity fragment was retracted laterally exposing the impacted humeral head fragment which was impacted approximately 90 degrees. The fragment was freed and removed with no soft tissue attachment. Multiple fragments of metaphyseal bone are removed with a rongeur. The glenoid was exposed. The glenoid labrum was excised. The remaining portion of the biceps tendon was also excised. The guide for the glenoid was placed at the inferior rim and a guide pin was advanced. Center reamer was placed over this. This was followed by the glenoid reamer removing the articular cartilage. The guide pin was removed and the central peg was punched. Glenoid baseplate was then impacted into position. Additional fixation obtained with superior and inferior screws. Locking caps were placed over the screws. A 36-mm glenosphere was then impacted onto the baseplate and locking was confirmed using a [place] elevator. Attention was returned to the humerus. The humeral shaft was reamed up to size 18. 18 trial was assembled and reduction was then completed using a 9-mm spacer plus a 3-mm polyethylene. This provided very good tension on the reduction. The trial was removed. The 18-mm stem was impacted into position and the 9-mm spacer was placed. A 3- mm polyethylene was then impacted into the spacer. Shoulder was reduced and showed very good stability. The sutures were placed through the tendon of the subscapularis adjacent to the tuberosity fragment. #2 Ethibond suture also placed through a portion of the remaining infraspinatus tendon attached to the greater tuberosity fragment. Tuberosities then reconstructed over top of the prosthesis and portions of the metaphyseal bone were used as a bone graft around the ingrowth portion. Wound was then irrigated. A drain was placed and brought out through a separate stab incision. The deltopectoral interval was allowed to close. The skin was then closed with 2-0 Vicryl and a running 3-0 Monocryl. Steri-Strips were applied. Sterile dressing was placed. The patient tolerated procedure well. There were no complications. Taken from the operating room in stable condition. Rudy Cohn MD /[id number] CASE
== END 2020-07-09 14:00 | DRG 483 ==
LOC: JP.SDS 05:39 → EDSTATUS 08:30 → JP.MS 10:07 → JP.SDS 10:07 → JP.MS 07-07 11:29
PROVIDERS: ADMIT Specialist; ATTEND Specialist
PROC: 0RRJ00Z Replacement of Right Shoulder Joint with Reverse Ball and Socket Synthetic Substitute, Open Approach (ICD-10-PCS; 2020-07-06)
PROC: 30233N1 Transfusion of Nonautologous Red Blood Cells into Peripheral Vein, Percutaneous Approach (ICD-10-PCS; principal; 2020-07-07)
DX: S42.241A 4-part fracture of surgical neck of right humerus, initial encounter for closed fracture (principal); D62 Acute posthemorrhagic anemia; I13.0 Hypertensive heart and chronic kidney disease with heart failure and stage 1 through stage 4 chronic kidney disease, or unspecified chronic kidney disease; I50.1 Left ventricular failure, unspecified; N18.4 Chronic kidney disease, stage 4 (severe); R18.8 Other ascites; J90 Pleural effusion, not elsewhere classified; E11.22 Type 2 diabetes mellitus with diabetic chronic kidney disease; E87.5 Hyperkalemia; H54.7 Unspecified visual loss; I25.10 Atherosclerotic heart disease of native coronary artery without angina pectoris; N40.0 Benign prostatic hyperplasia without lower urinary tract symptoms; E66.9 Obesity, unspecified; E78.00 Pure hypercholesterolemia, unspecified; G47.30 Sleep apnea, unspecified; K21.9 Gastro-esophageal reflux disease without esophagitis; K74.60 Unspecified cirrhosis of liver; D63.1 Anemia in chronic kidney disease; I48.91 Unspecified atrial fibrillation; Z88.8 Allergy status to other drugs, medicaments and biological substances; Z79.82 Long term (current) use of aspirin; Z79.899 Other long term (current) drug therapy; Z87.442 Personal history of urinary calculi; Z68.22 Body mass index [BMI] 22.0-22.9, adult; X58.XXXA Exposure to other specified factors, initial encounter
CPT/HCPCS: 36415; 36430; 71045; 71045-26; 73020-26-RT; 73020-RT; 80048; 80053; 84132; 84484; 85025; 85027; 86850; 86900; 86901; 86920; 86922; 93010; 94762; 97110-GO; 97110-GP; 97161-GP; 97165-GO; 97530-GP; 97535-GO; 97535-GP; 99221; 99232; A9270-GY; C1713; C1776; J0330; J0690; J1100; J1940; J2405; J2704; J2710; J3010; J3490; J7030; J7120; P9016

== ENCOUNTER 2020-10-08 08:20 | Inpatient (IN) | payer MEDICARE ==
[2020-10-08] MEDS ORDERED: Acetaminophen/HYDROcodone 325-5 MG Tab PO ONE ×2 (09:05→10:19)
--- NOTE | 2020-10-08 09:13 | EDM.PDOC ---
ED HPI GENERAL MEDICAL PROBLEM - General Chief Complaint: Upper Extremity Injury/Pain Stated Complaint: BOTH ARMS HURTING Time Seen by Provider: 10/08/20 08:55 Source of Information: Reports: Patient, Family, Old Records History Limitations: Reports: Other (patient is not a good historian) - History of Present Illness INITIAL COMMENTS - FREE TEXT/NARRATIVE: 89 yo male patient of Dr. Us'sana is dropped off this am by his son for arm or shoulder pain that appears to have started in the night. There was no injury. Devang has a pHx of shoulder surgery. Had no pain until ? last night. The son who I called thought his dad was complaining of bilateral arm pain. Ibuprofen 400 mg was given in the night without benefit. Devang tells me it is the R shoulder that is bothering him. The son asked Devang if he wanted to wait and get an appt in the clinic or go to the ER and Devang said "the ER". 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 Bilateral Arm Pain Score (Numeric/FACES): 8 - Related Data Allergies Allergy/AdvReac Type Severity Reaction Status Date / Time KIRK Inhibitors Allergy Other Verified 10/08/20 08:48 hydralazine Allergy Other Verified 10/08/20 08:48 omeprazole Allergy Cannot Verified 10/08/20 08:48 Remember simvastatin Allergy Cannot Verified 10/08/20 08:48 Remember ursodiol [From Actigall] AdvReac Nausea Verified 10/08/20 08:48 Home Meds: Home Meds Aspirin 81 mg PO WITHDINNER 03/03/17 [History] Doxazosin Mesylate [Cardura] 4 mg PO BEDTIME 03/03/17 [History] Metoprolol Succinate [Toprol XL] 25 mg PO BEDTIME 03/03/17 [History] Cholecalciferol (Vitamin D3) [Vitamin D3] 400 unit PO DAILY 01/18/19 [History] Spironolactone [Aldactone] 25 mg PO WITHLUNCH 01/18/19 [History] Lactulose [Generlac] 30 ml PO TID 02/01/19 [History] ursodioL [Ursodiol] 300 mg PO TID 02/11/19 [History] Pantoprazole [ProTONIX] 40 mg PO DAILY 05/21/20 [History] Triamcinolone Acetonide [Kenalog 0.1% Crm] 1 gm TOP BID PRN 05/21/20 [History] Ceramides 1,3,6-11 [Cerave] 1 applic TOP BID 06/29/20 [History] Furosemide 20 mg PO BID 06/29/20 [History] Past Medical History HEENT History: Reports: Cataract, Impaired Vision, Macular Degeneration, Other (See Below) Other HEENT History: 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 Cardiovascular History: Reports: Bypass, CAD, Heart Failure, Heart Murmur, High Cholesterol, Hypertension, Other (See Below) Other Cardiovascular History: quad bipass, cardiomegaly, nonrheumatic aortic valve stenosis, RBBB Respiratory History: Reports: Sleep Apnea, SOB Other Respiratory History: cpap-doesnt use Gastrointestinal History: Reports: Cirrhosis, GERD, Other (See Below) Other Gastrointestinal History: ascitis, alcoholic cirrhosis Genitourinary History: Reports: BPH, Renal Calculus, Renal Disease, Other (See Below) Other Genitourinary History: stage 3 kidney disease Musculoskeletal History: Reports: Fracture, Other (See Below) Other Musculoskeletal History: rotator cuff syndrome bilateral shoulders- injury to right shoulder 07-01-20 due to a fall Psychiatric History: Reports: Addiction Endocrine/Metabolic History: Reports: Diabetes, Type II, Obesity/BMI 30+ Dermatologic History: Reports: Other (See Below) Other Dermatologic History: dermatitis - Infectious Disease History Infectious Disease History: Reports: Chicken Pox, Measles, Mumps - Past Surgical History Head Surgeries/Procedures: Reports: None HEENT Surgical History: Reports: Cataract Surgery Cardiovascular Surgical History: Reports: Coronary Artery Bypass, Valve Replacement, Other (See Below) Other Cardiovascular Surgeries/Procedures: Plan to have stent placment at [facility] on Monday03/10/17 morning-did not happen Respiratory Surgical History: Reports: None GI Surgical History: Reports: Colonoscopy Other Musculoskeletal Surgeries/Procedures:: s/p R reverse total shoulder 07/06/20 Dermatological Surgical History: Reports: None Social & Family History - Family History Family Medical History: Unobtainable - Tobacco Use Tobacco Use Status *Q: Never Tobacco User - Caffeine Use Caffeine Use: Reports: Soda, Tea Other Caffeine Use: 4-5 cups a day Caffeine Use Comment: daily tea use - Recreational Drug Use Recreational Drug Use: No - Living Situation & Occupation Living situation: Reports: with Family Occupation: Retired (lives with SonScout in [place], [place]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 [place] [employer].) Review of Systems - Review of Systems Review Of Systems: See Below Constitutional: Reports: No Symptoms Eyes: Reports: No Symptoms Ears: Reports: No Symptoms Nose: Reports: No Symptoms Mouth/Throat: Reports: No Symptoms Respiratory: Reports: No Symptoms Cardiovascular: Reports: No Symptoms GI/Abdominal: Denies: Constipation Genitourinary: Reports: No Symptoms Musculoskeletal: Reports: Shoulder Pain (right) Skin: Reports: No Symptoms Neurological: Reports: No Symptoms ED EXAM, GENERAL - Physical Exam Exam: See Below Exam Limited By: No Limitations General Appearance: WD/WN, No Apparent Distress, Other (sleepy) Eye Exam: Bilateral Eye: Normal Inspection Ears: Normal External Exam, Normal Canal, Hearing Grossly Normal Ear Exam: Bilateral Ear: Auricle Normal, Canal Normal Nose: Normal Inspection, No Blood Throat/Mouth: Normal Inspection, Normal Lips, Normal Oropharynx, Normal Voice, No Airway Compromise. No: Normal Teeth (no teeth) Head: Atraumatic, Normocephalic Neck: Normal Inspection Respiratory/Chest: No Respiratory Distress, Lungs Clear, Normal Breath Sounds Cardiovascular: Regular Rate, Rhythm, No Edema GI/Abdominal: Soft, Non-Tender Extremities: Normal Inspection, Normal Range of Motion, Non-Tender, No Pedal Edema. No: Pedal Edema Neurological: Oriented, CN II-XII Intact Psychiatric: Normal Affect, Normal Mood Skin Exam: Warm, Dry, Intact, Normal Color, No Rash, Ecchymosis (scattered small bruises due to capillary fragility) #1 Interpretation EKG Date: 10/08/20 Time: 09:20 Rhythm: A-Flutter Rate (Beats/Min): 55 [place]: Normal P-Wave: Absent QRS: RBBB ST-T: Depressed (anterior leads with ST-T depression) QT: Normal Comparison: No Change (except for rate slowing from 70's to current 55/min) Course - Vital Signs Text/Narrative:: Dr. Harrington called @ 1244h Last Recorded V/S: Last Vital Signs Temp 36.2 C 10/08/20 08:51 Pulse 61 10/08/20 12:48 Resp 16 10/08/20 12:48 BP 84/40 L 10/08/20 12:48 Pulse Ox 95 10/08/20 12:48 - Orders/Labs/Meds Orders: Active Orders 24 hr Category Date Time Status Patient Status [ADT] Routine ADT 10/08/20 13:28 Active Antiembolic Devices [RC] .Routine Care 10/08/20 13:28 Active Blood Glucose Check, Bedside [RC] QIDACANDBED Care 10/08/20 13:28 Active EKG Documentation Completion [RC] ASDIRECTED Care 10/08/20 09:04 Active Oxygen Therapy [RC] PRN Care 10/08/20 13:28 Active Up to Chair [RC] QID Care 10/08/20 13:28 Active VTE/DVT Education [RC] Per Unit Routine Care 10/08/20 13:28 Active Vital Signs [RC] Q4H Care 10/08/20 13:28 Active Heart Healthy Diet [DIET] Diet 10/08/20 Dinner Active BASIC METABOLIC PANEL,BMP [CHEM] AM Lab 10/09/20 05:11 Ordered Acetaminophen [TylenoL] Med 10/08/20 14:00 Ordered 650 mg PO TID Promethazine [Phenergan] 12.5 mg Med 10/08/20 13:28 Ordered Sodium Chloride 0.9% [Normal Saline] 50 ml IV Q6H Sodium Chloride 0.9% [Normal Saline] 1,000 ml Med 10/08/20 10:45 Active IV ASDIRECTED Sodium Chloride 0.9% [Normal Saline] 1,000 ml Med 10/08/20 13:30 Ordered IV ASDIRECTED Sodium Chloride 0.9% [Normal Saline] 500 ml Med 10/08/20 13:30 Ordered IV .BOLUS fentaNYL [Sublimaze] Med 10/08/20 13:35 Ordered 25 mcg IVPUSH Q2H PRN fentaNYL [Sublimaze] Med 10/08/20 13:36 Ordered 50 mcg IVPUSH Q2H PRN traMADol [Ultram] Med 10/08/20 13:37 Ordered 50 mg PO Q6H PRN Sequential Compression Device [OM.PC] Per Unit Routine Oth 10/08/20 13:30 Ordered Resuscitation Status Routine Resus Stat 10/08/20 13:28 Ordered EKG 12 Lead [EK] Routine Ther 10/08/20 09:04 Ordered Medication Orders Acetaminophen (Acetaminophen 325 Mg Tab) 650 mg PO TID PHILIP Fentanyl (Fentanyl 100 Mcg/2 Ml Sdv) 25 mcg IVPUSH Q2H PRN PRN Reason: Other Fentanyl (Fentanyl 100 Mcg/2 Ml Sdv) 50 mcg IVPUSH Q2H PRN PRN Reason: Pain (severe 7-10) Sodium Chloride (Normal Saline) 1,000 mls @ 1,000 mls/hr IV ASDIRECTED [facility] Last Admin: 10/08/20 10:44 Dose: 1,000 mls/hr Documented by: PREILOR Sodium Chloride (Normal Saline) 1,000 mls @ 75 mls/hr IV ASDIRECTED [facility] Sodium Chloride (Normal Saline) 500 mls @ 999 mls/hr IV .BOLUS PHILIP Promethazine HCl 12.5 mg/ (Sodium Chloride) 50.5 mls @ 200 mls/hr IV Q6H PRN PRN Reason: Nausea/Vomiting Tramadol HCl (Tramadol 50 Mg Tab) 50 mg PO Q6H PRN PRN Reason: Other Labs: Laboratory Tests 10/08/20 10/08/20 10/08/20 Range/Units 09:47 10:22 10:22 WBC 10.7 (4.5-11.0) K/uL RBC 5.30 (4.30-5.90) M/uL Hgb 12.2 D (12.0-15.0) g/dL Hct 38.1 L (40.0-54.0) % MCV 72 L (80-98) fL MCH 23 L (27-31) pg MCHC 32 (32-36) % Plt Count 232 (150-400) K/uL Sodium 131 L (140-148) mmol/L Potassium 4.5 (3.6-5.2) mmol/L Chloride 92 L (100-108) mmol/L Carbon Dioxide 27 (21-32) mmol/L Anion Gap 16.5 H (5.0-14.0) mmol/L BUN 76 H* (7-18) mg/dL Creatinine 3.8 H* (0.8-1.3) mg/dL Est Cr Clr Drug Dosing 8.62 mL/min Estimated GFR (MDRD) 15 L (>60) Glucose 101 (74-106) mg/dL Calcium 9.6 (8.5-10.1) mg/dL Troponin I 0.020 (0.000-0.056) ng/mL Influenza Type A RNA (NEGATIVE) RSV RNA (INAAT) (NEGATIVE) Influenza Type B RNA (NEGATIVE) SARS-CoV-2 RNA (DOMI) (NEGATIVE) 10/08/20 10/08/20 Range/Units 11:27 12:37 WBC (4.5-11.0) K/uL RBC (4.30-5.90) M/uL Hgb (12.0-15.0) g/dL Hct (40.0-54.0) % MCV (80-98) fL MCH (27-31) pg MCHC (32-36) % Plt Count (150-400) K/uL Sodium (140-148) mmol/L Potassium (3.6-5.2) mmol/L Chloride (100-108) mmol/L Carbon Dioxide (21-32) mmol/L Anion Gap (5.0-14.0) mmol/L BUN (7-18) mg/dL Creatinine (0.8-1.3) mg/dL Est Cr Clr Drug Dosing mL/min Estimated GFR (MDRD) (>60) Glucose (74-106) mg/dL Calcium (8.5-10.1) mg/dL Troponin I 0.024 (0.000-0.056) ng/mL Influenza Type A RNA Negative (NEGATIVE) RSV RNA (INAAT) Negative (NEGATIVE) Influenza Type B RNA Negative (NEGATIVE) SARS-CoV-2 RNA (DOMI) Negative (NEGATIVE) Meds: Medications Generic Name Dose Route Start Last Admin Trade Name Freq PRN Reason Stop Dose Admin Acetaminophen 650 mg 10/08/20 14:00 Acetaminophen 325 Mg Tab PO TID PHILIP Fentanyl 25 mcg 10/08/20 13:35 Fentanyl 100 Mcg/2 Ml Sdv IVPUSH Q2H PRN Other Fentanyl 50 mcg 10/08/20 13:36 Fentanyl 100 Mcg/2 Ml Sdv IVPUSH Q2H PRN Pain (severe 7-10) Sodium Chloride 1,000 mls @ 1,000 mls/hr 10/08/20 10:45 10/08/20 10:44 Normal Saline IV 1,000 mls/hr ASDIRECTED PHILIP Administration Sodium Chloride 1,000 mls @ 75 mls/hr 10/08/20 13:30 Normal Saline IV ASDIRECTED PHILIP Sodium Chloride 500 mls @ 999 mls/hr 10/08/20 13:30 Normal Saline IV .BOLUS PHILIP Promethazine HCl 12.5 mg/ 50.5 mls @ 200 mls/hr 10/08/20 13:28 Sodium Chloride IV Q6H PRN Nausea/Vomiting Tramadol HCl 50 mg 10/08/20 13:37 Tramadol 50 Mg Tab PO Q6H PRN Other Discontinued Medications Generic Name Dose Route Start Last Admin Trade Name Freq PRN Reason Stop Dose Admin Hydrocodone Bitart/Acetaminophen 1 tab 10/08/20 09:05 10/08/20 09:15 Acetaminophen/Hydrocodone 325-5 Mg Tab PO 10/08/20 09:06 1 tab ONETIME ONE Administration Hydrocodone Bitart/Acetaminophen 1 tab 10/08/20 10:19 10/08/20 10:43 Acetaminophen/Hydrocodone 325-5 Mg Tab PO 10/08/20 10:20 1 tab ONETIME ONE Administration - Radiology Interpretation Free Text/Narrative:: Bilat shoulder X-rays-neg CT chest without contrast-old L medial clavicle fx, large chronic R pleural effusion. Nothing acute. Departure - Departure Time of Disposition: 13:47 Disposition: Admitted As Inpatient 67 Condition: Fair Clinical Impression: Dehydration Hypotension Qualifiers: Hypotension type: unspecified hypotension type Qualified Code(s): I95.9 - Hypotension, unspecified Bilateral shoulder pain Qualifiers: Chronicity: acute Qualified Code(s): M25.511 - Pain in right shoulder CRF (chronic renal failure) Qualifiers: Chronic kidney disease stage: stage 4 (severe) Qualified Code(s): N18.4 - Chronic kidney disease, stage 4 (severe) - Discharge Information Referrals: Dwain Us MD [Primary Care Provider] - Forms: ED Department Discharge Sepsis Event Note (ED) - Evaluation Sepsis Screening Result: No Definite Risk - Focused Exam Vital Signs: Vital Signs Temp Pulse Resp BP Pulse Ox 10/08/20 12:48 61 16 84/40 L 95 10/08/20 11:57 58 L 18 73/33 L 95 10/08/20 10:57 53 L 81/42 L 93 L 10/08/20 09:08 57 L 92/46 L 96 10/08/20 08:51 36.2 C 53 L 20 89/48 L 96 10/08/20 08:50 53 L 89/48 L 96 10/08/20 08:48 36.2 C 68 20 82/47 L 96 - My Orders Last 24 Hours: My Active Orders 10/08/20 09:04 EKG Documentation Completion [RC] ASDIRECTED EKG 12 Lead [EK] Routine 10/08/20 10:45 Sodium Chloride 0.9% [Normal Saline] 1,000 ml IV ASDIRECTED - Assessment/Plan Last 24 Hours: My Active Orders 10/08/20 09:04 EKG Documentation Completion [RC] ASDIRECTED EKG 12 Lead [EK] Routine 10/08/20 10:45 Sodium Chloride 0.9% [Normal Saline] 1,000 ml IV ASDIRECTED
[2020-10-08] MEDS ORDERED: Sodium Chloride 0.9% 1,000 ML IV SCH (10:45)
--- NOTE | 2020-10-08 11:15 | CR ---
Shoulder Comp Bi CLINICAL HISTORY: Bilateral shoulder pain FINDINGS: Patient has a total right shoulder arthroplasty. This is similar to the prior study from 08/18/2020. Left shoulder shows some generalized glenohumeral laxity with the humeral head abutting the underside of the acromium. There is a large right pleural effusion which was described on prior study. There may be some superimposed airspace disease in both upper lobes. The pulmonary edema or pneumonitis is not excluded. IMPRESSION: Total right shoulder arthroplasty intact Moderate joint laxity in the left glenohumeral joint Large right effusion may have increased since prior shoulder study in August Underlying pulmonary edema or bilateral infiltrates are not excluded
[2020-10-08 12:07] LABS: CORONAVIRUS COVID-19 NAA NEGATIVE (NEGATIVE)
--- NOTE | 2020-10-08 13:03 | CT ---
Chest wo Cont CLINICAL HISTORY: Large right effusion, Chest and shoulder pain TECHNIQUE: Thin section axial contiguous tomographic sections were taken through the chest without iodinated contrast administration. Coronal and sagittal images were reconstructed. Auto dosage reduction and iterative reconstruction techniques employed. FINDINGS: Patient has a large right pleural effusion. This is been present on multiple prior studies. When comparing to the last CT from 2019 there has been little change. There is some atelectasis and or consolidation in the lower lobe. The left lung is clear. There are a few scattered granulomata. There are some calcified lymph nodes in the right hilum and mediastinum. No pulmonary mass or pneumonic infiltrate is identified. There are moderate atheromatous changes in the aorta. Patient has had aortic valve replacement. There are significant coronary artery calcifications. The heart is enlarged. There is no aortic aneurysm. There is a fracture of the distal left clavicle which appears to be of remote chronology in that there is some marginal sclerosis. This is a nonunion fracture. There is only minimal displacement. Patient has a right shoulder arthroplasty. There is some stippled air in the left subclavian region which is likely within the subclavian vein and related to previous IV placement. IMPRESSION: Essentially stable large right pleural effusion similar to 2019. Etiology is unknown. Patient has had prior right thoracentesis. Previous sternotomy and previous aortic valve repair Significant coronary artery disease. Recent right shoulder arthroplasty
[2020-10-08] MEDS ORDERED: Promethazine 12.5 MG in Sodium Chloride 0.9% 50 ML IV PRN (13:28)
[2020-10-08] MEDS ORDERED: Sodium Chloride 0.9% 500 ML IV ONE ×2 (13:30→17:15)
[2020-10-08] MEDS ORDERED: fentaNYL 100 MCG/2 ML SDV IVPUSH PRN (13:36)
[2020-10-08] MEDS ORDERED: traMADol 50 MG Tab PO PRN (13:37)
--- NOTE | 2020-10-08 13:59 | PCM.HP.2 ---
H&P History of Present Illness - General Date of Service: 10/08/20 Admit Problem/Dx: Admission Diagnosis/Problem Admission Diagnosis/Problem Intractable pain Source of Information: Patient, Family History Limitations: Reports: No Limitations - History of Present Illness Initial Comments - Free Text/Narative: The 9-year-old male with a past medical history of cirrhosis and chronic right- sided pleural effusion. He also has type 2 diabetes as well as systolic heart failure and coronary artery disease. He has stage III chronic kidney disease as well as a history of aortic stenosis. The patient was brought to the ER by his son earlier today after he developed acute bilateral shoulder pain, right greater than left this morning. He does have a history of chronic shoulder pain with a history of shoulder replacement though reports this pain is much more severe than previous. History from the patient is somewhat limited due to his perseveration of the pain. Upon discussion with the patient's son, Audie, the patient has been declining over the past week. He has been eating and drinking less and less interactive. In the ER, the patient received a couple doses of [place] as well as a bolus of IV fluids as his blood pressures were somewhat low with systolics in the 80s. Admission was requested for further evaluation and treatment of the patient's relative hypotension and bilateral shoulder pain that was unresponsive to multiple doses of pain medication. Onset of Symptoms: Reports: Today, Sudden Symptom Onset Date: 10/08/20 Duration of Symptoms: Reports: Hour(s):, Constant Location: Reports: Upper Extremity, Left, Lower Extremity, Right Quality: Reports: Sharp Severity: Severe Improves with: Reports: None Worsens with: Reports: Movement Associated Symptoms: Reports: Loss of Appetite. Denies: Chest Pain, Fever/Chills, Shortness of Breath Bilateral Arm Pain Score (Numeric/FACES): 8 - Related Data Allergies/Adverse Reactions: Allergies Allergy/AdvReac Type Severity Reaction Status Date / Time KIRK Inhibitors Allergy Other Verified 10/08/20 08:48 hydralazine Allergy Other Verified 10/08/20 08:48 omeprazole Allergy Cannot Verified 10/08/20 08:48 Remember simvastatin Allergy Cannot Verified 10/08/20 08:48 Remember ursodiol [From Actigall] AdvReac Nausea Verified 10/08/20 08:48 Home Medications: Home Meds Aspirin 81 mg PO WITHDINNER 03/03/17 [History] Doxazosin Mesylate [Cardura] 4 mg PO BEDTIME 03/03/17 [History] Metoprolol Succinate [Toprol XL] 25 mg PO BEDTIME 03/03/17 [History] Cholecalciferol (Vitamin D3) [Vitamin D3] 400 unit PO DAILY 01/18/19 [History] Spironolactone [Aldactone] 25 mg PO WITHLUNCH 01/18/19 [History] Lactulose [Generlac] 30 ml PO TID 02/01/19 [History] ursodioL [Ursodiol] 300 mg PO TID 02/11/19 [History] Pantoprazole [ProTONIX] 40 mg PO DAILY 05/21/20 [History] Triamcinolone Acetonide [Kenalog 0.1% Crm] 1 gm TOP BID PRN 05/21/20 [History] Ceramides 1,3,6-11 [Cerave] 1 applic TOP BID 06/29/20 [History] Furosemide 20 mg PO BID 06/29/20 [History] Past Medical History HEENT History: Reports: Cataract, Impaired Vision, Macular Degeneration, Other (See Below) Other HEENT History: 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 Cardiovascular History: Reports: Bypass, CAD, Heart Failure, Heart Murmur, High Cholesterol, Hypertension, Other (See Below) Other Cardiovascular History: quad bipass, cardiomegaly, nonrheumatic aortic v alve stenosis, RBBB Respiratory History: Reports: Sleep Apnea, SOB Other Respiratory History: cpap-doesnt use Gastrointestinal History: Reports: Cirrhosis, GERD, Other (See Below) Other Gastrointestinal History: ascitis, alcoholic cirrhosis Genitourinary History: Reports: BPH, Renal Calculus, Renal Disease, Other (See Below) Other Genitourinary History: stage 3 kidney disease Musculoskeletal History: Reports: Fracture, Other (See Below) Other Musculoskeletal History: rotator cuff syndrome bilateral shoulders- injury to right shoulder 07-01-20 due to a fall Psychiatric History: Reports: Addiction Endocrine/Metabolic History: Reports: Diabetes, Type II, Obesity/BMI 30+ Dermatologic History: Reports: Other (See Below) Other Dermatologic History: dermatitis - Infectious Disease History Infectious Disease History: Reports: Chicken Pox, Measles, Mumps - Past Surgical History Head Surgeries/Procedures: Reports: None HEENT Surgical History: Reports: Cataract Surgery Cardiovascular Surgical History: Reports: Coronary Artery Bypass, Valve Replacement, Other (See Below) Other Cardiovascular Surgeries/Procedures: Plan to have stent placment at [facility] on Monday03/10/17 morning-did not happen Respiratory Surgical History: Reports: None GI Surgical History: Reports: Colonoscopy Other Musculoskeletal Surgeries/Procedures:: s/p R reverse total shoulder 07/06/20 Dermatological Surgical History: Reports: None Social & Family History - Family History Family Medical History: Unobtainable - Tobacco Use Tobacco Use Status *Q: Never Tobacco User - Caffeine Use Caffeine Use: Reports: Soda, Tea Other Caffeine Use: 4-5 cups a day Caffeine Use Comment: daily tea use - Recreational Drug Use Recreational Drug Use: No - Living Situation & Occupation Living situation: Reports: with Family Occupation: Retired (lives with [place] in [place], [place]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 Misa mcnally of [employer] H&P Review of Systems - Review of Systems: Review Of Systems: See Below General: Reports: Decreased Appetite. Denies: Fever, Diaphoresis HEENT: Reports: No Symptoms Pulmonary: Denies: Shortness of Breath, Wheezing Cardiovascular: Denies: Chest Pain, Palpitations Gastrointestinal: Denies: Abdominal Pain, Nausea, Vomiting Musculoskeletal: Reports: Shoulder Pain. Denies: Neck Pain Skin: Reports: No Symptoms Psychiatric: Reports: Anxiety, Agitation Neurological: Reports: No Symptoms Immunologic: Reports: No Symptoms Exam - Exam Exam: See Below - Vital Signs Vital Signs: Last Vital Signs Temp 97.2 F 10/08/20 08:51 Pulse 61 10/08/20 12:48 Resp 16 10/08/20 12:48 BP 84/40 L 10/08/20 12:48 Pulse Ox 95 10/08/20 12:48 Weight: 100 lb - Exam General: Alert, Oriented, Moderate Distress HEENT: Conjunctiva Clear Neck: Supple, Trachea Midline Lungs: Clear to Auscultation Cardiovascular: Irregular Rhythm. No: Systolic Murmur GI/Abdominal Exam: Normal Bowel Sounds, Soft, Non-Tender, Hepatomegaly Extremities: Arm Pain. No: Joint Swelling Skin: Warm, Dry Neuro Extensive - Mental Status: Alert - Patient Data Lab Results Last 24 hrs: Laboratory Results - last 24 hr 10/08/20 10/08/20 10/08/20 Range/Units 09:47 10:22 10:22 WBC 10.7 (4.5-11.0) K/uL RBC 5.30 (4.30-5.90) M/uL Hgb 12.2 D (12.0-15.0) g/dL Hct 38.1 L (40.0-54.0) % MCV 72 L (80-98) fL MCH 23 L (27-31) pg MCHC 32 (32-36) % Plt Count 232 (150-400) K/uL Sodium 131 L (140-148) mmol/L Potassium 4.5 (3.6-5.2) mmol/L Chloride 92 L (100-108) mmol/L Carbon Dioxide 27 (21-32) mmol/L Anion Gap 16.5 H (5.0-14.0) mmol/L BUN 76 H* (7-18) mg/dL Creatinine 3.8 H* (0.8-1.3) mg/dL Est Cr Clr Drug Dosing 8.62 mL/min Estimated GFR (MDRD) 15 L (>60) Glucose 101 (74-106) mg/dL Calcium 9.6 (8.5-10.1) mg/dL Troponin I 0.020 (0.000-0.056) ng/mL Influenza Type A RNA (NEGATIVE) RSV RNA (INAAT) (NEGATIVE) Influenza Type B RNA (NEGATIVE) SARS-CoV-2 RNA (DOMI) (NEGATIVE) 10/08/20 10/08/20 Range/Units 11:27 12:37 WBC (4.5-11.0) K/uL RBC (4.30-5.90) M/uL Hgb (12.0-15.0) g/dL Hct (40.0-54.0) % MCV (80-98) fL MCH (27-31) pg MCHC (32-36) % Plt Count (150-400) K/uL Sodium (140-148) mmol/L Potassium (3.6-5.2) mmol/L Chloride (100-108) mmol/L Carbon Dioxide (21-32) mmol/L Anion Gap (5.0-14.0) mmol/L BUN (7-18) mg/dL Creatinine (0.8-1.3) mg/dL Est Cr Clr Drug Dosing mL/min Estimated GFR (MDRD) (>60) Glucose (74-106) mg/dL Calcium (8.5-10.1) mg/dL Troponin I 0.024 (0.000-0.056) ng/mL Influenza Type A RNA Negative (NEGATIVE) RSV RNA (INAAT) Negative (NEGATIVE) Influenza Type B RNA Negative (NEGATIVE) SARS-CoV-2 RNA (DOMI) Negative (NEGATIVE) Result Diagrams: 10/08/20 10:22 10/08/20 10:22 #1 Interpretation EKG Date: 10/08/20 Rhythm: NSR QRS: RBBB Sepsis Event Note - Evaluation Sepsis Screening Result: No Definite Risk - Focused Exam Vital Signs: Vital Signs Temp Pulse Resp BP Pulse Ox 10/08/20 12:48 61 16 84/40 L 95 10/08/20 11:57 58 L 18 73/33 L 95 10/08/20 10:57 53 L 81/42 L 93 L 10/08/20 09:08 57 L 92/46 L 96 10/08/20 08:51 97.2 F 53 L 20 89/48 L 96 10/08/20 08:50 53 L 89/48 L 96 10/08/20 08:48 97.2 F 68 20 82/47 L 96 Problem List Initiated/Reviewed/Updated: Yes Orders Last 24hrs: Active Orders 24 hr Category Date Time Status Patient Status [ADT] Routine ADT 10/08/20 13:28 Active Antiembolic Devices [RC] .Routine Care 10/08/20 13:28 Active Blood Glucose Check, Bedside [RC] QIDACANDBED Care 10/08/20 13:28 Active EKG Documentation Completion [RC] ASDIRECTED Care 10/08/20 09:04 Active Oxygen Therapy [RC] PRN Care 10/08/20 13:28 Active Up to Chair [RC] QID Care 10/08/20 13:28 Active VTE/DVT Education [RC] Per Unit Routine Care 10/08/20 13:28 Active Vital Signs [RC] Q4H Care 10/08/20 13:28 Active Heart Healthy Diet [DIET] Diet 10/08/20 Dinner Active BASIC METABOLIC PANEL,BMP [CHEM] AM Lab 10/09/20 05:11 Ordered Acetaminophen [TylenoL] Med 10/08/20 14:00 Ordered 650 mg PO TID Aspirin Med 10/09/20 09:00 Ordered 81 mg PO DAILY Lactulose [Chronulac] Med 10/08/20 14:00 Ordered 10 gm PO TID Pantoprazole [ProTONIX] Med 10/09/20 07:30 Ordered 40 mg PO ACBREAKFAST Promethazine [Phenergan] 12.5 mg Med 10/08/20 13:28 Ordered Sodium Chloride 0.9% [Normal Saline] 50 ml IV Q6H Sodium Chloride 0.9% [Normal Saline] 1,000 ml Med 10/08/20 10:45 Active IV ASDIRECTED Sodium Chloride 0.9% [Normal Saline] 1,000 ml Med 10/08/20 13:30 Ordered IV ASDIRECTED Sodium Chloride 0.9% [Normal Saline] 500 ml Med 10/08/20 13:30 Ordered IV .BOLUS fentaNYL [Sublimaze] Med 10/08/20 13:35 Ordered 25 mcg IVPUSH Q2H PRN fentaNYL [Sublimaze] Med 10/08/20 13:36 Ordered 50 mcg IVPUSH Q2H PRN traMADol [Ultram] Med 10/08/20 13:37 Ordered 50 mg PO Q6H PRN Sequential Compression Device [OM.PC] Per Unit Routine Oth 10/08/20 13:30 Ordered Resuscitation Status Routine Resus Stat 10/08/20 13:28 Ordered EKG 12 Lead [EK] Routine Ther 10/08/20 09:04 Ordered Medication Orders Acetaminophen (Acetaminophen 325 Mg Tab) 650 mg PO TID PHILIP Aspirin (Aspirin 81 Mg Tab.Chew) 81 mg PO DAILY [facility] Fentanyl (Fentanyl 100 Mcg/2 Ml Sdv) 25 mcg IVPUSH Q2H PRN PRN Reason: Other Fentanyl (Fentanyl 100 Mcg/2 Ml Sdv) 50 mcg IVPUSH Q2H PRN PRN Reason: Pain (severe 7-10) Sodium Chloride (Normal Saline) 1,000 mls @ 1,000 mls/hr IV ASDIRECTED [facility] Last Admin: 10/08/20 10:44 Dose: 1,000 mls/hr Documented by: PREILOR Sodium Chloride (Normal Saline) 1,000 mls @ 75 mls/hr IV ASDIRECTED [facility] Sodium Chloride (Normal Saline) 500 mls @ 999 mls/hr IV .BOLUS [facility] Promethazine HCl 12.5 mg/ (Sodium Chloride) 50.5 mls @ 200 mls/hr IV Q6H PRN PRN Reason: Nausea/Vomiting Pantoprazole Sodium (Pantoprazole 40 Mg Tab.Cr) 40 mg PO ACBREAKFAST PHILIP Tramadol HCl (Tramadol 50 Mg Tab) 50 mg PO Q6H PRN PRN Reason: Other Assessment/Plan Comment:: Assessment and Plan: BILATERAL SHOULDER PAIN CT of the chest and plain films of the shoulders are unrevealing. The patient denies recent fall or trauma and there is no external evidence of such on exam. Etiology of the patient's shoulder pain is unclear. There may be a contribu tion from dehydration and perhaps associated inflammation. Unable to use NSAIDs due to the patient's acute kidney injury on top of chronic renal disease. [place] was largely ineffective in the ER. Requested scheduled Tylenol along with Ultram as needed for moderate pain and fentanyl if needed for breakthrough or severe pain. Serial exams HYPOTENSION This is likely related to decreased oral intake and dehydration. Requested additional IV fluid bolus with subsequent maintenance fluids until tank serra is tolerating adequate oral hydration Hold Toprol-XL, Cardura, and Lasix for now. ACUTE KIDNEY INJURY ON TOP OF CHRONIC KIDNEY DISEASE STAGE IV History consistent with prerenal injury based on decreased intake relative to Malays present over the past week or so. IV fluid bolus administered in ER. Requested additional small IV fluid bolus now. We will need to closely monitor fluid status given patient's advanced age. Trend renal function with metabolic panel again in a.m. I/Os DIABETES MELLITUS Patient not on prescription medications for this. 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 EKG largely unchanged from previous and troponin is unremarkable. Continue GLASS [employer] HAND aspirin CODE STATUS: Per discussion with the patient's son, Audie, the patient is DNR/DNI. This will be ordered upon admission. DVT PROPHYLAXIS: Requested SCDs. We will plan on transitioning to chemical DVT prophylaxis if patient's hospitalization is prolonged. DISPOSITION: Patient admitted under observation. Projected hospitalization at this time is less than 48 hours with target disposition back home with patient's son. Based on progress over the next day or so, will consider converting to inpatient if hospitalization will be prolonged.
[2020-10-08] MEDS ORDERED: Lactulose Soln 10 GM/15 ML 15 ML UD Cup PO SCH (14:00)
[2020-10-08] MEDS: Acetaminophen 325 MG Tab PO SCH ×2 (15:08→21:52)
[2020-10-08] MEDS: Lactulose Soln 10 GM/15 ML 15 ML UD Cup PO SCH ×2 (15:08→21:52)
[2020-10-08] MEDS ORDERED: Sodium Chloride 0.9% 10 ML SDV IV ONE (17:00)
[2020-10-08] MEDS: Insulin Lispro 100 Unit/ML 3 ML KwikPen SUBCUT SCH ×2 (18:38→21:51)
[2020-10-08] MEDS: Norepinephrine 4 MG in Dextrose 5% in Water 246 ML IV SCH ×2 (20:05)
[2020-10-08] MEDS: Sodium Chloride 0.9% 1,000 ML IV SCH (20:08)
[2020-10-09] MEDS: Norepinephrine 4 MG in Dextrose 5% in Water 246 ML IV SCH ×4 (07:28→18:16)
[2020-10-09] MEDS: Insulin Lispro 100 Unit/ML 3 ML KwikPen SUBCUT SCH ×4 (07:30→20:30)
[2020-10-09] MEDS: Pantoprazole 40 MG Tab.CR PO SCH (07:31)
--- NOTE | 2020-10-09 08:21 | PCM.PN ---
- General Info Date of Service: 10/09/20 Admission Dx/Problem (Free Text): Admission Diagnosis/Problem Admission Diagnosis/Problem bilateral shoulder pain, hypotension Subjective Update: The patient was noted to have significant episodes of bradycardia with heart rates in the 30s overnight. His heart rate has picked up into the 100s with increased alertness this morning. Interestingly, since admission, the patient's bilateral shoulder pain has significantly improved. There was some concern overnight that the patient may decompensate further and his son was called to alert him of this. The patient CT of the chest showed no significant findings but it could not be done with contrast due to his significant renal impairment. I still have some concern that there was a major vessel dissection or similar problem that was not picked up on CT. Based on prior discussions with the patient and his son, no drastic interventions would be entertained so no further work-up was done. The patient's blood pressures have been maintained on a Levophed drip in the ICU. He received multiple fluid boluses and remains on maintenance IV fluids. Functional Status: Reports: Pain Controlled - Review of Systems General: Reports: No Symptoms HEENT: Reports: No Symptoms Pulmonary: Denies: Cough, Hemoptysis, Wheezing Cardiovascular: Denies: Chest Pain, Palpitations, Lightheadedness Gastrointestinal: Reports: No Symptoms Musculoskeletal: Reports: Arm Pain. Denies: Joint Swelling Skin: Reports: No Symptoms Neurological: Reports: No Symptoms Psychiatric: Reports: No Symptoms - Patient Data Vitals - Most Recent: Last Vital Signs Temp 97.5 F 10/09/20 07:00 Pulse 50 L 10/08/20 18:00 Resp 26 H 10/09/20 07:00 BP 104/65 10/09/20 07:00 Pulse Ox 92 L 10/09/20 07:00 Weight - Most Recent: 125 lb 6.4 oz I&O - Last 24 Hours: Intake & Output 10/08/20 10/09/20 10/09/20 22:59 06:59 14:59 Intake Total 200 1642 Balance 200 1642 Lab Results Last 24 Hours: Laboratory Results - last 24 hr 10/08/20 10/08/20 10/08/20 Range/Units 09:47 10:22 10:22 WBC 10.7 (4.5-11.0) K/uL RBC 5.30 (4.30-5.90) M/uL Hgb 12.2 D (12.0-15.0) g/dL Hct 38.1 L (40.0-54.0) % MCV 72 L (80-98) fL MCH 23 L (27-31) pg MCHC 32 (32-36) % Plt Count 232 (150-400) K/uL Sodium 131 L (140-148) mmol/L Potassium 4.5 (3.6-5.2) mmol/L Chloride 92 L (100-108) mmol/L Carbon Dioxide 27 (21-32) mmol/L Anion Gap 16.5 H (5.0-14.0) mmol/L BUN 76 H* (7-18) mg/dL Creatinine 3.8 H* (0.8-1.3) mg/dL Est Cr Clr Drug Dosing 8.62 mL/min Estimated GFR (MDRD) 15 L (>60) Glucose 101 (74-106) mg/dL POC Glucose (74-106) mg/dL Calcium 9.6 (8.5-10.1) mg/dL Troponin I 0.020 (0.000-0.056) ng/mL Influenza Type A RNA (NEGATIVE) RSV RNA (INAAT) (NEGATIVE) Influenza Type B RNA (NEGATIVE) SARS-CoV-2 RNA (DOMI) (NEGATIVE) 10/08/20 10/08/20 10/08/20 Range/Units 11:27 12:37 18:22 WBC (4.5-11.0) K/uL RBC (4.30-5.90) M/uL Hgb (12.0-15.0) g/dL Hct (40.0-54.0) % MCV (80-98) fL MCH (27-31) pg MCHC (32-36) % Plt Count (150-400) K/uL Sodium (140-148) mmol/L Potassium (3.6-5.2) mmol/L Chloride (100-108) mmol/L Carbon Dioxide (21-32) mmol/L Anion Gap (5.0-14.0) mmol/L BUN (7-18) mg/dL Creatinine (0.8-1.3) mg/dL Est Cr Clr Drug Dosing mL/min Estimated GFR (MDRD) (>60) Glucose (74-106) mg/dL POC Glucose 108 H (74-106) mg/dL Calcium (8.5-10.1) mg/dL Troponin I 0.024 (0.000-0.056) ng/mL Influenza Type A RNA Negative (NEGATIVE) RSV RNA (INAAT) Negative (NEGATIVE) Influenza Type B RNA Negative (NEGATIVE) SARS-CoV-2 RNA (DOMI) Negative (NEGATIVE) 10/08/20 10/09/20 Range/Units 21:50 06:03 WBC (4.5-11.0) K/uL RBC (4.30-5.90) M/uL Hgb (12.0-15.0) g/dL Hct (40.0-54.0) % MCV (80-98) fL MCH (27-31) pg MCHC (32-36) % Plt Count (150-400) K/uL Sodium 132 L (140-148) mmol/L Potassium 4.9 (3.6-5.2) mmol/L Chloride 97 L (100-108) mmol/L Carbon Dioxide 23 (21-32) mmol/L Anion Gap 16.9 H (5.0-14.0) mmol/L BUN 68 H (7-18) mg/dL Creatinine 3.8 H* (0.8-1.3) mg/dL Est Cr Clr Drug Dosing 10.81 mL/min Estimated GFR (MDRD) 15 L (>60) Glucose 148 H (74-106) mg/dL POC Glucose 155 H (74-106) mg/dL Calcium 8.7 (8.5-10.1) mg/dL Troponin I (0.000-0.056) ng/mL Influenza Type A RNA (NEGATIVE) RSV RNA (INAAT) (NEGATIVE) Influenza Type B RNA (NEGATIVE) SARS-CoV-2 RNA (DOMI) (NEGATIVE) Med Orders - Current: Current Medications Acetaminophen (Acetaminophen 325 Mg Tab) 650 mg PO TID [facility] Last Admin: 10/08/20 21:52 Dose: Not Given Documented by: Aspirin (Aspirin 81 Mg Tab.Chew) 81 mg PO DAILY [facility] Fentanyl (Fentanyl 100 Mcg/2 Ml Sdv) 25 mcg IVPUSH Q2H PRN PRN Reason: Other Fentanyl (Fentanyl 100 Mcg/2 Ml Sdv) 50 mcg IVPUSH Q2H PRN PRN Reason: Pain (severe 7-10) Sodium Chloride (Normal Saline) 1,000 mls @ 75 mls/hr IV ASDIRECTED [facility] Last Admin: 10/08/20 20:08 Dose: 75 mls/hr Documented by: Promethazine HCl 12.5 mg/ (Sodium Chloride) 50.5 mls @ 200 mls/hr IV Q6H PRN PRN Reason: Nausea/Vomiting Norepinephrine Bitartrate 4 mg (/ Dextrose/Water) 250 mls @ 7.5 mls/hr IV TITRATE [facility]; Protocol Last Admin: 10/09/20 07:28 Dose: 6 mcg/min, 22.5 mls/hr Documented by: Insulin Human Lispro (Insulin Lispro 100 Unit/Ml 3 Ml Kwikpen) 0 unit SUBCUT QIDACANDBED [facility]; Protocol Last Admin: 10/09/20 07:30 Dose: Not Given Documented by: Lactulose (Lactulose Soln 10 Gm/15 Ml 15 Ml Ud Cup) 10 gm PO TID [facility] Last Admin: 10/08/20 21:52 Dose: Not Given Documented by: Pantoprazole Sodium (Pantoprazole 40 Mg Tab.CrPom) 40 mg PO ACBREAKFAST [facility] Last Admin: 10/09/20 07:31 Dose: 40 mg Documented by: Tramadol HCl (Tramadol 50 Mg Tab) 50 mg PO Q6H PRN PRN Reason: Other Last Admin: 10/08/20 14:31 Dose: 50 mg Documented by: Discontinued Medications Hydrocodone Bitart/Acetaminophen (Acetaminophen/Hydrocodone 325-5 Mg Tab) 1 tab PO ONETIME ONE Stop: 10/08/20 09:06 Last Admin: 10/08/20 09:15 Dose: 1 tab Documented by: Hydrocodone Bitart/Acetaminophen (Acetaminophen/Hydrocodone 325-5 Mg Tab) 1 tab PO ONETIME ONE Stop: 10/08/20 10:20 Last Admin: 10/08/20 10:43 Dose: 1 tab Documented by: Sodium Chloride (Normal Saline) 1,000 mls @ 1,000 mls/hr IV ASDIRECTED [facility] Last Admin: 10/08/20 10:44 Dose: 1,000 mls/hr Documented by: Sodium Chloride (Normal Saline) 500 mls @ 999 mls/hr IV .BOLUS ONE Stop: 10/08/20 14:00 Last Admin: 10/08/20 15:07 Dose: 999 mls/hr Documented by: Sodium Chloride (Normal Saline) 500 mls @ 500 mls/hr IV ONETIME ONE Stop: 10/08/20 18:14 Last Admin: 10/08/20 17:32 Dose: 500 mls/hr Documented by: Lactulose (Lactulose Soln 10 Gm/15 Ml 15 Ml Ud Cup) 30 gm PO DAILY PHILIP - Exam General: Alert, Oriented HEENT: No: Scleral Icterus Neck: Supple Lungs: Crackles Cardiovascular: Regular Rate, Regular Rhythm Extremities: Normal Inspection, Non-Tender Skin: Warm, Dry Neurological: No New Focal Deficit Psy/Mental Status: Alert, Normal Affect, Normal Mood - Patient Data Lab Results Last 24 hrs: Laboratory Results - last 24 hr 10/08/20 10/08/20 10/08/20 Range/Units 09:47 10:22 10:22 WBC 10.7 (4.5-11.0) K/uL RBC 5.30 (4.30-5.90) M/uL Hgb 12.2 D (12.0-15.0) g/dL Hct 38.1 L (40.0-54.0) % MCV 72 L (80-98) fL MCH 23 L (27-31) pg MCHC 32 (32-36) % Plt Count 232 (150-400) K/uL Sodium 131 L (140-148) mmol/L Potassium 4.5 (3.6-5.2) mmol/L Chloride 92 L (100-108) mmol/L Carbon Dioxide 27 (21-32) mmol/L Anion Gap 16.5 H (5.0-14.0) mmol/L BUN 76 H* (7-18) mg/dL Creatinine 3.8 H* (0.8-1.3) mg/dL Est Cr Clr Drug Dosing 8.62 mL/min Estimated GFR (MDRD) 15 L (>60) Glucose 101 (74-106) mg/dL POC Glucose (74-106) mg/dL Calcium 9.6 (8.5-10.1) mg/dL Troponin I 0.020 (0.000-0.056) ng/mL Influenza Type A RNA (NEGATIVE) RSV RNA (INAAT) (NEGATIVE) Influenza Type B RNA (NEGATIVE) SARS-CoV-2 RNA (DOMI) (NEGATIVE) 04/10/08/20 10/08/20 Range/Units 11:27 12:37 18:22 WBC (4.5-11.0) K/uL RBC (4.30-5.90) M/uL Hgb (12.0-15.0) g/dL Hct (40.0-54.0) % MCV (80-98) fL MCH (27-31) pg MCHC (32-36) % Plt Count (150-400) K/uL Sodium (140-148) mmol/L Potassium (3.6-5.2) mmol/L Chloride (100-108) mmol/L Carbon Dioxide (21-32) mmol/L Anion Gap (5.0-14.0) mmol/L BUN (7-18) mg/dL Creatinine (0.8-1.3) mg/dL Est Cr Clr Drug Dosing mL/min Estimated GFR (MDRD) (>60) Glucose (74-106) mg/dL POC Glucose 108 H (74-106) mg/dL Calcium (8.5-10.1) mg/dL Troponin I 0.024 (0.000-0.056) ng/mL Influenza Type A RNA Negative (NEGATIVE) RSV RNA (INAAT) Negative (NEGATIVE) Influenza Type B RNA Negative (NEGATIVE) SARS-CoV-2 RNA (DOMI) Negative (NEGATIVE) 10/08/20 10/09/20 Range/Units 21:50 06:03 WBC (4.5-11.0) K/uL RBC (4.30-5.90) M/uL Hgb (12.0-15.0) g/dL Hct (40.0-54.0) % MCV (80-98) fL MCH (27-31) pg MCHC (32-36) % Plt Count (150-400) K/uL Sodium 132 L (140-148) mmol/L Potassium 4.9 (3.6-5.2) mmol/L Chloride 97 L (100-108) mmol/L Carbon Dioxide 23 (21-32) mmol/L Anion Gap 16.9 H (5.0-14.0) mmol/L BUN 68 H (7-18) mg/dL Creatinine 3.8 H* (0.8-1.3) mg/dL Est Cr Clr Drug Dosing 10.81 mL/min Estimated GFR (MDRD) 15 L (>60) Glucose 148 H (74-106) mg/dL POC Glucose 155 H (74-106) mg/dL Calcium 8.7 (8.5-10.1) mg/dL Troponin I (0.000-0.056) ng/mL Influenza Type A RNA (NEGATIVE) RSV RNA (INAAT) (NEGATIVE) Influenza Type B RNA (NEGATIVE) SARS-CoV-2 RNA (DOMI) (NEGATIVE) Result Diagrams: 10/09/20 08:15 10/09/20 06:03 Sepsis Event Note - Evaluation Sepsis Screening Result: No Definite Risk - Focused Exam Vital Signs: Vital Signs Temp Resp BP Pulse Ox 10/09/20 07:00 97.5 F 26 H 104/65 92 L 10/09/20 06:00 16 108/55 L 92 L 10/09/20 05:00 20 97/60 92 L 10/09/20 04:00 20 94/57 L 92 L 10/09/20 03:00 97.9 F 16 96/56 L 97 10/09/20 02:00 16 93/51 L 99 10/09/20 01:00 16 95/46 L 98 10/09/20 00:00 16 91/49 L 99 10/08/20 23:00 97.3 F 16 94/43 L 97 10/08/20 22:00 16 105/42 L 99 10/08/20 21:00 15 94/47 L 96 10/08/20 20:30 18 101/56 L 95 10/08/20 20:23 17 93/48 L 95 - Problem List Review Problem List Initiated/Reviewed/Updated: Yes - My Orders Last 24 Hours: My Active Orders 10/08/20 13:28 Patient Status [ADT] Routine Antiembolic Devices [RC] .Routine Blood Glucose Check, Bedside [RC] QIDACANDBED Oxygen Therapy [RC] PRN Up to Chair [RC] QID VTE/DVT Education [RC] Per Unit Routine Vital Signs [RC] Q1H Promethazine [Phenergan] 12.5 mg Sodium Chloride 0.9% [Normal Saline] 50 ml IV Q6H Resuscitation Status Routine 10/08/20 13:30 Sequential Compression Device [OM.PC] Per Unit Routine 10/08/20 13:35 fentaNYL [Sublimaze] 25 mcg IVPUSH Q2H PRN 10/08/20 13:36 fentaNYL [Sublimaze] 50 mcg IVPUSH Q2H PRN 10/08/20 13:37 traMADol [Ultram] 50 mg PO Q6H PRN 10/08/20 14:00 Acetaminophen [TylenoL] 650 mg PO TID Lactulose [Chronulac] 10 gm PO TID Sodium Chloride 0.9% [Normal Saline] 1,000 ml IV ASDIRECTED 10/08/20 14:08 Diabetes Education [RC] Click to Edit 10/08/20 Dinner Heart Healthy Diet [DIET] Insulin Lispro [HumaLOG] See Protocol SUBCUT QIDACANDBED 10/08/20 18:37 Admission Status [Patient Status] [ADT] Routine Transfer Patient (Change bed) [ADT] Routine 10/08/20 18:45 Norepinephrine [Levophed] 4 mg Dextrose 5% in Water 246 ml IV TITRATE 10/09/20 07:30 Pantoprazole [ProTONIX] 40 mg PO ACBREAKFAST 10/09/20 08:15 CBC W/O DIFF,HEMOGRAM [HEME] Routine 10/09/20 09:00 Aspirin 81 mg PO DAILY 10/10/20 06:00 BASIC METABOLIC PANEL,BMP [CHEM] Routine 10/10/20 07:30 GLUCOSE POC LAB TO COLLECT JPM [POC] QIDACANDBED 10/10/20 11:30 GLUCOSE POC LAB TO COLLECT JPM [POC] QIDACANDBED 10/10/20 16:30 GLUCOSE POC LAB TO COLLECT JPM [POC] QIDACANDBED 10/10/20 21:00 GLUCOSE POC LAB TO COLLECT JPM [POC] QIDACANDBED 10/11/20 07:30 GLUCOSE POC LAB TO COLLECT JPM [POC] QIDACANDBED 10/11/20 11:30 GLUCOSE POC LAB TO COLLECT JPM [POC] QIDACANDBED 10/11/20 16:30 GLUCOSE POC LAB TO COLLECT JPM [POC] QIDACANDBED 10/11/20 21:00 GLUCOSE POC LAB TO COLLECT JPM [POC] QIDACANDBED 10/12/20 07:30 GLUCOSE POC LAB TO COLLECT JPM [POC] QIDACANDBED 10/12/20 11:30 GLUCOSE POC LAB TO COLLECT JPM [POC] QIDACANDBED 10/12/20 16:30 GLUCOSE POC LAB TO COLLECT JPM [POC] QIDACANDBED 10/12/20 21:00 GLUCOSE POC LAB TO COLLECT JPM [POC] QIDACANDBED 10/13/20 07:30 GLUCOSE POC LAB TO COLLECT JPM [POC] QIDACANDBED 10/13/20 11:30 GLUCOSE POC LAB TO COLLECT JPM [POC] QIDACANDBED 10/13/20 16:30 GLUCOSE POC LAB TO COLLECT JPM [POC] QIDACANDBED 10/13/20 21:00 GLUCOSE POC LAB TO COLLECT JPM [POC] QIDACANDBED 10/14/20 07:30 GLUCOSE POC LAB TO COLLECT JPM [POC] QIDACANDBED 10/14/20 11:30 GLUCOSE POC LAB TO COLLECT JPM [POC] QIDACANDBED 10/14/20 16:30 GLUCOSE POC LAB TO COLLECT JPM [POC] QIDACANDBED 10/14/20 21:00 GLUCOSE POC LAB TO COLLECT JPM [POC] QIDACANDBED - Plan Plan:: Assessment and Plan: BILATERAL SHOULDER PAIN CT of the chest and plain films of the shoulders are unrevealing. There may be a contribution from dehydration and perhaps associated inflammation. With associated hypotension, cannot rule out major vascular injury though it appears that the patient's pain and blood pressure are slowly improving. His exam is largely unremarkable today. Unable to use NSAIDs due to the patient's acute kidney injury on top of chronic renal disease. Continue scheduled Tylenol along with Ultram as needed for moderate pain and fentanyl if needed for breakthrough or severe pain. Tenuous opioid use given patient's hypotension. Serial exams HYPOTENSION Component of decreased oral intake and dehydration. Possible vascular injury though unable to further work this up due to patient's advanced renal injury and request for avoidance of aggressive measures. Continue maintenance IV fluids. Patient is status post multiple boluses and does have an oxygen requirement. Hold Toprol-XL, Cardura, and Lasix for now. Continue Levophed to maintain goal mean arterial pressure 65. We will attempt to sit patient up today and assess with serial exams while de-escalating Levophed as able. ACUTE KIDNEY INJURY ON TOP OF CHRONIC KIDNEY DISEASE STAGE IV History consistent with prerenal injury based on decreased intake relative to Malays present over the past week or so. IV fluid bolus administered in ER. Continue maintenance IV fluids until patient is tolerating adequate oral intake. Trend renal function with metabolic panel again in a.m. I/Os DIABETES MELLITUS Patient not on prescription medications for this. Requested 4 times daily Accu-Cheks with loose sliding scale insulin GERD Continue [employer] Protonix CORONARY ARTERY DISEASE EKG largely unchanged from previous and troponin is unremarkable. Continue [employer] aspirin CODE STATUS: Patient is DNR/DNI. DVT PROPHYLAXIS: Requested SCDs. Avoiding chemical prophylaxis for now however concern for possible vascular injury. DISPOSITION: Patient transition to inpatient and critical care status based on events yesterday and into this morning. Continue close monitoring and care in ICU. The patient's son, for us, should be updated regarding any changes in the patient's clinical status.
[2020-10-09] MEDS: Sodium Chloride 0.9% 1,000 ML IV SCH ×2 (09:26→21:57)
[2020-10-09] MEDS: Aspirin 81 MG Tab.Chew PO SCH (09:27)
[2020-10-09] MEDS: Acetaminophen 325 MG Tab PO SCH ×3 (09:28→20:31)
[2020-10-09] MEDS: Lactulose Soln 10 GM/15 ML 15 ML UD Cup PO SCH ×3 (09:28→20:32)
[2020-10-09] MEDS ORDERED: Morphine 2 MG/ML SYRINGE IVPUSH PRN ×2 (15:18→15:19)
[2020-10-09] MEDS ORDERED: LORazepam 2 MG/ML SDV IVPUSH PRN (15:20)
[2020-10-10] MEDS: Norepinephrine 4 MG in Dextrose 5% in Water 246 ML IV SCH ×2 (05:05)
[2020-10-10] MEDS: Insulin Lispro 100 Unit/ML 3 ML KwikPen SUBCUT SCH ×4 (07:36→20:12)
[2020-10-10] MEDS: Acetaminophen 325 MG Tab PO SCH ×3 (08:52→20:45)
[2020-10-10] MEDS: Lactulose Soln 10 GM/15 ML 15 ML UD Cup PO SCH ×3 (08:52→20:45)
[2020-10-10] MEDS: Pantoprazole 40 MG Tab.CR PO SCH (08:52)
[2020-10-10] MEDS: Aspirin 81 MG Tab.Chew PO SCH (08:52)
--- NOTE | 2020-10-10 09:27 | PCM.PN ---
- General Info Date of Service: 10/10/20 Admission Dx/Problem (Free Text): Admission Diagnosis/Problem Admission Diagnosis/Problem bilateral shoulder pain, hypotension Subjective Update: The patient's tachycardia has improved though he continues to require pressor support to maintain adequate blood pressures. His bilateral shoulder pain he reported upon admission has resolved. He continues to have some tachypnea with some upper airway respiratory secretions. Chest x-ray from yesterday showed persistence of a large right-sided pleural effusion. Case was discussed with Dr. Jaramillo of surgery this morning who has agreed to do a therapeutic thoracentesis. Extensive discussions were held yesterday with the patient's son and daughter regarding guarded prognosis and plan for watch and wait to determine if he is able to sustain blood pressures off of Levophed. Family and patient are aware that he may have sustained a significant vascular injury not seen on presenting CT. If the patient improves clinically, the plan will be for him to transition to alf for rehab. Should he decompensate, plan is to de-escalate to comfort measures. Functional Status: Reports: Pain Controlled, Tolerating Diet - Review of Systems General: Denies: Fever, Chills HEENT: Reports: No Symptoms Pulmonary: Reports: Shortness of Breath, Cough Cardiovascular: Denies: Chest Pain, Lightheadedness Gastrointestinal: Reports: No Symptoms Genitourinary: Denies: Burning, Flank Pain Musculoskeletal: Reports: No Symptoms Skin: Reports: No Symptoms Neurological: Reports: No Symptoms Psychiatric: Reports: No Symptoms - Patient Data Vitals - Most Recent: Last Vital Signs Temp 98 F 10/10/20 08:00 Pulse 50 L 10/08/20 18:00 Resp 40 H 10/10/20 08:00 BP 104/64 10/10/20 08:00 Pulse Ox 93 L 10/10/20 08:00 Weight - Most Recent: 125 lb 6.383 oz I&O - Last 24 Hours: Intake & Output 10/09/20 10/10/20 10/10/20 22:59 06:59 14:59 Intake Total 1587 1383 Output Total 300 200 Balance 1287 1183 Lab Results Last 24 Hours: Laboratory Results - last 24 hr 10/09/20 10/09/20 10/09/20 Range/Units 11:15 17:04 20:09 Sodium (140-148) mmol/L Potassium (3.6-5.2) mmol/L Chloride (100-108) mmol/L Carbon Dioxide (21-32) mmol/L Anion Gap (5.0-14.0) mmol/L BUN (7-18) mg/dL Creatinine (0.8-1.3) mg/dL Est Cr Clr Drug Dosing mL/min Estimated GFR (MDRD) (>60) Glucose (74-106) mg/dL POC Glucose 189 H 171 H (74-106) mg/dL Calcium (8.5-10.1) mg/dL 10/09/20 10/10/20 Range/Units 20:29 05:55 Sodium 133 L (140-148) mmol/L Potassium 4.8 (3.6-5.2) mmol/L Chloride 99 L (100-108) mmol/L Carbon Dioxide 21 (21-32) mmol/L Anion Gap 17.8 H (5.0-14.0) mmol/L BUN 65 H (7-18) mg/dL Creatinine 3.6 H* (0.8-1.3) mg/dL Est Cr Clr Drug Dosing 11.41 mL/min Estimated GFR (MDRD) 16 L (>60) Glucose 113 H (74-106) mg/dL POC Glucose 204 H (74-106) mg/dL Calcium 8.7 (8.5-10.1) mg/dL Med Orders - Current: Current Medications Acetaminophen (Acetaminophen 325 Mg Tab) 650 mg PO TID [facility] Last Admin: 10/10/20 08:52 Dose: 650 mg Documented by: Aspirin (Aspirin 81 Mg Tab.Chew) 81 mg PO DAILY [facility] Last Admin: 10/10/20 08:52 Dose: 81 mg Documented by: Fentanyl (Fentanyl 100 Mcg/2 Ml Sdv) 25 mcg IVPUSH Q2H PRN PRN Reason: Other Fentanyl (Fentanyl 100 Mcg/2 Ml Sdv) 50 mcg IVPUSH Q2H PRN PRN Reason: Pain (severe 7-10) Sodium Chloride (Normal Saline) 1,000 mls @ 75 mls/hr IV ASDIRECTED [facility] Last Admin: 10/09/20 21:57 Dose: 75 mls/hr Documented by: Promethazine HCl 12.5 mg/ (Sodium Chloride) 50.5 mls @ 200 mls/hr IV Q6H PRN PRN Reason: Nausea/Vomiting Norepinephrine Bitartrate 4 mg (/ Dextrose/Water) 250 mls @ 7.5 mls/hr IV TITRATE [facility]; Protocol Last Titration: 10/10/20 08:12 Dose: 6 mcg/min, 22.5 mls/hr Documented by: Insulin Human Lispro (Insulin Lispro 100 Unit/Ml 3 Ml Kwikpen) 0 unit SUBCUT QIDACANDBED [facility]; Protocol Last Admin: 10/10/20 07:36 Dose: Not Given Documented by: Lactulose (Lactulose Soln 10 Gm/15 Ml 15 Ml Ud Cup) 10 gm PO TID [facility] Last Admin: 10/10/20 08:52 Dose: 10 gm Documented by: Lorazepam (Lorazepam 2 Mg/Ml Sdv) 1 mg IVPUSH Q4H PRN PRN Reason: Anxiety Morphine Sulfate (Morphine 2 Mg/Ml Syringe) 2 mg IVPUSH Q1H PRN PRN Reason: Pain (severe 7-10) Morphine Sulfate (Morphine 2 Mg/Ml Syringe) 2 mg IVPUSH Q1H PRN PRN Reason: Shortness of Breath Pantoprazole Sodium (Pantoprazole 40 Mg Tab.CrPom) 40 mg PO ACBREAKFAST [facility] Last Admin: 10/10/20 08:52 Dose: 40 mg Documented by: Tramadol HCl (Tramadol 50 Mg Tab) 50 mg PO Q6H PRN PRN Reason: Other Last Admin: 10/08/20 14:31 Dose: 50 mg Documented by: Discontinued Medications Hydrocodone Bitart/Acetaminophen (Acetaminophen/Hydrocodone 325-5 Mg Tab) 1 tab PO ONETIME ONE Stop: 10/08/20 09:06 Last Admin: 10/08/20 09:15 Dose: 1 tab Documented by: Hydrocodone Bitart/Acetaminophen (Acetaminophen/Hydrocodone 325-5 Mg Tab) 1 tab PO ONETIME ONE Stop: 10/08/20 10:20 Last Admin: 10/08/20 10:43 Dose: 1 tab Documented by: Sodium Chloride (Normal Saline) 1,000 mls @ 1,000 mls/hr IV ASDIRECTED [facility] Last Admin: 10/08/20 10:44 Dose: 1,000 mls/hr Documented by: Sodium Chloride (Normal Saline) 500 mls @ 999 mls/hr IV .BOLUS ONE Stop: 10/08/20 14:00 Last Admin: 10/08/20 15:07 Dose: 999 mls/hr Documented by: Sodium Chloride (Normal Saline) 500 mls @ 500 mls/hr IV ONETIME ONE Stop: 10/08/20 18:14 Last Admin: 10/08/20 17:32 Dose: 500 mls/hr Documented by: Lactulose (Lactulose Soln 10 Gm/15 Ml 15 Ml Ud Cup) 30 gm PO DAILY [facility] - Exam Quality Assessment: Supplemental Oxygen General: Mild Distress HEENT: No: Scleral Icterus Neck: Supple, Trachea Midline Lungs: Decreased Breath Sounds, Crackles. No: Normal Respiratory Effort Cardiovascular: Regular Rate, Regular Rhythm GI/Abdominal Exam: Soft, Non-Tender Extremities: Normal Inspection Neurological: No New Focal Deficit Psy/Mental Status: Alert, Anxious - Patient Data Lab Results Last 24 hrs: Laboratory Results - last 24 hr 10/09/20 10/09/20 10/09/20 Range/Units 11:15 17:04 20:09 Sodium (140-148) mmol/L Potassium (3.6-5.2) mmol/L Chloride (100-108) mmol/L Carbon Dioxide (21-32) mmol/L Anion Gap (5.0-14.0) mmol/L BUN (7-18) mg/dL Creatinine (0.8-1.3) mg/dL Est Cr Clr Drug Dosing mL/min Estimated GFR (MDRD) (>60) Glucose (74-106) mg/dL POC Glucose 189 H 171 H (74-106) mg/dL Calcium (8.5-10.1) mg/dL 10/09/20 10/10/20 Range/Units 20:29 05:55 Sodium 133 L (140-148) mmol/L Potassium 4.8 (3.6-5.2) mmol/L Chloride 99 L (100-108) mmol/L Carbon Dioxide 21 (21-32) mmol/L Anion Gap 17.8 H (5.0-14.0) mmol/L BUN 65 H (7-18) mg/dL Creatinine 3.6 H* (0.8-1.3) mg/dL Est Cr Clr Drug Dosing 11.41 mL/min Estimated GFR (MDRD) 16 L (>60) Glucose 113 H (74-106) mg/dL POC Glucose 204 H (74-106) mg/dL Calcium 8.7 (8.5-10.1) mg/dL Result Diagrams: 10/09/20 08:15 10/10/20 05:55 Sepsis Event Note - Evaluation Sepsis Screening Result: No Definite Risk - Focused Exam Vital Signs: Vital Signs Temp Resp BP Pulse Ox 10/10/20 08:00 98 F 40 H 104/64 93 L 10/10/20 07:00 32 H 110/68 94 L 10/10/20 06:00 97.6 F 25 H 105/62 93 L 10/10/20 05:00 27 H 95/52 L 94 L 10/10/20 04:00 25 H 101/51 L 91 L 10/10/20 03:00 28 H 95/50 L 93 L 10/10/20 02:00 18 85/47 L 93 L 10/10/20 01:00 28 H 93/54 L 91 L 10/10/20 00:00 97.8 F 28 H 100/56 L 94 L 10/09/20 23:00 30 H 96/63 92 L 10/09/20 22:00 27 H 90/58 L 90 L 10/09/20 21:00 27 H 100/60 92 L - Problem List Review Problem List Initiated/Reviewed/Updated: Yes - My Orders Last 24 Hours: My Active Orders 10/09/20 09:00 Aspirin 81 mg PO DAILY 10/09/20 14:57 Chest 1V Frontal [CR] Routine 10/09/20 15:18 Morphine 2 mg IVPUSH Q1H PRN 10/09/20 15:19 Morphine 2 mg IVPUSH Q1H PRN 10/09/20 15:20 LORazepam [Ativan] 1 mg IVPUSH Q4H PRN 10/09/20 15:43 Urinary Catheter Assessment [RC] ASDIRECTED 10/09/20 15:45 Insert Poe Catheter [Insert Urinary Catheter] [OM.PC] Q24H 10/10/20 08:49 RT Acapella [RESPCARE] Routine 10/10/20 08:50 RT Incentive Spirometry [RC] Q1HWA 10/10/20 08:51 CELL COUNT,BODY FLUID [BF] Routine CULTURE BODY FLUID + SMEAR [RM] Urgent LACTATE DEHYDROGENASE,BODY FL [BF] Urgent 10/10/20 08:53 LACTATE DEHYDROGENASE,LDH [CHEM] Routine PROTEIN TOTAL,TP [CHEM] Routine 10/10/20 08:54 PROTEIN,BODY FLUID [BF] Routine 10/11/20 05:11 BASIC METABOLIC PANEL,BMP [CHEM] Routine HEMOGLOBIN [HEME] Routine 10/11/20 07:30 GLUCOSE POC LAB TO COLLECT JPM [POC] QIDACANDBED 10/11/20 11:30 GLUCOSE POC LAB TO COLLECT JPM [POC] QIDACANDBED 10/11/20 16:30 GLUCOSE POC LAB TO COLLECT JPM [POC] QIDACANDBED 10/11/20 21:00 GLUCOSE POC LAB TO COLLECT JPM [POC] QIDACANDBED 10/12/20 07:30 GLUCOSE POC LAB TO COLLECT JPM [POC] QIDACANDBED 10/12/20 11:30 GLUCOSE POC LAB TO COLLECT JPM [POC] QIDACANDBED 10/12/20 16:30 GLUCOSE POC LAB TO COLLECT JPM [POC] QIDACANDBED 10/12/20 21:00 GLUCOSE POC LAB TO COLLECT JPM [POC] QIDACANDBED 10/13/20 07:30 GLUCOSE POC LAB TO COLLECT JPM [POC] QIDACANDBED 10/13/20 11:30 GLUCOSE POC LAB TO COLLECT JPM [POC] QIDACANDBED 10/13/20 16:30 GLUCOSE POC LAB TO COLLECT JPM [POC] QIDACANDBED 10/13/20 21:00 GLUCOSE POC LAB TO COLLECT JPM [POC] QIDACANDBED 10/14/20 07:30 GLUCOSE POC LAB TO COLLECT JPM [POC] QIDACANDBED 10/14/20 11:30 GLUCOSE POC LAB TO COLLECT JPM [POC] QIDACANDBED 10/14/20 16:30 GLUCOSE POC LAB TO COLLECT JPM [POC] QIDACANDBED 10/14/20 21:00 GLUCOSE POC LAB TO COLLECT JPM [POC] QIDACANDBED - Plan Plan:: Assessment and Plan: BILATERAL SHOULDER PAIN Presenting symptoms have largely resolved. There remains concern particularly given stippled air in subclavian vasculature of a large vascular injury which prompted his evaluation. We will continue Tylenol with Ultram/morphine if needed for discomfort. HYPOTENSION Component of decreased oral intake and dehydration in conjunction with possible vascular injury. As we were unable to do presenting CT scan with contrast, the patient's upper chest and shoulders were suboptimally evaluated. We will continue Levophed for now along with maintenance IV fluids. Defer further work- up, imaging due to acute on chronic renal failure and the fact that intervention would not be pursued even if abnormality were suggested. Continue to hold Toprol-XL, Cardura, and Lasix. Continue Levophed but will reduce goal mean arterial pressure to 60. If unable to wean pressor over the next 1 to 2 days, will further discuss de-escalation of cares. ACUTE KIDNEY INJURY ON TOP OF CHRONIC KIDNEY DISEASE STAGE IV History consistent with prerenal injury based on decreased oral intake and hypotension. Continue maintenance IV fluids until patient is tolerating adequate oral intake. Trend renal function I/Os, check UA DIABETES MELLITUS Patient not on prescription medications for this. Requested 4 times daily Accu-Cheks with loose sliding scale insulin GERD Continue MATHEMATICS TECHNICIAN Protonix CORONARY ARTERY DISEASE EKG largely unchanged from previous and troponin is unremarkable. Continue MATHEMATICS TECHNICIAN aspirin CODE STATUS: Patient is DNR/DNI. DVT PROPHYLAXIS: Requested SCDs. Avoiding chemical prophylaxis over concern for possible vascular injury. DISPOSITION: Continue close monitoring and care in intensive care unit. Patient's prognosis remains guarded. As stated above, we will continue to monitor progress on pressor with plan to transition to skilled rehab if patient is able to maintain blood pressures with improvement of symptoms versus transition to comfort measures (which appears more likely at this time) if symptoms worsen or pressor support continues to be required.
[2020-10-10] MEDS: Sodium Chloride 0.9% 1,000 ML IV SCH (11:17)
[2020-10-11] MEDS: Sodium Chloride 0.9% 1,000 ML IV SCH ×2 (00:33→17:13)
[2020-10-11] MEDS: Insulin Lispro 100 Unit/ML 3 ML KwikPen SUBCUT SCH ×4 (07:44→20:24)
[2020-10-11] MEDS: Lactulose Soln 10 GM/15 ML 15 ML UD Cup PO SCH ×3 (08:46→20:24)
[2020-10-11] MEDS: Pantoprazole 40 MG Tab.CR PO SCH (08:46)
[2020-10-11] MEDS: Aspirin 81 MG Tab.Chew PO SCH (08:46)
[2020-10-11] MEDS: Acetaminophen 325 MG Tab PO SCH (08:47)
--- NOTE | 2020-10-11 09:41 | PCM.PN ---
- General Info Date of Service: 10/11/20 Admission Dx/Problem (Free Text): Admission Diagnosis/Problem Admission Diagnosis/Problem Empyema Subjective Update: The patient continues to deny the bilateral shoulder pain he had upon admission. Due to his respiratory symptoms, the patient had a diagnostic/therapeutic thoracentesis performed yesterday. Reportedly, about 600 mL of a cloudy yellow fluid was aspirated. Preliminary results from this fluid are highly indicative of empyema. This fluid is exudative with extremely high white blood cell count and LDH. Over the course of the last day or so, the patient's Levophed was titrated off. His respiratory status has improved. He continues to lack criteria for sepsis though with pleural fluid evaluation and initial culture growing a gram-positive cocci, the patient was started on vancomycin dosed per pharmacy. Case was discussed with Dr. Jaramillo who plans on placing a chest tube tomorrow with subsequent CT scan to assess for loculations or whether other procedure might be indicated. The patient continues to have notable difficulty swallowing and has been tolerating thickened liquids with nursing at the bedside. He will have a formal speech evaluation tomorrow and a PT consult was ordered as well. Functional Status: Reports: Pain Controlled, Tolerating Diet - Review of Systems General: Reports: Appetite. Denies: Fever HEENT: Reports: Dysphasia Pulmonary: Reports: Shortness of Breath, Cough. Denies: Pleuritic Chest Pain Cardiovascular: Denies: Chest Pain, Palpitations Gastrointestinal: Denies: Abdominal Pain, Nausea, Vomiting Genitourinary: Reports: No Symptoms Musculoskeletal: Reports: No Symptoms Skin: Reports: No Symptoms Neurological: Reports: No Symptoms Psychiatric: Reports: No Symptoms - Patient Data Vitals - Most Recent: Last Vital Signs Temp 97.6 F 10/11/20 08:00 Pulse 50 L 10/08/20 18:00 Resp 18 10/11/20 08:00 BP 101/61 10/11/20 08:00 Pulse Ox 98 10/11/20 08:00 Weight - Most Recent: 125 lb 6.383 oz I&O - Last 24 Hours: Intake & Output 10/10/20 10/11/20 10/11/20 22:59 06:59 14:59 Intake Total 1306 1222 Output Total 200 275 Balance 1106 947 Lab Results Last 24 Hours: Laboratory Results - last 24 hr 10/10/20 10/10/20 10/10/20 Range/Units 10:04 10:40 10:40 Hgb (12.0-15.0) g/dL Sodium (140-148) mmol/L Potassium (3.6-5.2) mmol/L Chloride (100-108) mmol/L Carbon Dioxide (21-32) mmol/L Anion Gap (5.0-14.0) mmol/L BUN (7-18) mg/dL Creatinine (0.8-1.3) mg/dL Est Cr Clr Drug Dosing mL/min Estimated GFR (MDRD) (>60) Glucose (74-106) mg/dL POC Glucose (74-106) mg/dL Calcium (8.5-10.1) mg/dL Urine Color Yellow (YELLOW) Urine Appearance Clear (CLEAR) Urine pH 5.5 (5.0-8.0) Ur Specific [place] 1.020 (1.008-1.030) Urine Protein 30 H (NEGATIVE) mg/dL Urine Glucose (UA) Negative (NEGATIVE) mg/dL Urine Ketones Negative (NEGATIVE) mg/dL Urine Occult Blood Moderate H (NEGATIVE) Urine Nitrite Negative (NEGATIVE) Urine Bilirubin Negative (NEGATIVE) Urine Urobilinogen 0.2 (0.2-1.0) EU/dL Ur Leukocyte Esterase Trace H (NEGATIVE) Urine RBC 20-30 H (0-5) Urine WBC 10-20 H (0-5) Ur Epithelial Cells Not seen Amorphous Sediment Not seen Urine Bacteria Not seen Urine Mucus Few Fluid Type Pleural fluid Pleural fluid Fluid WBC 14275 /ul Fluid RBC 4420 /ul Fluid Mononuclear Cell 59 % Fl Polymorphonucl Cell 41 % Fluid Total Protein g/dL Fluid LDH 90070 IU/L 10/10/20 10/10/20 10/10/20 Range/Units 10:40 11:01 16:51 Hgb (12.0-15.0) g/dL Sodium (140-148) mmol/L Potassium (3.6-5.2) mmol/L Chloride (100-108) mmol/L Carbon Dioxide (21-32) mmol/L Anion Gap (5.0-14.0) mmol/L BUN (7-18) mg/dL Creatinine (0.8-1.3) mg/dL Est Cr Clr Drug Dosing mL/min Estimated GFR (MDRD) (>60) Glucose (74-106) mg/dL POC Glucose 114 H 150 H (74-106) mg/dL Calcium (8.5-10.1) mg/dL Urine Color (YELLOW) Urine Appearance (CLEAR) Urine pH (5.0-8.0) Ur Specific [place] (1.008-1.030) Urine Protein (NEGATIVE) mg/dL Urine Glucose (UA) (NEGATIVE) mg/dL Urine Ketones (NEGATIVE) mg/dL Urine Occult Blood (NEGATIVE) Urine Nitrite (NEGATIVE) Urine Bilirubin (NEGATIVE) Urine Urobilinogen (0.2-1.0) EU/dL Ur Leukocyte Esterase (NEGATIVE) Urine RBC (0-5) Urine WBC (0-5) Ur Epithelial Cells Amorphous Sediment Urine Bacteria Urine Mucus Fluid Type Pleural fluid Fluid WBC /ul Fluid RBC /ul Fluid Mononuclear Cell % Fl Polymorphonucl Cell % Fluid Total Protein 4.4 g/dL Fluid LDH IU/L 10/10/20 10/11/20 10/11/20 Range/Units 20:11 04:10 04:10 Hgb 11.4 L (12.0-15.0) g/dL Sodium 137 L (140-148) mmol/L Potassium 4.3 (3.6-5.2) mmol/L Chloride 102 (100-108) mmol/L Carbon Dioxide 21 (21-32) mmol/L Anion Gap 18.3 H (5.0-14.0) mmol/L BUN 61 H (7-18) mg/dL Creatinine 3.0 H (0.8-1.3) mg/dL Est Cr Clr Drug Dosing 13.69 mL/min Estimated GFR (MDRD) 20 L (>60) Glucose 133 H (74-106) mg/dL POC Glucose 120 H (74-106) mg/dL Calcium 8.6 (8.5-10.1) mg/dL Urine Color (YELLOW) Urine Appearance (CLEAR) Urine pH (5.0-8.0) Ur Specific [place] (1.008-1.030) Urine Protein (NEGATIVE) mg/dL Urine Glucose (UA) (NEGATIVE) mg/dL Urine Ketones (NEGATIVE) mg/dL Urine Occult Blood (NEGATIVE) Urine Nitrite (NEGATIVE) Urine Bilirubin (NEGATIVE) Urine Urobilinogen (0.2-1.0) EU/dL Ur Leukocyte Esterase (NEGATIVE) Urine RBC (0-5) Urine WBC (0-5) Ur Epithelial Cells Amorphous Sediment Urine Bacteria Urine Mucus Fluid Type Fluid WBC /ul Fluid RBC /ul Fluid Mononuclear Cell % Fl Polymorphonucl Cell % Fluid Total Protein g/dL Fluid LDH IU/L Lee Results Last 24 Hours: Microbiology 10/10/20 10:40 Gram Stain - Final Pleural Fluid Body Fluid Culture - Preliminary 10/10/20 10:38 YUDY Preparation - Final Other - Pleural Cavity, Right Med Orders - Current: Current Medications Acetaminophen (Acetaminophen 325 Mg Tab) 650 mg PO TID [facility] Last Admin: 10/11/20 08:47 Dose: 650 mg Documented by: Aspirin (Aspirin 81 Mg Tab.Chew) 81 mg PO DAILY [facility] Last Admin: 10/11/20 08:46 Dose: 81 mg Documented by: Fentanyl (Fentanyl 100 Mcg/2 Ml Sdv) 25 mcg IVPUSH Q2H PRN PRN Reason: Other Fentanyl (Fentanyl 100 Mcg/2 Ml Sdv) 50 mcg IVPUSH Q2H PRN PRN Reason: Pain (severe 7-10) Sodium Chloride (Normal Saline) 1,000 mls @ 50 mls/hr IV ASDIRECTED [facility] Last Admin: 10/11/20 00:33 Dose: 75 mls/hr Documented by: Promethazine HCl 12.5 mg/ (Sodium Chloride) 50.5 mls @ 200 mls/hr IV Q6H PRN PRN Reason: Nausea/Vomiting Insulin Human Lispro (Insulin Lispro 100 Unit/Ml 3 Ml Kwikpen) 0 unit SUBCUT QIDACANDBED [facility]; Protocol Last Admin: 10/11/20 07:44 Dose: Not Given Documented by: Lactulose (Lactulose Soln 10 Gm/15 Ml 15 Ml Ud Cup) 10 gm PO TID [facility] Last Admin: 10/11/20 08:46 Dose: 10 gm Documented by: Pantoprazole Sodium (Pantoprazole 40 Mg Tab.CrPom) 40 mg PO ACBREAKFAST [facility] Last Admin: 10/11/20 08:46 Dose: 40 mg Documented by: Tramadol HCl (Tramadol 50 Mg Tab) 50 mg PO Q6H PRN PRN Reason: Other Last Admin: 10/08/20 14:31 Dose: 50 mg Documented by: Vancomycin HCl (Vancomycin 1 Gm Sdv) 1 gm IV .PHARMACY TO DOSE [facility] Discontinued Medications Hydrocodone Bitart/Acetaminophen (Acetaminophen/Hydrocodone 325-5 Mg Tab) 1 tab PO ONETIME ONE Stop: 10/08/20 09:06 Last Admin: 10/08/20 09:15 Dose: 1 tab Documented by: Hydrocodone Bitart/Acetaminophen (Acetaminophen/Hydrocodone 325-5 Mg Tab) 1 tab PO ONETIME ONE Stop: 10/08/20 10:20 Last Admin: 10/08/20 10:43 Dose: 1 tab Documented by: Sodium Chloride (Normal Saline) 1,000 mls @ 1,000 mls/hr IV ASDIRECTED [facility] Last Admin: 10/08/20 10:44 Dose: 1,000 mls/hr Documented by: Sodium Chloride (Normal Saline) 500 mls @ 999 mls/hr IV .BOLUS ONE Stop: 10/08/20 14:00 Last Admin: 10/08/20 15:07 Dose: 999 mls/hr Documented by: Sodium Chloride (Normal Saline) 500 mls @ 500 mls/hr IV ONETIME ONE Stop: 10/08/20 18:14 Last Admin: 10/08/20 17:32 Dose: 500 mls/hr Documented by: Norepinephrine Bitartrate 4 mg (/ Dextrose/Water) 250 mls @ 7.5 mls/hr IV TITRATE [facility]; Protocol Last Titration: 10/10/20 12:21 Dose: 0 mcg/min, 0 mls/hr Documented by: Lactulose (Lactulose Soln 10 Gm/15 Ml 15 Ml Ud Cup) 30 gm PO DAILY [facility] Lorazepam (Lorazepam 2 Mg/Ml Sdv) 1 mg IVPUSH Q4H PRN PRN Reason: Anxiety Morphine Sulfate (Morphine 2 Mg/Ml Syringe) 2 mg IVPUSH Q1H PRN PRN Reason: Pain (severe 7-10) Morphine Sulfate (Morphine 2 Mg/Ml Syringe) 2 mg IVPUSH Q1H PRN PRN Reason: Shortness of Breath - Exam Quality Assessment: Supplemental Oxygen General: Alert, Oriented, Cooperative HEENT: No: Scleral Icterus Neck: Supple, Trachea Midline, No JVD Lungs: Decreased Breath Sounds, Crackles. No: Wheezing Cardiovascular: Regular Rate, No Murmurs GI/Abdominal Exam: Soft, Non-Tender Extremities: Normal Inspection Neurological: No New Focal Deficit Psy/Mental Status: Normal Affect, Normal Mood - Patient Data Lab Results Last 24 hrs: Laboratory Results - last 24 hr 10/10/20 10/10/20 10/10/20 Range/Units 10:04 10:40 10:40 Hgb (12.0-15.0) g/dL Sodium (140-148) mmol/L Potassium (3.6-5.2) mmol/L Chloride (100-108) mmol/L Carbon Dioxide (21-32) mmol/L Anion Gap (5.0-14.0) mmol/L BUN (7-18) mg/dL Creatinine (0.8-1.3) mg/dL Est Cr Clr Drug Dosing mL/min Estimated GFR (MDRD) (>60) Glucose (74-106) mg/dL POC Glucose (74-106) mg/dL Calcium (8.5-10.1) mg/dL Urine Color Yellow (YELLOW) Urine Appearance Clear (CLEAR) Urine pH 5.5 (5.0-8.0) Ur Specific [place] 1.020 (1.008-1.030) Urine Protein 30 H (NEGATIVE) mg/dL Urine Glucose (UA) Negative (NEGATIVE) mg/dL Urine Ketones Negative (NEGATIVE) mg/dL Urine Occult Blood Moderate H (NEGATIVE) Urine Nitrite Negative (NEGATIVE) Urine Bilirubin Negative (NEGATIVE) Urine Urobilinogen 0.2 (0.2-1.0) EU/dL Ur Leukocyte Esterase Trace H (NEGATIVE) Urine RBC 20-30 H (0-5) Urine WBC 10-20 H (0-5) Ur Epithelial Cells Not seen Amorphous Sediment Not seen Urine Bacteria Not seen Urine Mucus Few Fluid Type Pleural fluid Pleural fluid Fluid WBC 37614 /ul Fluid RBC 4420 /ul Fluid Mononuclear Cell 59 % Fl Polymorphonucl Cell 41 % Fluid Total Protein g/dL Fluid LDH 03032 IU/L 10/10/20 10/10/20 10/10/20 Range/Units 10:40 11:01 16:51 Hgb (12.0-15.0) g/dL Sodium (140-148) mmol/L Potassium (3.6-5.2) mmol/L Chloride (100-108) mmol/L Carbon Dioxide (21-32) mmol/L Anion Gap (5.0-14.0) mmol/L BUN (7-18) mg/dL Creatinine (0.8-1.3) mg/dL Est Cr Clr Drug Dosing mL/min Estimated GFR (MDRD) (>60) Glucose (74-106) mg/dL POC Glucose 114 H 150 H (74-106) mg/dL Calcium (8.5-10.1) mg/dL Urine Color (YELLOW) Urine Appearance (CLEAR) Urine pH (5.0-8.0) Ur Specific [place] (1.008-1.030) Urine Protein (NEGATIVE) mg/dL Urine Glucose (UA) (NEGATIVE) mg/dL Urine Ketones (NEGATIVE) mg/dL Urine Occult Blood (NEGATIVE) Urine Nitrite (NEGATIVE) Urine Bilirubin (NEGATIVE) Urine Urobilinogen (0.2-1.0) EU/dL Ur Leukocyte Esterase (NEGATIVE) Urine RBC (0-5) Urine WBC (0-5) Ur Epithelial Cells Amorphous Sediment Urine Bacteria Urine Mucus Fluid Type Pleural fluid Fluid WBC /ul Fluid RBC /ul Fluid Mononuclear Cell % Fl Polymorphonucl Cell % Fluid Total Protein 4.4 g/dL Fluid LDH IU/L 10/10/20 10/11/20 10/11/20 Range/Units 20:11 04:10 04:10 Hgb 11.4 L (12.0-15.0) g/dL Sodium 137 L (140-148) mmol/L Potassium 4.3 (3.6-5.2) mmol/L Chloride 102 (100-108) mmol/L Carbon Dioxide 21 (21-32) mmol/L Anion Gap 18.3 H (5.0-14.0) mmol/L BUN 61 H (7-18) mg/dL Creatinine 3.0 H (0.8-1.3) mg/dL Est Cr Clr Drug Dosing 13.69 mL/min Estimated GFR (MDRD) 20 L (>60) Glucose 133 H (74-106) mg/dL POC Glucose 120 H (74-106) mg/dL Calcium 8.6 (8.5-10.1) mg/dL Urine Color (YELLOW) Urine Appearance (CLEAR) Urine pH (5.0-8.0) Ur Specific [place] (1.008-1.030) Urine Protein (NEGATIVE) mg/dL Urine Glucose (UA) (NEGATIVE) mg/dL Urine Ketones (NEGATIVE) mg/dL Urine Occult Blood (NEGATIVE) Urine Nitrite (NEGATIVE) Urine Bilirubin (NEGATIVE) Urine Urobilinogen (0.2-1.0) EU/dL Ur Leukocyte Esterase (NEGATIVE) Urine RBC (0-5) Urine WBC (0-5) Ur Epithelial Cells Amorphous Sediment Urine Bacteria Urine Mucus Fluid Type Fluid WBC /ul Fluid RBC /ul Fluid Mononuclear Cell % Fl Polymorphonucl Cell % Fluid Total Protein g/dL Fluid LDH IU/L Result Diagrams: 10/11/20 04:10 10/11/20 04:10 Lee Results Last 24 hrs: Microbiology 10/10/20 10:40 Gram Stain - Final Pleural Fluid Body Fluid Culture - Preliminary 10/10/20 10:38 YUDY Preparation - Final Other - Pleural Cavity, Right Sepsis Event Note - Evaluation Sepsis Screening Result: No Definite Risk - Focused Exam Vital Signs: Vital Signs Temp Resp BP Pulse Ox 10/11/20 08:00 97.6 F 18 101/61 98 10/11/20 07:00 20 100/63 97 10/11/20 06:00 29 H 96/60 97 10/11/20 05:00 33 H 93/55 L 10/11/20 04:00 26 H 97/67 94 L 10/11/20 03:00 97.7 F 24 H 96/75 97 10/11/20 02:00 29 H 95/56 L 96 10/11/20 01:00 25 H 94/52 L 94 L 10/11/20 00:00 22 H 84/54 L 95 10/10/20 22:00 25 H 92/47 L 90 L - Problem List Review Problem List Initiated/Reviewed/Updated: Yes - My Orders Last 24 Hours: My Active Orders 10/10/20 08:49 RT Acapella [RESPCARE] Routine 10/10/20 08:50 RT Incentive Spirometry [RC] Q1HWA 10/10/20 10:38 AFB ID+SUSCEPTIBILITIES Routine 10/10/20 10:40 CELL COUNT,BODY FLUID [BF] Routine CULTURE BODY FLUID + SMEAR [RM] Urgent 10/11/20 08:00 Transfer Patient (Change bed) [ADT] Routine 10/11/20 09:25 Dietary Supplements [RC] BIDMEALS 10/11/20 09:28 Consult to Physical Therapy [PT Evaluation and Treatment] [CONS] Routine 10/11/20 09:29 DC Poe Catheter [Urinary Catheter Removal] [RC] PER UNIT ROUTINE 10/11/20 10:00 Vancomycin 1 gm IV .PHARMACY TO DOSE 10/12/20 05:11 BASIC METABOLIC PANEL,BMP [CHEM] Routine CBC WITH AUTO DIFF [HEME] Routine 10/12/20 07:30 GLUCOSE POC LAB TO COLLECT JPM [POC] QIDACANDBED 10/12/20 07:57 Consult to Speech Language Pathology [FARM SUPERVISOR Evaluation and Treatment] [CONS] Routine 10/12/20 11:30 GLUCOSE POC LAB TO COLLECT JPM [POC] QIDACANDBED 10/12/20 16:30 GLUCOSE POC LAB TO COLLECT JPM [POC] QIDACANDBED 10/12/20 21:00 GLUCOSE POC LAB TO COLLECT JPM [POC] QIDACANDBED 10/13/20 07:30 GLUCOSE POC LAB TO COLLECT JPM [POC] QIDACANDBED 10/13/20 11:30 GLUCOSE POC LAB TO COLLECT JPM [POC] QIDACANDBED 10/13/20 16:30 GLUCOSE POC LAB TO COLLECT JPM [POC] QIDACANDBED 10/13/20 21:00 GLUCOSE POC LAB TO COLLECT JPM [POC] QIDACANDBED 10/14/20 07:30 GLUCOSE POC LAB TO COLLECT JPM [POC] QIDACANDBED 10/14/20 11:30 GLUCOSE POC LAB TO COLLECT JPM [POC] QIDACANDBED 10/14/20 16:30 GLUCOSE POC LAB TO COLLECT JPM [POC] QIDACANDBED 10/14/20 21:00 GLUCOSE POC LAB TO COLLECT JPM [POC] QIDACANDBED - Plan Plan:: Assessment and Plan: RIGHT LUNG EMPYEMA Interesting findings on thoracentesis as the patient did not appear septic upon presentation. Analysis of pleural fluid highly indicative of empyema and the patient was started on vancomycin, dosing per pharmacy. Case discussed with Dr. Jaramillo who plans on placing a chest tube in the morning and will further evaluate with CT to determine if any other procedure is indicated with an acc essible loculations, etc. Cytology is pending. HYPOTENSION Component of decreased oral intake and dehydration along with empyema. Levophed titrated off and patient has been hemodynamically stable. He is appropriate for transfer to general medical floor status. We will continue Levophed for now along with maintenance IV fluids. Continue to hold Toprol-XL, Cardura, and Lasix for now - add back as blood pressure allows Continue maintenance IV fluids though will slightly decrease rate ACUTE KIDNEY INJURY ON TOP OF CHRONIC KIDNEY DISEASE STAGE IV Prerenal injury based on decreased oral intake and hypotension. Continue maintenance IV fluids until patient is tolerating adequate oral intake. Trend renal function I/Os BILATERAL SHOULDER PAIN Presenting symptoms have largely resolved. Possibly referred pain related to right diaphragmatic irritation from empyema. Continue symptomatic treatment as needed. DYSPHAGIA GERD Notable at bedside and patient has been tolerating thickened liquids. Formal speech evaluation ordered for tomorrow morning. Question whether aspiration on top of known chronic pleural effusion led to empyema. To new GENETIC SCIENTIST Protonix. DIABETES MELLITUS Patient not on prescription medications for this. Continue 4 times daily Accu-Cheks with loose sliding scale insulin CORONARY ARTERY DISEASE EKG largely unchanged from previous and troponin is unremarkable. Continue GENETIC SCIENTIST aspirin CODE STATUS: Patient is DNR/DNI. DVT PROPHYLAXIS: Requested renally dosed Lovenox DISPOSITION: Patient de-escalated to general medical floor status. Plan for chest tube in a.m. Continue vancomycin for now with antibiotic titration per pleural fluid culture results.
[2020-10-11] MEDS ORDERED: Vancomycin 1 GM SDV IV SCH (10:00)
[2020-10-11] MEDS ORDERED: Enoxaparin 30 MG/0.3 ML Syringe SUBCUT SCH (10:00)
[2020-10-11] MEDS: Acetaminophen 325 MG Tab PO PRN (20:24)
[2020-10-12] MEDS ORDERED: Bupivacaine 0.5%/EPINEPHrine 1:200,000 50 ML MDV ONE (06:53)
[2020-10-12] MEDS ORDERED: fentaNYL 100 MCG/2 ML SDV ONE (07:06)
[2020-10-12] MEDS ORDERED: Propofol 200 MG/20 ML SDV ONE (07:06)
[2020-10-12] MEDS ORDERED: traMADol 50 MG Tab PO PRN (09:00)
--- NOTE | 2020-10-12 09:00 | CR ---
CHEST: Portable 10/09/2020 at 3:30 PM CLINICAL HISTORY:SOB COMPARISON:CT 10/08/2020 FINDINGS: Patient is a large right pleural effusion. This is increased since portable chest done in June. There is some patchy density in the left lung base which may be some atelectasis. There is less than optimal inspiration. Heart is enlarged. Pulmonary vascularity appears normal. There are atherosclerotic changes in the aorta.. There has been previous sternotomy and aortic valve replacement. IMPRESSION: Large right effusion increased since June 2020 Patchy density in the left lung base may represent some patchy atelectasis Cardiomegaly.
[2020-10-12] MEDS: Insulin Lispro 100 Unit/ML 3 ML KwikPen SUBCUT SCH ×4 (09:08→21:18)
[2020-10-12] MEDS: Levofloxacin/Dextrose 5%-Water 500 MG in Premix Bag 1 BAG IV SCH (09:16)
[2020-10-12] MEDS: Sodium Chloride 0.9% 1,000 ML IV SCH (09:20)
--- NOTE | 2020-10-12 09:24 | CR ---
CHEST: Portable 10/10/2020 10:49 AM CLINICAL HISTORY:Thoracentesis COMPARISON:10/09/2020 FINDINGS: Expiration chest shows a decrease in right pleural fluid. There is no pneumothorax. There is persistent patchy density in the left lung base which is likely atelectasis. Cardiomegaly Impression: Decrease in pleural fluid post thoracentesis No pneumothorax
[2020-10-12] MEDS: Pantoprazole 40 MG Tab.CR PO SCH (10:24)
[2020-10-12] MEDS: Aspirin 81 MG Tab.Chew PO SCH (10:24)
[2020-10-12] MEDS: Lactulose Soln 10 GM/15 ML 15 ML UD Cup PO SCH ×3 (10:24→21:22)
[2020-10-12] MEDS: Ampicillin 2 GM in Sodium Chloride 0.9% 100 ML IV SCH ×3 (10:28→22:03)
--- NOTE | 2020-10-12 11:11 | CR ---
CHEST: Portable 10/11/2020 at 3:00 AM CLINICAL HISTORY:Right thoracentesis COMPARISON:10/10/2020 FINDINGS: Patient is a moderate left pleural effusion similar to the prior study. There is now some perihilar airspace disease. Heart is enlarged. There are atherosclerotic changes in the aorta. IMPRESSION: Residual right pleural effusion similar to prior study New perihilar airspace disease is likely some reexpansion unilateral pulmonary edema
--- NOTE | 2020-10-12 11:50 | CR ---
CHEST: Portable 10/12/2020 at 7:58 AM CLINICAL HISTORY:Right chest tube placement COMPARISON:10/10/2020 FINDINGS: There is been interval placement of a right chest tube. There is further reduction in right pleural fluid. There is a rounded dense focus in the right lower lung field previously obscured by infiltrate and effusion. This may represent rounded atelectasis or rounded pneumonia. Impression: Interval placement of a right chest tube Further decrease in right pleural fluid. Underlying rounded atelectasis or rounded pneumonia. Mass is not excluded
--- NOTE | 2020-10-12 13:25 | PN ---
DATE OF SERVICE: 10/12/2020 The patient has been afebrile with stable vital signs. He will be having the chest tube placed today. Cultures grew out Strep viridans, so we will discontinue the vancomycin and switch over to Unasyn for the IV antibiotics. The chest tube will be inserted later on this morning. We will obtain a CT scan of the chest and make an assessment in terms of adequacy of the drainage at that time after the chest tube has been inserted. We also obviously will be looking for any additional pathology which might be more clear after the chest tube has been placed. Rod Jaramillo MD /[id number]
--- NOTE | 2020-10-12 13:41 | PCM.SN.2 ---
- Free Text/Narrative Note: START OF DOCTOR MIGUEL PROGRESS NOTE Subjective: The patient endorses no complaints at this time. He denies pain of his right shoulder. He denies pain at the site of right chest tube insertion. He denies fever, rigors, nausea, vomiting, cough, wheeze, abdominal pain, dyspnea, or any other constitutional complaints. I explained to the patient his current medical condition and plan of care and I have answered all of his questions Objective: General: -Alert -No acute distress -No dyspnea -No tachypnea Heart: -Regular rate -Regular rhythm -No murmurs -No gallops -No rubs Lungs: -No wheeze -No rhonchi -No rales -Diminished right-sided breath sounds Abdomen: -Normal bowel sounds in all four quadrants -No rebound -No guarding -No tenderness Extremities: -2/4 pulse in all four extremities -No clubbing -No cyanosis -No edema Additional Details / Additional Findings / Exceptions / Miscellaneous: Pertinent Laboratory Results / Pertinent Radiology Results / Pertinent Diagnostic Results / Pertinent Vital Signs: Vital signs stable, white blood count 1.8, MCV 74, creatinine 3 Assessment / Plan: Right shoulder pain, resolved Right pleural effusion recurrence. Patient has chronic recurrence. Patient status post thoracocentesis October 10, 2020. Patient status post right thoracostomy tube placement October 12, 2020. Pleural fluid culture positive for strep viridans on October 12, 2020. Levaquin 500 mg IV every 48 hours plus ampicillin 2 g IV every 6 hours. Check serial x-rays. I will follow up on surgery's findings and recommendations Microcytosis. Check serum ferritin, iron panel, fecal occult blood Acute on chronic kidney disease. Baseline creatinine 2.2. Will monitor creatinine level intermittently. Albumin 25 g IV every 8 hours Urinary tract infection. Levaquin 500 mg IV every 48 hours Hypertension GERD. Protonix 40 mg p.o. daily Macular degeneration Coronary artery disease, status post CABG. Aspirin 81 mg p.o. daily CHF, ejection fraction 30 to 35% History of aortic stenosis status post aortic valve repair Moderate mitral regurgitation Hyperlipidemia Obstructive sleep apnea. CPAP/BiPAP: Okay to use home device and/or pressure when sleeping if patient uses CPAP/BiPAP at home Alcoholic cirrhosis. Lactulose 10 g p.o. 3 times daily BPH History nephrolithiasis Diabetes. Will check fasting glucose before every meal and at bedtime and provide suicide scale History of addiction, not otherwise specified Peripheral vascular disease with carotid stenosis. Aspirin 81 mg p.o. daily Diverticulosis DVT prophylaxis. Bilateral SCD Disposition: END OF DOCTOR EMAMIS PROGRESS NOTE
--- NOTE | 2020-10-12 14:54 | PN ---
DATE OF SERVICE: 10/11/2020 The patient has been afebrile with stable vital signs. The Gram stain on the right pleural fluid did show a rather high white count along with gram-positive cocci, i.e. the patient does have an empyema. Clinically, he seems stable at this point. Dr. Mireles has ordered a CT scan. Assuming he will remain stable, we will plan to proceed with the chest tube insertion tomorrow as he is not n.p.o. If he does become more septic or unstable , we will put that tube in sooner. Otherwise, chest tube insertion would be first thing tomorrow morning. Rod Jaramillo MD /[id number]
--- NOTE | 2020-10-12 15:05 | CT ---
Chest wo Cont CLINICAL HISTORY: Right pleural effusion, right chest tube in place TECHNIQUE: Transverse scans were obtained from the thoracic inlet to the lung bases without contrast. Auto dosage reduction in intervertebral reconstruction techniques were employed COMPARISONS: 10/08/2020 FINDINGS: There is reduction in the amount. There are some fluid loculations with a few scattered air-fluid levels. There is a small left effusion. The chest tube passes through some of these lower lateral loculation some to a posterior inferior fluid collection.There is moderate airspace disease in both infrahilar regions. There are some areas of consolidation in the right infrahilar region and some rounded densities which may be rounded atelectasis. Underlying soft tissue lesion would be difficult to exclude The heart is moderately enlarged. There are scattered lymph nodes throughout the mediastinum. There are are numerous calcified lymph nodes in the right hilum. There is ascitic fluid in the perihepatic and perisplenic regions this fluid is increased since the prior study. Patient has a hiatal hernia. IMPRESSION: Right pleural effusion with multiple loculations Decrease in right pleural fluid since the thoracentesis followed by right chest tube placement Underlying airspace disease in the right lower lobe with some areas consolidation. It would be difficult to exclude an underlying right lower lobe lesion. This was also seen to a similar degree in 2019 Increase in ascites since prior study.
[2020-10-12] MEDS: Acetaminophen 325 MG Tab PO PRN (20:03)
[2020-10-12] MEDS: fentaNYL 100 MCG/2 ML SDV IVPUSH PRN (22:02)
[2020-10-13] MEDS: Ampicillin 2 GM in Sodium Chloride 0.9% 100 ML IV SCH ×4 (04:19→21:14)
[2020-10-13] MEDS: fentaNYL 100 MCG/2 ML SDV IVPUSH PRN ×2 (07:20→22:36)
[2020-10-13] MEDS: Insulin Lispro 100 Unit/ML 3 ML KwikPen SUBCUT SCH ×4 (07:29→21:25)
[2020-10-13] MEDS: Pantoprazole 40 MG Tab.CR PO SCH (07:32)
[2020-10-13] MEDS ORDERED: Calcium Carbonate 500 MG Tab.Chew PO PRN (08:13)
[2020-10-13] MEDS ORDERED: Dextrose 5%-Lactated Ringers 1,000 ML IV SCH (08:30)
[2020-10-13] MEDS: Lactulose Soln 10 GM/15 ML 15 ML UD Cup PO SCH ×3 (08:38→21:18)
[2020-10-13] MEDS: Aspirin 81 MG Tab.Chew PO SCH (08:38)
--- NOTE | 2020-10-13 08:54 | PCM.SN.2 ---
- Free Text/Narrative Note: START OF DOCTOR MIGUEL PROGRESS NOTE Subjective: The patient Yong that he feels mildly dyspneic. He currently rates his respiratory status as a 5 out of 10 at times his baseline. Overnight he denies fever, rigors, nausea, vomiting, cough, wheeze, abdominal pain. He denies pain of his right shoulder. He denies pain at the site of his thoracostomy tube. I explained to the patient his current medical condition and plan of care and have answered all of his questions Objective: General: -Alert -No acute distress -No dyspnea -No tachypnea Heart: -iRegular rate -Regular rhythm -No murmurs -No gallops -No rubs Lungs: -No wheeze -No rhonchi -No rales -Diminished right-sided breath sounds Abdomen: -Normal bowel sounds in all four quadrants -No rebound -No guarding -No tenderness Extremities: -2/4 pulse in all four extremities -No clubbing -No cyanosis -No edema Additional Details / Additional Findings / Exceptions / Miscellaneous: Pertinent Laboratory Results / Pertinent Radiology Results / Pertinent Diagnostic Results / Pertinent Vital Signs: Heart rate 112 bpm, respirations 22, white blood count 13.9, hemoglobin 11.6, MCV 73, platelet count 149,000, creatinine 2.3, total bilirubin is 2.1 Assessment / Plan: Right shoulder pain, resolved Right pleural effusion recurrence. Patient has chronic recurrence. Patient status post thoracocentesis October 10, 2020. Patient status post right thoracostomy tube placement October 12, 2020. Pleural fluid culture positive for strep viridans on October 12, 2020. Levaquin 500 mg IV every 48 hours plus ampicillin 2 g IV every 6 hours. Check serial x-rays. I will follow up on surgery's findings and recommendations Query pneumonia. Levaquin 500 mg IV every 48 hours plus ampicillin 2 g IV every 6 hours Iron deficiency anemia. Will monitor hemoglobin levels intermittently. Fecal occult blood is negative. Ferrous sulfate 325 mg p.o. twice daily plus vitamin C 500 mg p.o. daily Thrombocytopenia. We will monitor platelet count intermittently Hypophosphatemia. Will monitor phosphorus levels intermittently and supplement as necessary Acute on chronic kidney disease. Baseline creatinine 2.2. Will monitor creatinine level intermittently. Albumin 25 g IV every 8 hours Urinary tract infection. Levaquin 500 mg IV every 48 hours Hypertension GERD. Protonix 40 mg p.o. daily Macular degeneration Coronary artery disease, status post CABG. Aspirin 81 mg p.o. daily CHF, ejection fraction 30 to 35% History of aortic stenosis status post aortic valve repair Moderate mitral regurgitation Hyperlipidemia Obstructive sleep apnea. CPAP/BiPAP: Okay to use home device and/or pressure when sleeping if patient uses CPAP/BiPAP at home Alcoholic cirrhosis. Lactulose 10 g p.o. 3 times daily BPH History nephrolithiasis Diabetes. Will check fasting glucose before every meal and at bedtime and provide suicide scale History of addiction, not otherwise specified Peripheral vascular disease with carotid stenosis. Aspirin 81 mg p.o. daily Diverticulosis DVT prophylaxis. Bilateral SCD Disposition: END OF DOCTOR EMAMIS PROGRESS NOTE
[2020-10-13] MEDS ORDERED: Docusate Sodium 100 MG Cap PO SCH (09:00)
[2020-10-13] MEDS ORDERED: Bisacodyl 5 MG Tab PO SCH (09:00)
--- NOTE | 2020-10-13 09:10 | CR ---
CHEST: Portable 10/13/2020 at 5:30 AM CLINICAL HISTORY:Chest tube in place COMPARISON:10/13/2019 FINDINGS: Right chest tube remains in place. There is been a decrease in right chest fluid. There is some extrapleural air which is also seen on prior CT. There is no significant infiltrate or edema in the upper lung field. There is persistent consolidation and masslike density in the right lower lobe similar to prior study. Impression: Right chest tube remains in place Decreased fluid in the right hemithorax with residual fluid loculations Persistent consolidation and atelectasis in the right lower lung field
[2020-10-13] MEDS: Ascorbic Acid 500 MG Tab PO SCH (09:12)
[2020-10-13] MEDS: Ferrous Sulfate 325 MG Tab PO SCH ×2 (09:12→17:15)
[2020-10-13] MEDS: Potassium Phos in 0.9 % NaCl 15 MMOL in Premix Bag 1 BAG IV SCH ×4 (09:24→12:35)
--- NOTE | 2020-10-13 20:26 | PCM.SN.2 ---
- Free Text/Narrative Note: call from ICU at 1939 Nursing report when Mr. Chaves was up in chair experienced sudden onset of back pain, labored breathing, and decrease in blood pressure to 69/40 and recheck 2 minutes 78/44. he was then brought back to bed, placed on oxygen. Heart rates 121 S: reports abdominal pain, shortness of breath, painful breathing O: very frail appearing 89 year old man. labored breathing noted and occasional loose sounding cough vital signs- heart rate 120's, resp rate 24, Blood pressure 100 / 62 Oxygen sat 97% on 6 liter simple mask chest: lungs clear no wheezing, rhonchi or crackles, labored breathing with retractions and abdominal breathing noted right chest tube is noted with red discharge heart: tachy rates 110-120's abdomen: absent bowel sounds extremities: multi bruising on hands and forearms. legs with 3 + pitting edema and pale bruises skin: multi bruising. A: new onset hypoxia with chest and abdominal pain right chest tube on 10/13/2011 P: labs, CT chest, abdomen-pelvis, EKG await results Mr. Chaves agrees with plan of care.
--- NOTE | 2020-10-13 22:26 | CRLCT ---
INDICATION: Hypoxia. Sudden onset of epigastric pain. Recent surgery. COMPARISON: CT of the chest from yesterday and CT of the abdomen pelvis from 05/22/2020. TECHNIQUE: CT examination of the chest, abdomen, and pelvis was performed without contrast enhancement using 3 mm thick axial sections from above the apices of the lungs through the symphysis pubis. Oral contrast was not administered. Please note that all CT scans at this facility use dose modulation, iterative reconstruction, and/or weight-based dosing when appropriate to reduce radiation dose to as low as reasonably achievable. FINDINGS: : Again seen is the large caliber right chest tube with its tip in the posterior right lung base. This is located within a loculated hydropneumothorax which has distinctly decreased in size during the interval. This now occupies approximately 30 percent of the right thoracic cavity, previously approximately 60 percent. The collection is again seen to have both sub pneumonic and posterior collections. There is improvement in atelectasis of the right lower lobe which is collapsed anteriorly and medially by the hydro pneumothorax. There is no change in the mild left pleural effusion with moderate atelectasis of the posterior left lung base. There is new mild patchy infiltrate in the infrahilar left upper lobe and lingula, cannot exclude early pneumonia. There is no sign of mediastinal or hilar mass or adenopathy. Sensitivity is limited by the absence of contrast the heart remains moderately enlarged. A TAVR is present. There is heavy triple-vessel coronary calcification with four-chamber dilatation. No pericardial effusion. Heavy calcification of the aortic arch. No sign of aneurysmal dilatation of the thoracic aorta. Normal appearance of the ascending great vessels. There is no sign of supraclavicular or axillary mass or adenopathy. There is moderate ascites, similar appearance to the CT scan from yesterday and increased compared to the mild ascites seen on the previous CT of the abdomen and pelvis from 05/21/2020. In the abdomen, the unenhanced liver has decreased in size common now measuring 14.5 centimeters in length, previously 15.1 centimeters, with continued surface nodularity consistent with cirrhosis. No distinct mass is seen in the liver. The spleen has decreased in size slightly and is now normal in size, measuring 11.1 centimeters, previously 12.2 centimeters. Again seen are multiple calcified granulomata scattered throughout the spleen. No sign of any splenic mass. The pancreas and adrenals are normal in appearance. There is no change in the nonobstructive 4 millimeter calculus in the upper pole of the right kidney. An additional 3 millimeter calculus is again seen in the upper pole of the right kidney. The kidneys are otherwise normal in appearance. Again seen is a 13 millimeter low-density calculus in the otherwise normal appearing gallbladder. The abdominal aorta is normal in caliber with no sign of dilatation. There is no sign of retroperitoneal mass or adenopathy. The stomach, loops of small bowel, and colon in the abdomen are normal in appearance. In the pelvis, the appendix is nonvisualized, but there is no sign of an inflammatory process in the area of the appendix. There is stable severe sigmoid diverticulosis without evidence of diverticulitis. The loops of small bowel and colon in the pelvis are otherwise normal in appearance. The prostate remains mildly enlarged and is otherwise normal in appearance. The urinary bladder is normal in appearance. There is no sign of pelvic or inguinal mass or adenopathy. There is no sign of free air in the abdomen or pelvis. There is new moderate anasarca, most evident in the pelvis. Again seen is mild scoliosis of the lumbar spine convex towards the right. There is progression of the L1 compression fracture compared to the previous CT from 05/21/2020, but unchanged from yesterday`s chest CT, now with approximately 50 percent loss of height anteriorly, previously 30 percent in 2020. IMPRESSION: CT of the chest shows marked decrease in loculated right hydro pneumothorax with continued satisfactory positioning of a large caliber chest tube with its tip in the medial right lung base. This is now approximately 30 percent of the right thoracic volume, with components in the sub pneumonic and posterior spaces. Decreased atelectasis of the inferior portion of the right lower lobe. Stable mild left pleural effusion with stable moderate atelectasis of the posterior left lung base. Stable moderate cardiomegaly Moderate ascites, unchanged from yesterday`s chest CT but increased compared to the previous CT of the abdomen and pelvis from 05/21/2020. New moderate anasarca. CT of the abdomen shows small, nodular liver consistent with cirrhosis, with slight decrease in size compared to 05/2020. Resolution of previously seen mild splenomegaly. Stable cholelithiasis with no sign of acute cholecystitis. Stable mild nonobstructive right nephrolithiasis. CT of the pelvis shows stable severe sigmoid diverticulosis with no sign of diverticulitis. No change in mild enlargement of the prostate. Progression of L1 compression fracture, now moderate when compared to 05/2020. Please note that all CT scans at this facility use dose modulation, iterative reconstruction, and/or weight-based dosing when appropriate to reduce radiation dose to as low as reasonably achievable. Dictated by Vinod Dave MD @ 10/13/2020 10:25:[address] Vinod Dave @ Oct 13 2020 10:25PM
[2020-10-13] MEDS ORDERED: Meropenem 500 MG in Sodium Chloride 0.9% 50 ML IV ONE (22:44)
[2020-10-14 00:04] VITALS: PULSE 103
[2020-10-14] MEDS: Ampicillin 2 GM in Sodium Chloride 0.9% 100 ML IV SCH ×2 (04:59→10:26)
[2020-10-14] MEDS: Insulin Lispro 100 Unit/ML 3 ML KwikPen SUBCUT SCH (08:10)
[2020-10-14] MEDS: Pantoprazole 40 MG Tab.CR PO SCH (08:14)
[2020-10-14] MEDS: Ferrous Sulfate 325 MG Tab PO SCH (08:14)
[2020-10-14 08:25] VITALS: BP 94/56
--- NOTE | 2020-10-14 09:19 | PCM.SN.2 ---
- Free Text/Narrative Note: START OF DOCTOR SHERRYMIBenedict PROGRESS NOTE Subjective: The patient complains of occasional cough. Overnight he denies fever, rigors, nausea, vomiting, wheeze, abdominal pain, chest pain. The patient has lightheadedness, dizziness, diaphoresis, palpitations, sensation rapid heartbeat, sensation and irregular heartbeat. He admits to slight dyspnea. I explained to the patient his current medical condition and plan of care and I [place] ve answered all of his questions Objective: General: -Alert -No acute distress -No dyspnea -Mildly tachypnea Heart: -iRegular rate -Regular rhythm -No murmurs -No gallops -No rubs Lungs: -No wheeze -No rhonchi -No rales -Diminished right-sided breath sounds Abdomen: -Normal bowel sounds in all four quadrants -No rebound -No guarding -No tenderness Extremities: -2/4 pulse in all four extremities -No clubbing -No cyanosis -No edema Additional Details / Additional Findings / Exceptions / Miscellaneous: Pertinent Laboratory Results / Pertinent Radiology Results / Pertinent Diagnostic Results / Pertinent Vital Signs: Heart rate 109 bpm, blood pressure 94/59, respiration 23, 9 7% on 2 L, white blood count 15.6, hemoglobin 1.4, MCV 73, potassium 5.7, creatinine 2.7, total bilirubin is 2.1, troponin 0 0.516 Assessment / Plan: Right shoulder pain, resolved Right pleural effusion recurrence. Patient has chronic recurrence. Patient status post thoracocentesis October 10, 2020. Patient status post right thoracostomy tube placement October 12, 2020. Pleural fluid culture positive for strep viridans on October 12, 2020. Levaquin 500 mg IV every 48 hours plus ampicillin 2 g IV every 6 hours. Check serial x-rays. I will follow up on surgery's findings and recommendations Query pneumonia. Levaquin 500 mg IV every 48 hours plus ampicillin 2 g IV every 6 hours Elevated troponin, query NSTEMI. Monitor patient on telemetry and check serial cardiac enzymes. Aspirin 81 mg p.o. daily plus Crestor 10 mg p.o. nightly. No beta-len or nitrates due to borderline blood pressure. Check echocardiogram Iron deficiency anemia. Will monitor hemoglobin levels intermittently. Fecal occult blood is negative. Ferrous sulfate 325 mg p.o. twice daily plus vitamin C 500 mg p.o. daily Thrombocytopenia. We will monitor platelet count intermittently Hypophosphatemia. Will monitor phosphorus levels intermittently and supplement as necessary Acute on chronic kidney disease. Baseline creatinine 2.2. Will monitor creatinine level intermittently. Albumin 25 g IV every 8 hours Urinary tract infection. Levaquin 500 mg IV every 48 hours Hypertension GERD. Protonix 40 mg p.o. daily Macular degeneration Coronary artery disease, status post CABG. Aspirin 81 mg p.o. daily plus Crestor 10 mg p.o. nightly CHF, ejection fraction 30 to 35% History of aortic stenosis status post aortic valve repair Moderate mitral regurgitation Hyperlipidemia. Crestor 10 mg p.o. nightly Obstructive sleep apnea. CPAP/BiPAP: Okay to use home device and/or pressure when sleeping if patient uses CPAP/BiPAP at home Alcoholic cirrhosis. Lactulose 10 g p.o. 3 times daily BPH History nephrolithiasis Diabetes. Will check fasting glucose before every meal and at bedtime and provide suicide scale History of addiction, not otherwise specified Peripheral vascular disease with carotid stenosis. Aspirin 81 mg p.o. daily plus Crestor 10 mg p.o. nightly Cholelithiasis, asymptomatic Hyperkalemia. Will monitor potassium levels intermittently and correct as necessary Diverticulosis DVT prophylaxis. Bilateral SCD Disposition: Poor prognosis. Within the next 48 hours I will discuss comfort care/hospice with the patient and his family END OF DOCTOR MIGUEL PROGRESS NOTE
--- NOTE | 2020-10-14 09:22 | CR ---
CHEST: Portable 10/14/2020 at 4:57 AM CLINICAL HISTORY:Right chest tube, right pleural effusion COMPARISON:10/13/2020 FINDINGS: There is less than optimal inspiration. Right chest tube remains in place. There appears to be a slight decrease in loculated fluid. There is some persistent airspace disease in the right lower lung.. IMPRESSION: Right chest tube remains in place. There is some decrease in right pleural fluid and airspace disease when compared to prior study
[2020-10-14] MEDS ORDERED: Sodium Polystyrene Sulfonate 15 GM/60 ML Susp 60 ML Bot PO ONE (09:30)
[2020-10-14] MEDS: Aspirin 81 MG Tab.Chew PO SCH (10:08)
[2020-10-14] MEDS: Lactulose Soln 10 GM/15 ML 15 ML UD Cup PO SCH (10:09)
[2020-10-14] MEDS: Ascorbic Acid 500 MG Tab PO SCH (10:09)
[2020-10-14] MEDS: Levofloxacin/Dextrose 5%-Water 500 MG in Premix Bag 1 BAG IV SCH (10:10)
--- NOTE | 2020-10-14 11:10 | PCM.SN.2 ---
- Free Text/Narrative Note: START OF DOCTOR EMAMIS DISCHARGE SUMMARY Date of Admission: October 08, 2020 Date of minute: 11 AM on October 14, 2020 Primary Diagnosis: Right pleural effusion recurrence. Patient has chronic recurrence. Patient status post thoracocentesis October 10, 2020. Patient status post right thoracostomy tube placement October 12, 2020. Pleural fluid culture positive for strep viridans on October 12, 2020 Secondary Diagnosis: Query pneumonia Iron deficiency anemia Thrombocytopenia Hypophosphatemia Acute on chronic kidney disease. Baseline creatinine 2.2 Urinary tract infection Hypertension GERD Macular degeneration Coronary artery disease, status post CABG CHF, ejection fraction 30 to 35% History of aortic stenosis, status post aortic valve repair Moderate mitral regurgitation Hyperlipidemia Obstructive sleep apnea Alcoholic cirrhosis BPH History of nephrolithiasis Diabetes History of addiction, not otherwise specified Peripheral vascular disease with carotid stenosis Cholelithiasis, asymptomatic Hyperkalemia Elevated troponin, query NSTEMI Diverticulosis Consultations: General surgery Disposition: Patient at 11 AM on October 14, 2020 Discharge Medications: None dispensed as the patient is END OF DOCTOR EMAMIS DISCHARGE SUMMARY
--- NOTE | 2020-10-14 20:30 | PN ---
DATE OF SERVICE: 10/14/2020 Overall, he has been reasonably stable. He did have some lower blood pressures during the night. This was corrected with assistance of Valeria Solitario. The chest tube output is 710 mL over the last 24 hours. The 2nd culture obtained at the time of chest tube placement also grew up Strep viridans, which should be covered satisfactorily with ampicillin and Levaquin. His chest tube drainage now is serous, so it would appear that infection fairly well. It fluctuates quite a bit more today than it had, which per se is not as early a significant problem. With the chest tube output being 710, we have to see if that creeps down. He has been noted in the past on thoracentesis and his pleural space rapidly fills up. He has a BNP that is over 200,000, so he would be very prone to getting recurrent effusions and also there has been some possibility of whether or not there is some connection between the peritoneal cavity and the right pleural space via the diaphragm, and which would allow the ascitic fluid to get up into the chest wall. Rod Jaramillo MD /[id number]
[2020-10-14] MEDS ORDERED: Rosuvastatin 10 MG Tab PO SCH (21:00)
--- NOTE | 2020-10-14 21:05 | PN ---
DATE OF SERVICE: 10/13/2020 The patient has been normothermic with temperature steadily in the 97 range, heart rates in the 90 to 100 range. Vital signs are otherwise stable. Chest tube output appeared to be decreasing quite a bit and is actually becoming serosanguineous serous color, which is a positive change from what we were seeing yesterday, i.e., this no longer is purulent. Chest CT showed some loculations, but the vast majority of the pleural fluid appears to be empty. There is some questionable mass effect in the right lower lobe, but the radiologist reports this is unchanged from the previous CT scan of a couple of years ago. The patient at around 10:20 had an oral intake. Labs show a mildly elevated white count of 13.9 and hemoglobin is 11.6. Chemistries show a low phosphate and we will supplement that today. Otherwise, nothing is growing on the cultures. The original thoracentesis done on Monday showed Strep viridans and this should be covered well with the present ampicillin and Levaquin. Rod Jaramillo MD /[id number]
--- NOTE | 2020-10-30 13:57 | PROC ---
DATE OF PROCEDURE: 10/10/2020 SURGEON: Rod Jaramillo MD PREOPERATIVE DIAGNOSIS: Large right pleural effusion. POSTOPERATIVE DIAGNOSIS: Large right pleural effusion. PROCEDURE: Ultrasound-guided right thoracentesis (14510). ANESTHESIA: Local. INDICATIONS FOR PROCEDURE: An 89-year-old male presenting with increasingly symptomatic right pleural effusion. Plan is to proceed with a right thoracentesis. Potential risks including bleeding, infection, and possible pneumohemothorax were all reviewed, and the patient wishes to proceed. DETAILS OF PROCEDURE: In the sitting position, the right chest area was evaluated with ultrasound. An adequate site for the thoracentesis was marked. That area was then prepped and draped, anesthetized with 1% lidocaine. The thoracentesis catheter was then placed, and 600 mL of rice yellow fluid was removed. As much fluid as possible was removed, and the catheter was then withdrawn. Dressing was applied. Chest x-ray showed substantial improvement in the overall appearance of the pleural effusion, although there were still some areas of fluid and probable atelectasis and/or mass. Plan will be to proceed with a CT scan of the chest to further evaluate the situation. There were no evident complications. Rod Jaramillo MD /[id number]
--- NOTE | 2020-10-30 15:45 | OR ---
DATE OF PROCEDURE: 10/12/2020 SURGEON: Rod Jaramillo MD PREOPERATIVE DIAGNOSIS: Right empyema. POSTOPERATIVE DIAGNOSIS: Right tube thoracostomy. ANESTHESIA: IV sedation plus local. INDICATIONS FOR PROCEDURE: This is an 89-year-old who is status post right thoracentesis for recurrent large right pleural effusion. Initial cultures some organisms in the pleural fluid and to undergo chest tube insertion. Potential risks of the procedure were reviewed with the patient and son and they wished to proceed. DETAILS OF PROCEDURE: The patient was taken to the operating room and placed in a semi- sitting position. The right chest wall was then prepped and draped and the area over the eighth interspace in the mid clavicular line was anesthetized with 1% lidocaine mixed with Marcaine. A transverse incision was made and the pleural space was entered in the superior and oblique direction. Upon entrance of the pleural space, the purulent fluid was identified. A 36-Iranian chest tube was then placed into the pleural space. Cultures were once again obtained from the fluid and then the chest tube placed to suction. Large amount of fluid was evacuated, over 1200 mL and the chest tube was sutured to the skin with some #2 Ethibond stitch. Dressing applied. Chest x-ray showed marked improvement in the overall picture of the pleural space and the patient was taken to the recovery room in satisfactory condition. Rod Jaramillo MD /[id number]
== END 2020-10-14 13:15 | disposition expired | DRG 178 ==
LOC: JP.ED 08:20 → JP.MS 13:28 → OBSVTOIN 18:37 → JP.ICU 19:45
PROVIDERS: ADMIT Hospitalist; ATTEND Hospitalist
PROC: 3E033XZ Introduction of Vasopressor into Peripheral Vein, Percutaneous Approach (ICD-10-PCS; principal; 2020-10-08)
PROC: 0W993ZZ Drainage of Right Pleural Cavity, Percutaneous Approach (ICD-10-PCS; 2020-10-10)
PROC: 0W9930Z Drainage of Right Pleural Cavity with Drainage Device, Percutaneous Approach (ICD-10-PCS; 2020-10-12)
DX: J86.9 Pyothorax without fistula (principal); I13.0 Hypertensive heart and chronic kidney disease with heart failure and stage 1 through stage 4 chronic kidney disease, or unspecified chronic kidney disease; N17.9 Acute kidney failure, unspecified; E87.2 Acidosis; J90 Pleural effusion, not elsewhere classified; N39.0 Urinary tract infection, site not specified; I50.22 Chronic systolic (congestive) heart failure; N18.4 Chronic kidney disease, stage 4 (severe); J93.9 Pneumothorax, unspecified; Z68.1 Body mass index [BMI] 19.9 or less, adult; I95.9 Hypotension, unspecified; Z51.5 Encounter for palliative care; E86.0 Dehydration; M25.512 Pain in left shoulder; K21.9 Gastro-esophageal reflux disease without esophagitis; Z66 Do not resuscitate; I25.10 Atherosclerotic heart disease of native coronary artery without angina pectoris; R13.10 Dysphagia, unspecified; G47.33 Obstructive sleep apnea (adult) (pediatric); E78.5 Hyperlipidemia, unspecified; I08.0 Rheumatic disorders of both mitral and aortic valves; G89.29 Other chronic pain; L21.9 Seborrheic dermatitis, unspecified; K70.31 Alcoholic cirrhosis of liver with ascites; N40.0 Benign prostatic hyperplasia without lower urinary tract symptoms; E11.22 Type 2 diabetes mellitus with diabetic chronic kidney disease; K57.90 Diverticulosis of intestine, part unspecified, without perforation or abscess without bleeding; H54.7 Unspecified visual loss; E11.51 Type 2 diabetes mellitus with diabetic peripheral angiopathy without gangrene; Z20.822 Contact with and (suspected) exposure to COVID-19; H35.3130 Nonexudative age-related macular degeneration, bilateral, stage unspecified; E78.00 Pure hypercholesterolemia, unspecified; E66.9 Obesity, unspecified; D50.9 Iron deficiency anemia, unspecified; D69.6 Thrombocytopenia, unspecified; E83.39 Other disorders of phosphorus metabolism; K80.20 Calculus of gallbladder without cholecystitis without obstruction; R77.8 Other specified abnormalities of plasma proteins; E87.5 Hyperkalemia; Z96.611 Presence of right artificial shoulder joint; Z95.1 Presence of aortocoronary bypass graft; Z79.82 Long term (current) use of aspirin; Z87.442 Personal history of urinary calculi; Z88.8 Allergy status to other drugs, medicaments and biological substances; Z79.899 Other long term (current) drug therapy; Z79.01 Long term (current) use of anticoagulants; Z95.2 Presence of prosthetic heart valve; Z98.49 Cataract extraction status, unspecified eye; Z95.5 Presence of coronary angioplasty implant and graft; Z98.890 Other specified postprocedural states; Z99.81 Dependence on supplemental oxygen
CPT/HCPCS: 0241U; 36415; 51702; 71045; 71045-26; 71250; 71250-26; 730302650; 73030-50; 74176; 80048; 80053; 80202; 81001; 82272; 82728; 82947; 83550; 83605; 83615; 83735; 83880; 83970; 84100; 84145; 84157; 84484; 85018; 85025; 85027; 86140; 87015; 87040; 87070; 87075; 87077; 87116; 87149; 87205; 87206; 87220; 88112; 88305; 89050; 92610-GN; 93005; 93010; 94667; 96374; 97110-GP; 97162-GP; 99223; 99232; 99233; 99238; 99284; 99285-25; A9270-GY; G0378; J0290; J1815; J1956; J2185; J2550; J2704; J3010; J3370; J3490; J7030; J7040; J7050; J7060; J7121; P9047